=== PATIENT | male | born 1980 | race Caucasian/White ===

== ENCOUNTER 2017-06-08 22:50 | Inpatient (IN) | payer MEDICAID, SELFPAY ==
[2017-06-08 22:51] VITALS: BP 170/116; PULSE 87; RESP 17; TEMP 36.5; O2SAT 95; BMI 41.4
[2017-06-08 22:56] VITALS: O2SAT 100
--- NOTE | 2017-06-08 23:24 | RAD_ITS ---
STUDY: X-RAY CHEST REASON FOR EXAM: Male, 36 years old. Chest pain. TECHNIQUE: Single AP portable view of the chest. COMPARISON: 03/23/2013. FINDINGS: There is mild chronic elevation of the right hemidiaphragm. There are no demonstrated pulmonary infiltrates. There is no demonstrated pleural abnormality. Normal size heart. Normal mediastinum and lulu. Normal visualized pulmonary arteries. Normal visualized aortic arch and descending thoracic aorta. Normal visualized thoracic spine. There are postsurgical changes in the cervical spine. Normal visualized ribs, clavicles, and shoulders. There is no demonstrated abnormality of the visualized soft tissue structures of the upper abdomen. RAD/Chest 1 View (Portable) IMPRESSION: No evidence for acute cardiopulmonary pathology. Electronically Signed: Alli Davila MD at 0:07 EST , Service support ,
--- NOTE | 2017-06-08 23:24 | EKG12_ITS ---
Test Reason : CP Blood Pressure : / mmHG Vent. Rate : 086 BPM Atrial Rate : 086 BPM P-R Int : 164 ms QRS Dur : 094 ms QT Int : 386 ms P-R-T Axes : 031 057 056 degrees QTc Int : 461 ms Normal sinus rhythm Normal ECG Subtle inferior ischemia Confirmed by LAURI CENTENO, ALEX ([id number]), film and video editor MILAGROS PARKER ([id number]) on 06/10/2017 11:51:19 AM Referred By: CHAPITO Confirmed By:ALEX CARREON MD
[2017-06-08 23:27] VITALS: O2SAT 98
--- NOTE | 2017-06-08 23:28 | ED.VISSUMM ---
- ER Visit Summary Date of Service: 06/08/17 Chief Complaint: Chest pain History of Present Illness: The patient is a 36 M presenting with chest pain ?40 minutes. Patient states he was sleeping he felt his legs were restless he woke up and he had pain in his mid chest and throat. He has pain in his right shoulder as well but he states he is dealing with chronic right shoulder pain. He states it was a heavy sensation and burning in his throat. He has a history of acid reflux. He initially had shortness of breath but this resolved. He denies painful swallowing. He has a history of hypertension, family history of early heart disease, obesity. He is not a smoker. No PE/DVT risk factors. Physical Examination: Vitals are stable. Patient is afebrile. Alert no acute distress. HEENT exam is unremarkable. Pharynx is normal Neck is supple. Lungs are clear and equal bilaterally. Chest wall is nontender Heart is regular rate and rhythm. Abdomen is soft nontender nondistended. Extremities are unremarkable. Skin is warm and dry. Remainder of exam is unremarkable. Emergency Department Course and Treatment: Patient was given aspirin on arrival. EKG is sinus rate of 86, slight inferior ST elevation with no reciprocal changes, unchanged from previous EKG. He was given a GI cocktail. He states his symptoms have completely resolved following the GI cocktail. CBC, chemistries unremarkable. Troponin is indeterminate 0.12. EKGs were faxed to Dr. Nicole. He agrees that there is no significant change from previous EKG. EKG was repeated and is unchanged. He is pain free on re-eval. Discussed with the hospitalist for observation. Disposition: Observation Impression: Chest pain This note was generated with [employer] dictation software. It may contain incorrect words, spelling, and punctuation that were not noted in review of the chart prior to signing ED Disposition - Plan for ED Patient: Chief Complaint: Chest Pain Referrals: Cheyenne Rai [Primary Care Provider] -
--- NOTE | 2017-06-08 23:31 | ED.DCSUM_ITS ---
- ER Visit Summary Date of Service: 06/08/17 Chief Complaint: Chest pain History of Present Illness: The patient is a 36 M presenting with chest pain ? 40 minutes. Patient states he was sleeping he felt his legs were restless he woke up and he had pain in his mid chest and throat. He has pain in his right shoulder as well but he states he is dealing with chronic right shoulder pain. He states it was a heavy sensation and burning in his throat. He has a history of acid reflux. He initially had shortness of breath but this resolved. He denies painful swallowing. He has a history of hypertension, family history of early heart disease, obesity. He is not a smoker. No PE/DVT risk factors. Physical Examination: Vitals are stable. Patient is afebrile. Alert no acute distress. HEENT exam is unremarkable. Pharynx is normal Neck is supple. Lungs are clear and equal bilaterally. Chest wall is nontender Heart is regular rate and rhythm. Abdomen is soft nontender nondistended. Extremities are unremarkable. Skin is warm and dry. Remainder of exam is unremarkable. Emergency Department Course and Treatment: Patient was given aspirin on arrival. EKG is sinus rate of 86, slight inferior ST elevation with no reciprocal changes, unchanged from previous EKG. He was given a GI cocktail. He states his symptoms have completely resolved following the GI cocktail. CBC , chemistries unremarkable. Troponin is indeterminate 0.12. EKGs were faxed to Dr. Nicole. He agrees that there is no significant change from previous EKG. EKG was repeated and is unchanged. He is pain free on re-eval. Discussed with the hospitalist for observation. Disposition: Observation Impression: Chest pain This note was generated with [employer] dictation software. It may contain incorrect words, spelling, and punctuation that were not noted in review of the chart prior to signing ED Disposition - Plan for ED Patient: Chief Complaint: Chest Pain Referrals: Cheyenne Rai [Primary Care Provider] -
[2017-06-08 23:38] LABS: Absolute Lymphocyte Count 2.02 X10^3/ul (0.83-4.51); Absolute Neutrophil Count 3.2 X10^3/uL (2.0-7.7); Basophil# 0.03 X10^3/uL; Basophil% 0.5 % (0-1); Eosinophils% 4.9 % (0-5); Hematocrit 40.3 % (40-54); Hemoglobin 14.5 g/dl (13.0-16.5); Lymphocyte # 2.02 X10^3/ul (4.0); Lymphocyte % 33.3 % (19-41); Mean Corpuscular Hgb 31.9 pg (27.0-32.0); Mean Corpuscular Volume 88.8 fL (80-94); Mean Platelet Vol. 10.5 fl (6.2-12.0); Monocyte# 0.54 X10^3/uL; Monocyte% 8.9 % (0-10); Neutrophil # 3.17 X10^3/uL (2.7-7.7); Neutrophil % 52.2 % (47-70); Platelet Count 207 K/mm3 (150-450); RBC Distribution Width CV 12.4 % (11.6-14.6); RBC Distribution Width SD 39.5 fl (35.1-43.9); Red Blood Count 4.54 M/mm3 (4.6-6.2); White Blood Count 6.1 K/mm3 (4.4-11.0)
[2017-06-08 23:40] LABS: POSITIVE COUNT NO; POSITIVE DIFFERENTIAL NO; POSITIVE MORPHOLOGY NO
[2017-06-08 23:53] LABS: Anion Gap 9 (5-15); BUN 21 mg/dL (7-18); BUN/Creat Ratio 23.5 RATIO (10-20); Calcium,Total 8.3 mg/dL (8.5-10.1); Chloride 105 mmol/L (98-107); EST Glomerular Filtration Rate 102 mL/min (>60); Est Glom Filt Rate - Afr Amer 123 mL/min (>60); Estimated Creatinine Clearance 120.85 ml/min; Glucose 118 mg/dL (70-110); Potassium 3.7 mmol/L (3.5-5.1); Sodium Level 139 mmol/L (136-145)
[2017-06-08 23:59] LABS: D-Dimer Quantitative (DVT/PE) 0.33 FEU/ug/m (0.27-0.49)
[2017-06-09] VITALS (35 sets, daily range): BP systolic 100–192; BP diastolic 57–111; PULSE 66–97; RESP 10–21; TEMP 36.2–37.1; O2SAT 91–99; BMI 40.4; BMI 40.5; BMI 40.8
--- NOTE | 2017-06-09 00:08 | EKG12_ITS ---
Test Reason : REPEAT Blood Pressure : / mmHG Vent. Rate : 090 BPM Atrial Rate : 090 BPM P-R Int : 170 ms QRS Dur : 096 ms QT Int : 384 ms P-R-T Axes : 027 055 044 degrees QTc Int : 469 ms Normal sinus rhythm Normal ECG Subtle inferior ischemia changes Confirmed by LAURI CENTENO, ALEX ([id number]), communications editor MILAGROS PARKER ([id number]) on 06/10/2017 11:51:52 AM Referred By: CHAPITO Confirmed By:ALEX CARREON MD
--- NOTE | 2017-06-09 00:28 | PCM.HP.STD ---
Problem List (1) Chest pain Status: Acute Qualifiers: Chest pain type: unspecified Qualified Code(s): R07.9 - Chest pain, unspecified (2) Elevated blood pressure reading without diagnosis of hypertension Status: Acute (3) Morbid obesity Status: Chronic (4) GERD (gastroesophageal reflux disease) Status: Chronic Qualifiers: Esophagitis presence: esophagitis presence not specified Qualified Code(s): K21.9 - Gastro-esophageal reflux disease without esophagitis History of Present Illness Date of Admission: 06/09/17 Chief Complaint: Chest pain The patient is a 36 y/o M w/ PMHx: Morbid Obesity, GERD who presents to the [facility] ED on 06/09/17 w/ history of onset of chest anju at ~ 9:30 pm, awakening him from sleep, noted to be in the mid chest region with burning sensation and radiation into his throat as well as RUE with associated dyspnea lasting ~ 45 minutes. He does have chronic R shoulder discomfort and intermittent paresthesias s/p cervical fusion many years ago of note. In the ED work-up included T 97.7, HR 87, BP 170/116, RR 17, 100% on 2L NC, unremarkable CBC, D-dimer normal, BMP w/ BUN/Cr 21/0.90, glucose 118, trop 0.12, EKG w/ sinus rhythm with slight inferior ST elevation with no reciprocal changes, unchanged from previous EKG, CXR without acute findings. In the ED patient administered GI cocktail with resolution of symptoms following; however, this only lasted a short while and sxs returned. EKG was also sent to Dr. Nicole who agreed that there was no change from prior EKGs performed. ED noted Dr. Nicole recommendation for admission, cycling of cardiac enzymes. Past Medical History Past Medical History (Chronic Problems): Chronic Problems Morbid obesity (Chronic) GERD (gastroesophageal reflux disease) (Chronic) Allergies Penicillins Allergy (Verified 05/21/15 09:51) Angioedema Home Medications: Ambulatory Orders Medication Instructions Recorded No Known/Unobtainable [No Known 02/06/16 Home Medications] Surgical History: - - Tube right TM, Several prior BL ear tubes, T+A, R knee arthroscopic ACL surgery x 2, Neck Surgery C6-7 fusion. Psychiatric History: No pertinent psych hx Lives: Spouse/ Significant Other Smoking Status: Never smoker Tobacco Use: Non-smoker Alcohol: Occasional Drugs: None - *Family History Maternal History Items: Heart Disease, Hypertension Paternal History Items: Heart Disease, Hypertension Review of Systems Constitutional: Denies: Chills, Fever, Weight Change HEENT: Denies: Head Aches, Sinus Congestion, Sinus Drainage Cardiovascular: Reports: Chest Pain. Denies: Palpitations Respiratory: Reports: Shortness of Breath. Denies: Cough, Shortness of breath at rest, Sputum production Gastrointestinal: Denies: Abdominal Pain, Nausea, Vomiting Genitourinary: Denies: Dysuria Musculoskeletal: Denies: Joint Pain, Joint Tenderness Skin: Denies: Rash, Wounds Neurological: Denies: Numbness, Tingling, Focal weakness Psychiatric: Denies: Anxiety, Depression, Homicidal Ideations, Suicidal Ideations Hematologic/ Lymphatic: Denies: Easy Bruising, Easy Bleeding VTE Information - Inpt Only VTE Present on Admission: No VTE Mechan Device Prophylaxis: SCD's VTE Pharm Prophylaxis ordered?: Yes Patient Problems: Active and Suspected Problems Chest pain (Acute) Elevated blood pressure reading without diagnosis of hypertension (Acute) Subjective: Seated upright in the ED bed, no acute distress. Objective: Physical Examination: General: awake, alert, oriented x 3 and cooperative, seated upright in the ED bed in no apparent distress. Skin: normal color, turgor, no icterus, cyanosis. HEENT: AT/NC, EOMI, PERRLA, MMM, no carotid bruits or JVD noted. Lungs: CTA bilaterally, moderate effort, mild decrease BL bases, no rales, ronchi or wheezing. Heart: Regular rate and rhythm; no gallop, rub audible. Abdomen: soft, morbidly obese, NTTP, ND, normal BS, no HSM. Extremities: no cyanosis, clubbing, or edema. Neurological: patient awake, alert, oriented x 3; cognitive function intact; pupils equally reactive to light and accomodation; cranial nerves II-XII grossly normal, moving all 4 extremities, no focal deficits, strength preserved. Psychiatric: affect appears normal, no acute evidence of depressive or anxiety feelings. - Physical Exam Vital Signs Temp Pulse Resp BP Pulse Ox 97.7 F L 87 17 170/116 H 98 06/08/17 22:51 06/08/17 22:51 06/08/17 22:51 06/08/17 22:51 06/08/17 23:27 Oxygen Flow Rate 2 Oxygen Delivery Method Nasal Cannula Weight: 297 lb 6.457 oz Body Mass Index (BMI) 41.4 Laboratory Tests Past 24 Hrs 06/08/17 06/08/17 06/08/17 22:55 22:55 22:55 WBC 6.1 RBC 4.54 L Hgb 14.5 Hct 40.3 MCV 88.8 MCH 31.9 MCHC 36.0 RDW 12.4 RDW Differential 39.5 Plt Count 207 MPV 10.5 Immature Gran % (Auto) 0.200 Neut % (Auto) 52.2 Lymph % (Auto) 33.3 Citrus % (Auto) 8.9 Eos % (Auto) 4.9 Baso % (Auto) 0.5 Absolute Neuts (auto) 3.2 Absolute Lymphs (auto) 2.02 Total Counted Not Reportable D-Dimer Quant (PE/DVT) 0.33 Sodium 139 Potassium 3.7 Chloride 105 Carbon Dioxide 25.0 Anion Gap 9 BUN 21 H Creatinine 0.90 Estim Creat Clear Calc 120.85 Est GFR (MDRD) Af Amer 123 Est GFR (MDRD) Non-Af 102 BUN/Creatinine Ratio 23.5 H Glucose 118 H Calcium 8.3 L Troponin I 0.12 H Assessment/Plan Active and Suspected Problems Chest pain (Acute) Elevated blood pressure reading without diagnosis of hypertension (Acute) The patient is a 36 y/o M w/ PMHx: Morbid Obesity, GERD who presents to the [facility] ED on 06/09/17 w/ history of onset of chest anju at ~ 9:30 pm, awakening him from sleep, noted to be in the mid chest region with burning sensation and radiation into his throat as well as RUE with associated dyspnea lasting ~ 45 minutes. (1) Chest Pain w/ Indeterminate Cardiac Enzyme: In the ED work-up included T 97.7, HR 87, BP 170/116, RR 17, 100% on 2L NC, unremarkable CBC, D-dimer normal, BMP w/ BUN/Cr 21/0.90, glucose 118, trop 0.12, EKG w/ sinus rhythm with slight inferior ST elevation with no reciprocal changes, unchanged from previous EKG, unremarkable CXR. Will admit to CDU, place on a monitored bed to assure no acute myocardial infarction with serial cardiac enzymes and EKGs. Suspect likely GERD heavily contributing to his chest discomfort complaint; however, given indeterminate troponin with underlying family early cardiac history, elevated BP will further pursue stress testing in AM. FLP in AM. Mag pending. ASA, NG, morphine. (2) Elevated BP without HTN Diagnosis: Will initiate lisinopril, PRN hydralazine. Continue to alter regimen as needed, if further elevation in enzymes consider BB addition. Encouraged avoidance of caffeinated energy drinks which patient reportedly takes quite frequently and is aware that it does elevate his pressure as he has been off these prior with normal blood pressures; however, he was also exercising at that time as well. (3) Hyperglycemia: Admission glucose elevated, not marked, but will obtain HgbA1c. (4) Morbid Obesity: Weight loss and lifestyle changes encouraged, nutrition consulted. (5) GERD: Famotidine BID. (6) DVT Prophylaxis: SCDs, lovenox. Code Visit OBSV E&M: 45524 Initial observation care L3
--- NOTE | 2017-06-09 00:44 | HP.PCM_ITS ---
Problem List (1) Chest pain Status: Acute Qualifiers: Chest pain type: unspecified Qualified Code(s): R07.9 - Chest pain, unspecified (2) Elevated blood pressure reading without diagnosis of hypertension Status: Acute (3) Morbid obesity Status: Chronic (4) GERD (gastroesophageal reflux disease) Status: Chronic Qualifiers: Esophagitis presence: esophagitis presence not specified Qualified Code(s) : K21.9 - Gastro-esophageal reflux disease without esophagitis History of Present Illness Date of Admission: 06/09/17 Chief Complaint: Chest pain The patient is a 36 y/o M w/ PMHx: Morbid Obesity, GERD who presents to the [facility] ED on 06/09/17 w/ history of onset of chest anju at ~ 9:30 pm, awakening him from sleep, noted to be in the mid chest region with burning sensation and radiation into his throat as well as RUE with associated dyspnea lasting ~ 45 minutes. He does have chronic R shoulder discomfort and intermittent paresthesias s/p cervical fusion many years ago of note. In the ED work-up included T 97.7, HR 87 , BP 170/116, RR 17, 100% on 2L NC, unremarkable CBC, D-dimer normal, BMP w/ BUN /Cr 21/0.90, glucose 118, trop 0.12, EKG w/ sinus rhythm with slight inferior ST elevation with no reciprocal changes, unchanged from previous EKG, CXR without acute findings. In the ED patient administered GI cocktail with resolution of symptoms following; however, this only lasted a short while and sxs returned. EKG was also sent to Dr. Nicole who agreed that there was no change from prior EKGs performed. ED noted Dr. Nicole recommendation for admission, cycling of cardiac enzymes. Past Medical History Past Medical History (Chronic Problems): Chronic Problems Morbid obesity (Chronic) GERD (gastroesophageal reflux disease) (Chronic) Allergies Penicillins Allergy (Verified 05/21/15 09:51) Angioedema Home Medications: Ambulatory Orders Medication Instructions Recorded No Known/Unobtainable [No Known 02/06/16 Home Medications] Surgical History: - - Tube right TM, Several prior BL ear tubes, T+A, R knee arthroscopic ACL surgery x 2, Neck Surgery C6-7 fusion. Psychiatric History: No pertinent psych hx Lives: Spouse/ Significant Other Smoking Status: Never smoker Tobacco Use: Non-smoker Alcohol: Occasional Drugs: None - *Family History Maternal History Items: Heart Disease, Hypertension Paternal History Items: Heart Disease, Hypertension Review of Systems Constitutional: Denies: Chills, Fever, Weight Change HEENT: Denies: Head Aches, Sinus Congestion, Sinus Drainage Cardiovascular: Reports: Chest Pain. Denies: Palpitations Respiratory: Reports: Shortness of Breath. Denies: Cough, Shortness of breath at rest, Sputum production Gastrointestinal: Denies: Abdominal Pain, Nausea, Vomiting Genitourinary: Denies: Dysuria Musculoskeletal: Denies: Joint Pain, Joint Tenderness Skin: Denies: Rash, Wounds Neurological: Denies: Numbness, Tingling, Focal weakness Psychiatric: Denies: Anxiety, Depression, Homicidal Ideations, Suicidal Ideations Hematologic/ Lymphatic: Denies: Easy Bruising, Easy Bleeding VTE Information - Inpt Only VTE Present on Admission: No VTE Mechan Device Prophylaxis: SCD's VTE Pharm Prophylaxis ordered?: Yes Patient Problems: Active and Suspected Problems Chest pain (Acute) Elevated blood pressure reading without diagnosis of hypertension (Acute) Subjective: Seated upright in the ED bed, no acute distress. Objective: Physical Examination: General: awake, alert, oriented x 3 and cooperative, seated upright in the ED bed in no apparent distress. Skin: normal color, turgor, no icterus, cyanosis. HEENT: AT/NC, EOMI, PERRLA, MMM, no carotid bruits or JVD noted. Lungs: CTA bilaterally, moderate effort, mild decrease BL bases, no rales, ronchi or wheezing. Heart: Regular rate and rhythm; no gallop, rub audible. Abdomen: soft, morbidly obese, NTTP, ND, normal BS, no HSM. Extremities: no cyanosis, clubbing, or edema. Neurological: patient awake, alert, oriented x 3; cognitive function intact; pupils equally reactive to light and accomodation; cranial nerves II-XII grossly normal, moving all 4 extremities, no focal deficits, strength preserved. Psychiatric: affect appears normal, no acute evidence of depressive or anxiety feelings. - Physical Exam Vital Signs Temp Pulse Resp BP Pulse Ox 97.7 F L 87 17 170/116 H 98 06/08/17 22:51 06/08/17 22:51 06/08/17 22:51 06/08/17 22:51 06/08/17 23:27 Oxygen Flow Rate 2 Oxygen Delivery Method Nasal Cannula Weight: 297 lb 6.457 oz Body Mass Index (BMI) 41.4 Laboratory Tests Past 24 Hrs 06/08/17 06/08/17 06/08/17 22:55 22:55 22:55 WBC 6.1 RBC 4.54 L Hgb 14.5 Hct 40.3 MCV 88.8 MCH 31.9 MCHC 36.0 RDW 12.4 RDW Differential 39.5 Plt Count 207 MPV 10.5 Immature Gran % (Auto) 0.200 Neut % (Auto) 52.2 Lymph % (Auto) 33.3 Phillips % (Auto) 8.9 Eos % (Auto) 4.9 Baso % (Auto) 0.5 Absolute Neuts (auto) 3.2 Absolute Lymphs (auto) 2.02 Total Counted Not Reportable D-Dimer Quant (PE/DVT) 0.33 Sodium 139 Potassium 3.7 Chloride 105 Carbon Dioxide 25.0 Anion Gap 9 BUN 21 H Creatinine 0.90 Estim Creat Clear Calc 120.85 Est GFR (MDRD) Af Amer 123 Est GFR (MDRD) Non-Af 102 BUN/Creatinine Ratio 23.5 H Glucose 118 H Calcium 8.3 L Troponin I 0.12 H Assessment/Plan Active and Suspected Problems Chest pain (Acute) Elevated blood pressure reading without diagnosis of hypertension (Acute) The patient is a 36 y/o M w/ PMHx: Morbid Obesity, GERD who presents to the [facility] ED on 06/09/17 w/ history of onset of chest anju at ~ 9:30 pm, awakening him from sleep, noted to be in the mid chest region with burning sensation and radiation into his throat as well as RUE with associated dyspnea lasting ~ 45 minutes. (1) Chest Pain w/ Indeterminate Cardiac Enzyme: In the ED work-up included T 97.7, HR 87, BP 170/116, RR 17, 100% on 2L NC, unremarkable CBC, D-dimer normal , BMP w/ BUN/Cr 21/0.90, glucose 118, trop 0.12, EKG w/ sinus rhythm with slight inferior ST elevation with no reciprocal changes, unchanged from previous EKG, unremarkable CXR. Will admit to CDU, place on a monitored bed to assure no acute myocardial infarction with serial cardiac enzymes and EKGs. Suspect likely GERD heavily contributing to his chest discomfort complaint; however, given indeterminate troponin with underlying family early cardiac history, elevated BP will further pursue stress testing in AM. FLP in AM. Mag pending. ASA, NG, morphine. (2) Elevated BP without HTN Diagnosis: Will initiate lisinopril, PRN hydralazine. Continue to alter regimen as needed, if further elevation in enzymes consider BB addition. Encouraged avoidance of caffeinated energy drinks which patient reportedly takes quite frequently and is aware that it does elevate his pressure as he has been off these prior with normal blood pressures ; however, he was also exercising at that time as well. (3) Hyperglycemia: Admission glucose elevated, not marked, but will obtain HgbA1c. (4) Morbid Obesity: Weight loss and lifestyle changes encouraged, nutrition consulted. (5) GERD: Famotidine BID. (6) DVT Prophylaxis: SCDs, lovenox. Code Visit OBSV E&M: 60096 Initial observation care L3
[2017-06-09 01:32] LABS: Magnesium 2.1 mg/dL (1.6-2.6)
[2017-06-09 01:47] LABS: Hemoglobin A1c 5.3 % (4.2-6.3)
[2017-06-09] MEDS: oxyCODONE 5 MG Tablet PO ×3 (01:48→19:47)
[2017-06-09] MEDS: Lisinopril 10 MG Tablet PO ×2 (01:51→07:38)
[2017-06-09] MEDS: Famotidine 20 MG Tablet PO ×3 (01:51→22:25)
[2017-06-09 03:21] LABS: Absolute Lymphocyte Count 2.05 X10^3/ul (0.83-4.51); Absolute Neutrophil Count 2.7 X10^3/uL (2.0-7.7); Basophil# 0.03 X10^3/uL; Basophil% 0.6 % (0-1); Eosinophil# 0.24 X10^3/uL; Eosinophils% 4.4 % (0-5); Hematocrit 40.9 % (40-54); Hemoglobin 14.1 g/dl (13.0-16.5); Lymphocyte # 2.05 X10^3/ul (4.0); Lymphocyte % 37.8 % (19-41); Mean Corp Hgb Conc 34.5 g/gl (32-36); Mean Corpuscular Hgb 30.9 pg (27.0-32.0); Mean Corpuscular Volume 89.5 fL (80-94); Mean Platelet Vol. 10.1 fl (6.2-12.0); Monocyte# 0.45 X10^3/uL; Monocyte% 8.3 % (0-10); Neutrophil # 2.65 X10^3/uL (2.7-7.7); Neutrophil % 48.7 % (47-70); Platelet Count 197 K/mm3 (150-450); RBC Distribution Width CV 12.7 % (11.6-14.6); RBC Distribution Width SD 40.5 fl (35.1-43.9); Red Blood Count 4.57 M/mm3 (4.6-6.2); White Blood Count 5.4 K/mm3 (4.4-11.0)
[2017-06-09 03:28] LABS: Anion Gap 10 (5-15); BUN 17 mg/dL (7-18); BUN/Creat Ratio 22.9 RATIO (10-20); Calcium,Total 8.2 mg/dL (8.5-10.1); Chloride 105 mmol/L (98-107); Cholesterol 183 mg/dL (200); Creatinine, Serum 0.74 mg/dL (0.70-1.30); EST Glomerular Filtration Rate 126 mL/min (>60); Est Glom Filt Rate - Afr Amer 153 mL/min (>60); Estimated Creatinine Clearance 146.98 ml/min; Glucose 95 mg/dL (70-110); High Density Lipoprotein 30 mg/dL; Potassium 3.8 mmol/L (3.5-5.1); Sodium Level 140 mmol/L (136-145); Triglycerides 325 mg/dL; Very Low Density Lipoprotein 65 mg/dL (5-40)
[2017-06-09 03:33] LABS: POSITIVE COUNT NO; POSITIVE DIFFERENTIAL NO; POSITIVE MORPHOLOGY NO
--- NOTE | 2017-06-09 03:44 | ECHOD_ITS ---
Reason For Study: Chest pain Procedure This was a 2D Doppler, Color Flow transthoracic echocardiogram. Exam performed portable in ICU/CCU. Left Ventricle Normal LV size. Left ventricular systolic function is normal. The estimated ejection fraction is 55 %. Transmitral and pulmonary venous doppler flow suggestive of impaired relaxation of left ventricle. No regional wall motion abnormalities noted. Right Ventricle Normal RV size. Normal systolic function. Atria Normal left atrium. Normal right atrium. Mitral Valve Normal mitral valve. Tricuspid Valve Normal tricuspid valve. Aortic Valve Normal aortic valve. Trisinus/trileaflet aortic valve. Pulmonic Valve Normal pulmonic valve. Great Vessels Normal aortic root. The pulmonary artery is normal size. Normal inferior vena cava. Pericardium/Pleural No pericardial effusion. MMode/2D Measurements & Calculations LVIDd: 4.7 cm IVSd: 1.3 cm Ao root diam: 3.5 cm LVIDs: 2.8 cm LVPWd: 1.2 cm LA dimension: 4.0 cm RVDd: 3.7 cm FS: 40.4 % LAV(MOD-bp): 35.8 ml LA A4 area: 15.4 cm2 RA A4 area: 15.4 cm2 LAV(MOD-bp) Indexed: 14.5 ml/m2 LAV(MOD-sp2): 32.6 ml LAV(MOD-sp4): 37.9 ml Doppler Measurements & Calculations MV E max lee: 84.6 cm/sec Lat Peak E' Lee: 12.2 cm/sec Med Peak E' Lee: 7.4 cm/sec MV A max lee: 59.3 cm/sec E/E' lat: 6.9 E/E' med: 11.5 MV E/A: 1.4 Ao V2 max: 143.2 cm/sec LV V1 max: 114.6 cm/sec PA V2 max: 124.2 cm/sec Ao max P.2 mmHg LV V1 max P.3 mmHg Interpretation Summary Normal LV size. Left ventricular systolic function is normal. The estimated ejection fraction is 55 %. Transmitral and pulmonary venous doppler flow suggestive of impaired relaxation of left ventricle Ordering Physician: Violet Ordonez Referring Physician: Cheyenne Rai Performed By: Mireya Juan RDCS
[2017-06-09] MEDS: 0.9% Normal Saline 1,000 ML 100 ML IV ×2 (05:13→19:42)
[2017-06-09] MEDS: Atorvastatin Calcium 80 MG Tablet PO ×2 (05:15→22:24)
[2017-06-09] MEDS: Carvedilol 3.125 MG TABLET PO ×3 (05:15→22:24)
--- NOTE | 2017-06-09 05:55 | EKG12_ITS ---
Test Reason : AM EKG Blood Pressure : / mmHG Vent. Rate : 077 BPM Atrial Rate : 077 BPM P-R Int : 168 ms QRS Dur : 106 ms QT Int : 424 ms P-R-T Axes : 031 046 054 degrees QTc Int : 479 ms Normal sinus rhythm Normal ECG When compared with ECG of 12-FEB-2009 23:38, No significant change was found Confirmed by LAURI ECNTENO, ALEX ([id number]), advertising editor MILAGROS PARKER ([id number]) on 06/10/2017 12:00:43 PM Referred By: JUAN Confirmed By:ALEX CARREON MD
[2017-06-09 05:59] LABS: Prothrombin Time (Protime)PT. 12.8 SECONDS (11.7-14.9)
[2017-06-09 07:24] LABS: Bacteria 0 SEEN /hpf (None Seen); Mucous, Urine 0 SEEN /hpf (<or=2+); Red Blood Cells-Urine 0 SEEN /hpf (0-5); Squamous Epithelial Cells - UA 0 SEEN /hpf (0-5); White Blood Cells 0 SEEN /hpf (0-5)
[2017-06-09 07:28] LABS: Color, Urine Yellow (Yellow); Glucose, Dipstick Normal (Normal); Ketone-Dipstick Negative (Negative); Leukocyte Esterase-Dipstick Negative /ul (Negative); Nitrite-Dipstick Negative (Negative); Occult Blood-Urine Negative /ul (Negative); Protein-Dipstick Negative (Negative); Urine Bilirubin Dipstick Negative (Negative); Urine Clarity Clear (Clear); Urine Urobilinogen Normal (Normal); Urine pH 6.5 (5.0 - 8.0)
[2017-06-09] MEDS: Aspirin E.C. 81 MG Tablet PO (07:38)
[2017-06-09] MEDS: TICAGRELOR 90 MG TABLET 180 MG PO (07:38)
--- NOTE | 2017-06-09 07:38 | CON.PCM_ITS ---
Reason for Consult Date of Consultation: 06/09/17 Reason for Consultation: Chest pain. History of Present Illness: The patient is a 36 year old M no previous medical history other than gastroesophageal reflux disease who has been otherwise active. He says that yesterday in the evening he started getting some chest discomfort described as a tightness radiating to his throat associated with mild diaphoresis. He did not have any leg arm or jaw pain. And there was no exertional component to it such. He was however quite concerned about this he presented to the emergency room after calling the squad. He was given GI cocktail with some improvement in the discomfort. His EKG which was done demonstrated some subtle EKG changes in the inferior lead I discussed this with the emergency room physician and it was decided to bring him in and obtain cardiac enzymes. He says that after getting the GI cocktail his discomfort improved and is completely gone. He has had no previous chest pain or shortness of breath or paroxysmal nocturnal dyspnea pedal edema no recent travels. He does have a family history of coronary disease in his mother. To his cardiac enzymes being abnormal stress test which was here 2 4 scheduled has been canceled [] Past Medical History Allergies/Adverse Reactions: Allergies Penicillins Allergy (Verified 05/21/15 09:51) Angioedema Home Medications: Ambulatory Orders Medication Instructions Recorded Oxymetazolone 0.05% [Afrin (BKC)] 15 spray NASAL 06/09/17 Past Medical History (Chronic Problems): Chronic Problems Morbid obesity (Chronic) GERD (gastroesophageal reflux disease) (Chronic) Surgical History: - - Tube right TM, Several prior BL ear tubes, T+A, R knee arthroscopic ACL surgery x 2, Neck Surgery C6-7 fusion. Psychiatric History: No pertinent psych hx - *Family History Maternal History Items: Heart Disease, Hypertension Paternal History Items: Heart Disease, Hypertension Lives: Spouse/ Significant Other Smoking Status: Never smoker Tobacco Use: Non-smoker Alcohol: Occasional Drugs: None Review of Systems - Review of Systems General: Denies: Fever, Night Sweats, Fatigue Cardiovascular: Reports: Chest Discomfort, Chest Discomfort at Rest, Shortness of Breath. Denies: Orthopnea, PND, Peripheral Edema, Palpitations, Lightheadedness, Dizziness, Near Syncope, Syncope Respiratory: Denies: Cough, Sputum Production, Hemoptysis Gastrointestinal: Denies: Hematemesis, Hematochezia, Melena Genitourinary: Denies: Dysuria, Hematuria Skin: Denies: Rash Subjectve: Pleasant gentleman in no apparent distress Objective: Vital Signs Temp Pulse Resp BP Pulse Ox 97.2 F L 81 18 138/78 H 96 06/09/17 05:17 06/09/17 05:17 06/09/17 05:17 06/09/17 05:17 06/09/17 05:17 Oxygen Delivery Method Room Air Weight: 292 lb 5.327 oz Body Mass Index (BMI) 40.4 Intake and Output for Last 24 Hours 06/07/17 06/08/17 06/09/17 23:59 23:59 23:59 Intake Total 498 / 498 Balance 498 / 498 General: Awake, Alert, Oriented x 3 HEENT: PERRL, EOMI, Sclera Non Icteric Neck: Supple, Good ROM, No Lymph Node Enlargement Lungs: Clear to auscultation Cardiovascular: Regular Rhythm, Normal S1, Normal S2, No Murmurs, No Rubs, No Gallops Vascular: No Carotid Bruits, Normal Femoral Pulses, Normal Radial Pulses, Normal Dorsalis Pedal Pulse, Normal Posterior Tibial Pulses Abdomen: Bowel Sounds Present, Soft, Non Tender, No HSM, No Organomegaly Extremities: No Cyanosis, No Clubbing, No edema Neurological: No Focal Motor or Sensory Deficit Psych/Mental Status: Appropriate 06/09/17 02:59: Sodium 140, Potassium 3.8, Chloride 105, Carbon Dioxide 25.0, Anion Gap 10, BUN 17, Creatinine 0.74, Est GFR (MDRD) Af Amer 153, Est GFR (MDRD ) Non-Af 126, BUN/Creatinine Ratio 22.9 H, Glucose 95, Calcium 8.2 L, Triglycerides 325 H, Cholesterol 183, LDL Cholesterol 88, VLDL Cholesterol 65 H , HDL Cholesterol 30 L 06/09/17 02:59: WBC 5.4, RBC 4.57 L, Hgb 14.1, Hct 40.9, MCV 89.5, MCH 30.9, MCHC 34.5, RDW 12.7, RDW Differential 40.5, Plt Count 197, MPV 10.1, Immature Gran % (Auto) 0.200, Neut % (Auto) 48.7, Lymph % (Auto) 37.8, Moca % (Auto) 8.3 , Eos % (Auto) 4.4, Baso % (Auto) 0.6, Absolute Neuts (auto) 2.7, Total Counted Not Reportable 06/09/17 02:59: Troponin I 3.09 H* 06/09/17 05:00: PT 12.8, INR 1.0, APTT 33.0 06/09/17 06:00: Urine Color Yellow, Urine Clarity Clear, Urine pH 6.5, Ur Specific [place] 1.020, Urine Protein Negative, Urine Glucose (UA) Normal, Urine Ketones Negative, Urine Occult Blood Negative, Urine Nitrite Negative, Urine Bilirubin Negative, Urine Urobilinogen Normal, Ur Leukocyte Esterase Negative Rhythm: EKG: Normal sinus rhythm with subtle ST changes in the inferior leads. Assessment/Plan 1. Non-ST elevation myocardial infarction Mr. Landaverde presents with some chest discomfort and subtle EKG changes and has cardiac enzymes which are significant for a non-ST elevation myocardial infarction. My recommendation at this time even though his chest discomfort appears to be somewhat atypical and his pain is completely gone I would recommend that we further evaluate the above with a cardiac catheterization. He does have a low HDL and high triglycerides which suggests a possible metabolic syndrome together with his weight. I have discussed the above with him the risks benefits and alternatives he understands and agrees to proceed. In the meantime he will be started on aspirin as well as ticagrelor. 2. Hyperlipidemia He does have elevated lipid profile as well as low HDL. He would need to go on a diet as well as a statin. Thank you for allowing me to participate in the care of your patient. Please don't hesitate to call if any issues arise
--- NOTE | 2017-06-09 08:55 | CL.D_ITS ---
Patient Name: NIDIA DEMPSEY Study Date: 06/09/2017 Performing: Fernando Nicole MD Ht: 71.26 inches 181 cm : 1980 Wt: 293.21 lbs 133 kg Age: 36 Gender: male BSA: 2.49 PROCEDURE(S) PERFORMED LT83-TCZ/COR/LV CLINICAL PROFILE AND INDICATIONS INDICATIONS: 36-year-old man with a history of non-ST elevation myocardial infarction Stress/Imaging Stress/Image Study Performed: No CONCLUSIONS Moderately severe disease in the mid right coronary artery with evidence of plaque rupture RECOMMENDATIONS Referred for immediate PCI DESCRIPTION OF PROCEDURE The patient arrived to the procedure lab. The risks and benefits of the procedure as well as a full d escription of our services here and current unavailability of surgical backup were fully explained to the patient and/or their significant other prior to the catheterization. The Timeout was completed, verifying the correct patient and procedure. The patient's procedural site was prepped and draped in the usual fashion. Local anesthetic was given subcutaneously to right groin region with Lidocaine 2%. Using a modified Seldinger technique, arterial access was obtained via the right femoral artery, a 5 Fr sheath was inserted. Left Coronary Artery selective angiography was performed in multiple views u sing a 5 Fr. JL4 catheter. Right Coronary Artery selective angiography was then performed in multiple views using a 5 Fr. 3DRC (Yahir) catheter. Left Ventriculography was performed in SHAHID projection using a 5 Fr. Pigtail catheter. LV to AO pullback pressures were then recorded. CORONARY ANGIOGRAPHY DOMINANCE: Right Dominant LEFT HEART ASSESSMENT Left Ventricular Ejection Fraction: by LV Gram 60 % Normal Left Ventricular systolic function LEFT MAIN: Angiographically normal LEFT ANTERIOR DECENDING ARTERY: Angiographically normal CIRCUMFLEX ARTERY: Angiographically normal RIGHT CORONARY ARTERY: MID RCA: 75 % Stenosis COMPLICATIONS PROCEDURE MEDICATIONS Versed 1 mg IV Versed 1 mg IV Oxygen: 2 L/min via nasal cannula SUMMARY OF HEMODYNAMIC DATA Time AIR REST ECG 08:07:43 AO 141/100 (120) SA 08:16:44 LV 138/18, 20 08:25:14 LV 134/14, 20 08:25:20 LV 147/0, 20 08:26:25 LVp 148/1, 19 08:26:29 AOp 147/94 (117) 08:26:34 Signed By Fernando Nicole MD On 06/09/2017 08:54:51 Fernando Nicole MD
--- NOTE | 2017-06-09 09:28 | CL.I_ITS ---
Patient Name: NIDIA DEMPSEY Study Date: 06/09/2017 Performing: Eduar Meza MD Ht: 71.26 inches 181 cm : 1980 Wt: 293.21 lbs 133 kg Age: 36 Gender: male BSA: 2.49 PROCEDURE(S) PERFORMED FI13-KDK W OR WO PTCA, SINGLE CORONARY ARTERY CLINICAL PROFILE AND CO-MORBIDITIES INDICATIONS: 36-year-old man with a history of non-ST elevation myocardial infarction Stress/Imaging Stress/Image Study Performed: No CONCLUSIONS Successful PTCA/LUCA of the mid RCA with a 4.0 x 20 Promus Synergy, post dilated with a 4.0 x 12 NC [place], 75%-->0%. Pt had identical CP with stent and balloon inflation. RECOMMENDATIONS Highly recommend quitting all tobacco products Follow up with primary valve pipe irrigator Risk factor modification ASA Indefinitley Eliquis for at least 12 months Routine post interventional care Refer for Outpatient Cardiac Rehab Manual sheath removal per protocol Follow up with Dr. Nicole ASA Indefinitley DESCRIPTION OF PROCEDURE The patient arrived to the procedure lab. The risks and benefits of the procedure as well as a full d escription of our services here and current unavailability of surgical backup were fully explained to the patient and/or their significant other prior to the catheterization. The Timeout was completed, verifying the correct patient and procedure. The patient's procedural site was prepped and draped in the usual fashion. Local anesthetic was given subcutaneously to right groin region with Lidocaine 2% Using a modified Seldinger technique,arterial access was obtained via the right femoral artery, a 5Fr sheath was inserted. Left Coronary Artery selective angiography was performed in multiple views usin g a 5 Fr. JL4 catheter. Right Coronary Artery selective angiography was then performed in multiple vi ews using a 5 Fr. 3DRC (Yahir) catheter. Left Ventriculography was performed in SHAHID projection usi ng a 5 Fr. Pigtail catheter. LV to AO pullback pressures were then recorded.The images were reviewed and options discussed. A decision was then made to proceed with an Intervention, IVUS or other adjunc t procedure. Arterial sheath was exchanged for a 6 Fr Sheath Angiogram performed pre balloon dilatation. hs 2 Guid e catheter was inserted and engaged into the RCA. bmw Guide wire was advanced to the RCA. synergy 4 x 20 Drug Eluting stent was advanced across the lesion in the right coronary, mid. Angiogram performed pre stent deployment. Angiogram performed post stent deployment. nc emerge 4.00 x 12 Balloon cathete r was inserted post stent. Angiogram performed post balloon dilatation.. . The arterial sheath was s utured in place and capped. INTERVENTION INFORMATION LESION SITE: RCA (Mid) Lesion Complexity: High/C, lesion at bifurcation: Yes, thrombus present: No, culprit lesion: Yes Pre Stenosis: 75 % Pre intervention KIKI flow: 3 PROCEDURE: Drug Eluting Stent with pre and post dilatation Post Stenosis: 0 % Post intervention KIKI flow: 3 Lesion Devices: [email or web address] 6 Fr HSII 100cm Guide Catheter Padgett .014 [employer] [place] Straight 190cm Nir Sci Synergy MR LUCA 4.00x20 Nir Sci NC EMERGE MR 4.00x12 BALLOON COMPLICATIONS PROCEDURE MEDICATIONS Versed 1 mg IV Versed 1 mg IV Oxygen: 2 L/min via nasal cannula Heparin 6000 unit(s) IV 06/09/2017 09:04:45 Nitro 200 mcg IC 06/09/2017 09:07:34 Nitro 200 mcg IC 06/09/2017 09:07:34 SUMMARY OF HEMODYNAMIC DATA Time AIR REST ECG 08:07:43 AO 141/100 (120) SA 08:16:44 LV 138/18, 20 08:25:14 LV 134/14, 20 08:25:20 LV 147/0, 20 08:26:25 LVp 148/1, 19 08:26:29 AOp 147/94 (117) 08:26:34 Signed By Eduar Meza MD On 06/09/2017 9:27:34 AM Eduar Meza MD
--- NOTE | 2017-06-09 10:03 | EKG12_ITS ---
Test Reason : Blood Pressure : / mmHG Vent. Rate : 067 BPM Atrial Rate : 067 BPM P-R Int : 164 ms QRS Dur : 108 ms QT Int : 440 ms P-R-T Axes : 019 063 059 degrees QTc Int : 464 ms Normal sinus rhythm Normal ECG Confirmed by DAINA CENTENO, MIGUEL ([id number]), technical editor MILAGROS PARKER ([id number] on 06/16/2017 12:53:54 PM Referred By: Confirmed By:MIGUEL LAMA MD
[2017-06-09 10:35] LABS: CPK Total, Creatine Kinase 282 U/L (39-308)
[2017-06-09] MEDS: 0.9% Normal Saline 1,000 ML 150 ML IV (11:05)
[2017-06-09 12:01] LABS: ACT Activated Clotting Time 175 sec (74-137)
[2017-06-09 12:06] LABS: ACT Activated Clotting Time 142 sec (74-137)
[2017-06-09 13:06] LABS: M R Staph aureus DNA By PCR Negative (Negative); Probe Check PASS; Specimen Processing Control PASS
--- NOTE | 2017-06-09 13:15 | CRPHASE1 ---
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 Hx Hypertension: Yes - Some high blood pressure in Hospital Hx Metabolic Disorders: Yes Hx Dyslipidemia: Yes Hx Obesity: Yes Height: 1.8 m Weight:: 132.903 kg BMI: 40.8 Family History: Heart Disease - Mother with early heart disease. Laboratory Values: Cardiac Rehab Phase I Labs Hemoglobin A1c 5.3 % (4.2-6.3) 06/08/17 22:55 Triglycerides 325 mg/dL (-199) H 06/09/17 02:59 Cholesterol 183 mg/dL (200) 06/09/17 02:59 LDL Cholesterol 88 mg/dL (0-130) 06/09/17 02:59 HDL Cholesterol 30 mg/dL (40-) L 06/09/17 02:59 Phase I Education Given On:: [place], Nutrition, Antiplatelet medication, CHF Issues Affecting Care:: None Knowledge of Condition:: Yes Learning Preferences: Verbal, Written, Audio/Visual, Demonstration Hospital Course Presenting Symptoms:: NSTEMI with chest burning sensation, radiation to throat and RUE and SOB. Medical/Surgical History GERD:: Yes Orthopedic:: Yes - Cervical fusion in past. Discharge/Home/Social Eval Marital Status: Patient Lives With:: and 3 children.
--- NOTE | 2017-06-09 13:21 | CRPHASE1_ITS ---
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 Hx Hypertension: Yes - Some high blood pressure in Hospital Hx Metabolic Disorders: Yes Hx Dyslipidemia: Yes Hx Obesity: Yes Height: 1.8 m Weight:: 132.903 kg BMI: 40.8 Family History: Heart Disease - Mother with early heart disease. Laboratory Values: Cardiac Rehab Phase I Labs Hemoglobin A1c 5.3 % (4.2-6.3) 06/08/17 22:55 Triglycerides 325 mg/dL (-199) H 06/09/17 02:59 Cholesterol 183 mg/dL (200) 06/09/17 02:59 LDL Cholesterol 88 mg/dL (0-130) 06/09/17 02:59 HDL Cholesterol 30 mg/dL (40-) L 06/09/17 02:59 Phase I Education Given On:: [place], Nutrition, Antiplatelet medication, CHF Issues Affecting Care:: None Knowledge of Condition:: Yes Learning Preferences: Verbal, Written, Audio/Visual, Demonstration Hospital Course Presenting Symptoms:: NSTEMI with chest burning sensation, radiation to throat and RUE and SOB. Medical/Surgical History GERD:: Yes Orthopedic:: Yes - Cervical fusion in past. Discharge/Home/Social Eval Marital Status: Patient Lives With:: and 3 children.
--- NOTE | 2017-06-09 13:21 | CRPH1.INSTRU ---
General Education CAD and cardiac anatomy and function:: Patient communicates acknowledgment, Family communicates acknowledgment - instructed also., Needs reinforcement Explanation of diagnoses and procedures:: Patient communicates acknowledgment, Family communicates acknowledgment, Needs reinforcement Sign/Symptoms of PA:: Patient communicates acknowledgment, Family communicates acknowledgment, Needs reinforcement Antiplatelet therapy: Patient communicates acknowledgment, Family communicates acknowledgment, Needs reinforcement Proper use of NTG-SL: Patient communicates acknowledgment, Family communicates acknowledgment, Needs reinforcement Emergency procedures and activation of EMS: Patient communicates acknowledgment, Family communicates acknowledgment, Needs reinforcement Compliance of all prescribed medications: Patient communicates acknowledgment, Family communicates acknowledgment, Needs reinforcement Smoking Patient Nicotine/Smoking Risk Factors Are:: Non-smoker Recommendations Include:: Previous smoker; encourage continued cessation Nicotine/Smoking Response Code:: Patient communicates acknowledgment, Family communicates acknowledgment, Patient returns demonstration, Family returns demonstration Dyslipidemia Patient Dyslipidemia Risk Factors Are:: Total Cholesterol, Triglycerides, HDL, LDL Recommendations Include:: Lipid profile provided, Reviewed NCEP/ATP guidelines, Therapeutic Lifestyle Change dietary guidelines Dyslipidemia Response Code:: Patient communicates acknowledgment, Family communicates acknowledgment, Needs reinforcement Overweight/Obesity Patient Overweight/Obesity Risk Factors Are:: Obesity - > or = 30 Recommendations Include:: Weight loss of 5-10%, Reduced calorie diet, Exercise 5-7 times/week Overweight/Obesity:: Patient communicates acknowledgment, Family communicates acknowledgment, Needs reinforcement Hypertension Recommendations Include:: Maintain BP <130/85, DASH dietary guidelines, Decrease/maintain normal body weight, Moderation of ETOH Hypertension:: Patient communicates acknowledgment, Family communicates acknowledgment, Needs reinforcement Heart Disease Patient Heart Disease Risk Factors Are:: Family history of heart disease < 65 years old Recommendations Include:: Educated family members of their risk, Educated family members of importance of prevention of heart disease Heart Disease Response Code:: Patient communicates acknowledgment, Family communicates acknowledgment, Needs reinforcement Diabetes Patient Diabetes Risk Factors Are:: No documented hx of diabetes, Elevated blood sugars Diabetes:: Not instructed Metabolic Syndrome Patient Metabolic Syndrome Risk Factors Are [3 of 5]:: Waist circumference > 35 [female] or 40 [male], High triglyceride >150, Hypertension, Low HDL <40 [male] or < 50 [female] Recommendations Include:: Reinforce compliance to risk factor modifications, Encouraged follow-up with Primary Care Physician Metabolic Syndrome Response Code:: Patient communicates acknowledgment, Family communicates acknowledgment, Needs reinforcement Sedentary Patient Sedentary Risk Factors Are:: Lack of regular exercise Recommendations Include:: Aerobic exercise 5-7 times/week for 20-30 minutes continuously, Benefits of regular exercise, Discussed home walking program, Monitored Outpatient Cardiac Rehab Sedentary Response Code:: Patient communicates acknowledgment, Family communicates acknowledgment, Needs reinforcement Stress Patient Stress Risk Factors Are:: Patient denies stress as a risk factor Stress Response Code:: Patient communicates acknowledgment, Family communicates acknowledgment
--- NOTE | 2017-06-09 13:25 | CRPH1.INST_ITS ---
General Education CAD and cardiac anatomy and function:: Patient communicates acknowledgment, Family communicates acknowledgment - instructed also., Needs reinforcement Explanation of diagnoses and procedures:: Patient communicates acknowledgment, Family communicates acknowledgment, Needs reinforcement Sign/Symptoms of GA:: Patient communicates acknowledgment, Family communicates acknowledgment, Needs reinforcement Antiplatelet therapy: Patient communicates acknowledgment, Family communicates acknowledgment, Needs reinforcement Proper use of NTG-SL: Patient communicates acknowledgment, Family communicates acknowledgment, Needs reinforcement Emergency procedures and activation of EMS: Patient communicates acknowledgment , Family communicates acknowledgment, Needs reinforcement Compliance of all prescribed medications: Patient communicates acknowledgment, Family communicates acknowledgment, Needs reinforcement Smoking Patient Nicotine/Smoking Risk Factors Are:: Non-smoker Recommendations Include:: Previous smoker; encourage continued cessation Nicotine/Smoking Response Code:: Patient communicates acknowledgment, Family communicates acknowledgment, Patient returns demonstration, Family returns demonstration Dyslipidemia Patient Dyslipidemia Risk Factors Are:: Total Cholesterol, Triglycerides, HDL, LDL Recommendations Include:: Lipid profile provided, Reviewed NCEP/ATP guidelines, Therapeutic Lifestyle Change dietary guidelines Dyslipidemia Response Code:: Patient communicates acknowledgment, Family communicates acknowledgment, Needs reinforcement Overweight/Obesity Patient Overweight/Obesity Risk Factors Are:: Obesity - > or = 30 Recommendations Include:: Weight loss of 5-10%, Reduced calorie diet, Exercise 5 -7 times/week Overweight/Obesity:: Patient communicates acknowledgment, Family communicates acknowledgment, Needs reinforcement Hypertension Recommendations Include:: Maintain BP <130/85, DASH dietary guidelines, Decrease /maintain normal body weight, Moderation of ETOH Hypertension:: Patient communicates acknowledgment, Family communicates acknowledgment, Needs reinforcement Heart Disease Patient Heart Disease Risk Factors Are:: Family history of heart disease < 65 years old Recommendations Include:: Educated family members of their risk, Educated family members of importance of prevention of heart disease Heart Disease Response Code:: Patient communicates acknowledgment, Family communicates acknowledgment, Needs reinforcement Diabetes Patient Diabetes Risk Factors Are:: No documented hx of diabetes, Elevated blood sugars Diabetes:: Not instructed Metabolic Syndrome Patient Metabolic Syndrome Risk Factors Are [3 of 5]:: Waist circumference > 35 [female] or 40 [male], High triglyceride >150, Hypertension, Low HDL <40 [ male] or < 50 [female] Recommendations Include:: Reinforce compliance to risk factor modifications, Encouraged follow-up with Primary Care Physician Metabolic Syndrome Response Code:: Patient communicates acknowledgment, Family communicates acknowledgment, Needs reinforcement Sedentary Patient Sedentary Risk Factors Are:: Lack of regular exercise Recommendations Include:: Aerobic exercise 5-7 times/week for 20-30 minutes continuously, Benefits of regular exercise, Discussed home walking program, Monitored Outpatient Cardiac Rehab Sedentary Response Code:: Patient communicates acknowledgment, Family communicates acknowledgment, Needs reinforcement Stress Patient Stress Risk Factors Are:: Patient denies stress as a risk factor Stress Response Code:: Patient communicates acknowledgment, Family communicates acknowledgment
--- NOTE | 2017-06-09 14:40 | CASEMGMT ---
See Assessment Link. DC Plan: home on dc with prescriptions filled through [facility] pharmacy assist. -Brillinta card given to pt to give to pharmacist. -[employer] (Brill[employer]) Prescription Savings Program application started-left on front of chart for Dr. Meza to complete. Will then give form to patient to complete his portion and can mail in to [place] for assistance with Brillinta. (message left with Dr. Meza's litigation secretary re: form, hopefully she can notify him in office. Nurse Wallace also aware.)
--- NOTE | 2017-06-09 15:11 | CASEMGMT ---
SW did meet w/pt briefly, gave him some resources including a Medicaid blair, resources in [facility], [facility] and [facility] assist. Also, pt will need to use hospital assist at discharge for meds, SW did explain that this can only be used once per year. Pt states understanding. SW encouraged pt to complete or have his complete the Medicaid blair, and SW can fax it to S in [place] tomorrow. SW did also leave a message for pt financial services. FRIDA will continue to follow. ELANA Carrillo, TERRAZZO POLISHER
[2017-06-09 17:49] LABS: CPK Total, Creatine Kinase 202 U/L (39-308)
[2017-06-09] MEDS: TICAGRELOR 90 MG TABLET PO (22:23)
[2017-06-09 22:54] LABS: CPK Total, Creatine Kinase 184 U/L (39-308)
[2017-06-10] VITALS (11 sets, daily range): BP systolic 103–132; BP diastolic 56–78; PULSE 69–96; RESP 10–18; TEMP 36.5–36.9; O2SAT 90–97
[2017-06-10] MEDS: oxyCODONE 5 MG Tablet PO (00:07)
[2017-06-10 04:08] LABS: Hematocrit 39.8 % (40-54); Hemoglobin 13.8 g/dl (13.0-16.5); Mean Corp Hgb Conc 34.7 g/gl (32-36); Mean Corpuscular Hgb 31.3 pg (27.0-32.0); Mean Corpuscular Volume 90.2 fL (80-94); Mean Platelet Vol. 10.2 fl (6.2-12.0); Platelet Count 199 K/mm3 (150-450); RBC Distribution Width CV 12.7 % (11.6-14.6); RBC Distribution Width SD 41.4 fl (35.1-43.9); Red Blood Count 4.41 M/mm3 (4.6-6.2); White Blood Count 8.1 K/mm3 (4.4-11.0)
[2017-06-10 04:15] LABS: Scan Indicated on CBC? Y/N NO
[2017-06-10 04:24] LABS: Anion Gap 6 (5-15); BUN 16 mg/dL (7-18); BUN/Creat Ratio 19.5 RATIO (10-20); Calcium,Total 8.2 mg/dL (8.5-10.1); Chloride 103 mmol/L (98-107); Creatinine, Serum 0.82 mg/dL (0.70-1.30); EST Glomerular Filtration Rate 113 mL/min (>60); Est Glom Filt Rate - Afr Amer 136 mL/min (>60); Estimated Creatinine Clearance 132.64 ml/min; Glucose 94 mg/dL (70-110); Potassium 4.5 mmol/L (3.5-5.1); Sodium Level 136 mmol/L (136-145)
--- NOTE | 2017-06-10 05:55 | EKG12_ITS ---
Test Reason : AM EKG Blood Pressure : / mmHG Vent. Rate : 078 BPM Atrial Rate : 078 BPM P-R Int : 158 ms QRS Dur : 104 ms QT Int : 394 ms P-R-T Axes : 031 061 052 degrees QTc Int : 449 ms Normal sinus rhythm Normal ECG Confirmed by DAINA CENTENO, MIGUEL ([id number]), editor map MILAGROS PARKER ([id number] on 06/16/2017 12:51:39 PM Referred By: NOLBERTO Confirmed By:MIGUEL LAMA MD
[2017-06-10] MEDS: 0.9% Normal Saline 1,000 ML 100 ML IV (06:18)
--- NOTE | 2017-06-10 08:27 | PN.CARD_ITS ---
Subjectve: Seen and evaluated and appears to be doing well. He says he has no complaints whatsoever. Objective: Vital Signs Temp Pulse Resp BP Pulse Ox 97.7 F L 77 15 116/58 L 92 06/10/17 07:40 06/10/17 07:45 06/10/17 07:40 06/10/17 07:40 06/10/17 07:40 Oxygen Flow Rate 2 Oxygen Delivery Method Room Air Weight: 289 lb 14.526 oz Body Mass Index (BMI) 40.4 Intake and Output for Last 24 Hours 06/08/17 06/09/17 06/10/17 23:59 23:59 23:59 Intake Total 1825 / 1825 2382 / 2382 Output Total 1900 / 1900 500 / 500 Balance -75 / -75 188 / 188 General: Awake, Alert, Oriented x 3 HEENT: PERRL, EOMI, Sclera Non Icteric Neck: Supple, Good ROM, No Lymph Node Enlargement Lungs: Clear to auscultation Cardiovascular: Regular Rhythm, Normal S1, Normal S2, No Murmurs, No Rubs, No Gallops 06/10/17 03:55: Sodium 136, Potassium 4.5, Chloride 103, Carbon Dioxide 27.0, Anion Gap 6, BUN 16, Creatinine 0.82, Est GFR (MDRD) Af Amer 136, Est GFR (MDRD ) Non-Af 113, BUN/Creatinine Ratio 19.5, Glucose 94, Calcium 8.2 L 06/10/17 03:55: WBC 8.1, RBC 4.41 L, Hgb 13.8, Hct 39.8 L, MCV 90.2, MCH 31.3, MCHC 34.7, RDW 12.7, RDW Differential 41.4, Plt Count 199, MPV 10.2 Rhythm: EKG: Sinus rhythm with no acute changes Assessment/Plan 1. Non-ST elevation myocardial infarction When cardiac catheterization yesterday with a resulting plaque rupture mid right coronary artery for which she underwent angioplasty and stenting with a drug-eluting stent successfully. He has done well since then denying any chest pain. His EKG is normal this morning and his hemoglobin is stable without any significant drop. His creatinine is also noted to be stable without any significant rise. At this time he can be discharged and followed up as an outpatient. He will be discharged on the following. Coreg 3.5125 mg twice a day Lisinopril 10 mg a day Aspirin 81 mg a day Atorvastatin 80 mg a day Carvedilol 90 mg twice a day Patient follow-up has been scheduled in my office. 2. Hyperlipidemia He does have elevated lipid profile as well as low HDL. He would need to go on a diet as well as a statin. Thank you for allowing me to participate in the care of your patient. Please don't hesitate to call if any issues arise
--- NOTE | 2017-06-10 10:11 | CASEMGMT ---
Addendum entered by Cydney Walker 06/10/17 11:40: Scripts were sent to the pharmacy, gave the pharmacy the Medicaid number. Pt has a $2 copay. SW let pt know the cost. No further needs are anticipated. ELANA Carrillo, TRAINING SPECIALIST Original Note: FRIDA learned from Marita in the financial dept that pt has presumptive Medicaid, which means pt is covered for outpt services and meds, and once the application goes fully through pt will have hospital coverage as well. SW spoke w/pt and in room, explained the above. Pt has not applied for Medicaid since last year. He explains he applied, was denied, then got a letter at the end of the year for tax purposes stating pt had Medicaid since November. SW encouraged pt and to bring all of this documentation into [facility] and figure out what is going on, they plan to do so. SW explained that once the scripts are written SW will send them to the pharmacy here w/the insurance coverage information. If it comes up that pt is not covered, we will use hospital assist to get pt his medications. Pt and state understanding, SW will continue to follow. ELANA Carrillo, TRAINING SPECIALIST
[2017-06-10] MEDS: Aspirin E.C. 81 MG Tablet PO (10:13)
[2017-06-10] MEDS: TICAGRELOR 90 MG TABLET PO (10:14)
[2017-06-10] MEDS: Famotidine 20 MG Tablet PO (10:14)
[2017-06-10] MEDS: Carvedilol 3.125 MG TABLET PO (10:14)
--- NOTE | 2017-06-10 10:47 | PCM.DC ---
- Discharge Diagnoses Current Active Problems: Current Active and Chronic Problems Chest pain (Acute) Elevated blood pressure reading without diagnosis of hypertension (Acute) Morbid obesity (Chronic) GERD (gastroesophageal reflux disease) (Chronic) You will use the following diet at home:: No restrictions Your food should be the consistency of: Regular Your liquids should be the consistency of: Regular/Thin Discharge Activity: Return to Normal Activity Weight Bearing Status: Full weight bearing Allergies/Adverse Reactions: Allergies Penicillins Allergy (Verified 05/21/15 09:51) Angioedema Medications to take at Discharge Oxymetazolone 0.05% [Afrin (BKC)] 15 spray NASAL 06/09/17 Aspirin E.C. [Ecotrin] 81 mg PO DAILY@0800 tablet 06/10/17 Atorvastatin Calcium [Lipitor] 80 mg PO QHS #30 tab 06/10/17 Carvedilol [Coreg (Beta Norma)] 3.125 mg PO BID #60 tab 06/10/17 Lisinopril [Zestril] 10 mg PO DAILY #30 tab 06/10/17 Ticagrelor [Brilinta] 90 mg PO BID #60 tab 06/10/17 The following prescriptions were given: Atorvastatin Calcium [Lipitor] 80 mg PO QHS #30 tab Lisinopril [Zestril] 10 mg PO DAILY #30 tab Carvedilol [Coreg (Beta Norma)] 3.125 mg PO BID #60 tab Ticagrelor [Brilinta] 90 mg PO BID #60 tab Primary Care Physician: Cheyenne Rai [Primary Care Provider] - Please follow up with your Primary Care Physician in: 3-4 weeks Please Follow Up With: Fernando Nicole MD When: next week
--- NOTE | 2017-06-12 08:14 | PCM.DC.SUM ---
Discharge Date and Diagnosis Date of Admission: 06/09/17 Date of Discharge: 06/10/17 - Primary Discharge Diagnosis #1 acute non-ST elevation MD #2 hyperlipidemia - Secondary Discharge Diagnosis Chronic Problems Morbid obesity (Chronic) GERD (gastroesophageal reflux disease) (Chronic) Hospital Course and Treatment Operations: None Procedures: Cardiac catheterization - With drug-eluting stent placement in the right coronary artery Summary of Care Provided: The patient is a 36 year old M was seen in the emergency room at [facility] with chief complaint of chest pain. Workup in the emergency room included an EKG and a chest x-ray as well as cardiac enzymes, cardiac enzymes are intermediate, chest x-ray was unremarkable, EKG showed normal sinus rhythm without ischemic changes. Patient was admitted to the clinical decision unit at [facility], cardiac enzymes were cycled and they became positive indicating a non-STEMI. He was seen in consultation by cardiology who performed catheterization which showed a preserved EF but a 75% occlusion of the right coronary artery. This lesion on the right coronary artery was stented with a drug-eluting stent, patient went to the ICU following the stenting. Patient had no complications during his hospitalization, on 06/10/17, patient was seen and examined and felt to be in stable condition for discharge home Discharge Activity: Return to Normal Activity Weight Bearing Status: Full weight bearing Home Medications: Medications to take at Discharge Oxymetazolone 0.05% [Afrin (BKC)] 15 spray NASAL 06/09/17 Aspirin E.C. [Ecotrin] 81 mg PO DAILY@0800 tablet 06/10/17 Atorvastatin Calcium [Lipitor] 80 mg PO QHS #30 tab 06/10/17 Carvedilol [Coreg (Beta Norma)] 3.125 mg PO BID #60 tab 06/10/17 Lisinopril [Zestril] 10 mg PO DAILY #30 tab 06/10/17 Ticagrelor [Brilinta] 90 mg PO BID #60 tab 06/10/17 Following Prescrptions Were Given to Patient: Atorvastatin Calcium [Lipitor] 80 mg PO QHS #30 tab Lisinopril [Zestril] 10 mg PO DAILY #30 tab Carvedilol [Coreg (Beta Norma)] 3.125 mg PO BID #60 tab Ticagrelor [Brilinta] 90 mg PO BID #60 tab Primary Care Physician: Cheyenne Rai [Primary Care Provider] - Please follow up with your Primary Care Physician in: 3-4 weeks Please Follow Up With: Fernando Nicole MD When: next week Disposition: Home Minutes spent on discharge:: 32 Patient Condition:: Stable Meaningful Use Info Meaningful Use Diagnoses (Choose all that apply): AMI - AMI Aspirin given w/in 24hrs of arrival?: Yes ASA at discharge?: Yes Statins at discharge?: Yes David/ARB at discharge?: Yes Beta Norma at discharge?: Yes Done w/ Acute MD measure.: Yes Code Visit Inpatient E&M: 63330 Disch Hosp
--- NOTE | 2017-06-12 08:19 | DS.PCM_ITS ---
Discharge Date and Diagnosis Date of Admission: 06/09/17 Date of Discharge: 06/10/17 - Primary Discharge Diagnosis #1 acute non-ST elevation TN #2 hyperlipidemia - Secondary Discharge Diagnosis Chronic Problems Morbid obesity (Chronic) GERD (gastroesophageal reflux disease) (Chronic) Hospital Course and Treatment Operations: None Procedures: Cardiac catheterization - With drug-eluting stent placement in the right coronary artery Summary of Care Provided: The patient is a 36 year old M was seen in the emergency room at [facility] with chief complaint of chest pain. Workup in the emergency room included an EKG and a chest x-ray as well as cardiac enzymes, cardiac enzymes are intermediate, chest x-ray was unremarkable, EKG showed normal sinus rhythm without ischemic changes. Patient was admitted to the clinical decision unit at [facility], cardiac enzymes were cycled and they became positive indicating a non-STEMI. He was seen in consultation by cardiology who performed catheterization which showed a preserved EF but a 75% occlusion of the right coronary artery. This lesion on the right coronary artery was stented with a drug-eluting stent, patient went to the ICU following the stenting. Patient had no complications during his hospitalization, on 06/10/17, patient was seen and examined and felt to be in stable condition for discharge home Discharge Activity: Return to Normal Activity Weight Bearing Status: Full weight bearing Home Medications: Medications to take at Discharge Oxymetazolone 0.05% [Afrin (BKC)] 15 spray NASAL 06/09/17 Aspirin E.C. [Ecotrin] 81 mg PO DAILY@0800 tablet 06/10/17 Atorvastatin Calcium [Lipitor] 80 mg PO QHS #30 tab 06/10/17 Carvedilol [Coreg (Beta Norma)] 3.125 mg PO BID #60 tab 06/10/17 Lisinopril [Zestril] 10 mg PO DAILY #30 tab 06/10/17 Ticagrelor [Brilinta] 90 mg PO BID #60 tab 06/10/17 Following Prescrptions Were Given to Patient: Atorvastatin Calcium [Lipitor] 80 mg PO QHS #30 tab Lisinopril [Zestril] 10 mg PO DAILY #30 tab Carvedilol [Coreg (Beta Norma)] 3.125 mg PO BID #60 tab Ticagrelor [Brilinta] 90 mg PO BID #60 tab Primary Care Physician: Cheyenne Rai [Primary Care Provider] - Please follow up with your Primary Care Physician in: 3-4 weeks Please Follow Up With: Fernando Nicole MD When: next week Disposition: Home Minutes spent on discharge:: 32 Patient Condition:: Stable Meaningful Use Info Meaningful Use Diagnoses (Choose all that apply): AMI - AMI Aspirin given w/in 24hrs of arrival?: Yes ASA at discharge?: Yes Statins at discharge?: Yes David/ARB at discharge?: Yes Beta Norma at discharge?: Yes Done w/ Acute [place] measure.: Yes Code Visit Inpatient E&M: 13363 Disch Hosp
== END 2017-06-10 12:00 | disposition home or self-care (01) | DRG 116 ==
LOC: ED 23:29 → PCU 06-09 01:00 → ICU 06-10 07:54 → PCU 06-10 08:03
PROVIDERS: Internal Medicine Cardiovascular Disease; Admitting Provider Family Medicine; Emergency Provider Emergency Medicine; Family Provider Nurse Practitioner; PCP Nurse Practitioner; Visit Provider Internal Medicine
DX: I21.4 Non-ST elevation (NSTEMI) myocardial infarction (principal); E66.01 Morbid (severe) obesity due to excess calories; E78.5 Hyperlipidemia, unspecified; Z68.41 Body mass index [BMI] 40.0-44.9, adult; K21.9 Gastro-esophageal reflux disease without esophagitis; Z82.49 Family history of ischemic heart disease and other diseases of the circulatory system; I25.10 Atherosclerotic heart disease of native coronary artery without angina pectoris
CPT/HCPCS: 36415; 71045; 80048; 80061; 81001; 82550; 83036; 83735; 84484; 85025; 85027; 85347; 85379; 85610; 85730; 87641; 92928; 93005; 93306; 93458; 97802; 99152; 99153; 99285; J7030; Q9957; A4216; C1725; C1769; C1874; C1887; C9600; Q9967

== ENCOUNTER 2017-07-19 12:01 | Inpatient (IN) | payer MEDICAID, SELFPAY ==
[2017-06-09 13:21] VITALS: BMI 40.8
[2017-07-19] VITALS (18 sets, daily range): BP systolic 131–172; BP diastolic 75–98; PULSE 85–112; RESP 12–21; TEMP 36.6–37.4; O2SAT 94–100; BMI 40.1; BMI 39.4
--- NOTE | 2017-07-19 12:35 | EKG12_ITS ---
Test Reason : GIB Blood Pressure : / mmHG Vent. Rate : 097 BPM Atrial Rate : 097 BPM P-R Int : 158 ms QRS Dur : 098 ms QT Int : 370 ms P-R-T Axes : 020 051 034 degrees QTc Int : 469 ms Normal sinus rhythm Normal ECG Confirmed by LAURI CENTENO, ALEX ([id number]), editorial clerk MILAGROS PARKER ([id number]) on 07/22/2017 2:46:25 PM Referred By: GAMAL Confirmed By:ALEX CARREON MD
[2017-07-19] MEDS: Lidocaine Jelly 2% 20 ML Syringe (URO-JET) 20 APPLIC TOPICAL (13:00)
--- NOTE | 2017-07-19 13:07 | ED.VISSUMM ---
- ER Visit Summary Date of Service: 07/19/17 Chief Complaint: Black stool noted this morning and coffee ground emesis ?1 History of Present Illness: The patient is a 37 M had a cardiac cath and stent placed RCA approximately 6 weeks ago was sent to the ER because of black stool and coffee ground emesis. He does take a baby aspirin a day and Brilinta. He also reports bruising easily. He denies headache. He denies any visual, ocular or auditory symptoms. He denies throat pain. He denies chest pain. Denies shortness of breath. He denies orthopnea PND. He denies hematuria, dysuria, frequency or urgency. Please read written note for complete detail. Physical Examination: Appears uncomfortable complaint of abdominal pain. Head is atraumatic normocephalic. Pupils are equal round reactive. Extraocular muscles are intact. TMs are pearly white with landmarks noted. Nares patent with no drainage. Posterior pharynx without erythema or exudate. Uvula is midline. There is no dysphonia or dysphasia. Trachea is midline. There is no stridor with auscultation of the neck. Heart is regular without murmur, gallop or rub. S1 and S2 are normal. Lungs are clear to auscultation with good movement of air bilaterally. Abdomen is remarkable for epigastric discomfort with increased bowel sounds. Rectal exam is remarkable for black stool. Unable to determine consistencies since there was minimal amount of stool in the rectal vault. He does have significant bruising noted on his extremities and specifically left upper. Patient is alert and oriented ?3. Motor is 5 over 5. Sensory is intact. DTRs are symmetric with no clonus or Babinski sign. Cranial 2 through 12 are intact. Cerebellar testing is normal. Test Results: EG reveals a sinus rhythm rate of 97 and is normal. H&H 15.2 and 41.8 with a platelet count of 297,000. BUN is slightly elevated 21. Coags are normal. NG was placed and he has bright red blood as well as coffee-ground material noted. Emergency Department Course and Treatment: EKG, CBC, BMP and coags were obtained. Left naris was anesthetized with vital gel. NG was placed to determine if he is still actively bleeding. If there is evidence of blood will start Protonix infusion administer 80 mg IV push Protonix. Treatment Plan: Consult GI. Dr. Nicole was contacted regarding discontinuation of aspirin and Brilinta for 24 hours. Protonix IV push and continuous infusion was ordered. Disposition: Admit ICU since he has active upper GI bleed Impression: 1. Active upper GI bleed 2. History of coronary disease with recent placement of stent 2. History of hypertension 4. History of hypercholesterolemia 5. History of GERD This note was generated with [employer]uma-[employer] dictation software. It may contain incorrect words, spelling, and punctuation that were not noted in review of the chart prior to signing ED Disposition - Plan for ED Patient: Chief Complaint: GI Bleed Referrals: Cheyenne Rai [Primary Care Provider] -
[2017-07-19 13:13] LABS: Absolute Lymphocyte Count 2.77 X10^3/ul (0.83-4.51); Absolute Neutrophil Count 4.9 X10^3/uL (2.0-7.7); Basophil# 0.03 X10^3/uL; Basophil% 0.3 % (0-1); Eosinophil# 0.15 X10^3/uL; Eosinophils% 1.7 % (0-5); Hematocrit 41.8 % (40-54); Hemoglobin 15.2 g/dl (13.0-16.5); Lymphocyte # 2.77 X10^3/ul (4.0); Lymphocyte % 32.2 % (19-41); Mean Corp Hgb Conc 36.4 g/gl (32-36); Mean Corpuscular Hgb 32.3 pg (27.0-32.0); Mean Corpuscular Volume 88.9 fL (80-94); Monocyte# 0.77 X10^3/uL; Neutrophil # 4.85 X10^3/uL (2.7-7.7); Neutrophil % 56.6 % (47-70); Platelet Count 247 K/mm3 (150-450); RBC Distribution Width CV 12.9 % (11.6-14.6); RBC Distribution Width SD 41.5 fl (35.1-43.9); White Blood Count 8.6 K/mm3 (4.4-11.0)
[2017-07-19 13:14] LABS: POSITIVE COUNT NO; POSITIVE DIFFERENTIAL NO; POSITIVE MORPHOLOGY NO
[2017-07-19 13:19] LABS: Prothrombin Time (Protime)PT. 13.3 SECONDS (11.7-14.9)
[2017-07-19 13:20] LABS: Partial Thromboplast Time 30.9 Seconds (24.1-36.2)
[2017-07-19 13:26] LABS: Anion Gap 8 (5-15); BUN 21 mg/dL (7-18); BUN/Creat Ratio 26.2 RATIO (10-20); Calcium,Total 9.1 mg/dL (8.5-10.1); Chloride 103 mmol/L (98-107); EST Glomerular Filtration Rate 115 mL/min (>60); Est Glom Filt Rate - Afr Amer 139 mL/min (>60); Estimated Creatinine Clearance 134.65 ml/min; Glucose 85 mg/dL (74-106); Sodium Level 137 mmol/L (136-145)
--- NOTE | 2017-07-19 13:33 | RAD_ITS ---
STUDY: X-RAY - ABDOMEN/PELVIS REASON FOR EXAM: Male, 37 years old. Nasogastric tube placement. TECHNIQUE: Single AP view of the abdomen / pelvis. COMPARISON: None. FINDINGS: Mild elevation of the right hemidiaphragm. The tip of the nasogastric tube is in the body of the stomach. There is an unremarkable bowel gas pattern. There is no demonstrated free abdominal air. The visualized liver, spleen and kidneys are grossly normal in size and morphology. Normal soft tissue structures. Normal visualized osseous structures. RAD/Abdomen Single View (Portable) IMPRESSION: The tip of the nasogastric tube is in the body of the stomach. Electronically Signed: Elie Kumar MD at 14:05 EST Tel [phone], Service support ,
[2017-07-19] MEDS: 0.9% Normal Saline 1,000 ML 150 ML IV ×2 (13:34→19:34)
--- NOTE | 2017-07-19 13:54 | ED.VISSUMM ---
- ER Visit Summary Date of Service: 07/19/17 Chief Complaint: [] History of Present Illness: The patient is a 37 M [] Physical Examination: [] Test Results: [] Emergency Department Course and Treatment: [] Treatment Plan: [] Disposition: [] Impression: [] This note was generated with [employer] dictation software. It may contain incorrect words, spelling, and punctuation that were not noted in review of the chart prior to signing ED Disposition - Plan for ED Patient: Chief Complaint: GI Bleed Referrals: Cheyenne Rai [Primary Care Provider] -
--- NOTE | 2017-07-19 15:07 | NURSING ---
ICU 3 UPPER GI HEMORRHAGE NOLBERTO
--- NOTE | 2017-07-19 16:58 | PCM.CONS.B ---
- Consult Date of Consult: 07/19/17 Reason for consultation: Patient with melena and some hematemesis The patient is a [37] year old [male] who I have been asked to consult. The patient reports yesterday he developed some coffee ground emesis and some mild abdominal pain and discomfort. He has a history of coronary artery disease and is taking Brilinta and aspirin. He also took some nonsteroidals ibuprofen for some body aches. He developed black stool last evening felt more coffee ground emesis earlier today he came to the emergency room. He was non-orthostatic NG tube reveals some coffee grounds and blood. She was admitted to the ICU for further evaluation. He denies diabetes denies shortness of breath or chest pain no history of thyroid no kidney or liver disease. Allergies: Penicillin Medications: Medications Added to Medication List This Visit Category Date Time Status 0.9% Normal Saline 1,000 ml Med 07/19/17 12:35 Active IV 150 mls/hr 0.9% Saline Lock Med 07/19/17 16:30 Active 5 - 30 ml IV UD PRN Aspirin E.C. [Ecotrin] Med 07/20/17 08:00 Active 81 mg PO DAILY@0800 MorphINE Med 07/19/17 15:41 Active 2 - 4 mg IV Q4H PRN PRN Ondansetron [Zofran] Med 07/19/17 15:41 Active 4 mg IV Q8H PRN PRN Pantoprazole Sodium [Protonix] 80 mg Med 07/19/17 13:45 Active 0.9% Normal Saline 80 ml CONT INF Q10H PMH: Coronary artery disease PSH: Recent coronary stent Social: Social History Smoking Status Never smoker ROS: As noted in the HPI Vitals: Vital Signs Height 5 ft 11 in Weight: 128.5 kg Weight in Pounds 283.3 lbs BMI 40.8 Pulse Ox 99 Temperature 99.4 F Pulse Rate 98 Respiratory Rate 19 Blood Pressure [BP] 154/98 Blood Pressure 147/95 Blood Pressure Position [BP] Semi-Fowlers Blood Pressure Position Semi-Fowlers HEENT: Anicteric sclera conjunctiva pink NECK: Supple HEART: S1-S2 no murmur LUNGS: Clear bilaterally ABDOMEN: Soft good bowel sounds nontender EXTER: No edema or clubbing Neuro: Alert and oriented no deficits Impression: Upper GI bleed on Brilinta and aspirin history of a recent coronary stent rule out peptic ulcer disease versus a possible Dieulafoy bleeding lesion Plan: Continue IV PPI n p.o. status hemoglobin hematocrit every 8 hours he will undergo upper endoscopy in the morning
[2017-07-19 18:30] LABS: M R Staph aureus DNA By PCR Negative (Negative); Probe Check PASS; Specimen Processing Control PASS
--- NOTE | 2017-07-19 19:22 | HP.PCM_ITS ---
Problem List (1) Hematemesis Status: Acute Qualifiers: Nausea presence: with nausea Qualified Code(s): K92.0 - Hematemesis (2) Melena Status: Acute History of Present Illness Date of Admission: 07/19/17 Chief Complaint: Hematemesis, melena The patient is a 37 year old M was seen in the emergency room at [facility] with complaints of vomiting blood and dark material which started yesterday, he also complained that he had black stools. Patient denied any syncope, lightheadedness, or red rectal bleeding. Patient had been treated for a non-STEMI and had a stent placed approximately 6 weeks ago. Patient states that he has been taking ibuprofen for neck pain for at least the last 2 weeks. Examination in the emergency room included labs which showed a normal hemoglobin at 15.2, BUN was elevated at 21, NG was inserted with return of dark and red blood-approximately 200-300 cc. He was started on a Protonix drip and gastroenterology was contacted and agreed to see the patient in consultation after admission by the hospitalist service. Patient will be admitted to ICU, labs will be monitored, he will be maintained on Protonix drip. He will be seen by gastroenterology. Past Medical History Past Medical History (Chronic Problems): Chronic Problems (Last Reviewed 07/11/17 @ 09:44 by Rupa Nunes) Morbid obesity (Chronic) GERD (gastroesophageal reflux disease) (Chronic) Allergies Penicillins Allergy (Verified 07/19/17 12:07) Angioedema Home Medications: Ambulatory Orders Medication Instructions Recorded Aspirin E.C. [Ecotrin] 81 mg PO DAILY@0800 tab 06/10/17 atorvastatin 80 mg tablet 80 mg PO QHS #90 tab 07/06/17 carvedilol 3.125 mg tablet 3.125 mg PO BID #180 tab 07/06/17 lisinopril 10 mg tablet 10 mg PO DAILY #90 tab 07/06/17 ticagrelor 90 mg tablet 90 mg PO BID #180 tab 07/06/17 doxycycline hyclate 100 mg tablet 100 mg PO BID 10 Days #20 tab 07/11/17 Surgical History: - - Tube right TM, Several prior BL ear tubes, T+A, R knee arthroscopic ACL surgery x 2, Neck Surgery C6-7 fusion. Coronary artery stent placement May 2017 Psychiatric History: No pertinent psych hx Lives: Spouse/ Significant Other Smoking Status: Never smoker Tobacco Use: Non-smoker Alcohol: None Drugs: None - *Family History Maternal History Items: Heart Disease, Hypertension Paternal History Items: Heart Disease, Hypertension Review of Systems Constitutional: Denies: Anorexia, Chills, Fever, Night Sweats, Malaise, Weakness , Weight Change, Fatigue Eyes: Denies: Blurred vision, Cataracts, Conjunctivae Inflammation, Double vision, Drainage HEENT: Denies: Difficulty Swallowing, Dysphasia, Ear Pain, Eye Pain, Head Aches , Hearing Changes, Nasal bleeding, Nasal Congestion, Post Nasal Drip Cardiovascular: Denies: Chest Pain, Claudication, Chest Pressure, Chest Tightness, Edema, Heaviness, Palpitations, Paroxysmal Noc. Dyspnea Respiratory: Denies: Cough, Hemoptysis, Pleuritic Pain, Shortness of Breath, Shortness of breath at rest, Shortness of breath upon exertion, Sputum production Gastrointestinal: Reports: Hematemesis, Hematochezia, Nausea, Melena, Vomiting. Denies: Abdominal Pain, Constipation, Diarrhea Genitourinary: Denies: Dysuria, Frequency, Hematuria, Hesitancy, Incontinence, Nocturia, Retention, Urgency Musculoskeletal: Reports: Neck Pain. Denies: Back Pain, Foot Pain, Hand Pain, Joint Pain, Joint stiffness, Joint swelling, Joint Tenderness, Leg Pain, Shoulder Pain Skin: Denies: Dryness, Pruritis, Rash Neurological: Denies: Blurred vision, Double vision, Slurred speech, Difficulty swallowing, Focal weakness, Numbness, Tingling, Tremor, Seizures Psychiatric: Denies: Anxiety, Depression, Homicidal Ideations, Suicidal Ideations Endocrine: Denies: Change in Body Habitus, Heat/ Cold Intolerance, Polydipsia, Polyuria Hematologic/ Lymphatic: Denies: Adenopathy, Anemia, Easy Bruising, Easy Bleeding , Petechiae, Purpura VTE Information - Inpt Only VTE Present on Admission: No VTE Mechan Device Prophylaxis: None VTE Pharm Prophylaxis ordered?: No Reason prophylaxis not ordered:: Medical Contraindication - low risk for VTE Patient Problems: Active and Suspected Problems (Last Reviewed 07/11/17 @ 09:44 by Rupa Nunes) Hematemesis (Acute) Melena (Acute) - Physical Exam General: Alert, Oriented x3, Cooperative, No apparent distress, Well developed, Well nourished HEENT: Atraumatic, PERRLA, EOMI, Normocephalic Oral: Moist Mucosa Neck: Supple, No JVD, No Nuchal Rigidity, Trachea Midline, Thyroid Normal Size and Texture Lungs: Clear to auscultation, Normal air movement, No rhonchi, No wheeze, No rales Cardiovascular: Regular rate, Regular Rhythm, Normal S1, Normal S2, No murmurs, No Ectopic Activity, PMI Normal, No rub noted, No Gallop Abdomen: Bowel Sounds Present, Soft, Non Tender, Non-Distended, No hernias noted Extremities: No clubbing, No cyanosis, No edema, Capillary Refill Less than 3 Seconds Skin: No rashes, No breakdown Musculoskeletal: No Tenderness to Palpation of Joints or Extremities, No Muscle Wasting Neurological: Cranial nerves II-XII grossly intact, Neuro grossly intact, Muscle tone normal, Sensory exam intact to light touch and pain, Coordination normal Psych/Mental Status: Normal Affect, Appropriate, Alert and oriented to time, place, person, mood and affect Vital Signs Temp Pulse Resp BP Pulse Ox 99.4 F H 112 H 21 H 163/93 H 94 07/19/17 16:00 07/19/17 17:30 07/19/17 17:30 07/19/17 17:30 07/19/17 17:30 Oxygen Delivery Method Room Air Weight: 128.5 kg Body Mass Index (BMI) 39.4 Laboratory Tests Past 24 Hrs 07/19/17 16:05 MRSA (PCR) Negative Assessment/Plan Active and Suspected Problems (Last Reviewed 07/11/17 @ 09:44 by Rupa Nunes) Hematemesis (Acute) Melena (Acute) #1 acute upper GI bleed secondary to nonsteroidal anti-inflammatory use-most probably from either gastric or duodenal ulceration, patient will be admitted to ICU, IV fluids will be given, H&H will be monitored, gastroenterology will see the patient, he will probably need an EGD performed, patient will be maintained on a Protonix drip #2 coronary artery disease with recent coronary artery stent placement-patient will need to be off his Brilinta and aspirin for now Code Visit Inpatient E&M: 94304 Init Hosp L3
[2017-07-19] MEDS: Ondansetron 4 MG/2 ML Vial IV (19:39)
[2017-07-19] MEDS: 0.9% NaCl Peripheral Flush Adult/Peds IV (19:46)
[2017-07-19] MEDS: oxyCODONE 5 MG Tablet PO (21:25)
[2017-07-19 22:03] LABS: Hematocrit 40.4 % (40-54); Hemoglobin 14.1 g/dl (13.0-16.5)
[2017-07-20] VITALS (25 sets, daily range): BP systolic 98–137; BP diastolic 51–96; PULSE 65–92; RESP 12–20; TEMP 36.1–36.9; O2SAT 95–99
[2017-07-20] MEDS: 0.9% Normal Saline 1,000 ML 150 ML IV ×4 (02:34→21:54)
[2017-07-20] MEDS: oxyCODONE 5 MG Tablet PO ×4 (02:36→21:58)
[2017-07-20 04:12] LABS: Hematocrit 36.3 % (40-54); Hemoglobin 12.6 g/dl (13.0-16.5)
[2017-07-20] MEDS: Oxymetazoline 0.05% 1 SPRAY SPRAY.BTL 2 SPRAY NASAL ×2 (06:53→14:22)
--- NOTE | 2017-07-20 08:34 | PCM.PN.HOSP ---
Patient Problems: Active and Suspected Problems (Last Reviewed 07/11/17 @ 09:44 by Rupa Nunes) Hematemesis (Acute) Melena (Acute) Upper GI bleed (Acute) Subjective: He states that the bleeding has resolved. Denies any further hematemesis, melena nor hematochezia. Patient states that his belly feels better as well after he had the NG placed. Patient stated that after the NG tube was removed, patient did have some epistaxis that did resolve after about 90 minutes. Patient states that he was put on 400 mg of ibuprofen to be intermixed with Tylenol for the past 2 weeks for ruptured eardrum. Vitals/I&O's: Vital Signs Temp Pulse Resp BP Pulse Ox 36.5 C L 76 19 H 137/75 H 95 07/20/17 08:00 07/20/17 08:00 07/20/17 08:00 07/20/17 08:00 07/20/17 08:00 Oxygen Flow Rate (L/min) 2 Oxygen Delivery Method Room Air Weight: 126.8 kg Body Mass Index (BMI) 39.4 Intake and Output for Last 24 Hours 07/18/17 07/19/17 07/20/17 23:59 23:59 23:59 Intake Total 462.8 / 462.8 1619 / 1619 Output Total 500 / 500 250 / 250 Balance -37.2 / -37.2 1369 / 1369 General: Alert, Cooperative, No apparent distress HEENT: Atraumatic, Normocephalic Neck: No Nodes, Thyroid Normal Size and Texture Lungs: Clear to auscultation, Normal air movement, No rhonchi, No wheeze Cardiovascular: Regular rate, Regular Rhythm, Normal S1, Normal S2, No murmurs Abdomen: Bowel Sounds Present, Soft, Non Tender, Non-Distended, No Hepato-splenomegaly Extremities: No edema, No Calf Tenderness Skin: No rashes, No breakdown Psych/Mental Status: Normal Affect, Appropriate Laboratory Results 07/19/17 16:05: MRSA (PCR) Negative 07/19/17 21:45: Hgb 14.1, Hct 40.4 07/20/17 04:00: Hgb 12.6 L, Hct 36.3 L Current Medications Aspirin (Ecotrin) 81 mg PO DAILY@0800 KAMI Last Admin: 07/20/17 07:58 Dose: Not Given Sodium Chloride () 1,000 mls @ 150 mls/hr IV .Q6H40M KAMI Last Admin: 07/20/17 02:34 Dose: 150 mls/hr Pantoprazole Sodium 80 mg/ (Sodium Chloride) 100 mls @ 10 mls/hr CONT INF Q10H KAMI Last Admin: 07/20/17 06:53 Dose: 10 mls/hr Ondansetron HCl (Zofran) 4 mg IV Q8H PRN PRN PRN Reason: NAUSEA Last Admin: 07/19/17 19:39 Dose: 4 mg Oxycodone HCl (Oxyir) 10 - 15 mg PO Q4H PRN PRN PRN Reason: SEVERE PAIN (6-02/22) Last Admin: 07/20/17 02:36 Dose: 15 mg Oxymetazoline HCl (Afrin (Bkc)) 2 spray NASAL BID PRN PRN PRN Reason: NASAL CONGESTION Last Admin: 07/20/17 06:53 Dose: 2 spray Sodium Chloride () 5 - 30 ml IV UD PRN PRN Reason: SALINE FLUSH Last Admin: 07/19/17 19:46 Dose: 20 ml Assessment/Plan Active and Suspected Problems (Last Reviewed 07/11/17 @ 09:44 by Rupa Nunes) Hematemesis (Acute) Melena (Acute) Upper GI bleed (Acute) 1. Upper GI bleed Resolved at this time Suspect peptic ulcer disease versus gastritis versus Meghan-Gordon tear versus Dieulafoy lesion On IV Protonix Plan is for EGD today Bleeding was exacerbated by the concomitant use of aspirin and Brilinta plus ibuprofen. 2. Acute blood loss anemia Patient's hemoglobin went from 15.2-12.6 Continue to monitor No indication for transfusions at this time. 3. Coronary artery disease Patient is on dual antiplatelet therapy with aspirin and Brilinta Stents placed on June 09 Despite the bleeding, patient still needs to be on his Brilinta for the next year. I will resume the Brilinta in light of the GI bleed as the risk for in-stent stenosis far outweighs the risk of further GI bleed. 4. DVT prophylaxis: Chemical prophylaxis contraindicated in light of GI bleed. Patient be on SCDs. Code Visit Inpatient E&M: 69091 Subs Hosp L2
--- NOTE | 2017-07-20 08:41 | PN_ITS ---
Patient Problems: Active and Suspected Problems (Last Reviewed 07/11/17 @ 09:44 by Rupa Nunes) Hematemesis (Acute) Melena (Acute) Upper GI bleed (Acute) Subjective: He states that the bleeding has resolved. Denies any further hematemesis, melena nor hematochezia. Patient states that his belly feels better as well after he had the NG placed. Patient stated that after the NG tube was removed, patient did have some epistaxis that did resolve after about 90 minutes. Patient states that he was put on 400 mg of ibuprofen to be intermixed with Tylenol for the past 2 weeks for ruptured eardrum. Vitals/I&O's: Vital Signs Temp Pulse Resp BP Pulse Ox 36.5 C L 76 19 H 137/75 H 95 07/20/17 08:00 07/20/17 08:00 07/20/17 08:00 07/20/17 08:00 07/20/17 08:00 Oxygen Flow Rate (L/min) 2 Oxygen Delivery Method Room Air Weight: 126.8 kg Body Mass Index (BMI) 39.4 Intake and Output for Last 24 Hours 07/18/17 07/19/17 07/20/17 23:59 23:59 23:59 Intake Total 462.8 / 462.8 1619 / 1619 Output Total 500 / 500 250 / 250 Balance -37.2 / -37.2 1369 / 1369 General: Alert, Cooperative, No apparent distress HEENT: Atraumatic, Normocephalic Neck: No Nodes, Thyroid Normal Size and Texture Lungs: Clear to auscultation, Normal air movement, No rhonchi, No wheeze Cardiovascular: Regular rate, Regular Rhythm, Normal S1, Normal S2, No murmurs Abdomen: Bowel Sounds Present, Soft, Non Tender, Non-Distended, No Hepato- splenomegaly Extremities: No edema, No Calf Tenderness Skin: No rashes, No breakdown Psych/Mental Status: Normal Affect, Appropriate Laboratory Results 07/19/17 16:05: MRSA (PCR) Negative 07/19/17 21:45: Hgb 14.1, Hct 40.4 07/20/17 04:00: Hgb 12.6 L, Hct 36.3 L Current Medications Aspirin (Ecotrin) 81 mg PO DAILY@0800 KAMI Last Admin: 07/20/17 07:58 Dose: Not Given Sodium Chloride () 1,000 mls @ 150 mls/hr IV .Q6H40M KAMI Last Admin: 07/20/17 02:34 Dose: 150 mls/hr Pantoprazole Sodium 80 mg/ (Sodium Chloride) 100 mls @ 10 mls/hr CONT INF Q10H KAMI Last Admin: 07/20/17 06:53 Dose: 10 mls/hr Ondansetron HCl (Zofran) 4 mg IV Q8H PRN PRN PRN Reason: NAUSEA Last Admin: 07/19/17 19:39 Dose: 4 mg Oxycodone HCl (Oxyir) 10 - 15 mg PO Q4H PRN PRN PRN Reason: SEVERE PAIN (6-02/22) Last Admin: 07/20/17 02:36 Dose: 15 mg Oxymetazoline HCl (Afrin (Bkc)) 2 spray NASAL BID PRN PRN PRN Reason: NASAL CONGESTION Last Admin: 07/20/17 06:53 Dose: 2 spray Sodium Chloride () 5 - 30 ml IV UD PRN PRN Reason: SALINE FLUSH Last Admin: 07/19/17 19:46 Dose: 20 ml Assessment/Plan Active and Suspected Problems (Last Reviewed 07/11/17 @ 09:44 by Rupa Nunes) Hematemesis (Acute) Melena (Acute) Upper GI bleed (Acute) 1. Upper GI bleed * Resolved at this time * Suspect peptic ulcer disease versus gastritis versus Meghan-Gordon tear versus Dieulafoy lesion * On IV Protonix * Plan is for EGD today * Bleeding was exacerbated by the concomitant use of aspirin and Brilinta plus ibuprofen. 2. Acute blood loss anemia * Patient's hemoglobin went from 15.2-12.6 * Continue to monitor * No indication for transfusions at this time. 3. Coronary artery disease * Patient is on dual antiplatelet therapy with aspirin and Brilinta * Stents placed on June 09 * Despite the bleeding, patient still needs to be on his Brilinta for the next year. I will resume the Brilinta in light of the GI bleed as the risk for in- stent stenosis far outweighs the risk of further GI bleed. 4. DVT prophylaxis: Chemical prophylaxis contraindicated in light of GI bleed. Patient be on SCDs. Code Visit Inpatient E&M: 17645 Subs Hosp L2
[2017-07-20] MEDS: 0.9% NaCl Peripheral Flush Adult/Peds IV (09:30)
[2017-07-20] MEDS: Aspirin E.C. 81 MG Tablet PO (09:30)
[2017-07-20] MEDS: TICAGRELOR 90 MG TABLET PO ×2 (09:30→22:04)
--- NOTE | 2017-07-20 09:50 | CASEMGMT ---
See RN CM Assessment Link. DC PLAN: Home on dc. Pt denies dc needs @ this time. Rosana MARCUSN RN ACM
--- NOTE | 2017-07-20 13:12 | OP.PCM_ITS ---
Operative Report Date of Procedure: 07/20/17 Preop diagnosis: Melena and anemia Postop diagnosis: EGD with injection therapy and bipolar cautery EGD with biopsy of gastric mucosa gastric ulcer with visible vessel noted Anesthesia: The MAC Instrument: Olympus upper endoscope Informed consent was taken prior to procedure. The patient was brought to the endoscopy suite[ she] was placed left shoulder down. Anesthesia provided the MAC. The scope was passed under direct visualization down into the esophagus. The proximal and midesophagus were normal Z line was 39 cm from the incisors no evidence of esophageal varices. Stomach was easily insufflated there was no blood in the stomach. At the pyloric junction was a gastric ulcer in the 5 o' clock position just above this was a visible vessel with a small erosion and a clot noted. Catheter was used to wash away the clot visible vessel was injected with epinephrine 1 in 10,000 solution approximately 8 cc was injected into the visible vessel. Bipolar cautery using 20 W was then applied to the visible vessel with pressure held 10 second intervals. At this point there was no further clot on the vessel the endoscope was withdrawn examination of the duodenum showed no evidence of bleeding in the duodenum. Scope was withdrawn back into the stomach like she was performed no bleeding around the cardia. Ralston was withdrawn along the lesser curvature there was some superficial ulcerations noted along the lesser curvature no visible vessels or bleeding. Decompressed and the patient tolerated procedure well. Impression: Upper GI bleed related to aspirin Brilinta and nonsteroidals. Recommend stopping the Brilinta for at least 24 hours may receive aspirin continue the IV PPI for monitor hemoglobin hematocrit Plan: Patient may have a clear liquid diet no red products
--- NOTE | 2017-07-20 15:17 | CHAPLAIN ---
Type of Pastoral Visit _x__ Initial Visit ___ Follow-up Visit ___ On-call Visit ___ General Patient Visit ___ Spiritual Assessment ___ Family Conference ___ Bereavement ___ Rapid Response ___ Code Blue ___ Other (describe below) Pastoral Care Referral From _x__ Patient ___ Family ___ Nurse ___ Physician ___ Stack Yield Engineer ___ Log Processor Operator ___ Other (describe below) Sacrament/Intervention _x__ Active listening ___ Anointing ___ Restoration ___ Bereavement ___ Communion ___ Martha exploration ___ ___ Life review _x__ Prayer ___ Reconciliation ___ Sacrament of Sick ___ Supportive presence ___ Wedding ___ Other (describe below) Pastoral Comments
[2017-07-20] MEDS: Carvedilol 3.125 MG TABLET PO (22:04)
[2017-07-20] MEDS: Atorvastatin Calcium 80 MG Tablet PO (22:05)
[2017-07-21] MEDS: oxyCODONE 5 MG Tablet PO ×2 (01:59→09:10)
[2017-07-21 02:00] VITALS: BP 122/80; PULSE 71; RESP 18; TEMP 37.1; O2SAT 97
[2017-07-21] MEDS: Oxymetazoline 0.05% 1 SPRAY SPRAY.BTL 2 SPRAY NASAL (02:06)
[2017-07-21 03:02] VITALS: PULSE 70
[2017-07-21] MEDS: 0.9% Normal Saline 1,000 ML 150 ML IV (04:08)
[2017-07-21 06:38] LABS: Absolute Lymphocyte Count 1.78 X10^3/ul (0.83-4.51); Absolute Neutrophil Count 2.9 X10^3/uL (2.0-7.7); Basophil# 0.01 X10^3/uL; Basophil% 0.2 % (0-1); Eosinophil# 0.19 X10^3/uL; Eosinophils% 3.5 % (0-5); Hematocrit 33.5 % (40-54); Hemoglobin 11.4 g/dl (13.0-16.5); Lymphocyte # 1.78 X10^3/ul (4.0); Lymphocyte % 33.1 % (19-41); Mean Corpuscular Hgb 31.1 pg (27.0-32.0); Mean Corpuscular Volume 91.5 fL (80-94); Mean Platelet Vol. 9.6 fl (6.2-12.0); Monocyte# 0.54 X10^3/uL; Monocyte% 10.1 % (0-10); Neutrophil # 2.85 X10^3/uL (2.7-7.7); Neutrophil % 53.1 % (47-70); Platelet Count 166 K/mm3 (150-450); RBC Distribution Width CV 12.9 % (11.6-14.6); RBC Distribution Width SD 42.9 fl (35.1-43.9); Red Blood Count 3.66 M/mm3 (4.6-6.2); White Blood Count 5.4 K/mm3 (4.4-11.0)
[2017-07-21 06:40] LABS: POSITIVE COUNT NO; POSITIVE DIFFERENTIAL NO; POSITIVE MORPHOLOGY NO
[2017-07-21 07:00] VITALS: PULSE 61
[2017-07-21 07:03] LABS: ALB/GLOB Ratio 1.2 RATIO (0.9-2.4); AST(SGOT) 20 U/L (15-37); Alanine Aminotransfer ALT/SGPT 55 U/L (16-61); Albumin, Serum 3.4 g/dL (3.2-5.0); Alkaline Phosphatase 38 U/L (45-117); Anion Gap 5 (5-15); BUN 9 mg/dL (7-18); BUN/Creat Ratio 11.8 RATIO (10-20); Calcium,Total 8.1 mg/dL (8.5-10.1); Chloride 106 mmol/L (98-107); Creatinine, Serum 0.76 mg/dL (0.70-1.30); EST Glomerular Filtration Rate 122 mL/min (>60); Est Glom Filt Rate - Afr Amer 148 mL/min (>60); Estimated Creatinine Clearance 141.74 ml/min; Globulin 2.8 g/dL (2.2-4.2); Glucose 93 mg/dL (74-106); Potassium 4.2 mmol/L (3.5-5.1); Protein, Total 6.2 g/dL (6.4-8.2); Sodium Level 140 mmol/L (136-145)
[2017-07-21 08:25] VITALS: BP 155/75; PULSE 68; RESP 16; TEMP 36.8; O2SAT 93
[2017-07-21] MEDS: Aspirin E.C. 81 MG Tablet PO (09:05)
[2017-07-21] MEDS: Lisinopril 10 MG Tablet PO (09:06)
[2017-07-21] MEDS: Carvedilol 3.125 MG TABLET PO (09:35)
[2017-07-21] MEDS: TICAGRELOR 90 MG TABLET PO (09:35)
[2017-07-21 11:00] VITALS: PULSE 88
--- NOTE | 2017-07-21 12:45 | PCM.DC ---
- Discharge Diagnoses Current Active Problems: Current Active and Chronic Problems (Last Reviewed 07/11/17 @ 09:44 by Rupa Nunes) Upper GI bleed (Acute) Hematemesis (Acute) Melena (Acute) You will use the following diet at home:: Cardiac Your food should be the consistency of: Regular Your liquids should be the consistency of: Regular/Thin Discharge Activity: Return to Normal Activity Call your doctor if you observe: Fever of 101 or Higher, Chest pain, - - blood in stool. dark tarry stool. vomiting blood Allergies/Adverse Reactions: Allergies Penicillins Allergy (Verified 07/19/17 12:07) Angioedema Medications to take at Discharge Aspirin E.C. [Ecotrin] 81 mg PO DAILY@0800 tab 06/10/17 atorvastatin 80 mg tablet 80 mg PO QHS #90 tab 07/06/17 carvedilol 3.125 mg tablet 3.125 mg PO BID #180 tab 07/06/17 lisinopril 10 mg tablet 10 mg PO DAILY #90 tab 07/06/17 ticagrelor 90 mg tablet 90 mg PO BID #180 tab 07/06/17 Pantoprazole Sodium [Protonix] 40 mg PO BID #60 tab 07/21/17 Primary Care Physician: Cheyenne Rai [Primary Care Provider] - Within 2 Weeks Please Follow Up With: Parveen Reid MD When: 1-2 months Proposed Discharge Date: 07/21/17
--- NOTE | 2017-07-21 12:49 | PCM.DC.SUM ---
Discharge Date and Diagnosis - Problem List Patient Problems: Active and Suspected Problems (Last Reviewed 07/11/17 @ 09:44 by Rupa Nunes) Upper GI bleed (Acute) Hematemesis (Acute) Melena (Acute) Date of Admission: 07/19/17 Date of Discharge: 07/21/17 - Primary Discharge Diagnosis Active and Suspected Problems (Last Reviewed 07/11/17 @ 09:44 by Rupa Nunes) Upper GI bleed (Acute) Hematemesis (Acute) Melena (Acute) - Secondary Discharge Diagnosis Chronic Problems (Last Reviewed 07/11/17 @ 09:44 by Rupa Nunes) Morbid obesity (Chronic) GERD (gastroesophageal reflux disease) (Chronic) Hospital Course and Treatment Imaging Results: Clinical Impression(s) from Imaging Studies [facility] X-Ray 07/19/17 13:33 IMPRESSION: The tip of the nasogastric tube is in the body of the stomach. Electronically Signed: Elie Kumar MD at 14:05 EST Tel [phone], Service support , Operations: None Procedures: EGD Summary of Care Provided: The patient is a 37 year old M presents with hematemesis and melena. Was started on IV Protonix. EGD performed on the seventh showed gastric ulcer with a visible vessel. Patient had cautery of vessel. Have a drop in his hemoglobin from 15.2 down to 11.4. Patient has not had any further evidence of any bleeding. Patient was taking ibuprofen for ruptured eardrum while he was on Brilinta and aspirin. Patient has been advised to avoid NSAIDs for the time being. Patient advised to return to hospital if he has evidence of any further bleeding. [] Discharge Diet: Low fat/ Low Cholesterol Discharge Activity: Return to Normal Activity Call your doctor if you observe: Fever of 101 or Higher, Chest pain, - - blood in stool. dark tarry stool. vomiting blood Home Medications: Medications to take at Discharge Aspirin E.C. [Ecotrin] 81 mg PO DAILY@0800 tab 06/10/17 atorvastatin 80 mg tablet 80 mg PO QHS #90 tab 07/06/17 carvedilol 3.125 mg tablet 3.125 mg PO BID #180 tab 07/06/17 lisinopril 10 mg tablet 10 mg PO DAILY #90 tab 07/06/17 ticagrelor 90 mg tablet 90 mg PO BID #180 tab 07/06/17 Pantoprazole Sodium [Protonix] 40 mg PO BID #60 tab 07/21/17 Following Prescrptions Were Given to Patient: Pantoprazole Sodium [Protonix] 40 mg PO BID #60 tab Primary Care Physician: Cheyenne Rai [Primary Care Provider] - Within 2 Weeks Please Follow Up With: Parveen Reid MD When: 1-2 months Disposition: Home Minutes spent on discharge:: 32 Patient Condition:: Good Meaningful Use Info Meaningful Use Diagnoses (Choose all that apply): None applicable Code Visit Inpatient E&M: 57038 Disch Hosp
--- NOTE | 2017-07-21 12:53 | DS.PCM_ITS ---
Discharge Date and Diagnosis - Problem List Patient Problems: Active and Suspected Problems (Last Reviewed 07/11/17 @ 09:44 by Rupa Nunes) Upper GI bleed (Acute) Hematemesis (Acute) Melena (Acute) Date of Admission: 07/19/17 Date of Discharge: 07/21/17 - Primary Discharge Diagnosis Active and Suspected Problems (Last Reviewed 07/11/17 @ 09:44 by Rupa Nunes) Upper GI bleed (Acute) Hematemesis (Acute) Melena (Acute) - Secondary Discharge Diagnosis Chronic Problems (Last Reviewed 07/11/17 @ 09:44 by Rupa Nunes) Morbid obesity (Chronic) GERD (gastroesophageal reflux disease) (Chronic) Hospital Course and Treatment Imaging Results: Clinical Impression(s) from Imaging Studies K[facility] X-Ray 07/19/17 13:33 IMPRESSION: The tip of the nasogastric tube is in the body of the stomach. Electronically Signed: Elie Kumar MD at 14:05 EST Tel [phone], Service support , Operations: None Procedures: EGD Summary of Care Provided: The patient is a 37 year old M presents with hematemesis and melena. Was started on IV Protonix. EGD performed on the seventh showed gastric ulcer with a visible vessel. Patient had cautery of vessel. Have a drop in his hemoglobin from 15.2 down to 11.4. Patient has not had any further evidence of any bleeding. Patient was taking ibuprofen for ruptured eardrum while he was on Brilinta and aspirin. Patient has been advised to avoid NSAIDs for the time being. Patient advised to return to hospital if he has evidence of any further bleeding. [] Discharge Diet: Low fat/ Low Cholesterol Discharge Activity: Return to Normal Activity Call your doctor if you observe: Fever of 101 or Higher, Chest pain, - - blood in stool. dark tarry stool. vomiting blood Home Medications: Medications to take at Discharge Aspirin E.C. [Ecotrin] 81 mg PO DAILY@0800 tab 06/10/17 atorvastatin 80 mg tablet 80 mg PO QHS #90 tab 07/06/17 carvedilol 3.125 mg tablet 3.125 mg PO BID #180 tab 07/06/17 lisinopril 10 mg tablet 10 mg PO DAILY #90 tab 07/06/17 ticagrelor 90 mg tablet 90 mg PO BID #180 tab 07/06/17 Pantoprazole Sodium [Protonix] 40 mg PO BID #60 tab 07/21/17 Following Prescrptions Were Given to Patient: Pantoprazole Sodium [Protonix] 40 mg PO BID #60 tab Primary Care Physician: Cheyenne Rai [Primary Care Provider] - Within 2 Weeks Please Follow Up With: Parveen Reid MD When: 1-2 months Disposition: Home Minutes spent on discharge:: 32 Patient Condition:: Good Meaningful Use Info Meaningful Use Diagnoses (Choose all that apply): None applicable Code Visit Inpatient E&M: 40932 Disch Hosp
[2017-07-21 12:55] VITALS: BP 124/68; PULSE 71; RESP 14; TEMP 36.8; O2SAT 98
== END 2017-07-21 13:00 | disposition home or self-care (01) | DRG 174 ==
LOC: ED 15:06 → ICU 15:10 → PCU 07-21 08:35
PROVIDERS: Internal Medicine Gastroenterology; Admitting Provider Internal Medicine; Emergency Provider Emergency Medicine; Family Provider Nurse Practitioner; PCP Nurse Practitioner
DX: K25.4 Chronic or unspecified gastric ulcer with hemorrhage (principal); D62 Acute posthemorrhagic anemia; E66.01 Morbid (severe) obesity due to excess calories; I25.10 Atherosclerotic heart disease of native coronary artery without angina pectoris; Z95.5 Presence of coronary angioplasty implant and graft; Z68.39 Body mass index [BMI] 39.0-39.9, adult; K21.9 Gastro-esophageal reflux disease without esophagitis; H72.90 Unspecified perforation of tympanic membrane, unspecified ear; I10 Essential (primary) hypertension; Z79.899 Other long term (current) drug therapy; Z79.82 Long term (current) use of aspirin; Z79.02 Long term (current) use of antithrombotics/antiplatelets; R04.0 Epistaxis
CPT/HCPCS: 36415; 74018; 80048; 80053; 85014; 85018; 85025; 85610; 85730; 87641; 93005; 99285; J7030; J7120; A4216; J2405; J3490

== ENCOUNTER → 2017-10-08 14:09 | Outpatient (CLI) | payer MEDICAID, SELFPAY ==
[2017-06-09 13:21] VITALS: BMI 40.8
== END ==
PROVIDERS: Family Provider Nurse Practitioner; PCP Nurse Practitioner; Visit Provider Nurse Practitioner Family
DX: J02.9 Acute pharyngitis, unspecified (principal)
CPT/HCPCS: 87077; 87081

== ENCOUNTER 2018-03-24 23:19 | Emergency (ER) | payer SELFPAY ==
[2017-06-09 13:21] VITALS: BMI 40.8
[2018-03-24 23:20] VITALS: BP 160/108; PULSE 91; RESP 16; TEMP 36.4; O2SAT 95; BMI 39.4
--- NOTE | 2018-03-24 23:25 | EKG12_ITS ---
Test Reason : CP Blood Pressure : / mmHG Vent. Rate : 090 BPM Atrial Rate : 090 BPM P-R Int : 164 ms QRS Dur : 102 ms QT Int : 374 ms P-R-T Axes : 026 058 051 degrees QTc Int : 457 ms Normal sinus rhythm Normal ECG Confirmed by LAURI CENTENO, ALEX ([id number]), newspaper or periodical editor MILAGROS PARKER ([id number]) on 03/28/2018 3:49:35 PM Referred By: DR GONZALEZ Confirmed By:ALEX CARREON MD
--- NOTE | 2018-03-24 23:27 | RAD_ITS ---
STUDY: X-RAY CHEST REASON FOR EXAM: Male, 37 years old. Chest pain. Heart disease. TECHNIQUE: 06/08/2017 COMPARISON: None. FINDINGS: The lungs are clear and expanded. There is no demonstrated pleural abnormality. Normal size heart. Normal mediastinum and lulu. Normal visualized pulmonary arteries. Normal visualized aortic arch and descending thoracic aorta. Normal visualized thoracic spine. Previous cervical spine surgery. Normal visualized ribs, clavicles, and shoulders. There is no demonstrated abnormality of the visualized soft tissue structures of the upper abdomen. RAD/Chest 1 View (Portable) IMPRESSION: Normal x-ray examination of the chest. Electronically Signed: Robbie Seha MD at 23:39 EST , Service support ,
[2018-03-24 23:36] VITALS: BP 139/90; PULSE 86; RESP 19; O2SAT 94; O2SAT 95
[2018-03-24 23:36] LABS: Absolute Lymphocyte Count 1.99 X10^3/ul (0.83-4.51); Absolute Neutrophil Count 2.8 X10^3/uL (2.0-7.7); Basophil# 0.02 X10^3/uL; Basophil% 0.4 % (0-1); Eosinophil# 0.21 X10^3/uL; Eosinophils% 3.8 % (0-5); Hematocrit 42.2 % (40-54); Hemoglobin 14.4 g/dl (13.0-16.5); Lymphocyte # 1.99 X10^3/ul (4.0); Lymphocyte % 36.2 % (19-41); Mean Corp Hgb Conc 34.1 g/gl (32-36); Mean Corpuscular Hgb 31.3 pg (27.0-32.0); Mean Corpuscular Volume 91.7 fL (80-94); Mean Platelet Vol. 9.7 fl (6.2-12.0); Monocyte# 0.47 X10^3/uL; Monocyte% 8.5 % (0-10); Neutrophil % 50.9 % (47-70); Platelet Count 191 K/mm3 (150-450); RBC Distribution Width CV 12.7 % (11.6-14.6); RBC Distribution Width SD 42.5 fl (35.1-43.9); White Blood Count 5.5 K/mm3 (4.4-11.0)
[2018-03-24 23:37] LABS: POSITIVE COUNT NO; POSITIVE DIFFERENTIAL NO; POSITIVE MORPHOLOGY NO
[2018-03-25 00:04] LABS: Anion Gap 7 (5-15); BUN 19 mg/dL (7-18); BUN/Creat Ratio 19.1 RATIO (10-20); Calcium,Total 8.2 mg/dL (8.5-10.1); Chloride 104 mmol/L (98-107); EST Glomerular Filtration Rate 90 mL/min (>60); Est Glom Filt Rate - Afr Amer 108 mL/min (>60); Estimated Creatinine Clearance 104.43 ml/min; Glucose 123 mg/dL (74-106); Potassium 3.7 mmol/L (3.5-5.1); Sodium Level 137 mmol/L (136-145)
--- NOTE | 2018-03-25 00:20 | EKG12_ITS ---
Test Reason : CP Blood Pressure : / mmHG Vent. Rate : 082 BPM Atrial Rate : 082 BPM P-R Int : 168 ms QRS Dur : 102 ms QT Int : 396 ms P-R-T Axes : 030 047 064 degrees QTc Int : 462 ms Normal sinus rhythm Normal ECG Confirmed by LAURI CENTENO, ALEX ([id number]), supervising editor trailer MILAGROS PARKER ([id number]) on 03/28/2018 3:49:20 PM Referred By: DR GONZALEZ Confirmed By:ALEX CARREON MD
[2018-03-25 00:25] VITALS: BP 141/91; PULSE 84; RESP 16; O2SAT 94
[2018-03-25] MEDS: Mag Hydrox/Al Hydrox/Simeth 30 ML UDC PO (00:27)
[2018-03-25 01:36] VITALS: BP 141/91; PULSE 84; RESP 16; O2SAT 98
--- NOTE | 2018-03-25 02:13 | ED.VISSUMM ---
- ER Visit Summary Date of Service: 03/25/18 Chief Complaint: Chest pain History of Present Illness: The patient is a 37 M who presents with chest pain. It began about 2 hours ago. It woke him from sleep. He complains of a substernal burning chest pain. This does not radiate. He had some numbness in his left hand but also notes that he has some neck problems. He did not have any pain into the arm jaw or neck. His pain was initially 7 out of 10. He took nitroglycerin and it did not improve. After arrival here to the ER later however he has had some improvement of symptoms. He now rates his discomfort as 3 out of 10. He vomited once after the nitroglycerin. He does note that he ate hot wings last night as well. He describes his pain as burning. He does have a history of reflux and prior peptic ulcer disease as well as prior AK. He states this does not feel like his AK. He has also not been taking his medications for the last 2 days. Physical Examination: Afebrile initial blood pressure 160/108 vitals otherwise unremarkable Heart regular rate and rhythm Lungs are clear Abdomen soft Extremities nontender 2+ radial pulses Alert Test Results: EKG shows normal sinus rhythm at a rate of 90 with no acute ischemic changes. Repeat EKG is unchanged. Chest x-ray is normal. CBC BMP unremarkable. Troponin negative. Repeat troponin remains negative. Emergency Department Course and Treatment: Patient describes substernal burning chest pain with a history of peptic ulcer disease after eating but describes as very spicy hot wings. He was given a GI cocktail here. On reevaluation he has had resolution of symptoms. Although he does have a history of prior AK he notes that this feels different. I do not believe his symptoms are due to cardiac ischemia. I believe this is due to gastroesophageal reflux. He was advised to continue his home medications. He is prescribed lansoprazole but notes that he had not been taking his medications last couple of days. He understands return for new or worsening symptoms. He was discharged home. Treatment Plan: [] Disposition: Discharge Impression: GERD This note was generated with MST dictation software. It may contain incorrect words, spelling, and punctuation that were not noted in review of the chart prior to signing ED Disposition - Plan for ED Patient: Chief Complaint: Chest Pain Referrals: Cheyenne Rai, GEORGI-C [Primary Care Provider] -
--- NOTE | 2018-03-25 02:16 | ED.DCSUM_ITS ---
- ER Visit Summary Date of Service: 03/25/18 Chief Complaint: Chest pain History of Present Illness: The patient is a 37 M who presents with chest pain. It began about 2 hours ago. It woke him from sleep. He complains of a substernal burning chest pain. This does not radiate. He had some numbness in his left hand but also notes that he has some neck problems. He did not have any pain into the arm jaw or neck. His pain was initially 7 out of 10. He took nitroglycerin and it did not improve. After arrival here to the ER later however he has had some improvement of symptoms. He now rates his discomfort as 3 out of 10. He vomited once after the nitroglycerin. He does note that he ate hot wings last night as well. He describes his pain as burning. He does have a history of reflux and prior peptic ulcer disease as well as prior MA. He states this does not feel like his MA. He has also not been taking his medications for the last 2 days. Physical Examination: Afebrile initial blood pressure 160/108 vitals otherwise unremarkable Heart regular rate and rhythm Lungs are clear Abdomen soft Extremities nontender 2+ radial pulses Alert Test Results: EKG shows normal sinus rhythm at a rate of 90 with no acute ischemic changes. Repeat EKG is unchanged. Chest x-ray is normal. CBC BMP unremarkable. Troponin negative. Repeat troponin remains negative. Emergency Department Course and Treatment: Patient describes substernal burning chest pain with a history of peptic ulcer disease after eating but describes as very spicy hot wings. He was given a GI cocktail here. On reevaluation he has had resolution of symptoms. Although he does have a history of prior MA he notes that this feels different. I do not believe his symptoms are due to cardiac ischemia. I believe this is due to gastroesophageal reflux. He was advised to continue his home medications. He is prescribed lansoprazole but notes that he had not been taking his medications last couple of days. He understands return for new or worsening symptoms. He was discharged home. Treatment Plan: [] Disposition: Discharge Impression: GERD This note was generated with [employer] dictation software. It may contain incorrect words, spelling, and punctuation that were not noted in review of the chart prior to signing ED Disposition - Plan for ED Patient: Chief Complaint: Chest Pain Referrals: Cheyenne Rai, GEORGI-C [Primary Care Provider] -
--- NOTE | 2018-03-25 02:17 | ED.DEP ---
ED Disposition - Plan for ED Patient: Chief Complaint: Chest Pain Instructions: ED GERD Referrals: Cheyenne Rai NP-C [Primary Care Provider] -
[2018-03-25 02:25] VITALS: BP 146/82; PULSE 89; RESP 16; RESP 18; O2SAT 98; O2SAT 99
== END 2018-03-25 02:27 | disposition home or self-care (01) ==
PROVIDERS: Emergency Provider Emergency Medicine; Family Provider Nurse Practitioner; PCP Nurse Practitioner
DX: K21.9 Gastro-esophageal reflux disease without esophagitis (principal); I25.10 Atherosclerotic heart disease of native coronary artery without angina pectoris; I25.2 Old myocardial infarction; I10 Essential (primary) hypertension; Z87.11 Personal history of peptic ulcer disease; Z95.5 Presence of coronary angioplasty implant and graft; Z79.82 Long term (current) use of aspirin; Z79.899 Other long term (current) drug therapy
CPT/HCPCS: 71045; 80048; 84484; 85025; 93005; 99285; A4216

== ENCOUNTER 2018-04-09 14:21 | Inpatient (IN) | payer SELFPAY ==
[2017-06-09 13:21] VITALS: BMI 40.8
[2018-04-09] VITALS (9 sets, daily range): BP systolic 135–199; BP diastolic 85–124; PULSE 73–89; RESP 13–145; TEMP 36.6–36.8; O2SAT 95–99; BMI 37.8; BMI 38.4
--- NOTE | 2018-04-09 14:39 | EKG12_ITS ---
Test Reason : CHEST PAIN Blood Pressure : / mmHG Vent. Rate : 079 BPM Atrial Rate : 079 BPM P-R Int : 162 ms QRS Dur : 096 ms QT Int : 356 ms P-R-T Axes : 057 051 086 degrees QTc Int : 408 ms Sinus rhythm with occasional Premature ventricular complexes Cannot rule out Anterior infarct , age undetermined Abnormal ECG Confirmed by LAURI CENTENO, ALEX ([id number]), marketing editor JACKELYN VEGA ([id number]) on 04/11/2018 4:18:44 PM Referred By: JOHN Confirmed By:ALEX CARREON MD
--- NOTE | 2018-04-09 14:50 | RAD_ITS ---
STUDY: X-RAY CHEST REASON FOR EXAM: Male, 37 years old. Chest pain TECHNIQUE: Single frontal view of the chest. COMPARISON: March 24, 2018 FINDINGS: The lungs are clear and expanded. There is no demonstrated pleural abnormality. Normal size heart. Normal mediastinum and lulu. Normal visualized pulmonary arteries. Normal visualized aortic arch and descending thoracic aorta. There is postoperative change in the lower cervical and upper thoracic spine. There are degenerative changes in the spine. Normal visualized ribs, clavicles, and shoulders. There is no demonstrated abnormality of the visualized soft tissue structures of the upper abdomen. RAD/Chest PA and Lateral IMPRESSION: Degenerative changes, as described above. No demonstrated acute cardiopulmonary process. Electronically Signed: Victor M Willett MD at 15:48 EST , Service support ,
[2018-04-09 14:52] LABS: Absolute Lymphocyte Count 1.74 X10^3/ul (0.83-4.51); Absolute Neutrophil Count 3.1 X10^3/uL (2.0-7.7); Basophil# 0.03 X10^3/uL; Basophil% 0.5 % (0-1); Eosinophils% 3.5 % (0-5); Hematocrit 42.7 % (40-54); Hemoglobin 14.9 g/dl (13.0-16.5); Lymphocyte # 1.74 X10^3/ul (4.0); Lymphocyte % 30.3 % (19-41); Mean Corp Hgb Conc 34.9 g/gl (32-36); Mean Corpuscular Hgb 31.2 pg (27.0-32.0); Mean Corpuscular Volume 89.5 fL (80-94); Monocyte# 0.62 X10^3/uL; Monocyte% 10.8 % (0-10); Neutrophil # 3.14 X10^3/uL (2.7-7.7); Neutrophil % 54.7 % (47-70); Platelet Count 221 K/mm3 (150-450); RBC Distribution Width CV 12.4 % (11.6-14.6); RBC Distribution Width SD 40.2 fl (35.1-43.9); Red Blood Count 4.77 M/mm3 (4.6-6.2); White Blood Count 5.7 K/mm3 (4.4-11.0)
[2018-04-09 14:53] LABS: POSITIVE COUNT NO; POSITIVE DIFFERENTIAL NO; POSITIVE MORPHOLOGY NO
[2018-04-09 15:03] LABS: Anion Gap 8 (5-15); BUN 14 mg/dL (7-18); BUN/Creat Ratio 14.7 RATIO (10-20); Calcium,Total 8.7 mg/dL (8.5-10.1); Chloride 104 mmol/L (98-107); Creatinine, Serum 0.96 mg/dL (0.70-1.30); EST Glomerular Filtration Rate 94 mL/min (>60); Est Glom Filt Rate - Afr Amer 114 mL/min (>60); Estimated Creatinine Clearance 112.21 ml/min; Glucose 98 mg/dL (74-106); Potassium 3.8 mmol/L (3.5-5.1); Sodium Level 137 mmol/L (136-145)
[2018-04-09] MEDS: Mag Hydrox/Al Hydrox/Simeth 30 ML UDC PO (15:07)
--- NOTE | 2018-04-09 15:33 | ED.VISSUMM ---
- ER Visit Summary Date of Service: 04/09/18 Chief Complaint: Chest pain History of Present Illness: The patient is a 37 M presenting for evaluation secondary to chest pain. Patient reports that he had a history of PCI performed approximately a year ago where he received 1 stent. Patient states that over the course last 3 weeks he has been dealing with chest pain. Patient states that he has been seen multiple times in the emergency department for this and has negative workups. Patient reports however that the symptoms have seem to be getting worse and now are associated with exertion. Patient states that it is also associated with shortness of breath. It is a burning type discomfort in his subxiphoid and substernal region. He denies any abdominal pain nausea vomiting or fevers associated with this. Review of systems otherwise negative. Physical Examination: Vital signs are within normal limits, patient is afebrile. General: Patient is well-nourished well-developed and in no acute distress. Head: Normocephalic, atraumatic Eyes: Pupils equal round and reactive bilaterally, extra occular motion intact bialterally ENT: Moist mucous membranes Neck: Supple, no lymphadenopathy, no JVD, no meningismus CVS: Heart regular rate and rhythm, no murmurs, rubs or gallops, radial pulses 2+ bilaterally Resp: Respirations nondistressed, lung sounds clear bilaterally Abdomen: Soft, nontender, nondistended, no palpable masses, normal bowel sounds Back: Nontender Extremities: Nontender, atraumatic, active full range of motion, no peripheral edema Skin: warm, no rashes, no petechia Neuro: Alert and oriented x 4, CN 2-12 intact, no lateralizing neurological defecits Psyc: Normal affect Test Results: EKG demonstrates sinus rhythm [address] segments normal T waves occasional PVCs noted. CBC and chemistry unremarkable, troponin is 0.043 chest x-ray unremarkable. Emergency Department Course and Treatment: Patient presented for evaluation secondary to chest pain. Patient's workup shows a change in his cardiac enzymes. He was seen on the and the and he had undetectable cardiac enzymes, and now he is 06/999's of having a indeterminate troponin. I do believe that this could indicate cardiac etiology for his chest pain. Patient will be admitted. He was chest pain-free on repeat evaluation. Disposition: Admission Impression: 1. Chest pain This note was generated with Dragon dictation software. It may contain incorrect words, spelling, and punctuation that were not noted in review of the chart prior to signing ED Disposition - Plan for ED Patient: Chief Complaint: Chest Pain Referrals: Cheyenne Rai NP-C [Primary Care Provider] -
--- NOTE | 2018-04-09 16:20 | EKG12_ITS ---
Test Reason : CP ADMIT Blood Pressure : / mmHG Vent. Rate : 079 BPM Atrial Rate : 079 BPM P-R Int : 158 ms QRS Dur : 100 ms QT Int : 376 ms P-R-T Axes : 027 045 058 degrees QTc Int : 431 ms Normal sinus rhythm Normal ECG When compared with ECG of 25-MAR-2018 01:54, No significant change was found Confirmed by LAURI CENTENO, ALEX ([id number]), acquisitions editor JACKELYN VEGA ([id number]) on 04/11/2018 4:03:23 PM Referred By: D[place]AS Confirmed By:ALEX CARREON MD
--- NOTE | 2018-04-09 16:49 | HP.PCM_ITS ---
Problem List (1) Upper GI bleed Status: Resolved (2) Hematemesis Status: Resolved Qualifiers: (3) Melena Status: Resolved (4) Ruptured tympanic membrane Status: Resolved (5) H/O right coronary artery stent placement Status: Chronic (6) Atherosclerosis of coronary artery of [place] heart without angina pectoris Status: Chronic (7) Non-ST elevation (NSTEMI) myocardial infarction Status: Chronic (8) Morbid obesity Status: Chronic (9) GERD (gastroesophageal reflux disease) Status: Chronic Qualifiers: (10) Hypertension Status: Chronic History of Present Illness Date of Admission: 04/09/18 Chief Complaint: Chest pain. The patient is a 37 year old M who presents to the Emergency Room due to chest pain. He has a past medical history of CAD status post right coronary artery stent, hypertension, hyperlipidemia, GERD, morbid obesity, history of upper GI bleed. Patient states for 3 weeks he has had intermittent severe burning sensation from mid epigastric region to mid center neck area. He states episodes have a sudden onset. He denies association with exertion. He denies associated shortness of breath, diaphoresis, pain radiation, dizziness, lightheadedness. Patient states he has not noticed a correlation with his daily activities and his pain. Pain does not occur after eating or while lying flat. He reports he has tried drinking hot water, milk and other home remedies. He felt that this was possibly gastric reflux related. Given his history of right coronary artery stent May 2017, patient has had increased anxiety thinking this may related to his heart and presented for further evaluation. Past Medical History Past Medical History (Chronic Problems): Chronic Problems (Last Reviewed 10/08/17 @ 09:46 by Rupa Nunes) Hypertension (Chronic) H/O right coronary artery stent placement (Chronic) Atherosclerosis of coronary artery of [place] heart without angina pectoris (Chronic) Non-ST elevation (NSTEMI) myocardial infarction (Chronic) Morbid obesity (Chronic) GERD (gastroesophageal reflux disease) (Chronic) Medical History: Medical History (Last Reviewed 10/08/17 @ 09:46 by Rupa Nunes) Atherosclerosis of coronary artery of [place] heart without angina pectoris (Chronic) I25.10 Non-ST elevation (NSTEMI) myocardial infarction (Chronic) I21.4 Morbid obesity (Chronic) E66.01 GERD (gastroesophageal reflux disease) (Chronic) K21.9 Allergies Penicillins Allergy (Verified 04/09/18 14:25) Angioedema Home Medications: Ambulatory Orders Medication Instructions Recorded Aspirin E.C. [Ecotrin] 81 mg PO DAILY@0800 tab 06/10/17 clopidogrel 75 mg tablet 75 mg PO QDAY #30 tab 10/13/17 lisinopril 10 mg tablet 10 mg PO DAILY #30 tab 10/13/17 Lansoprazole 15 mg PO DAILY 03/24/18 Nitroglycerin [Nitrostat] 0.4 mg SUBLINGUAL Q5M PRN 03/24/18 Surgical History: Surgical History (Last Reviewed 10/08/17 @ 09:46 by Rupa Nunes) H/O right coronary artery stent placement (Chronic) Z95.5 Surgical History: - - Tube right TM, Several prior BL ear tubes, T+A, R knee arthroscopic ACL surgery x 2, Neck Surgery C6-7 fusion. Coronary artery stent placement May 2017 Psychiatric History: No pertinent psych hx Lives: Spouse/ Significant Other Smoking Status: Never smoker Alcohol: Occasional Drugs: None - *Family History Maternal History Items: Heart Disease, Hypertension Paternal History Items: Heart Disease, Hypertension Review of Systems Constitutional: Denies: Chills, Fever, Weight Change HEENT: Denies: Head Aches, Sinus Congestion, Sinus Drainage Cardiovascular: Reports: Chest Pain. Denies: Edema, Light Headedness, Palpitations, Syncope Respiratory: Denies: Cough, Shortness of breath at rest, Sputum production Gastrointestinal: Denies: Abdominal Pain, Nausea, Vomiting Genitourinary: Denies: Dysuria Musculoskeletal: Denies: Joint Pain, Joint Tenderness Skin: Denies: Rash, Wounds Neurological: Denies: Numbness, Tingling, Focal weakness Psychiatric: Denies: Anxiety, Depression, Homicidal Ideations, Suicidal Ideations Hematologic/ Lymphatic: Denies: Easy Bruising, Easy Bleeding VTE Information - Inpt Only VTE Present on Admission: No VTE Mechan Device Prophylaxis: None VTE Pharm Prophylaxis ordered?: No Reason prophylaxis not ordered:: Treatment Not Indicated - Physical Exam General: Alert, Oriented x3, Cooperative HEENT: Atraumatic, PERRLA, EOMI, Normocephalic Neck: Supple, No JVD, Negative Carotid Bruits Lungs: Clear to auscultation, Normal air movement Cardiovascular: Regular rate, Regular Rhythm, Normal S1, Normal S2, No murmurs Abdomen: Bowel Sounds Present, Soft, Non Tender Extremities: No clubbing, No cyanosis, No edema, Capillary Refill Less than 3 Seconds Skin: No rashes, No breakdown Musculoskeletal: No Tenderness to Palpation of Joints or Extremities Neurological: Cranial nerves II-XII grossly intact, Neuro grossly intact Psych/Mental Status: Normal Affect, Appropriate Vital Signs Temp Pulse Resp BP Pulse Ox 98.1 F 88 13 142/101 H 97 04/09/18 14:22 04/09/18 15:54 04/09/18 15:54 04/09/18 15:54 04/09/18 15:54 Oxygen Flow Rate (L/min) 2 Oxygen Delivery Method Nasal Cannula Weight: 275 lb 5.718 oz Body Mass Index (BMI) 38.4 Laboratory Tests Past 24 Hrs 04/09/18 04/09/18 14:30 14:30 WBC 5.7 RBC 4.77 Hgb 14.9 Hct 42.7 MCV 89.5 MCH 31.2 MCHC 34.9 RDW 12.4 RDW Differential 40.2 Plt Count 221 MPV 10.0 Immature Gran % (Auto) 0.200 Neut % (Auto) 54.7 Lymph % (Auto) 30.3 [place] % (Auto) 10.8 H Eos % (Auto) 3.5 Baso % (Auto) 0.5 Absolute Neuts (auto) 3.1 Absolute Lymphs (auto) 1.74 Total Counted Not Reportable Sodium 137 Potassium 3.8 Chloride 104 Carbon Dioxide 25.0 Anion Gap 8 BUN 14 Creatinine 0.96 Estim Creat Clear Calc 112.21 Est GFR (MDRD) Af Amer 114 Est GFR (MDRD) Non-Af 94 BUN/Creatinine Ratio 14.7 Glucose 98 Calcium 8.7 Troponin I 0.043 Assessment/Plan All Active Problems (Last Reviewed 10/08/17 @ 09:46 by Rupa Nunes) Cervical radicular pain (Resolved) Chest pain (Resolved) Hematemesis (Resolved) Melena (Resolved) Recurrent otitis media of right ear (Resolved) Ruptured tympanic membrane (Resolved) Upper GI bleed (Resolved) 1. Chest pain, underlying CAD s/p right coronary artery stent 06/09/2017-EKG on admission without ST-T changes. Chest x-ray showed degenerative changes. No acute cardiopulmonary process. Initial troponin 0.04. Trend enzymes. Repeat EKG in a.m. Plan for stress test in a.m. if enzymes do not trend upward. If cardiac workup unremarkable, suspect esophageal spasm given patient's description. 2. Hypertension-stable, continue home lisinopril regimen. Mildly elevated on admission. Continue to monitor. 3. Hyperlipidemia-previously on statin which she has no longer taking. Atorvastatin 40 mg p.o. nightly added. 4. GERD/history of upper GI bleed-continue PPI. 5. Morbid obesity-encouraged diet and lifestyle modifications. DVT prophylaxis-not indicated, encourage early ambulation. This patient was seen by ANNABEL Mckenzie under the supervision of Dr. Hankins.
[2018-04-09] MEDS: Atorvastatin Calcium 40 MG Tablet PO (21:36)
[2018-04-09] MEDS: Pantoprazole Sodium 40 MG Tablet PO (21:36)
[2018-04-09] MEDS: Acetaminophen 325 MG Tablet 650 MG PO (21:52)
[2018-04-10] VITALS (42 sets, daily range): BP systolic 109–168; BP diastolic 46–109; PULSE 67–105; RESP 11–25; TEMP 36.1–37.1; O2SAT 91–99
[2018-04-10] MEDS: HYDROcodone Bitartrate/Apap 5/325 Tablet PO ×3 (00:44→15:38)
--- NOTE | 2018-04-10 05:00 | EKG12_ITS ---
Test Reason : AM EKG Blood Pressure : / mmHG Vent. Rate : 073 BPM Atrial Rate : 073 BPM P-R Int : 164 ms QRS Dur : 098 ms QT Int : 400 ms P-R-T Axes : 036 050 044 degrees QTc Int : 440 ms Normal sinus rhythm Normal ECG When compared with ECG of 09-APR-2018 16:28, MANUAL COMPARISON REQUIRED, DATA IS UNCONFIRMED Confirmed by LAURI CENTENO, ALEX ([id number]), editor map JACKELYN VEGA ([id number]) on 04/11/2018 4:02:37 PM Referred By: NOLBERTO Confirmed By:ALEX CARREON MD
[2018-04-10] MEDS: Lisinopril 10 MG Tablet PO (05:26)
[2018-04-10] MEDS: Clopidogrel Bisulfate 75 MG Tablet PO (05:26)
[2018-04-10] MEDS: Aspirin E.C. 81 MG Tablet PO (05:27)
[2018-04-10 05:57] LABS: Hematocrit 41.4 % (40-54); Hemoglobin 14.3 g/dl (13.0-16.5); Mean Corp Hgb Conc 34.5 g/gl (32-36); Mean Corpuscular Hgb 31.2 pg (27.0-32.0); Mean Corpuscular Volume 90.4 fL (80-94); Mean Platelet Vol. 10.1 fl (6.2-12.0); Platelet Count 216 K/mm3 (150-450); RBC Distribution Width CV 12.5 % (11.6-14.6); RBC Distribution Width SD 41.1 fl (35.1-43.9); Red Blood Count 4.58 M/mm3 (4.6-6.2); White Blood Count 5.6 K/mm3 (4.4-11.0)
[2018-04-10 06:05] LABS: International Normalized Ratio 1.1; Prothrombin Time (Protime)PT. 13.7 SECONDS (11.7-14.9)
[2018-04-10 06:06] LABS: Partial Thromboplast Time 30.9 Seconds (24.1-36.2)
[2018-04-10 06:32] LABS: Scan Indicated on CBC? Y/N NO
[2018-04-10 06:34] LABS: Anion Gap 7 (5-15); BUN 14 mg/dL (7-18); BUN/Creat Ratio 15.8 RATIO (10-20); Calcium,Total 8.5 mg/dL (8.5-10.1); Chloride 103 mmol/L (98-107); Creatinine, Serum 0.88 mg/dL (0.70-1.30); EST Glomerular Filtration Rate 103 mL/min (>60); Est Glom Filt Rate - Afr Amer 124 mL/min (>60); Estimated Creatinine Clearance 122.41 ml/min; Glucose 83 mg/dL (74-106); Potassium 4.4 mmol/L (3.5-5.1); Sodium Level 137 mmol/L (136-145)
[2018-04-10] MEDS: Pantoprazole Sodium 40 MG Tablet PO ×2 (09:24→21:23)
--- NOTE | 2018-04-10 09:32 | STRESSREP_ITS ---
Stress Test Report Exercise myocardial perfusion stress test. 37-year-old male with a history of known coronary artery disease. Resting EKG demonstrates normal sinus rhythm with a rate of 86 bpm resting blood pressure is 130/80 8 m of mercury. The patient exercised according to regular Luis protocol for total duration of 10 minutes the maximum heart rate attained was 157 bpm which was 85% of maximum predicted heart rate the maximum workload was 11.7 metabolic equivalents. At rest there were no ST or T wave changes noted suggest ischemia at peak exercise there appeared to be mild ST elevation noted in lead III and aVF during recovery the above returned to normal. The resting blood pressure was 130/88 with a peak blood pressure 190/80 mmHg. The patient experienced mild throat discomfort during the exercise. Myocardial perfusion protocol. 14.6 mCi of technetium 99m sestamibi was injected at rest. 0.4 mg of regadenoson was infused per usual protocol. The patient then exercised according to regular Luis protocol for 10 minutes attaining 85% of maximum predicted heart rate at peak exercise 44.7 mCi of technetium 99m sestamibi was injected stress images were obtained stress and rest images were reconstructed and compared in the short axis vertical long and horizontal long axis. Gated images were also obtained next Perfusion SPECT analysis: Review of the stress images demonstrate a large defect noted involving the inferior inferolateral wall with near complete reversibility on the resting images suggesting stress-induced ischemia in the inferolateral distribution. Gated SPECT analysis: The gated ejection fraction is noted to be 47%. Conclusion: Exercise myocardial perfusion stress test with evidence of inferior and inferol ateral ischemia at a high workload. Mildly reduced left ventricular ejection fraction.
--- NOTE | 2018-04-10 10:00 | CASEMGMT ---
If transfer to a tertiary facility is needed, pt may be transferred to facility of pt/physician choice. Pt is self-pay.
--- NOTE | 2018-04-10 10:35 | PCM.CONS.C ---
Reason for Consult Date of Consultation: 04/10/18 Reason for Consultation: Chest discomfort History of Present Illness: The patient is a 37 year old M with a history of coronary artery disease status post angioplasty and stenting in May 2017 with a drug-eluting stent to the right coronary artery. He says that he has not been very compliant with his medications and presented to the emergency room with chest discomfort which he describes as a burning sensation. He has been worked up previously in the emergency room with no significant abnormalities noted. At this time he presented and it was decided to evaluate him with a stress test. He exercised according to the regular Luis protocol and developed some chest discomfort as well as ST elevation in V3. His nuclear images were significant for a significant inferolateral perfusion defect. After discussion with the patient it was decided to pursue a left heart catheterization. Currently he is pain-free. He has not had any neck discomfort or chest discomfort since admission to the hospital suggestive of angina. [] Past Medical History Allergies/Adverse Reactions: Allergies Penicillins Allergy (Verified 04/09/18 14:25) Angioedema Home Medications: Ambulatory Orders Medication Instructions Recorded Aspirin E.C. [Ecotrin] 81 mg PO DAILY@0800 tab 06/10/17 clopidogrel 75 mg tablet 75 mg PO QDAY #30 tab 10/13/17 lisinopril 10 mg tablet 10 mg PO DAILY #30 tab 10/13/17 Lansoprazole 15 mg PO DAILY 03/24/18 Nitroglycerin [Nitrostat] 0.4 mg SUBLINGUAL Q5M PRN 03/24/18 Past Medical History (Chronic Problems): Chronic Problems (Last Reviewed 10/08/17 @ 09:46 by Rupa Nunes) Hypertension (Chronic) H/O right coronary artery stent placement (Chronic) Atherosclerosis of coronary artery of [place] heart without angina pectoris (Chronic) Non-ST elevation (NSTEMI) myocardial infarction (Chronic) Morbid obesity (Chronic) GERD (gastroesophageal reflux disease) (Chronic) Surgical History: - - Tube right TM, Several prior BL ear tubes, T+A, R knee arthroscopic ACL surgery x 2, Neck Surgery C6-7 fusion. Coronary artery stent placement May 2017 Psychiatric History: No pertinent psych hx - *Family History Maternal History Items: Heart Disease, Hypertension Paternal History Items: Heart Disease, Hypertension Lives: Spouse/ Significant Other Smoking Status: Never smoker Alcohol: Occasional Drugs: None Review of Systems - Review of Systems General: Denies: Fever, Night Sweats, Fatigue HEENT: Denies: Vision Change Cardiovascular: Reports: Chest Discomfort, Chest Discomfort at Rest, Chest Discomfort with Exertion, Chest Pressure. Denies: Shortness of Breath, Orthopnea, PND, Peripheral Edema, Palpitations, Lightheadedness, Dizziness, Near Syncope, Syncope Respiratory: Denies: Cough, Sputum Production, Hemoptysis Gastrointestinal: Denies: Hematemesis, Hematochezia, Melena Genitourinary: Denies: Dysuria, Hematuria Muscoloskeletal: Denies: Myalgias Skin: Denies: Rash Neurological: Denies: Dizziness Psychiatric: Denies: Anxiety Endocrine: Denies: Heat Intolerance Hematologic/ Lymphatic: Denies: Anemia Subjectve: Pleasant gentleman in no distress Objective: Vital Signs Temp Pulse Resp BP Pulse Ox 98.7 F 94 18 109/77 98 04/10/18 08:58 04/10/18 09:09 04/10/18 08:58 04/10/18 08:58 04/10/18 09:00 Oxygen Flow Rate (L/min) 2 Oxygen Delivery Method Room Air Weight: 275 lb 5.718 oz Body Mass Index (BMI) 38.4 Intake and Output for Last 24 Hours 04/08/18 04/09/18 04/10/18 23:59 23:59 23:59 Intake Total 400 / 400 0 / 0 Balance 400 / 400 0 / 0 General: Awake, Alert, Oriented x 3 HEENT: PERRL, EOMI, Sclera Non Icteric Neck: Supple, Good ROM, No Lymph Node Enlargement Lungs: Clear to auscultation Cardiovascular: Regular Rhythm, Normal S1, Normal S2, No Murmurs, No Rubs, No Gallops Vascular: No Carotid Bruits, Normal Femoral Pulses, Normal Radial Pulses, Normal Dorsalis Pedal Pulse, Normal Posterior Tibial Pulses Abdomen: Bowel Sounds Present, Soft, Non Tender, No HSM, No Organomegaly Extremities: No Cyanosis, No Clubbing, No edema Lymphatic: No Lymph Node Enlargement Neurological: No Focal Motor or Sensory Deficit Psych/Mental Status: Appropriate 04/09/18 14:30: WBC 5.7, RBC 4.77, Hgb 14.9, Hct 42.7, MCV 89.5, MCH 31.2, MCHC 34.9, RDW 12.4, RDW Differential 40.2, Plt Count 221, MPV 10.0, Immature Gran % (Auto) 0.200, Neut % (Auto) 54.7, Lymph % (Auto) 30.3, [place] % (Auto) 10.8 H, Eos % (Auto) 3.5, Baso % (Auto) 0.5, Absolute Neuts (auto) 3.1, Total Counted Not Reportable 04/09/18 14:30: Sodium 137, Potassium 3.8, Chloride 104, Carbon Dioxide 25.0, Anion Gap 8, BUN 14, Creatinine 0.96, Est GFR (MDRD) Af Amer 114, Est GFR (MDRD) Non-Af 94, BUN/Creatinine Ratio 14.7, Glucose 98, Calcium 8.7, Troponin I 0.043 04/09/18 17:30: Troponin I 0.079 H 04/09/18 20:35: Troponin I 0.095 H 04/10/18 05:00: Troponin I 0.119 H 04/10/18 05:00: PT 13.7, INR 1.1, APTT 30.9 04/10/18 05:00: Sodium 137, Potassium 4.4, Chloride 103, Carbon Dioxide 27.0, Anion Gap 7, BUN 14, Creatinine 0.88, Est GFR (MDRD) Af Amer 124, Est GFR (MDRD) Non-Af 103, BUN/Creatinine Ratio 15.8, Glucose 83, Calcium 8.5 04/10/18 05:05: WBC 5.6, RBC 4.58 L, Hgb 14.3, Hct 41.4, MCV 90.4, MCH 31.2, MCHC 34.5, RDW 12.5, RDW Differential 41.1, Plt Count 216, MPV 10.1 Rhythm: EKG: Normal sinus rhythm with no acute changes ECHO: Stress Test: Abnormal stress test with evidence of inferior lateral perfusion defect Assessment/Plan 1. Chest pain with abnormal stress test Patient presents with chest discomfort with abnormal inferolateral myocardial perfusion defect. My recommendation would be for us to proceed with a cardiac catheterization. The risks benefits and alternatives have been explained to him he understands and agrees to proceed. Patient will remain on the clopidogrel. 2. Hypertension His blood pressure appears to be fairly well controlled we will continue current medications with no changes 3. Lipidemia Patient apparently was not able to tolerate the statins very well. Would suggest reducing the dose of his statins and hopefully make him more compliant. Thank you for allowing me to participate in the care of your patient. Please don't hesitate to call if any issues arise
--- NOTE | 2018-04-10 10:40 | CON.PCM_ITS ---
Reason for Consult Date of Consultation: 04/10/18 Reason for Consultation: Chest discomfort History of Present Illness: The patient is a 37 year old M with a history of coronary artery disease status post angioplasty and stenting in May 2017 with a drug-eluting stent to the right coronary artery. He says that he has not been very compliant with his medications and presented to the emergency room with chest discomfort which he describes as a burning sensation. He has been worked up previously in the emergency room with no significant abnormalities noted. At this time he presented and it was decided to evaluate him with a stress test. He exercised according to the regular Luis protocol and developed some chest discomfort as well as ST elevation in V3. His nuclear images were significant for a significant inferolateral perfusion defect. After discussion with the patient it was decided to pursue a left heart catheterization. Currently he is pain- free. He has not had any neck discomfort or chest discomfort since admission to the hospital suggestive of angina. [] Past Medical History Allergies/Adverse Reactions: Allergies Penicillins Allergy (Verified 04/09/18 14:25) Angioedema Home Medications: Ambulatory Orders Medication Instructions Recorded Aspirin E.C. [Ecotrin] 81 mg PO DAILY@0800 tab 06/10/17 clopidogrel 75 mg tablet 75 mg PO QDAY #30 tab 10/13/17 lisinopril 10 mg tablet 10 mg PO DAILY #30 tab 10/13/17 Lansoprazole 15 mg PO DAILY 03/24/18 Nitroglycerin [Nitrostat] 0.4 mg SUBLINGUAL Q5M PRN 03/24/18 Past Medical History (Chronic Problems): Chronic Problems (Last Reviewed 10/08/17 @ 09:46 by Rupa Nunes) Hypertension (Chronic) H/O right coronary artery stent placement (Chronic) Atherosclerosis of coronary artery of [place] heart without angina pectoris (Chronic) Non-ST elevation (NSTEMI) myocardial infarction (Chronic) Morbid obesity (Chronic) GERD (gastroesophageal reflux disease) (Chronic) Surgical History: - - Tube right TM, Several prior BL ear tubes, T+A, R knee arthroscopic ACL surgery x 2, Neck Surgery C6-7 fusion. Coronary artery stent placement May 2017 Psychiatric History: No pertinent psych hx - *Family History Maternal History Items: Heart Disease, Hypertension Paternal History Items: Heart Disease, Hypertension Lives: Spouse/ Significant Other Smoking Status: Never smoker Alcohol: Occasional Drugs: None Review of Systems - Review of Systems General: Denies: Fever, Night Sweats, Fatigue HEENT: Denies: Vision Change Cardiovascular: Reports: Chest Discomfort, Chest Discomfort at Rest, Chest Discomfort with Exertion, Chest Pressure. Denies: Shortness of Breath, Orthopnea, PND, Peripheral Edema, Palpitations, Lightheadedness, Dizziness, Near Syncope, Syncope Respiratory: Denies: Cough, Sputum Production, Hemoptysis Gastrointestinal: Denies: Hematemesis, Hematochezia, Melena Genitourinary: Denies: Dysuria, Hematuria Muscoloskeletal: Denies: Myalgias Skin: Denies: Rash Neurological: Denies: Dizziness Psychiatric: Denies: Anxiety Endocrine: Denies: Heat Intolerance Hematologic/ Lymphatic: Denies: Anemia Subjectve: Pleasant gentleman in no distress Objective: Vital Signs Temp Pulse Resp BP Pulse Ox 98.7 F 94 18 109/77 98 04/10/18 08:58 04/10/18 09:09 04/10/18 08:58 04/10/18 08:58 04/10/18 09:00 Oxygen Flow Rate (L/min) 2 Oxygen Delivery Method Room Air Weight: 275 lb 5.718 oz Body Mass Index (BMI) 38.4 Intake and Output for Last 24 Hours 04/08/18 04/09/18 04/10/18 23:59 23:59 23:59 Intake Total 400 / 400 0 / 0 Balance 400 / 400 0 / 0 General: Awake, Alert, Oriented x 3 HEENT: PERRL, EOMI, Sclera Non Icteric Neck: Supple, Good ROM, No Lymph Node Enlargement Lungs: Clear to auscultation Cardiovascular: Regular Rhythm, Normal S1, Normal S2, No Murmurs, No Rubs, No Gallops Vascular: No Carotid Bruits, Normal Femoral Pulses, Normal Radial Pulses, Normal Dorsalis Pedal Pulse, Normal Posterior Tibial Pulses Abdomen: Bowel Sounds Present, Soft, Non Tender, No HSM, No Organomegaly Extremities: No Cyanosis, No Clubbing, No edema Lymphatic: No Lymph Node Enlargement Neurological: No Focal Motor or Sensory Deficit Psych/Mental Status: Appropriate 04/09/18 14:30: WBC 5.7, RBC 4.77, Hgb 14.9, Hct 42.7, MCV 89.5, MCH 31.2, MCHC 34.9, RDW 12.4, RDW Differential 40.2, Plt Count 221, MPV 10.0, Immature Gran % (Auto) 0.200, Neut % (Auto) 54.7, Lymph % (Auto) 30.3, Posey % (Auto) 10.8 H, Eos % (Auto) 3.5, Baso % (Auto) 0.5, Absolute Neuts (auto) 3.1, Total Counted Not Reportable 04/09/18 14:30: Sodium 137, Potassium 3.8, Chloride 104, Carbon Dioxide 25.0, Anion Gap 8, BUN 14, Creatinine 0.96, Est GFR (MDRD) Af Amer 114, Est GFR (MDRD) Non-Af 94, BUN/Creatinine Ratio 14.7, Glucose 98, Calcium 8.7, Troponin I 0.043 04/09/18 17:30: Troponin I 0.079 H 04/09/18 20:35: Troponin I 0.095 H 04/10/18 05:00: Troponin I 0.119 H 04/10/18 05:00: PT 13.7, INR 1.1, APTT 30.9 04/10/18 05:00: Sodium 137, Potassium 4.4, Chloride 103, Carbon Dioxide 27.0, Anion Gap 7, BUN 14, Creatinine 0.88, Est GFR (MDRD) Af Amer 124, Est GFR (MDRD) Non-Af 103, BUN/Creatinine Ratio 15.8, Glucose 83, Calcium 8.5 04/10/18 05:05: WBC 5.6, RBC 4.58 L, Hgb 14.3, Hct 41.4, MCV 90.4, MCH 31.2, MCHC 34.5, RDW 12.5, RDW Differential 41.1, Plt Count 216, MPV 10.1 Rhythm: EKG: Normal sinus rhythm with no acute changes ECHO: Stress Test: Abnormal stress test with evidence of inferior lateral perfusion defect Assessment/Plan 1. Chest pain with abnormal stress test * Patient presents with chest discomfort with abnormal inferolateral myocardial perfusion defect. * My recommendation would be for us to proceed with a cardiac catheterization. The risks benefits and alternatives have been explained to him he understands and agrees to proceed. * Patient will remain on the clopidogrel. * 2. Hypertension * His blood pressure appears to be fairly well controlled we will continue current medications with no changes * 3. Lipidemia * Patient apparently was not able to tolerate the statins very well. Would suggest reducing the dose of his statins and hopefully make him more compliant. * * Thank you for allowing me to participate in the care of your patient. Please don't hesitate to call if any issues arise
--- NOTE | 2018-04-10 10:48 | NURSING ---
report called to slabber at this time
--- NOTE | 2018-04-10 12:19 | PCM.PROGNOTE ---
<Lisset Mckeon - Last Filed: 04/10/18 12:23> Subjective: Patient seen and examined. Underwent nuclear stress test this morning which was abnormal. Patient states he did have some chest discomfort during the test. He is tearful at time of assessment, upset about having to undergo heart cath. Denies chest pain currently. - Physical Exam General: Alert, Oriented x3, Cooperative HEENT: Atraumatic, PERRLA, EOMI, Normocephalic Neck: Supple, No JVD, Negative Carotid Bruits Lungs: Clear to auscultation, Normal air movement Cardiovascular: Regular rate, Regular Rhythm, Normal S1, Normal S2, No murmurs Abdomen: Bowel Sounds Present, Soft, Non Tender, Non-Distended Extremities: No clubbing, No cyanosis, No edema, Capillary Refill Less than 3 Seconds Skin: No rashes, No breakdown Musculoskeletal: No Tenderness to Palpation of Joints or Extremities Neurological: Cranial nerves II-XII grossly intact, Neuro grossly intact Psych/Mental Status: Normal Affect, Appropriate Vital Signs Temp Pulse Resp BP Pulse Ox 98.7 F 94 18 109/77 98 04/10/18 08:58 04/10/18 09:09 04/10/18 08:58 04/10/18 08:58 04/10/18 09:00 Oxygen Flow Rate (L/min) 2 Oxygen Delivery Method Room Air Weight: 275 lb 5.718 oz Body Mass Index (BMI) 38.4 Intake and Output for Last 24 Hours 04/08/18 04/09/18 04/10/18 23:59 23:59 23:59 Intake Total 400 / 400 0 / 0 Balance 400 / 400 0 / 0 Laboratory Tests Past 24 Hrs 04/09/18 04/09/18 04/09/18 14:30 14:30 17:30 WBC 5.7 RBC 4.77 Hgb 14.9 Hct 42.7 MCV 89.5 MCH 31.2 MCHC 34.9 RDW 12.4 RDW Differential 40.2 Plt Count 221 MPV 10.0 Immature Gran % (Auto) 0.200 Neut % (Auto) 54.7 Lymph % (Auto) 30.3 Mcpherson % (Auto) 10.8 H Eos % (Auto) 3.5 Baso % (Auto) 0.5 Absolute Neuts (auto) 3.1 Absolute Lymphs (auto) 1.74 Total Counted Not Reportable PT INR APTT Sodium 137 Potassium 3.8 Chloride 104 Carbon Dioxide 25.0 Anion Gap 8 BUN 14 Creatinine 0.96 Estim Creat Clear Calc 112.21 Est GFR (MDRD) Af Amer 114 Est GFR (MDRD) Non-Af 94 BUN/Creatinine Ratio 14.7 Glucose 98 Calcium 8.7 Troponin I 0.043 0.079 H 04/09/18 04/10/18 04/10/18 20:35 05:00 05:00 WBC RBC Hgb Hct MCV MCH MCHC RDW RDW Differential Plt Count MPV Immature Gran % (Auto) Neut % (Auto) Lymph % (Auto) Mcpherson % (Auto) Eos % (Auto) Baso % (Auto) Absolute Neuts (auto) Absolute Lymphs (auto) Total Counted PT 13.7 INR 1.1 APTT 30.9 Sodium Potassium Chloride Carbon Dioxide Anion Gap BUN Creatinine Estim Creat Clear Calc Est GFR (MDRD) Af Amer Est GFR (MDRD) Non-Af BUN/Creatinine Ratio Glucose Calcium Troponin I 0.095 H 0.119 H 04/10/18 04/10/18 05:00 05:05 WBC 5.6 RBC 4.58 L Hgb 14.3 Hct 41.4 MCV 90.4 MCH 31.2 MCHC 34.5 RDW 12.5 RDW Differential 41.1 Plt Count 216 MPV 10.1 Immature Gran % (Auto) Neut % (Auto) Lymph % (Auto) Mcpherson % (Auto) Eos % (Auto) Baso % (Auto) Absolute Neuts (auto) Absolute Lymphs (auto) Total Counted PT INR APTT Sodium 137 Potassium 4.4 Chloride 103 Carbon Dioxide 27.0 Anion Gap 7 BUN 14 Creatinine 0.88 Estim Creat Clear Calc 122.41 Est GFR (MDRD) Af Amer 124 Est GFR (MDRD) Non-Af 103 BUN/Creatinine Ratio 15.8 Glucose 83 Calcium 8.5 Troponin I Medical Necessity - Tobacco Use Smoking Status: Never smoker Assessment/Plan All Active Problems (Last Reviewed 10/08/17 @ 09:46 by Rupa Nunes) Cervical radicular pain (Resolved) Chest pain (Resolved) Hematemesis (Resolved) Melena (Resolved) Recurrent otitis media of right ear (Resolved) Ruptured tympanic membrane (Resolved) Upper GI bleed (Resolved) 1. Chest pain with abnormal cardiac enzymes, underlying CAD s/p right coronary artery stent 06/09/2017-EKG on admission without ST-T changes. Chest x-ray showed degenerative changes. No acute cardiopulmonary process. Stress test this morning showed evidence of inferior and inferior lateral ischemia, mildly reduced ejection fraction at 47%. Cardiology consulted. Plans for cardiac catheterization. Continue aspirin, statin, Plavix. 2. Hypertension-stable, continue home lisinopril regimen. Mildly elevated on admission. Continue to monitor. 3. Hyperlipidemia-previously on statin which she has no longer taking. Atorvastatin 40 mg p.o. nightly added. 4. GERD/history of upper GI bleed-continue PPI. 5. Morbid obesity-encouraged diet and lifestyle modifications. DVT prophylaxis-not indicated, encourage early ambulation. This patient was seen by ANNABEL Mckenzie under the supervision of Dr. Morin. <Martha Morin - Last Filed: 04/10/18 14:31> - Physical Exam Vital Signs Temp Pulse Resp BP Pulse Ox 98.7 F 94 18 109/77 98 04/10/18 08:58 04/10/18 09:09 04/10/18 08:58 04/10/18 08:58 04/10/18 09:00 Oxygen Flow Rate (L/min) 2 Oxygen Delivery Method Room Air Weight: 275 lb 5.718 oz Body Mass Index (BMI) 38.4 Intake and Output for Last 24 Hours 04/08/18 04/09/18 04/10/18 23:59 23:59 23:59 Intake Total 400 / 400 0 / 0 Balance 400 / 400 0 / 0 Laboratory Tests Past 24 Hrs 04/09/18 04/09/18 04/09/18 14:30 14:30 17:30 WBC 5.7 RBC 4.77 Hgb 14.9 Hct 42.7 MCV 89.5 MCH 31.2 MCHC 34.9 RDW 12.4 RDW Differential 40.2 Plt Count 221 MPV 10.0 Immature Gran % (Auto) 0.200 Neut % (Auto) 54.7 Lymph % (Auto) 30.3 Mcpherson % (Auto) 10.8 H Eos % (Auto) 3.5 Baso % (Auto) 0.5 Absolute Neuts (auto) 3.1 Absolute Lymphs (auto) 1.74 Total Counted Not Reportable PT INR APTT Activated Clotting Time Sodium 137 Potassium 3.8 Chloride 104 Carbon Dioxide 25.0 Anion Gap 8 BUN 14 Creatinine 0.96 Estim Creat Clear Calc 112.21 Est GFR (MDRD) Af Amer 114 Est GFR (MDRD) Non-Af 94 BUN/Creatinine Ratio 14.7 Glucose 98 Calcium 8.7 Troponin I 0.043 0.079 H 04/09/18 04/10/18 04/10/18 20:35 05:00 05:00 WBC RBC Hgb Hct MCV MCH MCHC RDW RDW Differential Plt Count MPV Immature Gran % (Auto) Neut % (Auto) Lymph % (Auto) Mcpherson % (Auto) Eos % (Auto) Baso % (Auto) Absolute Neuts (auto) Absolute Lymphs (auto) Total Counted PT 13.7 INR 1.1 APTT 30.9 Activated Clotting Time Sodium Potassium Chloride Carbon Dioxide Anion Gap BUN Creatinine Estim Creat Clear Calc Est GFR (MDRD) Af Amer Est GFR (MDRD) Non-Af BUN/Creatinine Ratio Glucose Calcium Troponin I 0.095 H 0.119 H 04/10/18 04/10/18 04/10/18 05:00 05:05 12:11 WBC 5.6 RBC 4.58 L Hgb 14.3 Hct 41.4 MCV 90.4 MCH 31.2 MCHC 34.5 RDW 12.5 RDW Differential 41.1 Plt Count 216 MPV 10.1 Immature Gran % (Auto) Neut % (Auto) Lymph % (Auto) Mcpherson % (Auto) Eos % (Auto) Baso % (Auto) Absolute Neuts (auto) Absolute Lymphs (auto) Total Counted PT INR APTT Activated Clotting Time 279 H Sodium 137 Potassium 4.4 Chloride 103 Carbon Dioxide 27.0 Anion Gap 7 BUN 14 Creatinine 0.88 Estim Creat Clear Calc 122.41 Est GFR (MDRD) Af Amer 124 Est GFR (MDRD) Non-Af 103 BUN/Creatinine Ratio 15.8 Glucose 83 Calcium 8.5 Troponin I 04/10/18 12:52 WBC RBC Hgb Hct MCV MCH MCHC RDW RDW Differential Plt Count MPV Immature Gran % (Auto) Neut % (Auto) Lymph % (Auto) Mcpherson % (Auto) Eos % (Auto) Baso % (Auto) Absolute Neuts (auto) Absolute Lymphs (auto) Total Counted PT INR APTT Activated Clotting Time 235 H Sodium Potassium Chloride Carbon Dioxide Anion Gap BUN Creatinine Estim Creat Clear Calc Est GFR (MDRD) Af Amer Est GFR (MDRD) Non-Af BUN/Creatinine Ratio Glucose Calcium Troponin I Assessment/Plan Hospitalist note: I am seeing this patient in conjunction with Lisset Mckeon. I independently seen and examined the patient. Progress note above, laboratory data and imaging studies reviewed and I concur with the above treatment plan. Patient was admitted for chest pain/unstable angina, underwent cardiac catheterization that revealed significant disease of the left circumflex, status post PCI and drug-eluting stent. At this time, patient mentioned that his pain is getting better but still complaining of what looks like heartburn. He does have history of peptic ulcer disease and GERD. He denies shortness of breath. His vital signs are stable. - Physical Exam General: Alert, Oriented x3, Cooperative, No apparent distress. HEENT: Atraumatic, PERRLA, EOMI. Neck: Supple, No JVD, Negative Carotid Bruits, Trachea Midline, Thyroid Normal. Lungs: Clear to auscultation, Normal air movement, No rhonchi, No wheeze, No rales. Cardiovascular: Regular rate, Regular Rhythm, Normal S1, Normal S2, PMI Normal. Abdomen: Bowel Sounds Present, Soft, Non Tender, Non-Distended, No Hepato-splenomegaly. Extremities: No clubbing, No cyanosis, No edema Skin: No rashes, No breakdown Neurological: Neuro grossly intact Vital Signs are stable. Assessment and plan: #1 unstable angina/chest pain: Status post cardiac catheterization, LUCA to left circumflex. He is on aspirin, statins, Plavix, lisinopril. His vital signs are stable. Cardiology on the case, plan to continue same treatment. #2 GERD/peptic ulcer disease: Continue Protonix, patient will need Protonix at least for 3 months, continue Mylanta as needed. #3 other chronic medical problems: Stable, continue current medications. This note was generated with tydy dictation software. It may contain incorrect words, spelling, and punctuation that were not noted in checking the note before signing. Code Visit Inpatient E&M: 47606 Subs Hosp L2
--- NOTE | 2018-04-10 12:25 | CL.D_ITS ---
Patient Name: NIDIA DEMPSEY Study Date: 04/10/2018 Performing: Fernando Nicole MD Ht: 70.86 inches 180 cm : 1980 Wt: 275.58 lbs 125 kg Age: 37 Gender: male BSA: 2.41 PROCEDURE(S) PERFORMED [id number]/LV [id number] W OR WO PTCA, SINGLE CORONARY ARTERY CLINICAL PROFILE AND INDICATIONS Indications: ACS <= 24 hrs Heart Failure: None Stress/Imaging Stress Test w/SPECT MPI: Yes Result: Positive High RiskStress Test with SPECT MPI: Positive High Risk CAD Presentations: Unstable angina. CONCLUSIONS High-grade stenosis noted in the mid left circumflex artery corresponding to the stress test abnormal ity. Minimal LAD disease. Previously placed stent to the right coronary artery is patent. RECOMMENDATIONS Referred for immediate PCI DESCRIPTION OF PROCEDURE The patient arrived to the procedure lab. The risks and benefits of the procedure as well as a full d escription of our services here and current unavailability of surgical backup were fully explained to the patient and/or their significant other prior to the catheterization. The Timeout was completed, verifying the correct patient and procedure. The patient's procedural site was prepped and draped in the usual fashion. Local anesthetic was given subcutaneously to right radial region with Lidocaine 2% . Using a modified Seldinger technique, arterial access was obtained via the right radial artery, a 6 Fr sheath was inserted. Right Coronary Artery selective angiography was then performed in multiple v iews using a 5 Fr. 3DRC (Yahir) catheter. Left Coronary Artery selective angiography was performed in multiple views using a 5 Fr. 4.0 Vance catheter. CORONARY ANGIOGRAPHY DOMINANCE: Right Dominant LEFT HEART ASSESSMENT Left Ventricular Ejection Fraction: Not assessed LEFT MAIN: Angiographically normal LEFT ANTERIOR DECENDING ARTERY: Mild luminal irregularities CIRCUMFLEX ARTERY: MID CIRC: 95 % Stenosis RIGHT CORONARY ARTERY: MID RCA: Instent restenosis 5 % COMPLICATIONS PROCEDURE MEDICATIONS Fentanyl 50 mcg IV Versed 1 mg IV Versed 1 mg IV Fentanyl 25 mcg IV Versed 1 mg IV Versed 1 mg IV Fentanyl 25 mcg IV Fentanyl 25 mcg IV Oxygen: 2 L/min via nasal cannula Oxygen: 4 L/min via nasal cannula Heparin diluted in 23cc Heparinized saline. Patient given 10cc IA of this solution. 04/10/2018 11:17 :00 Heparin 2000 unit(s) IV 04/10/2018 11:55:53 Heparin 63282 unit(s) IV 04/10/2018 12:08:38 Nitro 200 mcg IC 04/10/2018 12:20:56 Verapamil 2.5mg, Ntg 100mcgs, 2000 units of Heparin diluted in 23cc Heparinized saline. Patient give n 10cc IA of this solution. 04/10/2018 11:17:00 IV Bolus: .9 NaCl 500 ml total 04/10/2018 11:56:02 SUMMARY OF HEMODYNAMIC DATA Time AIR REST ECG 11:00:16 AO 110/77 (88) SA 11:19:09 Signed By Fernando Nicole MD On 04/10/2018 12:24:12 PM Fernando Nicole MD
--- NOTE | 2018-04-10 12:58 | CL.I_ITS ---
Patient Name: NIDIA DEMPSEY Study Date: 04/10/2018 Performing: Reyna Kyle MD Ht: 70.86 inches 180 cm : 1980 Wt: 275.58 lbs 125 kg Age: 37 Gender: male BSA: 2.41 PROCEDURE(S) PERFORMED [id number] W OR WO PTCA, SINGLE CORONARY ARTERY [id number], CORONARY OR GRAFT, INITIAL VESSEL CLINICAL PROFILE AND CO-MORBIDITIES Indications: ACS <= 24 hrs Heart Failure: None Stress/Imaging Stress Test w/SPECT MPI: Yes Result: Positive High Risk Stress Test with SPECT MPI : Positive High Risk CAD Presentations: Unstable angina. Unstable angina. CONCLUSIONS Post-IVUS showed stent underdeployment. Stent post-dilated using 4.5 mm balloon RECOMMENDATIONS ASA Indefinitley Plavix for at least 12 months Follow up with Dr. Corey Banks for at least 12 months Follow up with Dr. Nicole INTERVENTION INFORMATION LESION SITE: Circumflex (Mid) Lesion Complexity: High/C, thrombus present: Yes, culprit lesion: Yes Pre Stenosis: 99 % Pre intervention KIKI flow: 3 PROCEDURE: Drug Eluting Stent with post dilatation, IVUS for pre PCI assessment and post stent placement Post Stenosis: 0 % Post intervention KIKI flow: 3 Lesion Devices: Terumo 6 Fr Tig 4.0 100cm Guide Catheter Terumo .014 Runthrough Extra Floppy 180cm straight Terumo .014 Runthrough Extra Floppy 180cm straight Medtronic Resolute RX LUCA 3.5x15 Nir Sci NC EMERGE MR 4.00x15 BALLOON IGT Devices ( Formerly [place]) Coronary IVUS Catheter Nir Sci NC EMERGE MR 4.50x15 BALLOON Medtronic Resolute RX LUCA 4.0x09 COMPLICATIONS No Complications PROCEDURE MEDICATIONS Fentanyl 50 mcg IV Versed 1 mg IV Versed 1 mg IV Fentanyl 25 mcg IV Versed 1 mg IV Versed 1 mg IV Fentanyl 25 mcg IV Fentanyl 25 mcg IV Fentanyl 25 mcg IV Oxygen: 2 L/min via nasal cannula Oxygen: 4 L/min via nasal cannula Heparin diluted in 23cc Heparinized saline. Patient given 10cc IA of this solution. 04/10/2018 11:17 :00 Heparin 2000 unit(s) IV 04/10/2018 11:55:53 Heparin 43064 unit(s) IV 04/10/2018 12:08:38 Nitro 200 mcg IC 04/10/2018 12:20:56 Verapamil 2.5mg, Ntg 100mcgs, 2000 units of Heparin diluted in 23cc Heparinized saline. Patient give n 10cc IA of this solution. 04/10/2018 11:17:00 IV Bolus: .9 NaCl 500 ml total 04/10/2018 11:56:02 SUMMARY OF HEMODYNAMIC DATA Time AIR REST ECG 11:00:16 AO 110/77 (88) SA 11:19:09 Signed By Reyna Kyle MD On 04/10/2018 12:57:28 Reyna Kyle MD
--- NOTE | 2018-04-10 13:01 | EKG12_ITS ---
Test Reason : POST PCI Blood Pressure : / mmHG Vent. Rate : 079 BPM Atrial Rate : 079 BPM P-R Int : 166 ms QRS Dur : 096 ms QT Int : 384 ms P-R-T Axes : 028 042 046 degrees QTc Int : 440 ms Normal sinus rhythm Normal ECG Confirmed by DAINA CENTENO, MIGUEL ([id number]), brands editor MILAGROS PARKER ([id number]) on 04/20/2018 3:15:16 PM Referred By: BELEN Confirmed By:MIGUEL LAMA MD
[2018-04-10 13:16] LABS: ACT Activated Clotting Time 235 sec (74-137)
[2018-04-10 13:16] LABS: ACT Activated Clotting Time 279 sec (74-137)
--- NOTE | 2018-04-10 14:01 | CRPHASE1 ---
Patient Data/Charges Phase II Referral:: [facility] Start Phase II:: FOLLOWING CARDIOLOGY OFFICE VISIT Risk Factors/Lifestyle Smoking Status: Never smoker Hx Hypertension: Yes Hx Diabetes Mellitus Type 1: No Hx Diabetes Mellitus Type 2: No Hx Metabolic Disorders: Yes Hx Dyslipidemia: Yes Hx Obesity: Yes Height: 5 ft 11 in - BMI 38.4 Stress: Home/Family Risk Factor for Sedentary Lifestyle: Moderate Risk Past Cardiac Illness: Coronary Artery Disease, Previous PCI w/Stent Phase I Education Given On:: [place], Nutrition, Antiplatelet medication Issues Affecting Care:: None Knowledge of Condition:: Yes Learning Preferences: Verbal Medical/Surgical History SD:: No Angina:: Yes CAD:: Yes Diabetes:: No Hypertension:: Yes Dyslipidemia:: Yes GERD:: Yes CABG: No PTCA:: Yes - MAY 2017 Discharge/Home/Social Eval Discharge Disposition: Home - FAMILY AT BEDSIDE
--- NOTE | 2018-04-10 14:07 | CRPH1.INSTRU ---
General Education CAD and cardiac anatomy and function:: Patient communicates acknowledgment, Family communicates acknowledgment Explanation of diagnoses and procedures:: Patient communicates acknowledgment, Family communicates acknowledgment Sign/Symptoms of OH:: Patient communicates acknowledgment, Family communicates acknowledgment Antiplatelet therapy: Patient communicates acknowledgment, Family communicates acknowledgment Proper use of NTG-SL: Not instructed Emergency procedures and activation of EMS: Patient communicates acknowledgment, Family communicates acknowledgment Compliance of all prescribed medications: Patient communicates acknowledgment, Family communicates acknowledgment Smoking Patient Nicotine/Smoking Risk Factors Are:: Non-smoker Dyslipidemia Patient Dyslipidemia Risk Factors Are:: Triglycerides, HDL, LDL Recommendations Include:: Lipid profile provided, Reviewed NCEP/ATP guidelines, Therapeutic Lifestyle Change dietary guidelines Dyslipidemia Response Code:: Patient communicates acknowledgment, Family communicates acknowledgment Overweight/Obesity Patient Overweight/Obesity Risk Factors Are:: Obesity - > or = 30 Recommendations Include:: Weight loss of 5-10%, Reduced calorie diet, Exercise 5-7 times/week Overweight/Obesity:: Patient communicates acknowledgment, Family communicates acknowledgment Hypertension Recommendations Include:: Maintain BP <130/85, DASH dietary guidelines, Decrease/maintain normal body weight, Moderation of ETOH Hypertension:: Patient communicates acknowledgment, Family communicates acknowledgment Heart Disease Patient Heart Disease Risk Factors Are:: Previous cardiac event Heart Disease Response Code:: Patient communicates acknowledgment, Family communicates acknowledgment Diabetes Patient Diabetes Risk Factors Are:: No documented hx of diabetes Metabolic Syndrome Patient Metabolic Syndrome Risk Factors Are [3 of 5]:: Waist circumference > 35 [female] or 40 [male], High triglyceride >150, Hypertension, Low HDL <40 [male] or < 50 [female] Recommendations Include:: Reinforce compliance to risk factor modifications, Encouraged follow-up with Primary Care Physician Metabolic Syndrome Response Code:: Patient communicates acknowledgment, Family communicates acknowledgment Sedentary Patient Sedentary Risk Factors Are:: Lack of regular exercise Recommendations Include:: Aerobic exercise 5-7 times/week for 20-30 minutes continuously, Benefits of regular exercise, Discussed home walking program, Monitored Outpatient Cardiac Rehab Sedentary Response Code:: Patient communicates acknowledgment, Family communicates acknowledgment Stress Recommendations Include:: Identification of stressors, and assessment of coping skills, Stress management techniques Stress Response Code:: Patient communicates acknowledgment, Family communicates acknowledgment
[2018-04-10] MEDS: 0.9% Normal Saline 1,000 ML 150 ML IV (14:25)
[2018-04-10] MEDS: oxyCODONE 5 MG Tablet PO (21:23)
[2018-04-10] MEDS: Atorvastatin Calcium 40 MG Tablet PO (21:23)
[2018-04-11] VITALS (13 sets, daily range): BP systolic 115–164; BP diastolic 66–93; PULSE 68–103; RESP 12–24; TEMP 36.4–36.7; O2SAT 92–97
[2018-04-11 04:30] LABS: Hematocrit 41.9 % (40-54); Hemoglobin 14.4 g/dl (13.0-16.5); Mean Corp Hgb Conc 34.4 g/gl (32-36); Mean Corpuscular Hgb 31.2 pg (27.0-32.0); Mean Corpuscular Volume 90.7 fL (80-94); Platelet Count 186 K/mm3 (150-450); RBC Distribution Width CV 12.5 % (11.6-14.6); RBC Distribution Width SD 41.2 fl (35.1-43.9); Red Blood Count 4.62 M/mm3 (4.6-6.2); White Blood Count 5.7 K/mm3 (4.4-11.0)
[2018-04-11 04:38] LABS: Scan Indicated on CBC? Y/N NO
[2018-04-11 04:43] LABS: Anion Gap 9 (5-15); BUN 15 mg/dL (7-18); BUN/Creat Ratio 16.5 RATIO (10-20); Calcium,Total 8.5 mg/dL (8.5-10.1); Chloride 102 mmol/L (98-107); Creatinine, Serum 0.91 mg/dL (0.70-1.30); EST Glomerular Filtration Rate 100 mL/min (>60); Est Glom Filt Rate - Afr Amer 120 mL/min (>60); Estimated Creatinine Clearance 118.37 ml/min; Glucose 87 mg/dL (74-106); Potassium 4.1 mmol/L (3.5-5.1); Sodium Level 139 mmol/L (136-145)
--- NOTE | 2018-04-11 08:28 | PN.CARD_ITS ---
Subjectve: Patient seen and evaluated. Appears to be doing well this morning. Objective: Vital Signs Temp Pulse Resp BP Pulse Ox 97.6 F L 77 16 146/93 H 94 04/11/18 04:00 04/11/18 07:24 04/11/18 07:00 04/11/18 07:00 04/11/18 07:00 Oxygen Flow Rate (L/min) 2 Oxygen Delivery Method Room Air Weight: 275 lb 5.718 oz Body Mass Index (BMI) 38.4 Intake and Output for Last 24 Hours 04/09/18 04/10/18 04/11/18 23:59 23:59 23:59 Intake Total 400 / 400 1755.9 / 1755.9 240 / 240 Output Total 1750 / 1750 1650 / 1650 Balance 400 / 400 5.9 / 5.9 -1410 / -1410 General: Awake, Alert, Oriented x 3 HEENT: PERRL, EOMI, Sclera Non Icteric Neck: Supple, Good ROM, No Lymph Node Enlargement Lungs: Clear to auscultation Cardiovascular: Regular Rhythm, Normal S1, Normal S2, No Murmurs, No Rubs, No Gallops Vascular: No Carotid Bruits, Normal Femoral Pulses, Normal Radial Pulses, Normal Dorsalis Pedal Pulse, Normal Posterior Tibial Pulses Abdomen: Bowel Sounds Present, Soft, Non Tender, No HSM, No Organomegaly Extremities: No Cyanosis, No Clubbing, No edema Neurological: No Focal Motor or Sensory Deficit 04/11/18 04:15: WBC 5.7, RBC 4.62, Hgb 14.4, Hct 41.9, MCV 90.7, MCH 31.2, MCHC 34.4, RDW 12.5, RDW Differential 41.2, Plt Count 186, MPV 10.0 04/11/18 04:15: Sodium 139, Potassium 4.1, Chloride 102, Carbon Dioxide 28.0, Anion Gap 9, BUN 15, Creatinine 0.91, Est GFR (MDRD) Af Amer 120, Est GFR (MDRD) Non-Af 100, BUN/Creatinine Ratio 16.5, Glucose 87, Calcium 8.5 Rhythm: EKG: ECHO: Stress Test: Cardiac Cath: PCI: CT Surgery: Holter monitor: EPS: PPM: CXR: Chest CT Scan: Medical Necessity - Tobacco Use Smoking Status: Never smoker Assessment/Plan 1. Chest pain with abnormal stress test * Patient presents with chest discomfort with abnormal inferolateral myocardial perfusion defect. * Patient underwent a cardiac catheterization which demonstrated normal left main coronary artery, previously stented right coronary artery with no significant stenosis., New stenosis noted in the main left circumflex artery of 95%, mild LAD disease. * Patient underwent angioplasty and drug-eluting stenting to the left circumflex artery with no evidence of dissection, postprocedure infarct, hemoglobin drop or creatinine elevation. * Patient doing much better this morning and will be discharged for outpatient follow-up. 2. Hypertension * His blood pressure appears to be fairly well controlled we will continue current medications with no changes * 3. Lipidemia * Patient apparently was not able to tolerate the statins very well. Would suggest reducing the dose of his statins and hopefully make him more compliant. * * Thank you for allowing me to participate in the care of your patient. Please don't hesitate to call if any issues arise
[2018-04-11] MEDS: Aspirin E.C. 81 MG Tablet PO (08:53)
[2018-04-11] MEDS: Clopidogrel Bisulfate 75 MG Tablet PO (08:53)
[2018-04-11] MEDS: Lisinopril 10 MG Tablet PO (08:53)
[2018-04-11] MEDS: Pantoprazole Sodium 40 MG Tablet PO (08:53)
--- NOTE | 2018-04-11 09:07 | DCINST_ITS ---
- Discharge Diagnoses Current Active Problems: Current Active and Chronic Problems (Last Updated 04/10/18 @ 17:17 by Claudine Arzate) Essential (primary) hypertension (Chronic) Hyperlipidemia (Chronic) You will use the following diet at home:: Cardiac Your food should be the consistency of: Regular Discharge Activity: Return to Normal Activity Weight Bearing Status: Full weight bearing Call your doctor if you observe: Fever of 101 or Higher, Shortness of breath, Dizziness, Fainting spells, Chest pain, Increased palpitations (irregular heartbeat), Uncontrolled pain Instructions: Coronary Stents Allergies/Adverse Reactions: Allergies Penicillins Allergy (Verified 04/09/18 14:25) Angioedema Medications to take at Discharge Aspirin E.C. [Ecotrin] 81 mg PO DAILY@0800 tab 06/10/17 clopidogrel 75 mg tablet 75 mg PO QDAY #30 tab 10/13/17 lisinopril 10 mg tablet 10 mg PO DAILY #30 tab 10/13/17 Nitroglycerin [Nitrostat] 0.4 mg SUBLINGUAL Q5M PRN 03/24/18 Atorvastatin Calcium [Lipitor] 40 mg PO QHS #90 tablet 04/11/18 Metoprolol(XL)Succ [Toprol Xl (Beta Norma)] 50 mg PO DAILY #30 tablet 04/11/18 Pantoprazole Sodium [Protonix] 40 mg PO DAILY #90 tablet 04/11/18 The following prescriptions were given: Atorvastatin Calcium [Lipitor] 40 mg PO QHS #90 tablet Metoprolol(XL)Succ [Toprol Xl (Beta Norma)] 50 mg PO DAILY #30 tablet Pantoprazole Sodium [Protonix] 40 mg PO DAILY #90 tablet Orders to be completed after discharge: Phase II, Outpatient Cardiac Rehab Location: None Selected Primary Care Physician: Cheyenne Rai NP-C [Primary Care Provider] - Please follow up with your Primary Care Physician in: 1 week. Test Results: Test results from this visit will be discussed in further detail at your follow- up appointment, if applicable. Please Follow Up With: Fernando Nicole MD When: please call his office.
[2018-04-11] MEDS: Metoprolol(XL)Succ 50 MG Tablet PO (09:22)
--- NOTE | 2018-04-11 09:46 | DS.PCM_ITS ---
<Lisset Mckeon - Last Filed: 04/11/18 09:54> Discharge Date and Diagnosis Date of Admission: 04/09/18 Date of Discharge: 04/11/18 - Primary Discharge Diagnosis 1. CAD status post stent to the left circumflex artery 2. Hypertension 3. Hyperlipidemia 4. GERD/history of upper GI bleed 5. Morbid obesity - Secondary Discharge Diagnosis Chronic Problems (Last Updated 04/10/18 @ 17:17 by Claudine Arzate) Essential (primary) hypertension (Chronic) Hyperlipidemia (Chronic) Atherosclerosis of coronary artery of [place] heart without angina pectoris (Chronic) Non-ST elevation (NSTEMI) myocardial infarction (Chronic) Morbid obesity (Chronic) Hospital Course and Treatment Imaging Results: Diagnostic Data Chest X-Ray 04/09/18 14:50 IMPRESSION: Degenerative changes, as described above. No demonstrated acute cardiopulmonary process. Electronically Signed: Victor M Willett MD at 15:48 EST , Service support , Dr. Nicole- Cardiology Operations: None Procedures: Cardiac catheterization, Stress test Summary of Care Provided: The patient is a 37 year old M admitted 04/09/2018 due to chest pain. 1. CAD s/p stent to left circumflex artery 04/11/18 with history of right coronary artery stent 06/09/2017-EKG on admission without ST-T changes. Chest x- ray showed degenerative changes. No acute cardiopulmonary process. Stress test showed evidence of inferior and inferior lateral ischemia, mildly reduced ejection fraction at 47%. Patient underwent cardiac catheterization which showed new stenosis in the left main circumflex artery 95%. Mild LAD disease. Patient underwent angioplasty and drug-eluting stent to the left circumflex artery. He will follow up as outpatient with Dr. Nicole. Continue aspirin, statin, Plavix, beta-norma. 2. Hypertension-stable, continue home lisinopril, metoprolol. 3. Hyperlipidemia-previously on statin which he was no longer taking. Atorvastatin 40 mg p.o. nightly. 4. GERD/history of upper GI bleed-continue PPI. 5. Morbid obesity-encouraged diet and lifestyle modifications. General: Alert, Oriented x3, Cooperative HEENT: Atraumatic, PERRLA, EOMI, Normocephalic Neck: Supple, No JVD, Negative Carotid Bruits Lungs: Clear to auscultation, Normal air movement Cardiovascular: Regular rate, Regular Rhythm, Normal S1, Normal S2, No murmurs Abdomen: Bowel Sounds Present, Soft, Non Tender, Non-Distended Extremities: No clubbing, No cyanosis, No edema, Capillary Refill Less than 3 Seconds Skin: No rashes, No breakdown Musculoskeletal: No Tenderness to Palpation of Joints or Extremities Neurological: Cranial nerves II-XII grossly intact, Neuro grossly intact Psych/Mental Status: Normal Affect, Appropriate Patient seen and examined prior to discharge. Physical assessment as noted above. Patient is stable for discharge home with a follow-up recommendations as noted above. This patient was seen by ANNABEL Mckenzie under the supervision of Dr. Morin. - Physical Exam Vital Signs Temp Pulse Resp BP Pulse Ox 97.8 F 102 H 24 H 160/87 H 96 04/11/18 08:50 04/11/18 09:22 04/11/18 08:50 04/11/18 09:22 04/11/18 08:50 Oxygen Flow Rate (L/min) 2 Oxygen Delivery Method Room Air Weight: 275 lb 5.718 oz Body Mass Index (BMI) 38.4 Intake and Output for Last 24 Hours 04/09/18 04/10/18 04/11/18 23:59 23:59 23:59 Intake Total 400 / 400 1755.9 / 1755.9 240 / 240 Output Total 1750 / 1750 1650 / 1650 Balance 400 / 400 5.9 / 5.9 -1410 / -1410 Laboratory Tests Past 24 Hrs 04/10/18 04/10/18 04/11/18 12:11 12:52 04:15 WBC 5.7 RBC 4.62 Hgb 14.4 Hct 41.9 MCV 90.7 MCH 31.2 MCHC 34.4 RDW 12.5 RDW Differential 41.2 Plt Count 186 MPV 10.0 Activated Clotting Time 279 H 235 H Sodium Potassium Chloride Carbon Dioxide Anion Gap BUN Creatinine Estim Creat Clear Calc Est GFR (MDRD) Af Amer Est GFR (MDRD) Non-Af BUN/Creatinine Ratio Glucose Calcium 04/11/18 04:15 WBC RBC Hgb Hct MCV MCH MCHC RDW RDW Differential Plt Count MPV Activated Clotting Time Sodium 139 Potassium 4.1 Chloride 102 Carbon Dioxide 28.0 Anion Gap 9 BUN 15 Creatinine 0.91 Estim Creat Clear Calc 118.37 Est GFR (MDRD) Af Amer 120 Est GFR (MDRD) Non-Af 100 BUN/Creatinine Ratio 16.5 Glucose 87 Calcium 8.5 Discharge Diet: Low fat/ Low Cholesterol Discharge Activity: Return to Normal Activity Weight Bearing Status: Full weight bearing Call your doctor if you observe: Fever of 101 or Higher, Shortness of breath, Dizziness, Fainting spells, Chest pain, Increased palpitations (irregular heartbeat), Uncontrolled pain Home Medications: Medications to take at Discharge Aspirin E.C. [Ecotrin] 81 mg PO DAILY@0800 tab 06/10/17 clopidogrel 75 mg tablet 75 mg PO QDAY #30 tab 10/13/17 lisinopril 10 mg tablet 10 mg PO DAILY #30 tab 10/13/17 Nitroglycerin [Nitrostat] 0.4 mg SUBLINGUAL Q5M PRN 03/24/18 Atorvastatin Calcium [Lipitor] 40 mg PO QHS #90 tablet 04/11/18 Metoprolol(XL)Succ [Toprol Xl (Beta Norma)] 50 mg PO DAILY #30 tablet 04/11/18 Pantoprazole Sodium [Protonix] 40 mg PO DAILY #90 tablet 04/11/18 Following Prescrptions Were Given to Patient: Atorvastatin Calcium [Lipitor] 40 mg PO QHS #90 tablet Metoprolol(XL)Succ [Toprol Xl (Beta Norma)] 50 mg PO DAILY #30 tablet Pantoprazole Sodium [Protonix] 40 mg PO DAILY #90 tablet Other Amb Orders: Phase II, Outpatient Cardiac Rehab Location: None Selected Primary Care Physician: Cheyenne Rai NP-C [Primary Care Provider] - Please follow up with your Primary Care Physician in: 1 week. Please Follow Up With: Fernando Nicole MD When: please call his office. Patient Instructions: Coronary Stents Disposition: Home Minutes spent on discharge:: 35 Patient Condition:: Stable Medical Necessity - Tobacco Use Smoking Status: Never smoker Meaningful Use Info Meaningful Use Diagnoses (Choose all that apply): None applicable <Martha Morin - Last Filed: 04/11/18 16:18> Discharge Date and Diagnosis - Secondary Discharge Diagnosis Chronic Problems (Last Updated 04/10/18 @ 17:17 by Claudine Kilner) Essential (primary) hypertension (Chronic) Hyperlipidemia (Chronic) Atherosclerosis of coronary artery of [place] heart without angina pectoris (Chronic) Non-ST elevation (NSTEMI) myocardial infarction (Chronic) Morbid obesity (Chronic) Hospital Course and Treatment Summary of Care Provided: Hospitalist note Discharge summary above reviewed and I agree with above discharge plan. Patient was admitted for chest pain/unstable angina for evaluation. His EKG revealed no acute ischemic changes. His troponin was borderline elevated. He underwent nuclear stress test that demonstrated large defect involving the inferior/inferolateral wall suggestive of stress-induced myocardial ischemia with ejection fraction of 47%. Because the stress test was abnormal, patient underwent cardiac catheterization and he was found to have 95% stenosis of the mid left circumflex artery, status post PCI and drug-eluting stent to mid left circumflex. Patient was treated with aspirin, Plavix, statins, beta-blockers and MIKAYLA inhibitors. He history of GERD and peptic ulcer disease and he complains of heartburn which could be due to both unstable angina and GERD. He was treated with Protonix and Mylanta. After cardiac catheterization and stent placement, patient did very well without complications. He tolerated medications very well. His vital signs been stable. Patient discharged home in a stable medical condition, discharged on aspirin and Plavix, statins, beta- blockers, MIKAYLA inhibitors as well as Protonix, recommend follow-up with PCP in 1 week and from cardiology according to Dr. Nicole recommendation. - Physical Exam General: Alert, Oriented x3, Cooperative HEENT: PERRLA, EOMI, Normocephalic Oral: Moist Mucosa, No Gingival or Mucosal Lesions/ Ulcerations Neck: Supple, No JVD, Negative Carotid Bruits, Trachea Midline, Thyroid Normal Size and Texture Lungs: Clear to auscultation, Normal air movement, No rhonchi, No wheeze, No rales Cardiovascular: Regular rate, Regular Rhythm, Normal S1, Normal S2, PMI Normal Abdomen: Bowel Sounds Present, Soft, Non Tender, Non-Distended, No Hepato- splenomegaly Extremities: No clubbing, No cyanosis, No edema Skin: No rashes, No breakdown Lymphatic: No Cervical, Supraclavicular, or Inguinal Adenopathy Neurological: Cranial nerves II-XII grossly intact, Motor Exam 5/5 strength throughout Psych/Mental Status: Normal Affect, Appropriate Vital Signs Temp Pulse Resp BP Pulse Ox 97.8 F 103 H 18 160/87 H 95 04/11/18 08:50 04/11/18 09:41 04/11/18 09:41 04/11/18 09:41 04/11/18 09:41 Oxygen Flow Rate (L/min) 2 Oxygen Delivery Method Room Air Weight: 275 lb 5.718 oz Body Mass Index (BMI) 38.4 Intake and Output for Last 24 Hours 04/09/18 04/10/18 04/11/18 23:59 23:59 23:59 Intake Total 400 / 400 1755.9 / 1755.9 240 / 240 Output Total 1750 / 1750 1650 / 1650 Balance 400 / 400 5.9 / 5.9 -1410 / -1410 Laboratory Tests Past 24 Hrs 04/11/18 04/11/18 04:15 04:15 WBC 5.7 RBC 4.62 Hgb 14.4 Hct 41.9 MCV 90.7 MCH 31.2 MCHC 34.4 RDW 12.5 RDW Differential 41.2 Plt Count 186 MPV 10.0 Sodium 139 Potassium 4.1 Chloride 102 Carbon Dioxide 28.0 Anion Gap 9 BUN 15 Creatinine 0.91 Estim Creat Clear Calc 118.37 Est GFR (MDRD) Af Amer 120 Est GFR (MDRD) Non-Af 100 BUN/Creatinine Ratio 16.5 Glucose 87 Calcium 8.5 Disposition: Home Minutes spent on discharge:: 32 Patient Condition:: Stable Meaningful Use Info Meaningful Use Diagnoses (Choose all that apply): None applicable Code Visit Inpatient E&M: 97499 Disch Hosp
--- NOTE | 2018-04-11 10:00 | EKG12_ITS ---
Test Reason : AM EKG Blood Pressure : / mmHG Vent. Rate : 075 BPM Atrial Rate : 075 BPM P-R Int : 170 ms QRS Dur : 094 ms QT Int : 398 ms P-R-T Axes : 026 047 045 degrees QTc Int : 444 ms Normal sinus rhythm Normal ECG When compared with ECG of 10-APR-2018 13:17, MANUAL COMPARISON REQUIRED, DATA IS UNCONFIRMED Confirmed by LAURI CENTENO, ALEX ([id number]), clinical editor JACKELYN VEGA ([id number]) on 04/14/2018 2:10:45 PM Referred By: TONA Confirmed By:ALEX CARREON MD
== END 2018-04-11 10:05 | disposition home or self-care (01) | DRG 247 ==
LOC: ED 15:10 → PCU 16:44 → ICU 04-10 16:26
PROVIDERS: Family Medicine; Internal Medicine Cardiovascular Disease; Admitting Provider Internal Medicine; Emergency Provider Emergency Medicine; Family Provider Nurse Practitioner; PCP Nurse Practitioner; Visit Provider Hospitalist
DX: I25.110 Atherosclerotic heart disease of native coronary artery with unstable angina pectoris (principal); K21.9 Gastro-esophageal reflux disease without esophagitis; I10 Essential (primary) hypertension; E66.01 Morbid (severe) obesity due to excess calories; E78.5 Hyperlipidemia, unspecified; Z79.899 Other long term (current) drug therapy; Z95.5 Presence of coronary angioplasty implant and graft; Z68.38 Body mass index [BMI] 38.0-38.9, adult; I25.2 Old myocardial infarction
CPT/HCPCS: 36415; 71046; 78452; 80048; 84484; 85025; 85027; 85347; 85610; 85730; 92928; 92978; 93005; 93017; 93454; 99152; 99153; 99285; A9500; J7030; Q9967; A4216; C1725; C1753; C1769; C1874; C1887; C1894; C9600

== ENCOUNTER 2018-07-05 07:56 | Emergency (ER) | payer SELFPAY ==
[2017-06-09 13:21] VITALS: BMI 40.8
[2018-06-09 08:15] VITALS: BMI 38.3
[2018-07-05 07:57] VITALS: BP 165/100; PULSE 103; RESP 16; TEMP 36.8; O2SAT 96; BMI 37.8
--- NOTE | 2018-07-05 08:27 | RAD_ITS ---
STUDY: X-RAY - RIGHT FEMUR REASON FOR STUDY: Posterior and mid femur pain from hamstring injury last night. TECHNIQUE: 2 view(s) of the femur. COMPARISON: None. FINDINGS: There are postoperative changes of the distal femur and proximal tibia from anterior cruciate ligament reconstruction. There is enthesopathy of the lesser trochanter. There is a small enthesophyte at the superior pole of the patella. There is artifact inferior to the right ischial tuberosity on image 4, not identified on the other images. RAD/Femur Min 2 Views IMPRESSION: Lesser trochanteric enthesopathy without demonstrated femur fracture. Electronically Signed: Alan Foote MD at 9:47 EST Tel , Service support ,
--- NOTE | 2018-07-05 08:29 | ED.VISSUMM ---
- ER Visit Summary Date of Service: 07/05/18 Chief Complaint: Right hamstring injury History of Present Illness: The patient is a 37 M history of CAD with stents on Plavix and aspirin. 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 He has had a lot of pain associated moving the leg or walking. He has had right prior knee surgery x2 but denies knee or ankle pain. No hip pain. Denies other injuries. Physical Examination: Vital signs are stable. Afebrile. No distress. HEENT exam unremarkable. Neck nontender. Lungs clear to auscultation bilaterally. Heart regular rhythm rate about 100 no murmur. Abdomen soft nontender. Patient is moving all 4 extremities. They are neurovascularly intact. His right hip, knee, ankle and foot are nontender. Neurovascular intact. Normal DP pulse. Dorsi plantar flexion intact. The thigh itself is nontender with no obvious deformity. The right posterior hamstring in the midportion and distally there appears to be some deficit. With swelling of the midportion and tenderness. Exam is consistent with a partial hamstring tear. He does however have full flexion-extension of both the knee and the hip. There does appear to be some soft tissue swelling. At this time there is no bruising. Test Results: Right femur x-ray 2 views show no acute bony abnormality read by myself. Emergency Department Course and Treatment: IM Dilaudid for pain. On repeat exam at 0900 is doing much better after the pain medication. Exam is unchanged otherwise. He and I discussed follow-up. Treatment Plan: Percocet for pain. Limited anti-inflammatories. Crutches. Disposition: Discharge Impression: Right hamstring partial tear This note was generated with [employer] dictation software. It may contain incorrect words, spelling, and punctuation that were not noted in review of the chart prior to signing ED Disposition - Plan for ED Patient: Referrals: Cheyenne Rai, GEORGI-C [Primary Care Provider] -
--- NOTE | 2018-07-05 08:32 | ED.DCSUM_ITS ---
- ER Visit Summary Date of Service: 07/05/18 Chief Complaint: Right hamstring injury History of Present Illness: The patient is a 37 M history of CAD with stents on Plavix and aspirin. 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 He has had a lot of pain associated moving the leg or walking. He has had right prior knee surgery x2 but denies knee or ankle pain. No hip pain. Denies other injuries. Physical Examination: Vital signs are stable. Afebrile. No distress. HEENT exam unremarkable. Neck nontender. Lungs clear to auscultation bilaterally. Heart regular rhythm rate about 100 no murmur. Abdomen soft nontender. Patient is moving all 4 extremities. They are neurovascularly intact. His right hip, knee, ankle and foot are nontender. Neurovascular intact. Normal DP pulse. Dorsi plantar flexion intact. The thigh itself is nontender with no obvious deformity. The right posterior hamstring in the midportion and distally there appears to be some deficit. With swelling of the midportion and tenderness. Exam is consistent with a partial hamstring tear. He does however have full flexion-extension of both the knee and the hip. There does appear to be some soft tissue swelling. At this time there is no bruising. Test Results: Right femur x-ray 2 views show no acute bony abnormality read by myself. Emergency Department Course and Treatment: IM Dilaudid for pain. On repeat exam at 0900 is doing much better after the pain medication. Exam is unchanged otherwise. He and I discussed follow-up. Treatment Plan: Percocet for pain. Limited anti-inflammatories. Crutches. Disposition: Discharge Impression: Right hamstring partial tear This note was generated with [employer] dictation software. It may contain incorrect words, spelling, and punctuation that were not noted in review of the chart prior to signing ED Disposition - Plan for ED Patient: Referrals: Cheyenne Rai, GEORGI-C [Primary Care Provider] -
[2018-07-05] MEDS: HYDROmorphone 1 MG/ML Syringe IM (08:40)
--- NOTE | 2018-07-05 09:04 | ED.DEP ---
ED Disposition - Plan for ED Patient: Disposition: Home or Assisted Living Instructions: ED Strain Muscle Ext Prescriptions: Oxycodone HCl/Acetaminophen [Percocet 10-325 mg Tablet] 1 - 2 tab PO Q6H PRN PRN 7 Days #20 tab PRN Reason: Pain Referrals: Cheyenne Rai, EMT I/85-C [Primary Care Provider] - 10-14 Days if not better Additional Instructions: Ice and elevate your hamstring to decrease the swelling. Percocet for pain. Limited Motrin for the swelling. Crutches. Follow-up in 1-2 weeks if not improving but this may take weeks to heal. Clinically this is a hamstring strain or even a partial tear the only way to know for sure would be an MRI which typically is not done initially for this type of injury.
--- NOTE | 2018-07-05 09:09 | DCINST.ED_ITS ---
ED Disposition - Plan for ED Patient: Disposition: Home or Assisted Living Instructions: ED Strain Muscle Ext Prescriptions: Oxycodone HCl/Acetaminophen [Percocet 10-325 mg Tablet] 1 - 2 tab PO Q6H PRN PRN 7 Days #20 tab PRN Reason: Pain Referrals: Cheyenne Rai, CRYSTALLOGRAPHER-C [Primary Care Provider] - 10-14 Days if not better Additional Instructions: Ice and elevate your hamstring to decrease the swelling. Percocet for pain. Limited Motrin for the swelling. Crutches. Follow-up in 1-2 weeks if not improving but this may take weeks to heal. Clinically this is a hamstring strain or even a partial tear the only way to know for sure would be an MRI which typically is not done initially for this type of injury.
[2018-07-05 09:17] VITALS: PULSE 98; RESP 16; O2SAT 97
== END 2018-07-05 09:19 | disposition home or self-care (01) ==
PROVIDERS: Emergency Provider Emergency Medicine; Family Provider Nurse Practitioner; PCP Nurse Practitioner
DX: S76.311A Strain of muscle, fascia and tendon of the posterior muscle group at thigh level, right thigh, initial encounter (principal); X58.XXXA Exposure to other specified factors, initial encounter; Y93.02 Activity, running; Y92.9 Unspecified place or not applicable; I25.10 Atherosclerotic heart disease of native coronary artery without angina pectoris; Z95.5 Presence of coronary angioplasty implant and graft; Z79.02 Long term (current) use of antithrombotics/antiplatelets; Z79.82 Long term (current) use of aspirin; Z79.899 Other long term (current) drug therapy
CPT/HCPCS: 73552; 96372; 99282

== ENCOUNTER 2019-05-13 21:44 | Emergency (ER) | payer MEDICAID, SELFPAY ==
[2017-06-09 13:21] VITALS: BMI 40.8
[2019-05-13 21:45] VITALS: BP 146/85; PULSE 87; RESP 16; TEMP 36.2; O2SAT 98; BMI 35.5
--- NOTE | 2019-05-13 23:16 | EKG12_ITS ---
Test Reason : CP Blood Pressure : / mmHG Vent. Rate : 080 BPM Atrial Rate : 080 BPM P-R Int : 166 ms QRS Dur : 098 ms QT Int : 374 ms P-R-T Axes : 026 050 048 degrees QTc Int : 431 ms Normal sinus rhythm Normal ECG Confirmed by LAURI CENTENO, ALEX ([id number]), editor managing director KONSTANTIN BOSWELL ([id number]) on 05/15/2019 9:48:27 AM Referred By: YI Confirmed By:ALEX CARREON MD
--- NOTE | 2019-05-13 23:16 | RAD_ITS ---
HISTORY: PT STATES MILD CP AND COLD SX ADDITIONAL HISTORY: None provided. TECHNIQUE: Frontal chest radiograph. Number of images including paperwork: 1 COMPARISON: 04/09/2018 FINDINGS: LUNGS AND PLEURA: No consolidation, mass or pleural effusion. CARDIAC SILHOUETTE: Unremarkable. MEDIASTINUM AND SATHISH: Unremarkable. UPPER ABDOMEN: Unremarkable. SKELETON AND SOFT TISSUES: No acute findings. Degenerative changes. OTHER DEVICES AND HARDWARE: Cervical spine hardware. RAD/Chest 1 View (Portable) IMPRESSION: No acute cardiopulmonary abnormality. at 2342 Reported and signed by: Lashell Alvarez MD Electronically Signed: Lashell Alvarez MD at 23:42 EST Tel , Service support ,
[2019-05-13 23:41] VITALS: O2SAT 97
[2019-05-13 23:52] LABS: Absolute Lymphocyte Count 1.88 X10^3/uL (0.83-4.51); Absolute Neutrophil Count 3.9 X10^3/uL (2.0-7.7); Basophil# 0.06 X10^3/uL; Basophil% 0.9 % (0-1); Eosinophil# 0.32 X10^3/uL; Eosinophils% 4.6 % (0-5); Hematocrit 41.6 % (40-54); Hemoglobin 14.6 g/dL (13.0-16.5); Lymphocyte # 1.88 X10^3/ul (4.0); Lymphocyte % 26.9 % (19-41); Mean Corp Hgb Conc 35.1 g/dL (32-36); Mean Corpuscular Hgb 31.7 pg (27.0-32.0); Mean Corpuscular Volume 90.2 fL (80-94); Mean Platelet Vol. 10.1 fl (6.2-12.0); Monocyte# 0.81 X10^3/uL; Monocyte% 11.6 % (0-10); NRBC Flagged by Analyzer 0 % (0-5); Neutrophil # 3.89 X10^3/uL (2.7-7.7); Neutrophil % 55.7 % (47-70); Platelet Count 202 K/mm3 (150-450); RBC Distribution Width SD 39.5 fl (35.1-43.9); Red Blood Count 4.61 M/mm3 (4.6-6.2)
--- NOTE | 2019-05-14 00:17 | ED.DCSUM_ITS ---
History of Present Illness Chief Complaint: Chest Pain Informant: Patient Narrative: Stated over the last 48 hours has had occasional intermittent diffuse chest twinges. He has a son who was recently diagnosed with influenza. He is experienced some intermittent cough. He has had some intermittent sweats. Thinks he might be coming down with the flu as well. Has a history of coronary artery disease status post stent wanted to make sure he is not having an [place] however. Denies any current symptoms. - Past Medical History (1) Atherosclerosis of coronary artery of [place] heart without angina pectoris Status: Chronic (2) Essential (primary) hypertension Status: Chronic (3) Hyperlipidemia Status: Chronic (4) Morbid obesity Status: Chronic (5) Non-ST elevation (NSTEMI) myocardial infarction Status: Chronic (6) History of coronary artery stent placement Status: Resolved Comment: PCI-LUCA-Mid LCx w/ 3.5 x 15 mm Resolute 04/10/18 PCI-LUCA-Mid RCA with a 4.0 x 20 Promus Synergy 06/09/17 Past Medical History - Allergies and Home Meds Allergies/Adverse Reactions: Allergies Penicillins Allergy (Verified 05/13/19 21:45) Angioedema Primary Care Physician: Cheyenne Rai NP-C [Primary Care Provider] - Prior records reviewed: Yes Past Medical History: - - See problem list Surgical History: - - Tube right TM, Several prior BL ear tubes, T+A, R knee arthroscopic ACL surgery x 2, Neck Surgery C6-7 fusion. Coronary artery stent placement May 2017 Lives: With Family Smoking Status: Never smoker Alcohol: None Drugs: None - Family History Maternal Family History: Family History (Last Reviewed 06/09/18 @ 09:22 by Fernando Nicole MD) Mother Heart disease Hypertension Family History: Reports: Heart Disease, Hypertension Paternal Family History: Family History (Last Reviewed 06/09/18 @ 09:22 by Fernando Nicole MD) Mother Heart disease Hypertension Family History: Reports: Heart Disease, Hypertension Review of Systems General: Denies: Chills, Fever, Sweats Eyes: Denies: Visual changes - bilaterally, Diplopia ENT: Denies: Rhinorrhea, Sore throat Cardiovascular: Reports: Chest pain. Denies: Palpitations Respiratory: Reports: Cough. Denies: Dyspnea, Dyspnea on exertion Gastrointestinal: Denies: Abdominal pain, Nausea, Vomiting, Diarrhea, Melena, Hematochezia Genitourinary: Denies: Dysuria, Hematuria, Frequency Musculoskeletal: Denies: Back pain, Extremity Pain Skin: Denies: Rash, Wounds Neurological: Denies: Headache, Weakness, Numbness Physical Exam Vital Signs/Narrative: Vital Signs Temp Pulse Resp BP Pulse Ox 05/13/19 23:41 97 05/13/19 21:45 97.2 F L 87 16 146/85 H 98 General: Well nourished, Well developed, No Acute Distress Head: Normocephalic, Atraumatic Eyes: Perrl, EOMI ENT: Moist mucous membranes, No rhinorrhea Neck: Supple, Nontender Cardiovascular: Regular rate, Regular rhythm, No murmurs Respiratory: No distress, CTA bilaterally, Chest nontender Abdomen: Soft, Nontender, Nondistended, Normal bowel sounds Back: Nontender, Normal Inspection Extremities: Nontender, No edema Skin: Normal color, No rash Neurological: Alert, Oriented x3, Cranial nerves II-XII grossly intact, Normal Strength, Normal Sensation Psychological: Normal affect, Normal Mood Diagnostic/Tx/Re-eval - Medical Decision Making EKG shows normal sinus rhythm with a rate of 80 with no ischemia. Chest x-ray negative. CBC normal. Lab work otherwise unremarkable. Troponin negative. At this time I think he likely has early influenza contracted from a family member. Will be given Tamiflu will follow-up as an outpatient ED Disposition - Plan for ED Patient: Disposition: Home or Assisted Living Diagnosis: Chest pain Instructions: CHEST PAIN, Uncertain Cause (Child) Prescriptions: Oseltamivir Phosphate [Tamiflu] 75 mg PO BID #10 cap Prescription Printed Referrals: Cheyenne Rai NP-C [Primary Care Provider] -
[2019-05-14 00:23] LABS: Anion Gap 6 (5-15); BUN 18 mg/dL (7-18); BUN/Creat Ratio 23.9 RATIO (10-20); Chloride 105 mmol/L (98-107); Creatinine, Serum 0.75 mg/dL (0.70-1.30); EST Glomerular Filtration Rate 123 mL/min (>60); Est Glom Filt Rate - Afr Amer 149 mL/min (>60); Estimated Creatinine Clearance 142.23 ml/min; Glucose 109 mg/dL (74-106); Potassium 4.2 mmol/L (3.5-5.1); Sodium Level 138 mmol/L (136-145)
[2019-05-14 00:40] VITALS: BP 126/77; PULSE 75; RESP 18; O2SAT 98
[2019-05-14 00:41] VITALS: BP 126/77; PULSE 75; RESP 18; O2SAT 98
== END 2019-05-14 00:42 | disposition home or self-care (01) ==
PROVIDERS: Emergency Provider Emergency Medicine; Family Provider Nurse Practitioner; PCP Nurse Practitioner
DX: R07.9 Chest pain, unspecified (principal); R05 Cough; I25.10 Atherosclerotic heart disease of native coronary artery without angina pectoris; I10 Essential (primary) hypertension; E78.5 Hyperlipidemia, unspecified; E66.01 Morbid (severe) obesity due to excess calories; I25.2 Old myocardial infarction; Z88.0 Allergy status to penicillin; Z95.5 Presence of coronary angioplasty implant and graft
CPT/HCPCS: 71045; 80048; 84484; 85025; 93005; 99285

== ENCOUNTER 2019-11-08 08:02 | Emergency (ER) | payer SELFPAY ==
[2017-06-09 13:21] VITALS: BMI 40.8
[2019-08-31 10:29] VITALS: BMI 33.6
[2019-11-08 08:03] VITALS: BP 139/94; PULSE 84; RESP 18; TEMP 36.3; O2SAT 98; BMI 39.8
--- NOTE | 2019-11-08 08:14 | CT_ITS ---
STUDY: CT ABDOMEN AND PELVIS WITHOUT CONTRAST REASON FOR EXAM: Male, 39 years old. RIGHT FLANK PAIN AND FREQUENCY SAT, NOW DYSURIA, ABD PAIN. RADIATION DOSAGE (If Supplied By Facility): CTDIvol = ( 22.17 ) mGy, DLP = ( 1213.12 ) mGycm TECHNIQUE: Transaxial images were obtained from the dome of the diaphragm to the symphysis pubis without oral contrast, and without intravenous contrast. Sagittal and coronal images were reconstructed. Individualized dose optimization techniques were used for this CT. COMPARISON: 2013 FINDINGS: The visualized lung bases are unremarkable. The visualized portions of the heart are within normal limits. Normal liver. Normal gallbladder and extrahepatic biliary system. Normal spleen. Normal pancreas. Normal bilateral adrenal glands. Normal right kidney. Normal left kidney. Normal visualized stomach. Normal small intestine. Normal colon. The appendix is visualized and appears normal. Appendix best seen on coronal recon images 70 through 73 Normal abdominal aorta. Normal inferior vena cava. Scattered subcentimeter mesenteric and inguinal adenopathy. Normal urinary bladder. Normal abdominal wall. Normal osseous structures. CT/Abdomen/Pelvis without Cont IMPRESSION: No suspicious solid organ abnormality, specifically no obstructive uropathy. Bladder is also unremarkable. No CT evidence of acute inflammatory process, normal appendix visualized. No free intraperitoneal fluid, air, or suspicious adenopathy Electronically Signed: Zhao Guerrier MD at 8:55 EDT , Service support ,
[2019-11-08] MEDS: Ketorolac 30 MG/ML Syringe IV (08:26)
[2019-11-08] MEDS: 0.9% Normal Saline 1,000 ML 1000 ML IV (08:27)
[2019-11-08] MEDS: Ondansetron 4 MG/2 ML Vial IV (08:27)
[2019-11-08 08:29] VITALS: BP 139/94; PULSE 84; RESP 18; TEMP 36.3; O2SAT 98
[2019-11-08 08:41] LABS: Bacteria 0 SEEN /hpf (None Seen); Mucous, Urine 0 SEEN /hpf (<or=2+); Red Blood Cells-Urine 0 SEEN /hpf (0-5); Squamous Epithelial Cells - UA 0 SEEN /hpf (0-5); White Blood Cells 0 SEEN /hpf (0-5)
[2019-11-08 08:43] LABS: Color, Urine Yellow (Yellow); Glucose, Dipstick Normal (Normal); Ketone-Dipstick Negative (Negative); Leukocyte Esterase-Dipstick Negative /ul (Negative); Nitrite-Dipstick Negative (Negative); Occult Blood-Urine 10 /ul (Negative); Protein-Dipstick Negative (Negative); Specific Gravity, Urine 1.025 (1.002-1.030); Urine Bilirubin Dipstick Negative (Negative); Urine Clarity Clear (Clear); Urine Urobilinogen Normal (Normal)
[2019-11-08 08:45] LABS: Absolute Lymphocyte Count 1.65 X10^3/uL (0.83-4.51); Absolute Neutrophil Count 2.8 X10^3/uL (2.0-7.7); Basophil# 0.04 X10^3/uL; Basophil% 0.7 % (0-1); Eosinophil# 0.16 X10^3/uL; Hematocrit 44.8 % (40-54); Lymphocyte # 1.65 X10^3/ul (4.0); Lymphocyte % 30.9 % (19-41); Mean Corp Hgb Conc 33.5 g/dL (32-36); Mean Corpuscular Hgb 31.1 pg (27.0-32.0); Mean Corpuscular Volume 92.8 fL (80-94); Mean Platelet Vol. 10.1 fl (6.2-12.0); Monocyte# 0.68 X10^3/uL; Monocyte% 12.7 % (0-10); NRBC Flagged by Analyzer 0 % (0-5); Neutrophil # 2.79 X10^3/uL (2.7-7.7); Neutrophil % 52.3 % (47-70); Platelet Count 211 K/mm3 (150-450); RBC Distribution Width CV 12.2 % (11.6-14.6); RBC Distribution Width SD 42.1 fl (35.1-43.9); Red Blood Count 4.83 M/mm3 (4.6-6.2); White Blood Count 5.3 K/mm3 (4.4-11.0)
[2019-11-08 09:01] LABS: ALB/GLOB Ratio 1.1 RATIO (0.9-2.4); AST(SGOT) 22 U/L (15-37); Alanine Aminotransfer ALT/SGPT 50 U/L (16-61); Albumin, Serum 3.9 g/dL (3.2-5.0); Alkaline Phosphatase 60 U/L (45-117); Anion Gap 6 (5-15); BUN 18 mg/dL (7-18); BUN/Creat Ratio 20.3 RATIO (10-20); Calcium,Total 8.7 mg/dL (8.5-10.1); Chloride 105 mmol/L (98-107); Creatinine, Serum 0.89 mg/dL (0.70-1.30); EST Glomerular Filtration Rate 102 mL/min (>60); Est Glom Filt Rate - Afr Amer 123 mL/min (>60); Estimated Creatinine Clearance 118.68 ml/min; Globulin 3.6 g/dL (2.2-4.2); Glucose 93 mg/dL (74-106); Lipase 176 U/L (73-393); Potassium 4.1 mmol/L (3.5-5.1); Protein, Total 7.5 g/dL (6.4-8.2); Sodium Level 139 mmol/L (136-145)
--- NOTE | 2019-11-08 09:09 | ED.DCSUM_ITS ---
- ER Visit Summary Date of Service: 11/08/19 Chief Complaint: Flank pain History of Present Illness: The patient is a 39 M with flank pain for 5 days. The pain is at his right flank and underneath his anterior ribs bilaterally. Associated with dry heaves and decreased urine output. 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 No history of kidney stones, gallbladder disease, appendicitis. Physical Examination: Afebrile and vital signs unremarkable. He has some mild right CVA tenderness, but exam of his abdomen is unremarkable. Skin is normal in color without jaundice. Otherwise exam reassuring. Test Results: CBC, CMP, lipase, urinalysis all unremarkable. CT abdomen and pelvis showed nothing acute. Normal appendix. No uropathy. Emergency Department Course and Treatment: I did consider GI and pathology primarily. There is nothing to suggest a vascular cause. His CT and labs were reassuring. This may be myofascial pain. It may be an early abdominal or process. He may have passed a small stone which we did not appreciate on the scan. He appears to be stable and I cannot identify any thing that is life- threatening or requires hospitalization. He will continue to increase his fluids. He will take his antacids as prescribed, but may increase the dosage to twice a day. He will follow-up with his PCP. Return to the ER right away for any new or worsening issues. Treatment Plan: As above Disposition: Discharge Impression: Right flank pain This note was generated with [employer] dictation software. It may contain incorrect words, spelling, and punctuation that were not noted in review of the chart prior to signing ED Disposition - Plan for ED Patient: Referrals: Cheyenne Rai NP-C [Primary Care Provider] -
--- NOTE | 2019-11-08 09:12 | ED.DEP ---
ED Disposition - Plan for ED Patient: Instructions: ED Flank Pain Uncertain Cause Referrals: Cheyenne Rai, GEORGI-C [Primary Care Provider] -
[2019-11-08 09:16] VITALS: BP 119/70; PULSE 96; RESP 12; O2SAT 98
[2019-11-08 09:22] VITALS: BP 119/70; PULSE 96; RESP 18; TEMP 37.1; O2SAT 99
== END 2019-11-08 09:31 | disposition home or self-care (01) ==
LOC: ED 08:51
PROVIDERS: Emergency Provider Emergency Medicine; PCP Nurse Practitioner
DX: R10.9 Unspecified abdominal pain (principal); R11.0 Nausea; R82.998 Other abnormal findings in urine; M54.9 Dorsalgia, unspecified; I10 Essential (primary) hypertension; I25.10 Atherosclerotic heart disease of native coronary artery without angina pectoris; I25.2 Old myocardial infarction; E78.00 Pure hypercholesterolemia, unspecified; Z95.5 Presence of coronary angioplasty implant and graft; Z79.82 Long term (current) use of aspirin; Z79.02 Long term (current) use of antithrombotics/antiplatelets; Z79.899 Other long term (current) drug therapy
CPT/HCPCS: 74176; 80053; 81001; 83690; 85025; 96361; 96374; 96375; 99283; J7030; J2405

== ENCOUNTER 2020-05-22 09:24 | Emergency (ER) | payer SELFPAY ==
[2017-06-09 13:21] VITALS: BMI 40.8
[2020-05-22 09:25] VITALS: BP 140/87; PULSE 107; RESP 24; TEMP 36.8; O2SAT 98; BMI 40.2
[2020-05-22 09:32] VITALS: BP 140/87; PULSE 107; RESP 24; TEMP 36.8; O2SAT 98
--- NOTE | 2020-05-22 09:42 | RAD_ITS ---
STUDY: X-RAY CHEST REASON FOR EXAM: Male, 39 years old. COUGH, CONGESTION, SHORT OF BREATH, LEFT FLANK PAIN, HX STENTS TECHNIQUE: Single AP portable view of the chest. COMPARISON: Comparison is made with prior study dated 05/13/2019. FINDINGS: The lungs are clear and expanded. There is no demonstrated pleural abnormality. Normal size heart. Normal mediastinum and lulu. Normal visualized pulmonary arteries. Normal visualized aortic arch and descending thoracic aorta. Normal visualized thoracic spine. Normal visualized ribs, clavicles, and shoulders. Prior fusion of the lower cervical spine. There is no demonstrated abnormality of the visualized soft tissue structures of the upper abdomen. RAD/Chest 1 View (Portable) IMPRESSION: No acute abnormality is seen. Electronically Signed: Elie Kumar, at 10:31 EST , Service support ,
--- NOTE | 2020-05-22 09:42 | CT_ITS ---
STUDY: CT ABDOMEN AND PELVIS WITHOUT CONTRAST REASON FOR EXAM: Male, 39 years old. Left flank pain x 1 week, cough, SOB, congestion. Hx hypertension. RADIATION DOSAGE (If Supplied By Facility): CTDIvol = ( 21.79 ) mGy, DLP = ( 1274.11 ) mGycm TECHNIQUE: Transaxial images were obtained from the dome of the diaphragm to the symphysis pubis without oral contrast, and without intravenous contrast. Sagittal and coronal images were reconstructed. Individualized dose optimization techniques were used for this CT. COMPARISON: Comparison is made with prior study dated 11/08/2019. FINDINGS: The visualized lung bases are unremarkable. Coronary artery calcification. There is decreased attenuation of the liver consistent with steatosis. Normal gallbladder and extrahepatic biliary system. Normal spleen. Normal pancreas. Normal bilateral adrenal glands. Normal right kidney. Normal left kidney. Normal visualized stomach. Normal small intestine. There are scattered colonic diverticula consistent with diverticulosis. The appendix is visualized and appears normal. Normal abdominal aorta. Normal inferior vena cava. Normal retroperitoneum. Normal urinary bladder. There are small benign-appearing bilateral inguinal lymph nodes. Normal abdominal wall. There are mild degenerative changes of the visualized lumbar spine. CT/Abdomen/Pelvis without Cont IMPRESSION: Fatty infiltration of the liver. Electronically Signed: Elie Kumar, at 10:30 EST , Service support ,
--- NOTE | 2020-05-22 09:44 | ED.DCSUM_ITS ---
- ER Visit Summary Date of Service: 05/22/20 Chief Complaint: Left flank pain History of Present Illness: The patient is a 39 M who presents with left flank pain that began 1 week ago. Patient states it came on suddenly. Patient states it has been waxing and waning over the past week. Patient states it is worse today. Patient describes the pain is sharp and stabbing. Patient states the pain is worse with certain movements and twisting. Patient states it improved with heat. Patient denies any fevers or chills. Patient does admit to a mild cough and some rhinorrhea. Patient denies any loss of taste or smell. Patient denies any chest pain or shortness of breath. Patient denies any nausea or vomiting. Patient denies any dysuria or hematuria. Physical Examination: Vital signs are stable except for mild tachycardia of 107 and a mild tachypnea of 24. Patient is afebrile. Patient is in no acute distress. Oral mucosa is pink and moist. Neck is supple. Trachea is midline. There is no JVD noted. Heart was regular rate and rhythm. Lungs are clear and equal bilaterally. Abdomen is soft. Bowel sounds are normal. There is left CVA tenderness. There is no rebound or guarding noted. Skin is warm dry. Cranial nerves II through XII are intact. There are no focal motor or sensory deficits noted. Extremities are intact. There is no calf tenderness or edema. Test Results: CBC and comprehensive metabolic profile were essentially within normal limits. Urinalysis was normal. Portable 1 view chest x-ray was obtained. On my interpretation, lung cisneros are clear. There is normal cardiac silhouette. Bony thorax is normal. There is no acute process noted. Radiologist also interpreted the x-ray and agrees. CT scan of the abdomen pelvis was obtained. There is no acute intra-abdominal process. There is no evidence of ureteral lithiasis. This was interpreted by the radiologist and reviewed by myself. COVID-19 rapid antigen test was obtained and was positive. Emergency Department Course and Treatment: Patient was given IV fluids, morphine, and Zofran. Patient states his pain improved but was still having some pain. Patient was advised of his results. Patient was instructed to quarantine for 10 days. Patient was instructed to follow-up with his primary care physician in 5 to 7 days. Patient understood and was agreeable with the plan. All questions were answered. Disposition: Discharge home Impression: 1. Left flank pain 2. COVID-19 This note was generated with [employer] dictation software. It may contain incorrect words, spelling, and punctuation that were not noted in review of the chart prior to signing ED Disposition - Plan for ED Patient: Disposition: Home or Assisted Living Diagnosis: Left flank pain, COVID-19 Instructions: Coronavirus Disease 2019 (COVID-19): Overview, Coronavirus Disease 2019 (COVID-19): Caring for Yourself or Others, ED Flank Pain, Uncertain Cause Prescriptions: Hydrocodone Bitart/Apap 5-325 [[place] 5MG-325MG] 1 tab PO Q6H PRN PRN 3 Days #10 tab PRN Reason: Pain Prescription Printed Referrals: Cheyenne Rai DENIAL MANAGEMENT REPRESENTATIVE, DENIAL MANAGEMENT REPRESENTATIVE-C [Primary Care Provider] - 5-7 Days
[2020-05-22 09:55] LABS: Bacteria 0 SEEN /hpf (None Seen); Mucous, Urine 0 SEEN /hpf (<or=2+); Red Blood Cells-Urine 0 SEEN /hpf (0-5); Squamous Epithelial Cells - UA 0 SEEN /hpf (0-5); White Blood Cells 0 SEEN /hpf (0-5)
[2020-05-22] MEDS: 0.9% Normal Saline 1,000 ML 1000 ML IV (09:55)
[2020-05-22] MEDS: Morphine 4 MG/ML Syringe IV (09:55)
[2020-05-22] MEDS: Ondansetron 4 MG/2 ML Vial IV (09:55)
[2020-05-22 09:57] LABS: Color, Urine Yellow (Yellow); Glucose, Dipstick Normal (Normal); Ketone-Dipstick Negative (Negative); Leukocyte Esterase-Dipstick Negative /ul (Negative); Nitrite-Dipstick Negative (Negative); Occult Blood-Urine 10 /ul (Negative); Protein-Dipstick 15 mg/dl (Negative); Specific Gravity, Urine 1.025 (1.002-1.030); Urine Bilirubin Dipstick Negative (Negative); Urine Clarity Sl. Cloudy (Clear); Urine Urobilinogen Normal (Normal)
[2020-05-22 10:00] LABS: Absolute Lymphocyte Count 1.14 X10^3/uL (0.83-4.51); Absolute Neutrophil Count 1.8 X10^3/uL (2.0-7.7); Basophil# 0.03 X10^3/uL; Basophil% 0.8 % (0-1); Eosinophil# 0.16 X10^3/uL; Eosinophils% 4.3 % (0-5); Hematocrit 45.2 % (40-54); Hemoglobin 15.5 g/dL (13.0-16.5); Lymphocyte # 1.14 X10^3/ul (4.0); Lymphocyte % 30.4 % (19-41); Mean Corp Hgb Conc 34.3 g/dL (32-36); Mean Corpuscular Hgb 31.4 pg (27.0-32.0); Mean Corpuscular Volume 91.5 fL (80-94); Mean Platelet Vol. 10.2 fl (6.2-12.0); Monocyte# 0.63 X10^3/uL; Monocyte% 16.8 % (0-10); NRBC Flagged by Analyzer 0 % (0-5); Neutrophil # 1.78 X10^3/uL (2.7-7.7); Neutrophil % 47.4 % (47-70); Platelet Count 222 K/mm3 (150-450); RBC Distribution Width CV 12.2 % (11.6-14.6); RBC Distribution Width SD 40.7 fl (35.1-43.9); Red Blood Count 4.94 M/mm3 (4.6-6.2); White Blood Count 3.8 K/mm3 (4.4-11.0)
[2020-05-22 10:08] LABS: ALB/GLOB Ratio 1.1 RATIO (0.9-2.4); AST(SGOT) 55 U/L (15-37); Alanine Aminotransfer ALT/SGPT 110 U/L (16-61); Albumin, Serum 4.1 g/dL (3.2-5.0); Alkaline Phosphatase 59 U/L (45-117); Anion Gap 6 (5-15); BUN 16 mg/dL (7-18); BUN/Creat Ratio 15.1 RATIO (10-20); Calcium,Total 8.6 mg/dL (8.5-10.1); Chloride 101 mmol/L (98-107); Creatinine, Serum 1.06 mg/dL (0.70-1.30); EST Glomerular Filtration Rate 82 mL/min (>60); Est Glom Filt Rate - Afr Amer 100 mL/min (>60); Estimated Creatinine Clearance 99.65 ml/min; Globulin 3.9 g/dL (2.2-4.2); Glucose 123 mg/dL (74-106); Lipase 219 U/L (73-393); Sodium Level 134 mmol/L (136-145)
[2020-05-22 10:10] LABS: Hyaline Cast 0-5 SEEN /lpf (0-5)
[2020-05-22 10:38] VITALS: BP 140/87; PULSE 107; RESP 24; TEMP 36.8; O2SAT 98
[2020-05-22 10:46] VITALS: BP 128/76; PULSE 87; RESP 18; O2SAT 99
== END 2020-05-22 10:47 | disposition home or self-care (01) ==
PROVIDERS: Emergency Provider Emergency Medicine; PCP Nurse Practitioner
DX: U07.1 COVID-19 (principal); E66.9 Obesity, unspecified; I10 Essential (primary) hypertension; I25.10 Atherosclerotic heart disease of native coronary artery without angina pectoris; Z79.82 Long term (current) use of aspirin; Z79.899 Other long term (current) drug therapy; F17.220 Nicotine dependence, chewing tobacco, uncomplicated
CPT/HCPCS: 71045; 74176; 80053; 81001; 83690; 85025; 87426; 96361; 96374; 96375; 99283; J2405

== ENCOUNTER → 2020-06-16 06:29 | Outpatient (CLI) | payer SELFPAY ==
[2017-06-09 13:21] VITALS: BMI 40.8
[2020-05-22 09:25] VITALS: BMI 40.2
--- NOTE | 2020-06-16 15:00 | STRESSREP ---
Stress Test Report Exercise myocardial perfusion stress test. 39-year-old man with a history of chest pain previous angioplasty and stenting of the right coronary artery. Resting EKG demonstrates normal sinus rhythm with a rate of 71 bpm normal intervals are noted resting blood pressure is 142/92 mmHg. The patient exercised according to regular Luis protocol for a total duration of 9 minutes. The maximum heart rate attained was 153 bpm which was 84% of maximum predicted heart rate the maximum workload was 10.4 metabolic equivalents. The patient maintained sinus rhythm throughout the recording. At rest there were no ST or T wave changes noted suggest ischemia at peak exercise upsloping ST changes only were noted with no meet the criteria for ischemia. No clinical angina was noted the test was terminated due to dyspnea. The peak blood pressure was 210/78 mmHg which was a good blood pressure response to exercise. Myocardial perfusion protocol. 14.7 mCi of technetium 99m sestamibi was injected at rest. The patient exercised according to regular Luis protocol for 9 minutes and at peak exercise 44.6 mCi of technetium 99m sestamibi was injected stress images were obtained stress and rest images were reconstructed and compared in the short axis vertical long horizontal long axis. Gated images were also obtained Perfusion SPECT analysis: Review of the stress images demonstrate normal uptake of tracer noted in all areas of the myocardium the resting images similar demonstrate normal uptake of tracer noted in all areas of the myocardium. No areas of reversibility are noted suggest ischemia no previous infarct is noted. Gated SPECT analysis: The gated ejection fraction is noted to be 60%. Conclusion: Normal exercise myocardial perfusion stress test at a high workload. Preserved ejection fraction.
== END ==
LOC: CVS 06:31
PROVIDERS: PCP Nurse Practitioner; Referring Provider Physician Assistant Medical; Visit Provider Physician Assistant Medical
DX: I25.10 Atherosclerotic heart disease of native coronary artery without angina pectoris (principal); R07.9 Chest pain, unspecified
CPT/HCPCS: 78452; 93017; A9500; A4216

== ENCOUNTER 2020-09-15 08:28 | Emergency (ER) | payer SELFPAY ==
[2017-06-09 13:21] VITALS: BMI 40.8
[2020-08-28 09:02] VITALS: BMI 41.5
[2020-09-15 08:29] VITALS: BP 169/104; PULSE 84; RESP 18; TEMP 36.6; O2SAT 97; BMI 40.4
--- NOTE | 2020-09-15 08:46 | ED.VIS.BACK ---
HPI History of Present Illness Chief Complaint: Back Detail of Chief Complaint: Patient presents with back pain for 1 week. Informant: patient Onset/Context/Timing Injury: bending Timing: Continuous Quality: Sharp, Aching and Throbbing Location: See diagram Current Severity: 12/23 Maximum Severity: 02/22 Worsened by: improves with Movement Associated Symptoms Associated Symptoms: Radiation to Left Leg; Negative for Dysuria, Unable to Ambulate, Unable to Transfer, Urinary Retention, Urinary Incontinence, Constipation and Fecal Incontinence Narrative Narrative: Patient presents with back pain that started 1 week ago. 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 Patient has been sore and uncomfortable but has gotten worse over the last couple of days. At times pain radiates into the left buttock and hamstring. Patient denies loss of bowel or bladder function. He denies weakness of the extremities. He denies direct trauma. 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 Prior similar symptoms: With Prior Back Pain [facility] Medical History (Updated 09/15/20 @ 08:[address] Shadia Saucedo, DO) Atherosclerosis of coronary artery of [place] heart without angina pectoris Back pain COVID-19 (~05/22/20) COVID-19 virus detected (05/22/20) Essential (primary) hypertension GERD (gastroesophageal reflux disease) Hyperlipidemia Morbid obesity Non-ST elevation (NSTEMI) myocardial infarction (06/09/17) Home Medications aspirin 81 mg PO DAILY@0800 tab 06/10/17 [Rx Last Taken 04/09/18] atorvastatin 40 mg tablet 40 mg PO QHS #90 tab 08/28/20 [Rx Last Taken Unknown] clopidogrel 75 mg tablet 75 mg PO QDAY #90 tab 08/28/20 [Rx Last Taken Unknown] lisinopril 20 mg tablet 20 mg PO DAILY #90 tab 08/28/20 [Rx Last Taken Unknown] nitroglycerin 0.4 mg sublingual tablet 0.4 mg SUBLINGUAL Q5-15M PRN #25 tab 08/28/20 [Rx Last Taken Unknown] metoprolol succinate 50 mg tablet,extended release 24 hr 50 mg PO DAILY #90 tab 09/03/20 [Rx Last Taken Unknown] cyclobenzaprine 10 mg PO TID PRN #20 tablet 09/15/20 [Rx Last Taken Unknown] hydrocodone-acetaminophen 1 tab PO Q4H PRN 5 Days #20 tab 09/15/20 [Rx Last Taken Unknown] ondansetron 4 mg PO Q6H PRN #14 tab 09/15/20 [Rx Last Taken Unknown] Allergy/AdvReac Type Severity Reaction Status Date / Time Penicillins Allergy Angioedema Verified 09/15/20 08:32 Family History Mother Heart disease Hypertension Surgical History H/O cervical spine surgery H/O right knee surgery History of coronary artery stent placement (04/10/18) History of tonsillectomy and adenoidectomy Social History (Updated 08/28/20 @ 10:[address] Fernando Nicole MD) Smoking Status: Never smoker ROS ROS ED Constitutional Constitutional ED: Reports systems reviewed and no addt'l complaints, except as documented; Denies body ache(s), change in weight or chills Eyes Eyes: Denies acute decrease in peripheral vision, change in vision, double vision or loss of vision ENT ENT ED: Reports none; Denies ear pain, lip swelling, loss taste/smell, neck pain, otalgia or sore throat Cardiovascular Cardiovascular: Reports none; Denies abdominal pain, chest pain with activity, leg edema, lightheadedness, palpitations, rapid heart rate or syncope Respiratory/Chest Respiratory/Chest: Reports none; Denies change in mental status, dry cough, dyspnea, hemoptysis, shortness of breath at rest or shortness of breath with exertion Gastrointestinal Gastrointestinal: Reports none; Denies abdominal pain, change in stool character, diarrhea, hematemesis, hematochezia, melena, rectal bleeding or vomiting Genitourinary Genitourinary ED: Reports none; Denies abdominal discomfort, anuria, dysuria, genital pain or polyuria Musculoskeletal Musculoskeletal: Reports back pain Integumentary Reports none; Denies abscess or rash Neurologic Neurologic: Reports none; Denies abnormal gait, confusion, focal weakness, frequent falls, headache(s), loss of vision, numbness, paresthesias, radicular pain, vertigo or weakness Psychiatric Psychiatric: Reports systems reviewed and no addt'l complaints, except as documented and none; Denies behavioral changes, confusion, difficulty concentrating, hallucinations, suicidal ideation, tactile hallucinations or visual hallucinations Endocrine Endocrinology: Denies none, cold intolerance, excessive sweating, fatigue or heat intolerance Hematologic/Lymphatic Hematologic/Lymphatic: Reports none; Denies anemia, easy bleeding or easy bruising Allergic/Immunologic Allergic/Immunologic ED: Denies as per HPI, none, lip swelling, mouth swelling, throat swelling, tongue swelling or hives EXAM Physical Exam Const Vital Signs: 09/15/20 08:29 Temperature 97.8 F Temperature Source Temporal Pulse Rate 84 Respiratory Rate 18 Blood Pressure 169/104 H Blood Pressure Mean 125 Pulse Ox 97 Oxygen Delivery Method Room Air Positive well nourished and well developed General Appearance ED: well developed and NAD HEENT Reports TM's clear and moist mucous membranes normocephalic and atraumatic; Negative for trauma or tenderness Tympanic Membrane ED: Yes TM's clear Eyes PERRL and EOMs intact bilaterally General Eye ED: Negative for pale conjunctiva or scleral icterus Neck no lymphadenopathy, supple and no JVD General: Negative for tenderness Chest Wall inspection of chest normal and palpation of chest normal Chest: Negative for tenderness Resp normal respiratory effort and clear to auscultation bilaterally Effort and Inspection: Negative for respiratory distress or pain with movement Auscultation: Negative for rhonchi, wheezes or diminished lung sounds Cardio regular rate, regular rhythm, S1 normal heart sound, S2 normal heart sound and no murmurs Peripheral Pulses: pulses 2+ throughout GI normal to inspection, nondistended, normoactive bowel sounds, soft to palpation, non-tender, non-distended and no masses Back/Spine normal to inspection Cervical Spine: Negative for cervical spine tenderness Thoracic Spine / Upper Back: paraspinal muscle tenderness left Lumbar Spine / Lower Back: ROM limited and straight leg raise negative bilaterally Extremity normal to inspection General Extremety ED: Negative for edema General Extremity: Negative for edema Neuro oriented x3, CN's II-XII intact bilaterally, no sensory deficits noted and gait normal Sensorium / Orientation: awake, alert, oriented to person, oriented to place and oriented to time Motor Exam: strength 5/5 throughout and strength abnormal Deep Tendon Reflexes: Rt Patellar (L4): 2+, Lt Patellar (L4): 2+, Rt Ankle (S1): 2+ and Lt Ankle (S1): 2+ Deep Tendon Reflexes Back: Rt Patellar (L4): 2+, Lt Patellar (L4): 2+, Rt Ankle (S1): 2+ and Lt Ankle (S1): 2+ Plantar Reflex: Downgoing: bilateral Psych mental status grossly normal Skin no rashes or lesions noted and no wounds Image ED - Body Diagram Man: 1. MDM MDM MDM Narrative Medical decision making narrative: Given no history of direct trauma I do not feel any type of imaging is indicated at this time. Patient does not have concerning red flag signs or symptoms of cauda equina. Patient will be medicated in the department and will be given prescriptions. Patient will be given referral to back surgeon and primary care physician. Patient advised to return if worsening pain, weakness in extremities, change in bowel or bladder function, or condition should worsen anyway. Discharge Plan Triage Chief Complaint: Back ED Provider: Shadia Saucedo Dx/Rx/DC Orders Clinical Impression: Acute back pain with sciatica Instructions: ED Back Sprain/Strain, ED Sciatica Prescriptions: New ondansetron 4 mg tablet,disintegrating 4 mg PO Q6H PRN (Reason: nausea and vomiting) Qty: 14 RF: 0 hydrocodone-acetaminophen 5-325 mg tablet 1 tab PO Q4H PRN (Reason: pain) 5 Days Qty: 20 RF: 0 cyclobenzaprine 10 mg tablet 10 mg PO TID PRN (Reason: Muscle Spasm) Qty: 20 RF: 0 No Action atorvastatin 40 mg tablet 40 mg PO QHS Qty: 90 RF: 4 clopidogrel [Plavix] 75 mg tablet 75 mg PO QDAY Qty: 90 RF: 4 lisinopril 20 mg tablet 20 mg PO DAILY Qty: 90 RF: 4 nitroglycerin 0.4 mg tablet, sublingual 0.4 mg SUBLINGUAL Q5-15M PRN (Reason: chest pain) Qty: 25 RF: 3 aspirin 81 MG tablet 81 mg PO DAILY@0800 RF: 0 metoprolol succinate 50 mg tablet extended release 24 hr 50 mg PO DAILY Qty: 90 RF: 3 Primary Care Provider: NOT,DEFINED Referrals: NOT,DEFINED [Primary Care Provider] - Thong Meza DO [STAFF PHYSICIAN] - 3-5 Days José Castellon MD [STAFF PHYSICIAN] - 3-5 Days Disposition Disposition: Home, self care
[2020-09-15] MEDS: HYDROmorphone 1 MG/ML Syringe IM (08:55)
[2020-09-15] MEDS: Ondansetron 4 MG/2 ML Vial IM (08:57)
[2020-09-15] MEDS: Ketorolac 60 MG/2 ML Vial IM (08:59)
[2020-09-15] MEDS: Orphenadrine 60 MG/2 ML Ampul IM (09:00)
[2020-09-15 09:25] VITALS: RESP 16
--- NOTE | 2020-09-15 09:35 | ED.RN ---
PT WAS OBSERVED FOR SHOT TIME GREATER THAN 15 MIN, NO REACTIONS OBSERVED BY THIS RN, PT D/C WITH SPOUSE.
--- NOTE | 2020-09-15 09:46 | ED.RN ---
Pt observed by this rn leaving department. Pt questioned about where his ride is. Pt states oh my is parked right on the ramp. This RN asks pt to call . Pt states she is right here I will just walk down. This RN observes pt get into a car after being told he can not drive under the influence of narcotic medication. protocol officer Natasha talking with pt after observing him attempting to back out of parking space.
== END 2020-09-15 09:30 | disposition home or self-care (01) ==
PROVIDERS: Emergency Provider Emergency Medicine
DX: M54.42 Lumbago with sciatica, left side (principal); I10 Essential (primary) hypertension; E66.01 Morbid (severe) obesity due to excess calories; Z68.41 Body mass index [BMI] 40.0-44.9, adult; E78.5 Hyperlipidemia, unspecified; I25.10 Atherosclerotic heart disease of native coronary artery without angina pectoris; K21.9 Gastro-esophageal reflux disease without esophagitis; I25.2 Old myocardial infarction; Z86.16 Personal history of COVID-19; Z95.5 Presence of coronary angioplasty implant and graft; Z79.82 Long term (current) use of aspirin; Z79.899 Other long term (current) drug therapy
CPT/HCPCS: 96372; 99282; J2405

== ENCOUNTER → 2020-10-02 06:36 | Outpatient (CLI) | payer SELFPAY ==
[2017-06-09 13:21] VITALS: BMI 40.8
[2020-09-23 08:11] VITALS: BMI 39.0
--- NOTE | 2020-10-02 06:37 | MRI_ITS ---
STUDY: MRI THORACIC SPINE WITHOUT CONTRAST REASON FOR EXAM: Male, 40 years old. Pain TECHNIQUE: Standardized fat and water weighted pulse sequences were obtained in the sagittal and axial planes. COMPARISON: CT thoracic spine without contrast 05/29/2014. FINDINGS: Normal kyphosis of the thoracic spine. There is no substantial scoliosis. T1-2, T2-3, T3-4, T4-5, T5-6, T6-7, T7-8, T8-9, T9-10, T10-11, T11-12: Old anterior wedge compression fractures involving T8, T9 and T10 vertebral bodies are unchanged. Normal remaining vertebral bodies and endplates. Small ventral extradural defect at T6-T7 and T10-T11 disc space levels are small posterior bulging discs. Normal central canal and bilateral intervertebral neural foramina. Normal visualized thoracic cord. Normal conus medullaris that terminates at the lower L1 vertebral body level. The soft tissue structures are unremarkable. MRI/Spine Thoracic (Routine) IMPRESSION: 1. Old anterior wedge compression fractures involving T8, T9 and T10 vertebral bodies but unchanged since 05/29/2014. 2. Small posterior bulging discs at T6-T7 and T10-T11 disc space levels. 3. No MRI evidence of thoracic extruded disc fragment or spinal stenosis. 4. Normal thoracic spinal cord. Electronically Signed: Gerald Leslie MD at 16:18 EDT , Service support ,
== END ==
PROVIDERS: Referring Provider Orthopaedic Surgery; Visit Provider Orthopaedic Surgery
DX: M51.24 Other intervertebral disc displacement, thoracic region (principal); S39.012A Strain of muscle, fascia and tendon of lower back, initial encounter
CPT/HCPCS: 72146

== ENCOUNTER 2020-12-25 08:25 | Emergency (ER) | payer SELFPAY ==
[2017-06-09 13:21] VITALS: BMI 40.8
[2020-10-06 09:51] VITALS: BMI 39.0
[2020-12-25 08:26] VITALS: BP 170/100; PULSE 91; RESP 16; TEMP 36.3; O2SAT 99; BMI 39.9
--- NOTE | 2020-12-25 09:02 | EDS_ITS ---
HPI History of Present Illness Chief Complaint: Dental Informant: patient Onset/Context/Timing Onset: Weeks (1) Context: Gradual Onset Timing: Continuous Quality: Sharp, aching Location: Left lower third molar Worsened by: Nothing Relieved by: Topicals Associated Symptoms Assocated Symptom - Dental: jaw swelling, cold sensitivity and hot sensitivity; Negative for fever or face swelling Narrative Narrative: Patient presents with left lower dental pain that has been getting worse over the past week. Patient states his left lower wisdom tooth is coming in crooked. Patient states it is pushing on some of the other soft tissue in his left lower jaw. Patient states he has been using Orajel with minimal relief. Patient admits to some mild swelling over the left lower jaw. Patient also admits to hot and cold sensitivity. Patient denies any fevers or chills. Patient admits to a mild sore throat. PFSH [facility] Medical History Atherosclerosis of coronary artery of [place] heart without angina pectoris Back pain COVID-19 (~05/22/20) COVID-19 virus detected (05/22/20) Essential (primary) hypertension GERD (gastroesophageal reflux disease) Hyperlipidemia Morbid obesity Non-ST elevation (NSTEMI) myocardial infarction (06/09/17) Home Medications aspirin 81 mg PO DAILY@0800 tab 06/10/17 [Rx Last Taken 04/09/18] atorvastatin 40 mg tablet 40 mg PO QHS #90 tab 08/28/20 [Rx Last Taken Unknown] clopidogrel 75 mg tablet 75 mg PO QDAY #90 tab 08/28/20 [Rx Last Taken Unknown] lisinopril 20 mg tablet 20 mg PO DAILY #90 tab 08/28/20 [Rx Last Taken Unknown] nitroglycerin 0.4 mg sublingual tablet 0.4 mg SUBLINGUAL Q5-15M PRN #25 tab 08/28/20 [Rx Last Taken Unknown] metoprolol succinate 50 mg tablet,extended release 24 hr 50 mg PO DAILY #90 tab 09/03/20 [Rx Last Taken Unknown] ondansetron 4 mg PO Q6H PRN #14 tab 09/15/20 [Rx Last Taken Unknown] methylprednisolone 4 mg tablets in a dose pack See Rx Instructions PO PER PKG DIR #21 tab 09/23/20 [Rx Last Taken Unknown] clindamycin HCl [Cleocin HCl] 300 mg PO Q6H #40 capsule 12/25/20 [Rx Last Taken Unknown] hydrocodone-acetaminophen 1 tab PO Q6H PRN PRN 3 Days #10 tablet 12/25/20 [Rx Last Taken Unknown] Allergy/AdvReac Type Severity Reaction Status Date / Time Penicillins Allergy Angioedema Verified 12/25/20 08:28 Family History Mother Heart disease Hypertension Surgical History H/O cervical spine surgery H/O right knee surgery History of coronary artery stent placement (04/10/18) History of tonsillectomy and adenoidectomy Social History Smoking Status: Never smoker ROS ROS ED Constitutional Constitutional ED: Denies chills or fever(s) Eyes Eyes: Denies blurry vision or change in vision ENT ENT ED: Reports sore throat; Denies rhinorrhea Cardiovascular Cardiovascular: Denies chest pain or palpitations Respiratory/Chest Respiratory/Chest: Denies cough or dyspnea Gastrointestinal Gastrointestinal: Denies nausea or vomiting Genitourinary Genitourinary ED: Denies dysuria or hematuria Musculoskeletal Musculoskeletal: Reports neck pain; Denies back pain Integumentary Denies abscess or rash Neurologic Neurologic: Denies headache(s) or weakness Allergic/Immunologic Allergic/Immunologic ED: Denies mouth swelling or urticaria EXAM Physical Exam Const Vital Signs: 12/25/20 08:26 Temperature 97.3 F L Temperature Source Temporal Pulse Rate 91 Respiratory Rate 16 Blood Pressure 170/100 H Blood Pressure Mean 123 Pulse Ox 99 Oxygen Delivery Method Room Air Positive well nourished, well developed and obese General Appearance ED: well developed Nutritional Appearance: obese HEENT Mouth ED: Yes oral and palatal mucosa normal Mouth: oral and palatal mucosa normal Teeth and Gingiva: gingiva abnormal Positive for gingival edema (Left lower third molar area) Neck supple and no JVD Resp normal respiratory effort and clear to auscultation bilaterally Cardio regular rate and regular rhythm Neuro oriented x3, CN's II-XII intact bilaterally, moves all extremities, no focal motor deficits and no sensory deficits noted Sensorium / Orientation: alert Psych mental status grossly normal MDM MDM MDM Narrative Medical decision making narrative: Patient was given a prescription for clindamycin and a short course of [place]. Patient was given referral to oral surgery. Patient was instructed to eat soft foods. Patient was instructed to return if worse in any way. Patient understood and was agreeable with the plan. All questions were answered. Discharge Plan Triage Chief Complaint: Dental ED Provider: Lloyd Maravilla Dx/Rx/DC Orders Clinical Impression: Odontalgia Instructions: ED Dental Pain Prescriptions: New clindamycin HCl [Cleocin HCl] 300 MG capsule 300 mg PO Q6H Qty: 40 RF: 0 hydrocodone-acetaminophen [hydrocodone-acetaminophen] 1 TABLET tablet 1 tab PO Q6H PRN PRN (Reason: Pain) 3 Days Qty: 10 RF: 0 No Action atorvastatin 40 mg tablet 40 mg PO QHS Qty: 90 RF: 4 clopidogrel [Plavix] 75 mg tablet 75 mg PO QDAY Qty: 90 RF: 4 lisinopril 20 mg tablet 20 mg PO DAILY Qty: 90 RF: 4 nitroglycerin 0.4 mg tablet, sublingual 0.4 mg SUBLINGUAL Q5-15M PRN (Reason: chest pain) Qty: 25 RF: 3 methylprednisolone [Medrol (Donnie)] 4 mg tablets,dose pack See Rx Instructions PO PER PKG DIR Qty: 21 RF: 0 aspirin 81 MG tablet 81 mg PO DAILY@0800 RF: 0 ondansetron 4 mg tablet,disintegrating 4 mg PO Q6H PRN (Reason: nausea and vomiting) Qty: 14 RF: 0 metoprolol succinate 50 mg tablet extended release 24 hr 50 mg PO DAILY Qty: 90 RF: 3 Primary Care Provider: Care Physician,No Primary Referrals: Parveen Wells DDS [STAFF PHYSICIAN] - 5-7 Days Care Physician,No Primary [Primary Care Provider] - Disposition Disposition: Home, Self Care
[2020-12-25] MEDS: Clindamycin HCl 150 MG Capsule 300 MG PO (09:18)
== END 2020-12-25 09:24 | disposition home or self-care (01) ==
PROVIDERS: Emergency Provider Emergency Medicine
DX: K08.89 Other specified disorders of teeth and supporting structures (principal); I10 Essential (primary) hypertension; I25.2 Old myocardial infarction; K21.9 Gastro-esophageal reflux disease without esophagitis; E66.01 Morbid (severe) obesity due to excess calories; Z68.39 Body mass index [BMI] 39.0-39.9, adult; E78.5 Hyperlipidemia, unspecified; I25.10 Atherosclerotic heart disease of native coronary artery without angina pectoris; Z86.16 Personal history of COVID-19; Z95.5 Presence of coronary angioplasty implant and graft; Z79.82 Long term (current) use of aspirin; Z79.899 Other long term (current) drug therapy
CPT/HCPCS: 99283

== ENCOUNTER 2021-01-27 21:21 | Emergency (ER) | payer SELFPAY ==
[2017-06-09 13:21] VITALS: BMI 40.8
[2021-01-27 21:22] VITALS: BP 126/87; PULSE 94; RESP 16; TEMP 35.9; O2SAT 97; BMI 38.3
== END 2021-01-27 22:48 | disposition left against medical advice (07) ==
LOC: ED 22:49
DX: Z53.21 Procedure and treatment not carried out due to patient leaving prior to being seen by health care provider (principal)
CPT/HCPCS: 87426

== ENCOUNTER 2021-04-20 23:41 | Emergency (ER) | payer SELFPAY ==
[2017-06-09 13:21] VITALS: BMI 40.8
[2021-04-20 23:42] VITALS: BP 129/60; PULSE 96; RESP 19; TEMP 36.9; O2SAT 96; BMI 38.3
[2021-04-20 23:48] VITALS: BP 129/60; PULSE 99; RESP 19; TEMP 36.9; O2SAT 96
--- NOTE | 2021-04-21 00:44 | EDS_ITS ---
HPI History of Present Illness Chief Complaint: General Illness Informant: patient Narrative Narrative: Patient presents with some mild sore throat nasal drainage. He states he has a slight cough but it is really just from nasal drainage. He is not at all short of breath. He is not having chest pain. His taste is off but his smell is normal. He has no myalgias. He states he was having fevers over the weekend but the highest temperature was 99.5. He has not had Covid vaccine. He did have Covid back in May 2020. He states he does not feel like he has Covid. He has had some viral infections in his family recently. He had a son that was tested for Covid and RSV that were both negative about 2 weeks ago. [facility] Medical History Atherosclerosis of coronary artery of [place] heart without angina pectoris Back pain COVID-19 (~05/22/20) COVID-19 virus detected (05/22/20) Essential (primary) hypertension GERD (gastroesophageal reflux disease) Hyperlipidemia Morbid obesity Non-ST elevation (NSTEMI) myocardial infarction (06/09/17) Home Medications aspirin 81 mg PO DAILY@0800 tab 06/10/17 [Rx Last Taken 04/09/18] atorvastatin 40 mg tablet 40 mg PO QHS #90 tab 08/28/20 [Rx Last Taken Unknown] clopidogrel 75 mg tablet 75 mg PO QDAY #90 tab 08/28/20 [Rx Last Taken Unknown] lisinopril 20 mg tablet 20 mg PO DAILY #90 tab 08/28/20 [Rx Last Taken Unknown] metoprolol succinate 50 mg tablet,extended release 24 hr 50 mg PO DAILY #90 tab 09/03/20 [Rx Last Taken Unknown] Allergy/AdvReac Type Severity Reaction Status Date / Time Penicillins Allergy Angioedema Verified 04/20/21 23:51 Family History Mother Heart disease Hypertension Surgical History H/O cervical spine surgery H/O right knee surgery History of coronary artery stent placement (04/10/18) History of tonsillectomy and adenoidectomy Social History Smoking Status: Never smoker ROS ROS ED Constitutional Constitutional ED: Reports subjective; Denies sweats Eyes Eyes: Denies blurry vision ENT ENT ED: Reports ear pain, rhinorrhea and sore throat Cardiovascular Cardiovascular: Denies chest pain or palpitations Respiratory/Chest Respiratory/Chest: Reports cough; Denies dyspnea or sputum Gastrointestinal Gastrointestinal: Denies nausea or vomiting Genitourinary Genitourinary ED: Denies dysuria Musculoskeletal Musculoskeletal: Denies myalgias Integumentary Denies rash Neurologic Neurologic: Denies headache(s), paresthesias or weakness Endocrine Endocrinology: Denies polydipsia or polyuria Allergic/Immunologic Allergic/Immunologic ED: Denies mouth swelling or urticaria EXAM Physical Exam Const Vital Signs: 04/20/21 23:42 04/20/21 23:48 Temperature 98.4 F 98.4 F Temperature Source Oral Oral Pulse Rate 96 99 Respiratory Rate 19 H 19 H Blood Pressure 129/60 H 129/60 H Blood Pressure Mean 83 83 Pulse Ox 96 96 Oxygen Delivery Method Room Air Room Air Positive well nourished and well developed General Appearance ED: well developed and NAD; Negative for cyanotic or diaphoretic HEENT Reports moist mucous membranes HEENT Narrative: There is some mild erythema. No significant tonsillar enlargement. No exudate is seen. Tympanic membranes are both clear. Right tympanic membrane does have a pneumatic equalization tube in there. He states has been there almost 10 years. Eyes PERRL and EOMs intact bilaterally Neck no lymphadenopathy and supple Neck Narrative: No enlarged or tender lymph nodes. Chest Wall inspection of chest normal Resp normal respiratory effort and clear to auscultation bilaterally Effort and Inspection: Negative for pain with movement Auscultation: Negative for rales, rhonchi or wheezes Cardio regular rate, regular rhythm and no murmurs GI normal to inspection, nondistended, normoactive bowel sounds and non-tender Palpation: soft Back/Spine no CVA tenderness Extremity normal to inspection General Extremety ED: Negative for edema or tenderness General Extremity: Negative for edema Neuro Sensorium / Orientation: alert Psych mental status grossly normal Skin no rashes or lesions noted MDM MDM MDM Narrative Medical decision making narrative: Patient's Covid and strep are negative. I think this is likely viral illness. His family member had a virus recently also. He is okay just using Tylenol Motrin [id number] meds. If he has worsening cough, any trouble breathing or chest pain, vomiting or other concerns he should return. Lab Data Attestation: I reviewed the patient's lab results. Discharge Plan Triage Chief Complaint: General Illness ED Provider: Isauro Walter Dx/Rx/DC Orders Clinical Impression: URI (upper respiratory infection) Instructions: ED URI, Viral, No Abx (Adult) Prescriptions: No Action atorvastatin 40 mg tablet 40 mg PO QHS Qty: 90 RF: 4 clopidogrel [Plavix] 75 mg tablet 75 mg PO QDAY Qty: 90 RF: 4 lisinopril 20 mg tablet 20 mg PO DAILY Qty: 90 RF: 4 aspirin 81 MG tablet 81 mg PO DAILY@0800 RF: 0 metoprolol succinate 50 mg tablet extended release 24 hr 50 mg PO DAILY Qty: 90 RF: 3 Primary Care Provider: Care Physician,No Primary Referrals: Andreia Boyer MD [STAFF PHYSICIAN] - 1 Week if not improving Care Physician,No Primary [Primary Care Provider] - Disposition Disposition: Home, Self Care
[2021-04-21 01:56] VITALS: PULSE 92; RESP 18; O2SAT 97
== END 2021-04-21 01:57 | disposition home or self-care (01) ==
LOC: ED 04-21 01:49
PROVIDERS: Emergency Provider Emergency Medicine
DX: J06.9 Acute upper respiratory infection, unspecified (principal); I10 Essential (primary) hypertension; E66.01 Morbid (severe) obesity due to excess calories; Z68.38 Body mass index [BMI] 38.0-38.9, adult; E78.5 Hyperlipidemia, unspecified; I25.10 Atherosclerotic heart disease of native coronary artery without angina pectoris; K21.9 Gastro-esophageal reflux disease without esophagitis; I25.2 Old myocardial infarction; Z86.16 Personal history of COVID-19; Z95.5 Presence of coronary angioplasty implant and graft; Z79.82 Long term (current) use of aspirin; Z79.899 Other long term (current) drug therapy
CPT/HCPCS: 87426; 87880; 99282

== ENCOUNTER 2021-04-29 22:25 | Emergency (ER) | payer SELFPAY ==
[2017-06-09 13:21] VITALS: BMI 40.8
[2021-04-29 22:26] VITALS: BP 122/81; PULSE 93; RESP 20; TEMP 35.9; O2SAT 98; BMI 37.8
--- NOTE | 2021-04-29 22:49 | RAD_ITS ---
EXAM: XR CHEST, 1 VIEW : 1980 CLINICAL INDICATION: cough TECHNIQUE: Frontal view of the chest. This report was created using [employer] report generation technology. COMPARISON: 05/22/2020 FINDINGS: LUNGS AND PLEURAL SPACES: Unremarkable. No consolidation or edema. No pneumothorax. No effusion. HEART: Unremarkable. Cardiac silhouette not enlarged. MEDIASTINUM: Central airways and mediastinal contour are unremarkable. BONES/JOINTS: Unremarkable. SOFT TISSUES: Unremarkable. RAD/Chest 1 View (Portable) IMPRESSION: No radiographic evidence of acute cardiopulmonary disease. at 2312 Reported and signed by: Khalif Norris MD Electronically Signed: Khalif Norris MD at 23:10 EST Tel , Service support ,
--- NOTE | 2021-04-29 22:58 | EDS_ITS ---
HPI History of Present Illness Chief Complaint: Shortness of Breath Narrative Narrative: Patient is a 40-year-old male who states he was seen here approximately 1 week ago secondary to nasal congestion cough fevers chills and muscle ache. At that time he was tested for Covid and influenza and was negative. He states since that time majority of his symptoms have resolved but his congestion cough and shortness of breath have persisted and secondary to this he presents to the ER for evaluation [facility] Medical History Atherosclerosis of coronary artery of [place] heart without angina pectoris Back pain COVID-19 (~05/22/20) COVID-19 virus detected (05/22/20) Essential (primary) hypertension GERD (gastroesophageal reflux disease) Hyperlipidemia Morbid obesity Non-ST elevation (NSTEMI) myocardial infarction (06/09/17) Home Medications aspirin 81 mg PO DAILY@0800 tab 06/10/17 [Rx Last Taken 04/09/18] atorvastatin 40 mg tablet 40 mg PO QHS #90 tab 08/28/20 [Rx Last Taken Unknown] clopidogrel 75 mg tablet 75 mg PO QDAY #90 tab 08/28/20 [Rx Last Taken Unknown] lisinopril 20 mg tablet 20 mg PO DAILY #90 tab 08/28/20 [Rx Last Taken Unknown] metoprolol succinate 50 mg tablet,extended release 24 hr 50 mg PO DAILY #90 tab 09/03/20 [Rx Last Taken Unknown] azelastine 2 spray INTRANASAL BID #30 ml 04/30/21 [Rx Last Taken Unknown] prednisone 40 mg PO DAILY 7 Days #14 tab 04/30/21 [Rx Last Taken Unknown] promethazine-codeine 5 ml PO Q6H PRN 7 Days #140 ml 04/30/21 [Rx Last Taken Unknown] Allergy/AdvReac Type Severity Reaction Status Date / Time Penicillins Allergy Angioedema Verified 04/29/21 22:28 Family History Mother Heart disease Hypertension Surgical History H/O cervical spine surgery H/O right knee surgery History of coronary artery stent placement (04/10/18) History of tonsillectomy and adenoidectomy Social History Smoking Status: Never smoker ROS ROS ED Constitutional Constitutional ED: Denies chills or fever(s) ENT ENT ED: Reports rhinorrhea and sore throat Cardiovascular Cardiovascular: Denies chest pain Respiratory/Chest Respiratory/Chest: Reports cough and dyspnea Gastrointestinal Gastrointestinal: Denies abdominal pain, diarrhea, nausea or vomiting Genitourinary Genitourinary ED: Denies dysuria Musculoskeletal Musculoskeletal: Denies myalgias Integumentary Denies rash Neurologic Neurologic: Denies headache(s) Hematologic/Lymphatic Hematologic/Lymphatic: Reports easy bleeding and easy bruising EXAM Physical Exam Const Vital Signs: 04/29/21 22:26 04/29/21 22:54 Temperature 96.7 F L Temperature Source Temporal Pulse Rate 93 Respiratory Rate 20 H Respiratory Effort Normal Respiratory Depth Normal Respiratory Pattern Normal Blood Pressure 122/81 H Blood Pressure Mean 94 Pulse Ox 98 Oxygen Delivery Method Room Air Positive well nourished and well developed General Appearance ED: well developed HEENT Reports moist mucous membranes HEENT Narrative: Cobblestoning the posterior pharynx consistent with sinus drainage no airway edema or compromise Eyes PERRL and EOMs intact bilaterally Neck supple and no JVD Neck Narrative: Positive anterior cervical lymphadenopathy Resp normal respiratory effort Resp Narrative: Breath sounds are diminished throughout with diffuse expiratory wheeze and rhonchi in the bilateral bases Cardio regular rate and regular rhythm Extremity normal to inspection Extremity Narrative: No asymmetric edema no pitting edema negative Homans' sign bilaterally Neuro oriented x3 and CN's II-XII intact bilaterally Sensorium / Orientation: alert Motor Exam: strength 5/5 throughout Psych mental status grossly normal Skin no rashes or lesions noted MDM MDM MDM Narrative Medical decision making narrative: Patient presented to the ER afebrile and in no acute respiratory distress satting 98% on room air. His constellation of symptoms are viral in nature and therefore I did elect to perform a Covid swab as well as chest x-ray. Chest x-ray revealed no acute lung pathology and Covid test was negative indicating he has some other type of viral illness. At this time as he is not requiring supplemental oxygen and is not in respiratory distress he can be placed on symptomatic medications and discharged home Radiography Diagnostic Testing: Clinical Impression(s) from Imaging Studies Chest X-Ray 04/29/21 22:49 IMPRESSION: No radiographic evidence of acute cardiopulmonary disease. at 2312 Reported and signed by: Khalif Norris MD Electronically Signed: Khalif Norris MD at 23:10 EST Tel , Service support , Discharge Plan Triage Chief Complaint: Shortness of Breath ED Provider: Isaak Drummond Dx/Rx/DC Orders Clinical Impression: Viral upper respiratory illness Instructions: ED URI, Viral W/ Wheezing (Adult) Prescriptions: New prednisone 20 mg tablet 40 mg PO DAILY 7 Days Qty: 14 RF: 0 azelastine 137 mcg (0.1 %) aerosol,spray 2 spray intranasal BID Qty: 30 RF: 0 promethazine-codeine 6.25-10 mg/5 mL syrup 5 ml PO Q6H PRN (Reason: cough) 7 Days Qty: 140 RF: 0 No Action atorvastatin 40 mg tablet 40 mg PO QHS Qty: 90 RF: 4 clopidogrel [Plavix] 75 mg tablet 75 mg PO QDAY Qty: 90 RF: 4 lisinopril 20 mg tablet 20 mg PO DAILY Qty: 90 RF: 4 aspirin 81 MG tablet 81 mg PO DAILY@0800 RF: 0 metoprolol succinate 50 mg tablet extended release 24 hr 50 mg PO DAILY Qty: 90 RF: 3 Primary Care Provider: Care Physician,No Primary Referrals: Didier Fry MD [STAFF PHYSICIAN] - 1 Week if not improving Care Physician,No Primary [Primary Care Provider] - Disposition Disposition: Home, Self Care
[2021-04-30 00:10] VITALS: PULSE 91; RESP 18; O2SAT 94
== END 2021-04-30 00:11 | disposition home or self-care (01) ==
PROVIDERS: Emergency Provider Emergency Medicine
DX: J06.9 Acute upper respiratory infection, unspecified (principal); E66.01 Morbid (severe) obesity due to excess calories; I10 Essential (primary) hypertension; E78.5 Hyperlipidemia, unspecified; I25.2 Old myocardial infarction; I25.10 Atherosclerotic heart disease of native coronary artery without angina pectoris; K21.9 Gastro-esophageal reflux disease without esophagitis; Z86.16 Personal history of COVID-19; Z95.5 Presence of coronary angioplasty implant and graft; Z79.82 Long term (current) use of aspirin; Z79.899 Other long term (current) drug therapy
CPT/HCPCS: 71045; 87426; 99282

== ENCOUNTER 2021-09-02 09:27 | Outpatient (CLI) | payer SELFPAY ==
[2017-06-09 13:21] VITALS: BMI 40.8
[2021-09-02 11:02] LABS: AST(SGOT) 31 U/L (15-37); Alanine Aminotransfer ALT/SGPT 67 U/L (16-61); Albumin, Serum 4.1 g/dL (3.2-5.0); Alkaline Phosphatase 49 U/L (45-117); Bilirubin, Direct 0.22 mg/dL (0.00-0.30); Cholesterol 161 mg/dL (200); Globulin 3.9 g/dL (2.2-4.2); High Density Lipoprotein 41 mg/dL; Triglycerides 281 mg/dL; Very Low Density Lipoprotein 56 mg/dL (5-40)
== END 2021-09-02 23:59 | disposition home or self-care (01) ==
PROVIDERS: Referring Provider Nurse Practitioner Family; Visit Provider Nurse Practitioner Family
DX: E78.00 Pure hypercholesterolemia, unspecified (principal); E78.5 Hyperlipidemia, unspecified; I10 Essential (primary) hypertension; Z95.5 Presence of coronary angioplasty implant and graft; I25.2 Old myocardial infarction; I25.10 Atherosclerotic heart disease of native coronary artery without angina pectoris
CPT/HCPCS: 36415; 80061; 80076

== ENCOUNTER → 2021-09-23 | Outpatient (CLI) | payer SELFPAY ==
[2017-06-09 13:21] VITALS: BMI 40.8
[2021-09-23 12:31] LABS: Absolute Lymphocyte Count 1.67 X10^3/uL (0.83-4.51); Absolute Neutrophil Count 2.7 X10^3/uL (2.0-7.7); Basophil# 0.04 X10^3/uL; Basophil% 0.8 % (0-1); Eosinophils% 3.8 % (0-5); Hemoglobin 15.4 g/dL (13.0-16.5); Lymphocyte # 1.67 X10^3/ul (0.83-4.51); Lymphocyte % 31.9 % (19-41); Mean Corpuscular Hgb 32.7 pg (27.0-32.0); Mean Corpuscular Volume 93.4 fL (80-94); Mean Platelet Vol. 10.3 fl (6.2-12.0); Monocyte# 0.58 X10^3/uL; Monocyte% 11.1 % (0-10); NRBC Flagged by Analyzer 0 % (0-5); Neutrophil # 2.72 X10^3/uL (2.7-7.7); Platelet Count 235 K/mm3 (150-450); RBC Distribution Width CV 12.1 % (11.6-14.6); RBC Distribution Width SD 41.8 fl (35.1-43.9); Red Blood Count 4.71 M/mm3 (4.6-6.2); White Blood Count 5.2 K/mm3 (4.4-11.0)
[2021-09-23 12:38] LABS: Vitamin D,25 Hydroxy 33.4 ng/mL
[2021-09-23 12:50] LABS: ALB/GLOB Ratio 1.1 RATIO (0.9-2.4); AST(SGOT) 33 U/L (15-37); Alanine Aminotransfer ALT/SGPT 75 U/L (16-61); Albumin, Serum 4.2 g/dL (3.2-5.0); Alkaline Phosphatase 50 U/L (45-117); Anion Gap 9 (5-15); BUN 18 mg/dL (7-18); BUN/Creat Ratio 23.2 RATIO (10-20); Calcium,Total 8.8 mg/dL (8.5-10.1); Chloride 100 mmol/L (98-107); Creatinine, Serum 0.78 mg/dL (0.70-1.30); EST Glomerular Filtration Rate 117 mL/min (>60); Est Glom Filt Rate - Afr Amer 142 mL/min (>60); Free T3 3.4 pg/mL (2.18-3.98); Globulin 3.7 g/dL (2.2-4.2); Glucose 97 mg/dL (74-106); Potassium 4.3 mmol/L (3.5-5.1); Protein, Total 7.9 g/dL (6.4-8.2); Sodium Level 134 mmol/L (136-145); T4 Free Direct 0.95 ng/dL (0.76-1.46); Thyroid Stim Hormone (TSH) 0.97 uIU/mL (0.358-3.74)
[2021-09-28 13:08] LABS: Testosterone, Free 3.33 ng/dL (5.00-21.00)
[2021-09-28 16:32] LABS: Testosterone, % Free 2.07 % (1.50-4.20); Testosterone, Total 161 ng/dL (264-916)
== END | disposition home or self-care (01) ==
LOC: BIMLAB 10:41
PROVIDERS: PCP Internal Medicine; Referring Provider Internal Medicine; Visit Provider Internal Medicine
DX: R53.83 Other fatigue (principal); I10 Essential (primary) hypertension; E78.5 Hyperlipidemia, unspecified; I25.10 Atherosclerotic heart disease of native coronary artery without angina pectoris
CPT/HCPCS: 36415; 80053; 82306; 84402; 84403; 84439; 84443; 84481; 85025

== ENCOUNTER 2021-10-01 09:46 | Emergency (ER) | payer SELFPAY ==
[2017-06-09 13:21] VITALS: BMI 40.8
[2021-10-01 09:47] VITALS: BP 133/88; PULSE 99; RESP 15; TEMP 36.2; O2SAT 97; BMI 38.9
[2021-10-01 09:48] VITALS: BP 133/88; PULSE 99; RESP 15; TEMP 36.2; O2SAT 97
--- NOTE | 2021-10-01 09:58 | EX.ED.DYSGE1 ---
HPI <ANNABEL Yin - Last Filed: 10/01/21 10:51> History of Present Illness Chief Complaint: Lower Extremity Injury Narrative Narrative: 41-year-old male with history of hypertension hyperlipidemia presents to the emergency department the right foot pain. Patient states that 3 or 4 days ago, he was walking struck the outer part of his foot, around the pinky toe area on his right foot on a doggy gate. Patient states that since that has been getting more red swollen and he is here for evaluation. Patient does have an abrasion in between the toes of the fifth and fourth digit, there is some redness with some swelling. The redness does streak up his foot slightly. Patient denies any fevers or chills. Patient has increased pain with walking, palpation PFSH <ANNABEL Yin - Last Filed: 10/01/21 10:51> [facility] Medical History (Updated 10/01/21 @ 10:48 by ANNABEL Yin) Arthritis Atherosclerosis of coronary artery of [place] heart without angina pectoris Back pain COVID-19 (~05/22/20) COVID-19 virus detected (05/22/20) Essential (primary) hypertension GERD (gastroesophageal reflux disease) History of kidney stones Hyperlipidemia Morbid obesity Non-ST elevation (NSTEMI) myocardial infarction (06/09/17) Seasonal allergies Home Medications aspirin 81 mg PO DAILY@0800 tab 06/10/17 [Rx Last Taken 04/09/18] atorvastatin 40 mg tablet 40 mg PO QHS #90 tab 09/02/21 [Rx Last Taken Unknown] clopidogrel 75 mg tablet 75 mg PO QDAY #90 tab 09/02/21 [Rx Last Taken Unknown] lisinopril 20 mg tablet 20 mg PO DAILY #90 tab 09/02/21 [Rx Last Taken Unknown] metoprolol succinate 50 mg tablet,extended release 24 hr 50 mg PO DAILY #90 tab 09/02/21 [Rx Last Taken Unknown] doxycycline hyclate 100 mg PO DAILY #19 cap 10/01/21 [Rx Last Taken Unknown] hydrocodone-acetaminophen 1 tab PO Q6H PRN 2 Days #6 tab 10/01/21 [Rx Last Taken Unknown] testosterone cypionate 100 mg/mL intramuscular oil 100 mg IM Q2W #10 ml 10/01/21 [Rx Last Taken Unknown] Allergy/AdvReac Type Severity Reaction Status Date / Time Penicillins Allergy Angioedema Verified 09/23/21 08:59 Family History Mother Heart disease Hypertension Other DVT (deep venous thrombosis) Diabetes Myocardial infarction Surgical History H/O cervical spine surgery H/O right knee surgery History of coronary artery stent placement (04/10/18) History of tonsillectomy and adenoidectomy Social History Smoking Status: Never smoker Smokeless tobacco user: chewing tobacco alcohol intake: current alcohol intake frequency: a few times a month Alcohol type: beer substance use type: does not use caffeine: Yes (Occasional pop but not daily) Type: carbonated beverages ROS <ANNABEL Yin - Last Filed: 10/01/21 10:51> ROS ED ROS Narrative Constitutional: Negative for fever, chills, weight loss, weakness Eyes: Negative for vision loss, vision change, double vision ENT: Negative for any sore throat, ear pain, congestion Cardiovascular: Negative for any chest pain, tightness, palpitations, racing heartbeat Respiratory: Negative for any cough, sputum production, hemoptysis, shortness of breath, shortness of breath on exertion, orthopnea Gastrointestinal: Negative for any abdominal pain, nausea, vomiting, diarrhea, constipation, blood in stool, blood in vomit : Negative for any urinary frequency, incontinence, dysuria, retention, blood in urine Muscle skeletal: Negative for any muscle joint pain, stiffness, myalgias, arthralgias, neck pain, back pain. Positive right foot pain Neurological: Negative for any headache, dizziness, syncope, numbness or tingling Skin: Negative for any rashes, lumps, itching, abrasions, lacerations. Positive for abrasion to the right foot, redness to the top of the foot. Psychiatric: Negative for any depression, anxiety, stress, suicidal ideation, homicidal ideation Hematologic: Negative for any easy bruising, excessive bruising, easy bleeding Allergies: Negative for any eczema, hives, rash EXAM <ANNABEL Yin - Last Filed: 10/01/21 10:51> Physical Exam Narrative Exam Narrative: Vital signs reviewed. Extremities: No peripheral edema, no signs of gross trauma or deformity. Active full range of motion of all extremities. Patient's right pinky toe is erythemic, there is an abrasion in between the webbing of the fifth and fourth toe this is superficial. There does appear to be some redness, tender to palpation to the dorsal part of the foot, there seems to be some spreading of some erythema. This is concerning for early cellulitis. Patient has no gross drainage. Neuro: Cranial nerves II through XII intact, no focal neurological deficits. Skin: Clean dry and intact with no rash, purpura, petechiae, vesicles or pustules. Backslash flank: No CVA tenderness, no midline spinal tenderness, no deformity. Psych: Normal mood and affect. No SI, HI or acute psychosis. Const Vital Signs: 10/01/21 09:47 10/01/21 09:48 Temperature 97.2 F L 97.2 F L Temperature Source Temporal Temporal Pulse Rate 99 99 Respiratory Rate 15 15 Blood Pressure 133/88 H 133/88 H Blood Pressure Mean 103 103 Pulse Ox 97 97 Oxygen Delivery Method Room Air Room Air <Dr. Lloyd Maravilla DO - Last Filed: 10/01/21 11:00> Physical Exam Const Vital Signs: 10/01/21 09:47 10/01/21 09:48 Temperature 97.2 F L 97.2 F L Temperature Source Temporal Temporal Pulse Rate 99 99 Respiratory Rate 15 15 Blood Pressure 133/88 H 133/88 H Blood Pressure Mean 103 103 Pulse Ox 97 97 Oxygen Delivery Method Room Air Room Air [facility] <ANNABEL Yin - Last Filed: 10/01/21 10:51> [facility] Narrative Medical decision making narrative: Patient appears well, patient appears nontoxic, patient presents the emergency department the right foot injury as well as redness. Patient did receive an x-ray of the right foot, this did show some lateral soft tissue swelling. At this time, there is no indication of any fracture, I do believe the patient does have some pain from the injury however believe the patient's pain is coming from the cellulitis to the lateral right foot. Patient is allergic to penicillin. Patient be placed on doxycycline for 10 days. He is instructed to keep the area clean and dry. Elevate is much as possible. Patient also be given 6 pain pills. Patient instructed to follow-up as needed with his PCP. Instructed return for worsening symptoms Radiography Diagnostic Testing: Clinical Impression(s) from Imaging Studies Foot X-Ray 10/01/21 10:00 IMPRESSION: Lateral soft tissue swelling. Calcaneal spurs. Electronically Signed: Elie Kumar MD at 10:32 EDT , <Dr. Lloyd Maravilla, DO - Last Filed: 10/01/21 11:00> [facility] Narrative Medical decision making narrative: I have personally performed a face to face assessment of the patient and have reviewed the YOON Note. I performed a substantive portion of the visit including all aspects of the following. My kee findings include: History: Patient presents with pain and redness to his right fifth toe and right foot that has been getting worse over the past few days. Patient states he accidentally hit his small toe a few days ago. Patient states the pain and redness has been getting progressively worse. Patient denies any fevers or chills. Patient denies any paresthesias or weakness. Patient states his pain is worse with movement and ambulation. Exam: Vital signs are stable. Patient is afebrile. Patient is in no acute distress. Skin is warm and dry. There is an abrasion in the webspace between the fourth and fifth toes. There is erythema and warmth over the right fifth toe and fifth metatarsal area. There is no discharge or drainage. There is no fluctuance. There is no evidence of any abscess. Sensation was intact light touch in all digits. Capillary refill was less than 2 seconds in all digits. There is a strong pedal pulse noted. There is full range of motion of all digits and the right ankle. Medical Decison Making: X-rays of the right foot were obtained. There are 3 views. On my interpretation, there is no acute fracture. There is some soft tissue swelling noted. There is no dislocation noted. Radiologist also interpreted the x-rays and agrees. Patient was advised of his findings. Patient was given a prescription for doxycycline. Patient was also given a prescription for a short course of [place]. Patient was instructed to keep the foot elevated. Patient was instructed to follow-up with his primary care physician in 5 to 7 days. Patient understood and was agreeable with the plan. All questions were answered. Radiography Diagnostic Testing: Clinical Impression(s) from Imaging Studies Foot X-Ray 10/01/21 10:00 IMPRESSION: Lateral soft tissue swelling. Calcaneal spurs. Electronically Signed: Elie Kumar MD at 10:32 EDT , Discharge Plan Triage Chief Complaint: Lower Extremity Injury ED Midlevel Provider: José Coffman ED Provider: Lloyd Maravilla Dx/Rx/DC Orders Clinical Impression: Contusion of foot, Cellulitis Instructions: ED Cellulitis, ED Foot Contusion Prescriptions: New doxycycline hyclate 100 mg capsule 100 mg PO DAILY Qty: 19 RF: 0 hydrocodone-acetaminophen 5-325 mg tablet 1 tab PO Q6H PRN (Reason: pain) 2 Days Qty: 6 RF: 0 No Action atorvastatin 40 mg tablet 40 mg PO QHS Qty: 90 RF: 4 lisinopril 20 mg tablet 20 mg PO DAILY Qty: 90 RF: 4 metoprolol succinate 50 mg tablet extended release 24 hr 50 mg PO DAILY Qty: 90 RF: 4 clopidogrel [Plavix] 75 mg tablet 75 mg PO QDAY Qty: 90 RF: 4 aspirin 81 MG tablet 81 mg PO DAILY@0800 RF: 0 testosterone cypionate [Depo-Testosterone] 100 mg/mL oil 100 mg IM Q2W Qty: 10 RF: 1 Primary Care Provider: Andreia Boyer Referrals: Andreia Boyer MD [Primary Care Provider] - Activity Restrictions/Additional Instructions: Please take antibiotics until finished. Please follow-up with your PCP to ensure proper healing. Please return for worsening symptoms. Print Language: [place]ic Disposition Disposition: Home, Self Care
--- NOTE | 2021-10-01 10:00 | RAD_ITS ---
STUDY: X-RAY - RIGHT FOOT CLINICAL: Male, 41 years old. 5th digit injury TECHNIQUE: 3 view(s) of the foot. COMPARISON: None. FINDINGS: Calcaneal spurs. Normal visualized subtalar, talonavicular, calcaneocuboid, tarsal and tarsometatarsal articulations. Normal metatarsi. Normal metatarsophalangeal joint of the great toe. Normal tibial and fibular sesamoid bones. Normal interphalangeal joint of the great toe. Normal phalanges of the great toe. Normal second through fifth metatarsophalangeal joints. Normal interphalangeal joints and phalanges of the lesser toes. Lateral soft tissue swelling. RAD/Foot min 3 Views IMPRESSION: Lateral soft tissue swelling. Calcaneal spurs. Electronically Signed: Elie Kumar MD at 10:32 EDT ,
== END 2021-10-01 11:03 | disposition home or self-care (01) ==
PROVIDERS: Emergency Provider Emergency Medicine; PCP Internal Medicine; Visit Provider Emergency Medicine
DX: L03.115 Cellulitis of right lower limb (principal); E66.01 Morbid (severe) obesity due to excess calories; E78.5 Hyperlipidemia, unspecified; I25.10 Atherosclerotic heart disease of native coronary artery without angina pectoris; I10 Essential (primary) hypertension; Z86.16 Personal history of COVID-19; Z87.442 Personal history of urinary calculi; K21.9 Gastro-esophageal reflux disease without esophagitis; I25.2 Old myocardial infarction; M19.90 Unspecified osteoarthritis, unspecified site; Z79.899 Other long term (current) drug therapy; Z79.82 Long term (current) use of aspirin; Z95.5 Presence of coronary angioplasty implant and graft; F17.220 Nicotine dependence, chewing tobacco, uncomplicated; S90.811A Abrasion, right foot, initial encounter; W22.09XA Striking against other stationary object, initial encounter; Y93.01 Activity, walking, marching and hiking; S90.31XA Contusion of right foot, initial encounter; Z68.38 Body mass index [BMI] 38.0-38.9, adult
CPT/HCPCS: 73630; 99282

== ENCOUNTER 2021-10-02 07:22 | Emergency (ER) | payer SELFPAY ==
[2017-06-09 13:21] VITALS: BMI 40.8
[2021-10-02 07:23] VITALS: BP 151/94; PULSE 92; RESP 16; TEMP 36.4; O2SAT 99; BMI 38.9
--- NOTE | 2021-10-02 08:13 | EX.ED.DYSGE1 ---
HPI History of Present Illness Chief Complaint: Cellulitis Narrative Narrative: 41-year-old male presenting with right foot pain. Patient was seen and evaluated yesterday and diagnosed with cellulitis on the right foot. He states that he kicked a door frame barefooted about 4 to 5 days ago and has had increasing pain in that area. He had a small break in the skin in between the fourth and fifth toes which has progressed to erythema and swelling. Patient was started on doxycycline yesterday and had 3 doses so far. He is now having worsening pain between the fourth and fifth toes on the right foot. He has lymphangitic streaking up the foot and into the right medial calf. He complains of calf pain, but states behind the knee does not hurt. Patient does not feel systemically ill. He is not had a fever. He states his biggest problem is the pain associated with it. Patient was prescribed hydrocodone which is not helping. Patient is not a diabetic. No history of osteomyelitis. No history of MRSA. The patient does state that last night he cleaned his wound and poured peroxide in it. He states that this morning it was swollen and he squeezed it and a lot of pus came out of the wound between the fourth and fifth toes. [facility] Medical History Arthritis Atherosclerosis of coronary artery of [place] heart without angina pectoris Back pain COVID-19 (~05/22/20) COVID-19 virus detected (05/22/20) Essential (primary) hypertension GERD (gastroesophageal reflux disease) History of kidney stones Hyperlipidemia Morbid obesity Non-ST elevation (NSTEMI) myocardial infarction (06/09/17) Seasonal allergies Home Medications aspirin 81 mg PO DAILY@0800 tab 06/10/17 [Rx Last Taken 04/09/18] atorvastatin 40 mg tablet 40 mg PO QHS #90 tab 09/02/21 [Rx Last Taken Unknown] clopidogrel 75 mg tablet 75 mg PO QDAY #90 tab 09/02/21 [Rx Last Taken Unknown] lisinopril 20 mg tablet 20 mg PO DAILY #90 tab 09/02/21 [Rx Last Taken Unknown] metoprolol succinate 50 mg tablet,extended release 24 hr 50 mg PO DAILY #90 tab 09/02/21 [Rx Last Taken Unknown] doxycycline hyclate 100 mg PO DAILY #19 cap 10/01/21 [Rx Last Taken Unknown] hydrocodone-acetaminophen 1 tab PO Q6H PRN 2 Days #6 tab 10/01/21 [Rx Last Taken Unknown] testosterone cypionate 100 mg/mL intramuscular oil 100 mg IM Q2W #10 ml 10/01/21 [Rx Last Taken Unknown] clindamycin HCl 450 mg PO TID 10 Days #90 cap 10/02/21 [Rx Last Taken Unknown] Allergy/AdvReac Type Severity Reaction Status Date / Time Penicillins Allergy Angioedema Verified 10/02/21 07:27 Family History Mother Heart disease Hypertension Other DVT (deep venous thrombosis) Diabetes Myocardial infarction Surgical History H/O cervical spine surgery H/O right knee surgery History of coronary artery stent placement (04/10/18) History of tonsillectomy and adenoidectomy Social History Smoking Status: Never smoker Smokeless tobacco user: chewing tobacco alcohol intake: current alcohol intake frequency: a few times a month Alcohol type: beer substance use type: does not use caffeine: Yes (Occasional pop but not daily) Type: carbonated beverages ROS ROS ED Constitutional Constitutional ED: Denies chills, fever(s) or sweats Eyes Eyes: Denies blurry vision or change in vision ENT ENT ED: Denies ear pain or sore throat Cardiovascular Cardiovascular: Denies chest pain, palpitations or racing heartbeat Respiratory/Chest Respiratory/Chest: Denies cough, dyspnea or sputum Gastrointestinal Gastrointestinal: Denies abdominal pain, constipation, diarrhea, nausea or vomiting Genitourinary Genitourinary ED: Denies dysuria, hematuria or urinary frequency Musculoskeletal Musculoskeletal: Reports other Details: Right foot, calf pain Integumentary Reports other Details: Wound between right fourth and fifth toes with erythema and swelling with drainage of purulent discharge. Red streaking up the right foot and leg. Neurologic Neurologic: Denies headache(s), paresthesias or weakness Psychiatric Psychiatric: Denies anxiety, depression, suicidal ideation or suicidal thoughts Endocrine Endocrinology: Denies polydipsia or polyuria EXAM Physical Exam Const Vital Signs: 10/02/21 07:23 10/02/21 09:23 10/02/21 09:28 Temperature 97.5 F L 97.8 F Temperature Source Temporal Temporal Pulse Rate 92 84 72 Respiratory Rate 16 18 18 Blood Pressure 151/94 H 121/90 H 124/93 H Blood Pressure Mean 113 100 103 Pulse Ox 99 97 96 Oxygen Delivery Method Room Air Room Air Room Air Positive well nourished General Appearance ED: NAD HEENT Reports moist mucous membranes Negative for trauma Eyes PERRL and EOMs intact bilaterally Resp normal respiratory effort and clear to auscultation bilaterally Cardio regular rate and regular rhythm Extremity Extremity Narrative: Right foot neurovascular intact brisk cap refill all 5 toes. No bony tenderness. Neuro oriented x3 and CN's II-XII intact bilaterally Sensorium / Orientation: alert Psych mental status grossly normal Skin Skin Narrative: Erythema, warmth, swelling between the fourth and fifth toes. The fourth and fifth toes are also very erythematous and tender. There is drainage from this site which is serosanguineous. There is redness that spreads over the dorsum of the right foot and there is lymphangitic streaking into the medial aspect of the right calf. There is no tenderness or lymph nodes palpated behind the right knee. MDM MDM MDM Narrative Medical decision making narrative: IV line established. Patient given IV fluids, morphine, Zofran for pain. Based on his exam and history I believe he is likely getting need to be admitted for failure of outpatient antibiotics and worsening cellulitis. Wound culture was obtained. Patient had an x-ray yesterday which was negative for fracture. I obtained blood work and his CBC and CMP are unremarkable. ESR is normal. CRP slightly elevated at 4.2. Since he failed outpatient antibiotics I did call Dr. Medina who recommended starting clindamycin in the ER. Wound culture was taken. Patient was counseled on initial examination as well as after blood work obtained that he would need to stay for IV antibiotics and wait for the wound culture. 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 I did have to sign the patient out AMA and he does acknowledge understanding that he could have worsening infection, debility, loss of limb, if he leaves. I spoke with Dr. Lloyd who recommended having the patient follow-up with her in office and to call to make an appointment. Patient was put on clindamycin 450 mg 3 times daily as discussed with podiatry. Patient counseled on wound care extensively. He is given return precautions. Impression: 1. Right foot cellulitis 2. Failure of outpatient antibiotics Lab Data Attestation: I reviewed the patient's lab results. Labs: Laboratory Results - last 24 hr 10/02/21 10/02/21 08:20 08:20 WBC 7.2 RBC 4.55 L Hgb 14.9 Hct 43.0 MCV 94.5 H MCH 32.7 H MCHC 34.7 RDW Std Deviation 40.7 RDW Coeff of [place]ora 11.7 Plt Count 191 MPV 10.4 Immature Gran % (Auto) 0.300 Neut % (Auto) 62.1 Lymph % (Auto) 24.4 [place] % (Auto) 10.0 Eos % (Auto) 2.6 Baso % (Auto) 0.6 Absolute Neuts (auto) 4.5 Absolute Lymphs (auto) 1.76 Nucleated RBC % 0 ESR 12 Sodium 134 L Potassium 4.2 Chloride 100 Carbon Dioxide 26.0 Anion Gap 8 BUN 19 H Creatinine 0.88 Estim Creat Clear Calc 117.66 Est GFR (MDRD) Af Amer 123 Est GFR (MDRD) Non-Af 102 BUN/Creatinine Ratio 21.6 H Glucose 104 Calcium 8.9 Total Bilirubin 0.50 AST 27 ALT 62 H Alkaline Phosphatase 57 C-React Prot Ext Range 4.26 H Total Protein 7.7 Albumin 4.0 Globulin 3.7 Albumin/Globulin Ratio 1.1 Discharge Plan Triage Chief Complaint: Cellulitis ED Provider: Antonio Varma Dx/Rx/DC Orders Instructions: ED Cellulitis Prescriptions: New clindamycin HCl 150 mg capsule 450 mg PO TID 10 Days Qty: 90 RF: 0 No Action atorvastatin 40 mg tablet 40 mg PO QHS Qty: 90 RF: 4 lisinopril 20 mg tablet 20 mg PO DAILY Qty: 90 RF: 4 metoprolol succinate 50 mg tablet extended release 24 hr 50 mg PO DAILY Qty: 90 RF: 4 clopidogrel [Plavix] 75 mg tablet 75 mg PO QDAY Qty: 90 RF: 4 aspirin 81 MG tablet 81 mg PO DAILY@0800 RF: 0 doxycycline hyclate 100 mg capsule 100 mg PO DAILY Qty: 19 RF: 0 hydrocodone-acetaminophen 5-325 mg tablet 1 tab PO Q6H PRN (Reason: pain) 2 Days Qty: 6 RF: 0 testosterone cypionate [Depo-Testosterone] 100 mg/mL oil 100 mg IM Q2W Qty: 10 RF: 1 Primary Care Provider: Andreia Boyer Referrals: Promise Lloyd DPM [STAFF PHYSICIAN] - As soon as possible Andreia Boyer MD [Primary Care Provider] - Activity Restrictions/Additional Instructions: Please continue wound care as discussed at length. Call Dr. Lloyd's office today to set up an appointment as soon as possible for outpatient care. If your infection appears to be getting worse please return to the emergency room. Disposition Disposition: Against Medical Advice Discharge Date/Time: 10/02/21 11:22
[2021-10-02 08:30] LABS: Absolute Lymphocyte Count 1.76 X10^3/uL (0.83-4.51); Absolute Neutrophil Count 4.5 X10^3/uL (2.0-7.7); Basophil# 0.04 X10^3/uL; Basophil% 0.6 % (0-1); Eosinophil# 0.19 X10^3/uL; Eosinophils% 2.6 % (0-5); Hemoglobin 14.9 g/dL (13.0-16.5); Lymphocyte # 1.76 X10^3/ul (0.83-4.51); Lymphocyte % 24.4 % (19-41); Mean Corp Hgb Conc 34.7 g/dL (32-36); Mean Corpuscular Hgb 32.7 pg (27.0-32.0); Mean Corpuscular Volume 94.5 fL (80-94); Mean Platelet Vol. 10.4 fl (6.2-12.0); Monocyte# 0.72 X10^3/uL; NRBC Flagged by Analyzer 0 % (0-5); Neutrophil # 4.47 X10^3/uL (2.7-7.7); Neutrophil % 62.1 % (47-70); Platelet Count 191 K/mm3 (150-450); RBC Distribution Width CV 11.7 % (11.6-14.6); RBC Distribution Width SD 40.7 fl (35.1-43.9); Red Blood Count 4.55 M/mm3 (4.6-6.2); White Blood Count 7.2 K/mm3 (4.4-11.0)
[2021-10-02 08:31] LABS: Erythrocyte Sedimentation Rate 12 mm/hr (0-20)
[2021-10-02] MEDS: Morphine 4 MG/ML Syringe IV (08:33)
[2021-10-02] MEDS: Ondansetron 4 MG/2 ML Vial IV (08:33)
[2021-10-02] MEDS: 0.9% Normal Saline 1,000 ML 999 ML IV (08:33)
[2021-10-02 08:42] LABS: ALB/GLOB Ratio 1.1 RATIO (0.9-2.4); AST(SGOT) 27 U/L (15-37); Alanine Aminotransfer ALT/SGPT 62 U/L (16-61); Alkaline Phosphatase 57 U/L (45-117); Anion Gap 8 (5-15); BUN 19 mg/dL (7-18); BUN/Creat Ratio 21.6 RATIO (10-20); CRP 4.26 mg/L (0.0-3.0); Calcium,Total 8.9 mg/dL (8.5-10.1); Chloride 100 mmol/L (98-107); Creatinine, Serum 0.88 mg/dL (0.70-1.30); EST Glomerular Filtration Rate 102 mL/min (>60); Est Glom Filt Rate - Afr Amer 123 mL/min (>60); Estimated Creatinine Clearance 117.66 ml/min; Globulin 3.7 g/dL (2.2-4.2); Glucose 104 mg/dL (74-106); Potassium 4.2 mmol/L (3.5-5.1); Protein, Total 7.7 g/dL (6.4-8.2); Sodium Level 134 mmol/L (136-145)
[2021-10-02] MEDS: Clindamycin 600 MG/50 ML BAG 100 MG IV (08:42)
[2021-10-02 09:23] VITALS: BP 121/90; PULSE 84; RESP 18; O2SAT 97
--- NOTE | 2021-10-02 09:23 | PCM.HP.STD ---
HPI - General HPI Narrative NIDIA DEMPSEY, is a 41 M with a PMH as outlined who presents via the ED on 10/02/2021 with a complaint of pain and swelling of his right foot. Patient apparently kicked a door with his foot a few days prior to presentation. He started having pain of the right foot and also noticed a break in the skin between his 4th and 5th toes. Pain worsened so he went ot see h is PCP and was prescribed with oral doxycycline. Pain and swelling however didnt improve despite taking 3 doses of the doxycycline. He also noticed he was able to express pus from the affected area, so he decided to come in to the ED today. He denied any fever, chills, nausea, vomiting or diarrhea. Vitals in the ED were BP of 121/90, AR of 84, RR of 18 and he was saturating at 97%on room air. CBC showed wbc of 7.2, Hb of 14.9 and platelets of 191. Chemistry was unremarkable. He did have a right foot xray on 10/01/2021 which showed lateral soft tissue swelling and calcaneal spurs. He is being admitted to be managed for right foot cellulitis with failed outpatient therapy. [facility] Medical History Arthritis Atherosclerosis of coronary artery of [place] heart without angina pectoris Back pain COVID-19 (~05/22/20) COVID-19 virus detected (05/22/20) Essential (primary) hypertension GERD (gastroesophageal reflux disease) History of kidney stones Hyperlipidemia Morbid obesity Non-ST elevation (NSTEMI) myocardial infarction (06/09/17) Seasonal allergies Home Medications aspirin 81 mg PO DAILY@0800 tab 06/10/17 [Rx Last Taken 04/09/18] atorvastatin 40 mg tablet 40 mg PO QHS #90 tab 09/02/21 [Rx Last Taken Unknown] clopidogrel 75 mg tablet 75 mg PO QDAY #90 tab 09/02/21 [Rx Last Taken Unknown] lisinopril 20 mg tablet 20 mg PO DAILY #90 tab 09/02/21 [Rx Last Taken Unknown] metoprolol succinate 50 mg tablet,extended release 24 hr 50 mg PO DAILY #90 tab 09/02/21 [Rx Last Taken Unknown] doxycycline hyclate 100 mg PO DAILY #19 cap 10/01/21 [Rx Last Taken Unknown] hydrocodone-acetaminophen 1 tab PO Q6H PRN 2 Days #6 tab 10/01/21 [Rx Last Taken Unknown] testosterone cypionate 100 mg/mL intramuscular oil 100 mg IM Q2W #10 ml 10/01/21 [Rx Last Taken Unknown] clindamycin HCl 450 mg PO TID 10 Days #90 cap 10/02/21 [Rx Last Taken Unknown] Allergy/AdvReac Type Severity Reaction Status Date / Time Penicillins Allergy Angioedema Verified 10/02/21 07:27 Family History Mother Heart disease Hypertension Other DVT (deep venous thrombosis) Diabetes Myocardial infarction Surgical History H/O cervical spine surgery H/O right knee surgery History of coronary artery stent placement (04/10/18) History of tonsillectomy and adenoidectomy Social History Smoking Status: Never smoker Smokeless tobacco user: chewing tobacco alcohol intake: current alcohol intake frequency: a few times a month Alcohol type: beer substance use type: does not use caffeine: Yes (Occasional pop but not daily) Type: carbonated beverages ROS Constitutional Constitutional: Denies anorexia, chills, fatigue, fever(s), malaise or weakness Eyes Eyes: Denies change in vision ENT HEENT: Denies headache(s) or nasal congestion Cardiovascular Cardiovascular: Denies chest pain, dyspnea on exertion, edema, orthopnea, palpitations or rapid heart rate Respiratory/Chest Respiratory/Chest: Denies cough, dyspnea, shortness of breath at rest or shortness of breath with exertion Gastrointestinal Gastrointestinal: Denies abdominal pain, diarrhea, nausea or vomiting Genitourinary Genitourinary: Denies burning urination Musculoskeletal Musculoskeletal: Denies arthralgias or joint pain Neurologic Neurologic: Denies confusion, dizziness, focal weakness or headache(s) Psychiatric Psychiatric: Denies anxiety or depression Endocrine Endocrinology: Denies change in body appearance Vital Signs Vital Signs Vital Signs: 10/02/21 07:23 Temperature 97.5 F L Temperature Source Temporal Pulse Rate 92 Respiratory Rate 16 Blood Pressure 151/94 H Blood Pressure Mean 113 Pulse Ox 99 Oxygen Delivery Method Room Air Weight Weight: 279 lb Body Mass Index (BMI) 38.9 Physical Exam Const alert, oriented x3 and no apparent distress General Appearance: cooperative HEENT normocephalic, head/scalp atraumatic and hearing grossly normal bilaterally Eyes PERRL, EOMs intact bilaterally and conjunctivae normal Neck no lymphadenopathy and supple Resp normal respiratory effort, no retractions and no use of accessory muscles Cardio regular rate, regular rhythm, S1 normal heart sound, S2 normal heart sound and no murmurs GI normal to inspection, nondistended, normoactive bowel sounds, soft to palpation, non-tender and non-distended Extremity Extremity Narrative: right foot is swollen, with erythema and tenderness to touch; has a superficial ulceration at base of right little toe, discharging pus Peripheral Pulses: Yes pulses 2+ throughout Skin Skin Narrative: as under extremities Neuro oriented x3, CN's II-XII intact bilaterally and moves all extremities Sensorium / Orientation: awake and alert Psych affect normal Results Lab / Micro Data Result Diagrams: 10/02/21 08:20 10/02/21 08:20 Labs: Laboratory Results - last 24 hr 10/02/21 08:20: WBC 7.2, RBC 4.55 L, Hgb 14.9, Hct 43.0, MCV 94.5 H, MCH 32.7 H, MCHC 34.7, RDW Std Deviation 40.7, RDW Coeff of [place] 11.7, Plt Count 191, MPV 10.4, Immature Gran % (Auto) 0.300, Neut % (Auto) 62.1, Lymph % (Auto) 24.4, [place] % (Auto) 10.0, Eos % (Auto) 2.6, Baso % (Auto) 0.6, Absolute Neuts (auto) 4.5, Absolute Lymphs (auto) 1.76, Nucleated RBC % 0, ESR 12 10/02/21 08:20: Sodium 134 L, Potassium 4.2, Chloride 100, Carbon Dioxide 26.0, Anion Gap 8, BUN 19 H, Creatinine 0.88, Estim Creat Clear Calc 117.66, Est GFR (MDRD) Af Amer 123, Est GFR (MDRD) Non-Af 102, BUN/Creatinine Ratio 21.6 H, Glucose 104, Calcium 8.9, Total Bilirubin 0.50, AST 27, ALT 62 H, Alkaline Phosphatase 57, C-React Prot Ext Range 4.26 H, Total Protein 7.7, Albumin 4.0, Globulin 3.7, Albumin/Globulin Ratio 1.1 Assessment & Plan Assessment/Plan (1) Cellulitis: PLAN: #Right foot cellulitis failed outpatient treatment admit to med surg start on IV clindamycin. get wound cultures consult podiatry PO tylenol prn for pain hydrate gently with IVF check A1C #CAD s/p stents on aspirin, plavix and high intensity statin #Hypertension: on metoprolol and lisinopril #Hyperlipidemia: on statin DVT prophylaxis: lovenox Disposition: patient was reluctant to be admitted to the hospital because he said his was out of town and he didnt have anyone to picker his kids. Patient was counseled to stay in the hospital for treatment, and ED doctor informed. I was subseqeuntly informed by the ED that patient ultimately decided to leave AMA from the ED. Charges/Coding Visit Charges Office Visits / Consults: [id number] IP Consult L4
[2021-10-02 09:28] VITALS: BP 124/93; PULSE 72; RESP 18; TEMP 36.6; O2SAT 96
[2021-10-02 11:00] VITALS: BP 127/95; PULSE 66; RESP 16; O2SAT 94
[2021-10-02 11:21] VITALS: RESP 16
== END 2021-10-02 11:22 | disposition left against medical advice (07) ==
PROVIDERS: Emergency Provider Student in an Organized Health Care Education/Training Program; PCP Internal Medicine; Visit Provider Student in an Organized Health Care Education/Training Program
DX: L03.115 Cellulitis of right lower limb (principal); E66.01 Morbid (severe) obesity due to excess calories; E78.5 Hyperlipidemia, unspecified; I10 Essential (primary) hypertension; Z79.82 Long term (current) use of aspirin; I25.10 Atherosclerotic heart disease of native coronary artery without angina pectoris; M19.90 Unspecified osteoarthritis, unspecified site; Z86.16 Personal history of COVID-19; K21.9 Gastro-esophageal reflux disease without esophagitis; Z87.442 Personal history of urinary calculi; I25.2 Old myocardial infarction; Z79.899 Other long term (current) drug therapy; Z79.02 Long term (current) use of antithrombotics/antiplatelets; Z95.5 Presence of coronary angioplasty implant and graft; F17.220 Nicotine dependence, chewing tobacco, uncomplicated; Z91.14 Patient's other noncompliance with medication regimen; Z68.38 Body mass index [BMI] 38.0-38.9, adult
CPT/HCPCS: 80053; 85025; 85652; 86140; 87070; 87075; 87077; 87186; 87205; 96361; 96365; 96375; 99285; J7030; A4216; J2405

== ENCOUNTER 2022-03-08 09:30 | Emergency (ER) | payer SELFPAY ==
[2017-06-09 13:21] VITALS: BMI 40.8
[2022-03-08 09:31] VITALS: BP 154/105; PULSE 83; RESP 14; TEMP 36.8; O2SAT 98; BMI 39.0
--- NOTE | 2022-03-08 09:39 | EDS_ITS ---
HPI History of Present Illness Chief Complaint: Lower Extremity Injury Narrative Narrative: 41-year-old male here for hip pain. States he has no injuries, no falls or car accidents. States he has left hip pain that is constant, severe worse with movement and palpation. Notes history of a dislocated left hip remotely in the early . No history of surgery. No fever no testicular pain no abdominal pain no nausea or vomiting no changes to bowel or bladder habits. Old chart reviewed: History of hypertension hyperlipidemia, CAD No recent imaging of the involved extremity [facility] Medical History Arthritis Atherosclerosis of coronary artery of [place] heart without angina pectoris Back pain COVID-19 (~05/22/20) COVID-19 virus detected (05/22/20) Essential (primary) hypertension GERD (gastroesophageal reflux disease) History of kidney stones Hyperlipidemia Morbid obesity Non-ST elevation (NSTEMI) myocardial infarction (06/09/17) Seasonal allergies Home Medications aspirin 81 mg tablet,delayed release 81 mg PO DAILY@0800 06/10/17 [Rx Last Taken 04/09/18] atorvastatin 40 mg tablet 40 mg PO QHS #90 tabs 09/02/21 [Rx Last Taken Unknown] clopidogrel 75 mg tablet (Plavix) 75 mg PO QDAY #90 tabs 09/02/21 [Rx Last Taken Unknown] lisinopril 20 mg tablet 20 mg PO DAILY #90 tabs 09/02/21 [Rx Last Taken Unknown] metoprolol succinate 50 mg tablet,extended release 24 hr 50 mg PO DAILY #90 tabs 09/02/21 [Rx Last Taken Unknown] doxycycline hyclate 100 mg capsule 100 mg PO DAILY #19 caps 10/01/21 [Rx Last Taken Unknown] hydrocodone-acetaminophen 5-325mg 5mg-325mg 1 tab PO Q6H PRN pain 2 days #6 tabs 10/01/21 [Rx Last Taken Unknown] clindamycin HCl 150 mg capsule 450 mg PO TID 10 days #90 caps 10/02/21 [Rx Last Taken Unknown] testosterone cypionate 100 mg/mL intramuscular oil (Depo-Testosterone) 100 mg IM Q2W #10 mL 11/25/21 [Rx Last Taken Unknown] Allergy/AdvReac Type Severity Reaction Status Date / Time Penicillins Allergy Angioedema Verified 03/08/22 09:32 Family History Mother Heart disease Hypertension Other DVT (deep venous thrombosis) Diabetes Myocardial infarction Surgical History H/O cervical spine surgery H/O right knee surgery History of coronary artery stent placement (04/10/18) History of tonsillectomy and adenoidectomy Social History Smoking Status: Never smoker Smokeless tobacco user: chewing tobacco alcohol intake: current alcohol intake frequency: a few times a month Alcohol type: beer substance use type: does not use caffeine: Yes (Occasional pop but not daily) Type: carbonated beverages ROS ROS ED ROS Narrative Constitutional: Denies fever HEENT: Denies sore throat Neck: Denies neck pain Cardiovascular: Denies chest pain, syncope Respiratory: Denies shortness of breath GI: Denies nausea vomiting or abdominal pain : Denies changes in urinary habits Musculoskeletal: Positive left hip pain Neurologic: Denies numbness weakness or loss of sensation Skin denies rash EXAM Physical Exam Narrative Exam Narrative: Nursing triage notes reviewed, Vital signs reviewed Constitutional: please see mdm HENT: MMM Eyes: Pupils equal round and reactive to light, Extraocular muscles intact Neck: No stridor, no JVD, full neck ROM Lungs: Clear to auscultation, No wheezing or rales. No increased work of breathing, no conversational dyspnea, no accessory muscle use, no nasal flaring. No respiratory distress noted Heart: Regular rate and rhythm, No murmurs, No rubs and No gallops, 2+ distal pulses (radial, femoral, posterior tibial) in all extremities Abdomen: Soft, there is no tenderness, rigidity, rebound or guarding, no obvious peritoneal signs, no palpable pulsatile abdominal masses, no auscultated abdominal bruit : No CVAT Extremities: No edema, compartments are soft, full range of motion left hip although was very tender with external hip rotation. Neuro: Intact sensation L1-S1 dermatomal distributions. Intact 5/5 strength in hip flexion (T12-L3). Knee extension (L2-L4). Ankle dorsiflexion (L4-L5). Ankle plantar flexion (S1). Great toe extension (L5). 2+ patellar and Achilles DTRs. Skin: No rash or lesions noted Const Vital Signs: 03/08/22 09:31 Temperature 98.2 F Temperature Source Temporal Pulse Rate 83 Respiratory Rate 14 Blood Pressure 154/105 H Blood Pressure Mean 121 Pulse Ox 98 Oxygen Delivery Method Room Air MDM MDM MDM Narrative Medical decision making narrative: 41-year-old male comes in with atraumatic left hip pain. He is hemodynamically stable, afebrile, nontoxic-appearing. Exam without obvious deformity. Will obtain x-ray to rule out fracture or dislocation. Will give narcotic pain medicine for pain relief. X-ray without evidence of fracture dislocation. Patient was ambulatory. Gave oral pain medicine for home-going and orthopedic surgery follow-up. Radiography Diagnostic Testing: Clinical Impression(s) from Imaging Studies Hip/Pelvis X-Ray 03/08/22 09:55 IMPRESSION: Normal x-ray examination of the pelvis and hip. Electronically Signed: Elie Kumar MD at 10:41 EDT , Treatment and Re-Evaluation Narrative: Patient ambulated well in the emergency department. Discharge Plan Triage Chief Complaint: Lower Extremity Injury ED Provider: Joseph Aguirre Dx/Rx/DC Orders Clinical Impression: Acute hip pain Instructions: ED Hip Strain Prescriptions: No Action atorvastatin 40 mg tablet 40 mg PO QHS Qty: 90 4RF lisinopril 20 mg tablet 20 mg PO DAILY Qty: 90 4RF metoprolol succinate 50 mg tablet extended release 24 hr 50 mg PO DAILY Qty: 90 4RF clopidogrel [Plavix] 75 mg tablet 75 mg PO QDAY Qty: 90 4RF aspirin 81 MG tablet 81 mg PO DAILY@0800 0RF doxycycline hyclate 100 mg capsule 100 mg PO DAILY Qty: 19 0RF hydrocodone-acetaminophen 5-325 mg tablet 1 tab PO Q6H PRN (Reason: pain) 2 Days Qty: 6 0RF clindamycin HCl 150 mg capsule 450 mg PO TID 10 Days Qty: 90 0RF testosterone cypionate [Depo-Testosterone] 100 mg/mL oil 100 mg IM Q2W Qty: 10 1RF Primary Care Provider: Andreia Boyer Referrals: Andreia Boyer MD [Primary Care Provider] -
--- NOTE | 2022-03-08 09:55 | RAD_ITS ---
STUDY: X-RAY - PELVIS AND LEFT HIP REASON FOR EXAM: Male, 41 years old. Left hip pain r/o fracture or dislocation TECHNIQUE: 3 views of the pelvis and hip. COMPARISON: None. FINDINGS: There is a non-specific bowel gas pattern. Normal visualized soft tissue structures. Normal bilateral iliac wings, sacroiliac joints and visualized sacrum. Normal bilateral superior and inferior pubic rami. Normal pubic symphysis. Normal bilateral ischial tuberosities. Normal visualized femoral head. Normal acetabulum. Normal hip joint. RAD/HIP, UNI W/ Pelvis 2-3 Views IMPRESSION: Normal x-ray examination of the pelvis and hip. Electronically Signed: Elie Kumar MD at 10:41 EDT ,
[2022-03-08] MEDS: dexAMETHasone 4 MG Tablet PO (10:08)
[2022-03-08] MEDS: oxyCODONE 5 MG Tablet PO (10:08)
[2022-03-08 11:10] VITALS: BP 150/90; PULSE 82; RESP 16; O2SAT 98
== END 2022-03-08 11:14 | disposition home or self-care (01) ==
PROVIDERS: Emergency Provider Emergency Medicine; PCP Internal Medicine; Visit Provider Emergency Medicine
DX: M25.552 Pain in left hip (principal); I25.10 Atherosclerotic heart disease of native coronary artery without angina pectoris; I25.2 Old myocardial infarction; Z86.16 Personal history of COVID-19; Z95.5 Presence of coronary angioplasty implant and graft
CPT/HCPCS: 73502; 99283

== ENCOUNTER 2022-04-02 06:33 | Outpatient (CLI) | payer SELFPAY ==
[2017-06-09 13:21] VITALS: BMI 40.8
--- NOTE | 2022-04-02 06:37 | MRI_ITS ---
STUDY: MRI LEFT HIP REASON FOR EXAM: Male, 41 years old. Gradual onset of pain. Inability to stand for long periods of time. TECHNIQUE: Standardized fat and water weighted pulse sequences were obtained in all 3 orthogonal planes. COMPARISON: X-rays of the pelvis and hips dated March 08, 2022. FINDINGS: Subchondral low signal intensity in the left hip on the coronal T1 weighted images which corresponds to minimal sclerosis of the subchondral region of the left hip on the radiographs. These findings most likely represent chronic subchondral sclerosis and/or remote trabecular injury. Less likely, this finding could represent early avascular necrosis. There is no corresponding bone marrow edema on the T2 weighted images which would be more convincing evidence of AVN (coronal series 4 images 16-23). No femoral head collapse and no acetabular abnormality. If the patient continues to have symptoms, a follow-up MRI study in 6-8 weeks would be appropriate to see if there is been any progression of these findings. Normal gluteus minimus, medius and iliopsoas tendons and distal insertions. There is no trochanteric, iliopsoas or iliopectineal bursitis. Normal superior and inferior pubic rami. Normal pubic symphysis. Normal ischial tuberosity. Normal origin of the hamstring tendons. Normal visualized iliac wing, sacroiliac joint, and sacral ala. Normal visualized soft tissue structures of the pelvis. MRI/Lower Ext Joint Only (Routine) IMPRESSION: Subchondral low signal intensity in the left femoral head, corresponding to some sclerosis on the radiograph, most likely representing remote trabecular injury, subchondral sclerosis, or less likely avascular necrosis. If patient''s symptoms continue, a follow-up MRI study in 6-8 weeks would be appropriate to see if there has been any progression of these findings in the left hip. No other abnormality. Electronically Signed: Aydin , at 9:31 EST ,
== END 2022-04-02 23:59 | disposition home or self-care (01) ==
LOC: MRI 06:37
PROVIDERS: PCP Internal Medicine; Referring Provider Orthopaedic Surgery; Visit Provider Orthopaedic Surgery
DX: M76.892 Other specified enthesopathies of left lower limb, excluding foot (principal); M70.62 Trochanteric bursitis, left hip
CPT/HCPCS: 73721

== ENCOUNTER 2022-05-23 16:41 | Emergency (ER) | payer SELFPAY ==
[2017-06-09 13:21] VITALS: BMI 40.8
[2022-05-23 16:42] VITALS: BP 145/94; PULSE 89; RESP 18; TEMP 36.3; O2SAT 95; BMI 44.4
--- NOTE | 2022-05-23 17:17 | EKG12_ITS ---
Test Reason : CP Blood Pressure : / mmHG Vent. Rate : 089 BPM Atrial Rate : 089 BPM P-R Int : 164 ms QRS Dur : 092 ms QT Int : 350 ms P-R-T Axes : 029 058 027 degrees QTc Int : 425 ms Normal sinus rhythm Normal ECG Confirmed by ALEX CARREON MD ([id number]), assistant film editor KONSTANTIN BOSWELL ([id number]) on 05/24/2022 1:58:39 PM Referred By: LIAM Confirmed By:ALEX CARREON MD
--- NOTE | 2022-05-23 17:18 | EDS_ITS ---
HPI History of Present Illness Chief Complaint: General Illness Detail of Chief Complaint: Weight gain and swelling of his hands. Informant: patient Onset/Context/Timing Onset: Weeks Context: Gradual Onset Timing: Continuous Current Severity: Mild Maximum Severity: Mild Narrative Narrative: 41-year-old male history of NC, CAD, 3 cardiac stents. Obesity and hypertension. No history of kidney disease. He is not diabetic. 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 He said drinks a lot of water gallon down to half a day. He has been having dark urine. No dysuria. He is put on almost 40 pounds from 280 to 320 pounds. No history of any kidney disease or family history of kidney disease. No history of CHF. He had some intermittent chest discomfort he said that it comes and goes is nonexertional is worse when he moves his left arm over the last 5 days. 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 Prior similar symptoms: No Recent Illness/Hospitalization: No PFSH PFSH Medical History Arthritis Atherosclerosis of coronary artery of [place] heart without angina pectoris Back pain COVID-19 (~05/22/20) COVID-19 virus detected (05/22/20) Essential (primary) hypertension GERD (gastroesophageal reflux disease) History of kidney stones Hyperlipidemia Morbid obesity Non-ST elevation (NSTEMI) myocardial infarction (06/09/17) Seasonal allergies Home Medications aspirin 81 mg tablet,delayed release 81 mg PO DAILY@0800 06/10/17 [Rx Last Taken 04/09/18] atorvastatin 40 mg tablet 40 mg PO QHS #90 tabs 09/02/21 [Rx Last Taken Unknown] clopidogrel 75 mg tablet (Plavix) 75 mg PO QDAY #90 tabs 09/02/21 [Rx Last Taken Unknown] lisinopril 20 mg tablet 20 mg PO DAILY #90 tabs 09/02/21 [Rx Last Taken Unknown] metoprolol succinate 50 mg tablet,extended release 24 hr 50 mg PO DAILY #90 tabs 09/02/21 [Rx Last Taken Unknown] testosterone cypionate 100 mg/mL intramuscular oil (Depo-Testosterone) 100 mg IM Q2W #10 mL 11/25/21 [Rx Last Taken Unknown] tramadol 50 mg tablet 50 mg PO Q8H PRN pain #15 tabs 04/29/22 [Rx Last Taken Unknown] Allergy/AdvReac Type Severity Reaction Status Date / Time Penicillins Allergy Angioedema Verified 05/23/22 16:45 Family History Mother Heart disease Hypertension Other DVT (deep venous thrombosis) Diabetes Myocardial infarction Surgical History H/O cervical spine surgery H/O right knee surgery History of coronary artery stent placement (04/10/18) History of tonsillectomy and adenoidectomy Social History Smoking Status: Never smoker Smokeless tobacco user: chewing tobacco alcohol intake: current alcohol intake frequency: a few times a month Alcohol type: beer substance use type: does not use caffeine: Yes (Occasional pop but not daily) Type: carbonated beverages ROS ROS ED ROS Narrative 40 pound weight gain. Atypical chest pain. Swelling in his hands. Review of Systems ROS Unobtainable: Denies due to encephalopathy Constitutional Constitutional ED: Denies chills or fever(s) Eyes Eyes: Denies blurry vision ENT ENT ED: Denies ear pain, rhinorrhea or sore throat Cardiovascular Cardiovascular: Reports chest pain; Denies palpitations or racing heartbeat Respiratory/Chest Respiratory/Chest: Denies cough or dyspnea Gastrointestinal Gastrointestinal: Denies abdominal pain, constipation, diarrhea, melena, nausea or vomiting Genitourinary Genitourinary ED: Denies dysuria or hematuria Musculoskeletal Musculoskeletal: Denies arthralgias Integumentary Denies abscess Neurologic Neurologic: Denies headache(s) Psychiatric Psychiatric: Denies anxiety or depression Endocrine Endocrinology: Denies cold intolerance Hematologic/Lymphatic Hematologic/Lymphatic: Reports none Allergic/Immunologic Allergic/Immunologic ED: Denies mouth swelling or tongue swelling EXAM Physical Exam Narrative Exam Narrative: 1-year-old male no acute distress. Vital signs stable afebrile. Pulse ox 95% room air no signs hypoxia. He is in no distress. He does not look septic or toxic. He does not look dehydrated. H EENT exam unremarkable. Moist mucous membranes. Neck nontender no JVD. Lungs clear to auscultation bilaterally. Heart regular rhythm rate about 90 no murmur. Chest wall nontender. Abdomen soft nontender. Moving all 4 extremities. Trace edema in his hands. Really not impressive his lower extremities. Normal motor strength, sensation and range of motion. Neurologically awake and alert with no focal motor deficits Const Vital Signs: 05/23/22 16:42 05/23/22 17:38 Temperature 97.3 F L Temperature Source Temporal Pulse Rate 89 Respiratory Rate 18 Respiratory Effort Normal Non-Labored Respiratory Pattern Normal Blood Pressure 145/94 H Blood Pressure Mean 111 Pulse Ox 95 Positive well nourished, well developed and obese; Negative for cachectic, contractures or unkempt General Appearance ED: well developed and NAD; Negative for unkempt, cachectic, contractures, cyanotic, diaphoretic or pallor Nutritional Appearance: obese; Negative for cachectic HEENT Reports moist mucous membranes; Denies dry mucous membranes Negative for trauma or tenderness Mouth ED: No dry mucous membranes Mouth: No dry mucous membranes Eyes PERRL and EOMs intact bilaterally General Eye ED: Negative for pale conjunctiva, scleral icterus or other Neck no lymphadenopathy, supple and no JVD General: Negative for tenderness Lymph Lymphatic: Negative for other Chest Wall inspection of chest normal and palpation of chest normal Resp normal respiratory effort and clear to auscultation bilaterally Effort and Inspection: Negative for retractions Auscultation: Negative for rales, rhonchi, wheezes or diminished lung sounds Cardio regular rate, regular rhythm, S1 normal heart sound, S2 normal heart sound and no murmurs GI normal to inspection, nondistended, normoactive bowel sounds, non-tender, non- distended and no masses Inspection: Negative for abdominal distention Auscultation: normoactive bowel sounds Palpation: soft; Negative for tender or guarding Back/Spine no CVA tenderness General Back: Negative for CVA tenderness Cervical Spine: Negative for cervical spine tenderness Thoracic Spine / Upper Back: Negative for thoracic spinal tenderness Lumbar Spine / Lower Back: Negative for lumbar spinal tenderness Extremity normal to inspection Extremity Narrative: Trace edema in his hands. General Extremety ED: Yes edema; Negative for tenderness General Extremity: edema Neuro oriented x3 and CN's II-XII intact bilaterally Sensorium / Orientation: alert; Negative for orientation impaired, lethargic or stuporous Motor Exam: strength 5/5 throughout Psych mental status grossly normal Appearance: Negative for unkempt Attitude: No agitated Mood & Affect: Negative for depressed, anxious or tearful Skin no rashes or lesions noted, no wounds and skin turgor normal General Skin Exam: elasticity normal; Negative for jaundice or pallor Lesions: No lesion noted Rashes: No rashes noted Trauma: Negative for abrasion Wounds: Negative for wounds noted MDM MDM MDM Narrative Medical decision making narrative: 41-year-old male in the last 5 weeks has put on about 40 pounds. Concern for possible renal failure or acute kidney injury. Congestive heart failure is less likely but a possibility. He [place] is related to his liver he is a nondrinker. Exam shows trace edema in his hands. Otherwise benign. EKG is unremarkable. Will be worked up for congestive heart failure versus kidney failure with screening labs. Repeat exam patient doing well. Exam unchanged. Is a very benign exam. He and I went over all his test results. He did tell me that he did not tell us this initially he was placed on testosterone about 4 to 5 weeks ago that is when he started his weight gain. We will follow-up with that with his primary care physician. He has no signs of CHF or any type of renal insufficiency. He will be discharged home with outpatient follow-up. Lab Data Attestation: I reviewed the patient's lab results. Lab results narrative: CBC shows a white count 5.9 H&H of 17.3 and 50. Platelets 191. Electrolytes unremarkable gap of 9 normal BUN 11 creatinine 0.91. Glucose 135. Liver enzymes are normal. Troponin is normal at 6. BNP is negative at 18. Chest x- ray normal. EKG unremarkable. Urinalysis negative. Labs: Laboratory Results - last 24 hr 05/23/22 05/23/22 05/23/22 17:24 17:24 17:24 WBC 5.9 RBC 5.37 Hgb 17.3 H Hct 50.9 MCV 94.8 H MCH 32.2 H MCHC 34.0 RDW Std Deviation 44.6 H RDW Coeff of Dora 12.9 Plt Count 191 MPV 10.4 Immature Gran % (Auto) 0.300 Neut % (Auto) 57.7 Lymph % (Auto) 26.3 [place] % (Auto) 11.4 H Eos % (Auto) 3.6 Baso % (Auto) 0.7 Absolute Neuts (auto) 3.4 Absolute Lymphs (auto) 1.55 Nucleated RBC % 0 Sodium 138 Potassium 3.7 Chloride 100 Carbon Dioxide 29.0 Anion Gap 9 BUN 11 Creatinine 0.91 Estim Creat Clear Calc 113.78 Est GFR (MDRD) Af Amer 117 Est GFR (MDRD) Non-Af 97 BUN/Creatinine Ratio 12.0 Glucose 135 H Calcium 8.7 Total Bilirubin 0.50 AST 36 ALT 72 H Alkaline Phosphatase 62 Troponin I High Sens 6 B-Natriuretic Peptide 18.4 Total Protein 7.0 Albumin 3.5 Globulin 3.5 Albumin/Globulin Ratio 1.0 Urine Color Urine Clarity Urine pH Ur Specific [place] Urine Protein Urine Glucose (UA) Urine Ketones Urine Occult Blood Urine Nitrite Urine Bilirubin Urine Urobilinogen Ur Leukocyte Esterase Urine RBC Urine WBC Ur Squamous Epith Cells Urine Bacteria Urine Mucus 05/23/22 17:28 WBC RBC Hgb Hct MCV MCH MCHC RDW Std Deviation RDW Coeff of Dora Plt Count MPV Immature Gran % (Auto) Neut % (Auto) Lymph % (Auto) [place] % (Auto) Eos % (Auto) Baso % (Auto) Absolute Neuts (auto) Absolute Lymphs (auto) Nucleated RBC % Sodium Potassium Chloride Carbon Dioxide Anion Gap BUN Creatinine Estim Creat Clear Calc Est GFR (MDRD) Af Amer Est GFR (MDRD) Non-Af BUN/Creatinine Ratio Glucose Calcium Total Bilirubin AST ALT Alkaline Phosphatase Troponin I High Sens B-Natriuretic Peptide Total Protein Albumin Globulin Albumin/Globulin Ratio Urine Color Yellow Urine Clarity Clear Urine pH 7.0 Ur Specific [place] 1.015 Urine Protein Negative Urine Glucose (UA) 50 H Urine Ketones Negative Urine Occult Blood Negative Urine Nitrite Negative Urine Bilirubin Negative Urine Urobilinogen Normal Ur Leukocyte Esterase Negative Urine RBC Not Reportable Urine WBC Not Reportable Ur Squamous Epith Cells Not Reportable Urine Bacteria Not Reportable Urine Mucus Not Reportable Radiography Chest X-Ray - ED: 1 View, Read by ED Physician, Read by Radiologist, Heart, Lungs, Mediastinum, Bony Structures, No Acute Disease and Chronic Changes Diagnostic Testing: Clinical Impression(s) from Imaging Studies Chest X-Ray 05/23/22 17:37 IMPRESSION: No pulmonary edema, congestive heart failure or confluent pneumonia. Electronically Signed: Ольга Berg MD at 18:05 EST Reading Location ID and State: , Service support , Chest x-ray, portable, single view shows no acute abnormality. No pulmonary edema. No CHF. Normal cardiac silhouette. No cardiomegaly. Rhythm Strip Rhythm Strip: Sinus Rhythm Rate: 89 Ectopy: None EKG Initial EKG: Attestation: I personally reviewed and interpreted this EKG as follows: Interpretation: Sinus Rhythm and No Acute Injury Pattern Comments: Normal sinus rhythm rate 89 no acute signs of NC, ischemia or dysrhythmia. Prior EKG tracings: available for review Prior: Unchanged Discharge Plan Triage Chief Complaint: General Illness ED Provider: Loc [facility] Dx/Rx/DC Orders Clinical Impression: Weight gain, History of hypertension, History of NC (myocardial infarction) Prescriptions: No Action atorvastatin 40 mg tablet 40 mg PO QHS Qty: 90 4RF lisinopril 20 mg tablet 20 mg PO DAILY Qty: 90 4RF metoprolol succinate 50 mg tablet extended release 24 hr 50 mg PO DAILY Qty: 90 4RF clopidogrel [Plavix] 75 mg tablet 75 mg PO QDAY Qty: 90 4RF tramadol 50 mg tablet 50 mg PO Q8H PRN (Reason: pain) Qty: 15 0RF aspirin 81 MG tablet 81 mg PO DAILY@0800 0RF testosterone cypionate [Depo-Testosterone] 100 mg/mL oil 100 mg IM Q2W Qty: 10 1RF Primary Care Provider: Andreia Boyer Referrals: Andreia Boyer MD [Primary Care Provider] - As soon as possible Activity Restrictions/Additional Instructions: Follow-up with primary care physician to see what can be done about the weight gain. Today your labs look good. Your kidney function is normal. There is no signs of congestive heart failure. This may be secondary to being started on the medication. Disposition Disposition: Home, Self Care
[2022-05-23 17:36] LABS: Absolute Lymphocyte Count 1.55 X10^3/uL (0.83-4.51); Absolute Neutrophil Count 3.4 X10^3/uL (2.0-7.7); Basophil# 0.04 X10^3/uL; Basophil% 0.7 % (0-1); Eosinophil# 0.21 X10^3/uL; Eosinophils% 3.6 % (0-5); Hematocrit 50.9 % (40-54); Hemoglobin 17.3 g/dL (13.0-16.5); Lymphocyte # 1.55 X10^3/ul (0.83-4.51); Lymphocyte % 26.3 % (19-41); Mean Corpuscular Hgb 32.2 pg (27.0-32.0); Mean Corpuscular Volume 94.8 fL (80-94); Mean Platelet Vol. 10.4 fl (6.2-12.0); Monocyte# 0.67 X10^3/uL; Monocyte% 11.4 % (0-10); NRBC Flagged by Analyzer 0 % (0-5); Neutrophil % 57.7 % (47-70); Platelet Count 191 K/mm3 (150-450); RBC Distribution Width CV 12.9 % (11.6-14.6); RBC Distribution Width SD 44.6 fl (35.1-43.9); Red Blood Count 5.37 M/mm3 (4.6-6.2); White Blood Count 5.9 K/mm3 (4.4-11.0)
--- NOTE | 2022-05-23 17:37 | RAD_ITS ---
STUDY: X-RAY CHEST REASON FOR EXAM: Male, 41 years old. weight gain TECHNIQUE: Single AP portable view of the chest. COMPARISON: 04/29/2021 FINDINGS: The mild elevation right hemidiaphragm. There is low lung volume. There is no focal parenchymal abnormality. There is no demonstrated pleural abnormality. Normal size heart. Normal mediastinum and lulu. Normal visualized pulmonary arteries. Normal visualized aortic arch and descending thoracic aorta. Normal visualized thoracic spine. Postsurgical changes lower cervical spine. There are degenerative changes of the acromioclavicular joints. There is no demonstrated abnormality of the visualized soft tissue structures of the upper abdomen. RAD/Chest 1 View (Portable) IMPRESSION: No pulmonary edema, congestive heart failure or confluent pneumonia. Electronically Signed: Ольга Berg MD at 18:05 EST Reading Location ID and State: , Service support ,
[2022-05-23 17:59] LABS: AST(SGOT) 36 U/L (15-37); Alanine Aminotransfer ALT/SGPT 72 U/L (16-61); Albumin, Serum 3.5 g/dL (3.2-5.0); Alkaline Phosphatase 62 U/L (45-117); Anion Gap 9 (5-15); BUN 11 mg/dL (7-18); Calcium,Total 8.7 mg/dL (8.5-10.1); Chloride 100 mmol/L (98-107); Creatinine, Serum 0.91 mg/dL (0.70-1.30); EST Glomerular Filtration Rate 97 mL/min (>60); Est Glom Filt Rate - Afr Amer 117 mL/min (>60); Estimated Creatinine Clearance 113.78 ml/min; Globulin 3.5 g/dL (2.2-4.2); Glucose 135 mg/dL (74-106); Potassium 3.7 mmol/L (3.5-5.1); Sodium Level 138 mmol/L (136-145); Troponin-I HS 6 pg/mL (3.0-78.0)
[2022-05-23 18:01] LABS: BNP,B-Type NATRIURETIC PEPTIDE 18.4 pg/mL (0-100)
[2022-05-23 18:30] LABS: Glucose, Dipstick 50 mg/dl (Normal); Ketone-Dipstick Negative (Negative); Leukocyte Esterase-Dipstick Negative /ul (Negative); Nitrite-Dipstick Negative (Negative); Occult Blood-Urine Negative /ul (Negative); Protein-Dipstick Negative (Negative); Specific Gravity, Urine 1.015 (1.002-1.030); Urine Bilirubin Dipstick Negative (Negative); Urine Urobilinogen Normal (Normal)
[2022-05-23 18:34] LABS: Color, Urine Yellow (Yellow); Urine Clarity Clear (Clear)
== END 2022-05-23 20:01 | disposition home or self-care (01) ==
PROVIDERS: Emergency Provider Emergency Medicine; PCP Internal Medicine; Visit Provider Emergency Medicine
DX: R63.5 Abnormal weight gain (principal); I25.10 Atherosclerotic heart disease of native coronary artery without angina pectoris; I10 Essential (primary) hypertension; R60.0 Localized edema; Z95.5 Presence of coronary angioplasty implant and graft; E78.5 Hyperlipidemia, unspecified; I25.2 Old myocardial infarction; Z86.16 Personal history of COVID-19; Z87.442 Personal history of urinary calculi
CPT/HCPCS: 71045; 80053; 81001; 83880; 84484; 85025; 93005; 99283; A4216

== ENCOUNTER → 2022-06-28 | Outpatient (CLI) | payer SELFPAY ==
[2017-06-09 13:21] VITALS: BMI 40.8
--- NOTE | 2022-06-28 12:30 | RAD_ITS ---
CLINICAL HISTORY: Male, 41 years old. Left hip pain. PROCEDURE: ARTHROGRAM - LEFT HIP CONSENT: The procedure as well as the benefits and possible complications including infection and bleeding with point to the patient. Informed consent was obtained. FLUOROSCOPY TIME (if supplied): (112 seconds) minutes/seconds Injection Information: 10 cc of dilute MRI contrast Number of images obtained: 1 TECHNIQUE: (All elements of maximal sterile barrier technique followed, including US elements as applicable) The patient was in the supine position. The overlying skin was prepped and draped in the retrosternal fashion. Following local anesthetic application and under direct fluoroscopic guidance, a 22-gauge spinal needle was placed into the hip joint. 2 cc of nonionic contrast was injected. Following this, 10 cc of dilute MRI contrast was injected. The patient tolerated procedure well. MRI will follow. RAD/Arthrogram Hip w/ MRI IMPRESSION: Left hip arthrogram for MRI examination. The patient tolerated the procedure well. Electronically Signed: Elie Kumar MD at 13:35 EST ,
[2022-06-28] MEDS: Lidocaine 2% (5ml sdv) 5 ML VIAL.MPF INFILT (12:45)
[2022-06-28] MEDS: Gadoterate Meglumine Diluted 10 ML, Iopamidol 5 ML, Lidocaine 1% (20 ml mdv) 5 ML, Epin... INTRAARTIC (12:45)
--- NOTE | 2022-06-28 13:55 | MRI_ITS ---
EXAM: MR LEFT LOWER EXTREMITY WITH INTRAVENOUS CONTRAST, HIP CLINICAL INDICATION: MR LT HIP ARTHROGRAM, PAIN TECHNIQUE: Multiplanar and multisequence MR images of the left hip with intravenous contrast. This report was created using [employer] report [employer] technology. CONTRAST: 10cc of a MR arthrogram compound solution containing Clariscan was injected bu Dr. Kumar. COMPARISON: None. FINDINGS: TENDONS: FLEXORS: Unremarkable. Intact. EXTENSORS/HAMSTRING: See below. ABDUCTORS: Fluid signal also seen involving the bilateral gluteus minimus muscles raises concern for at least low-grade tearing on a background of tendinosis. No other significant tendon tearing. ADDUCTORS: Unremarkable. Intact. ROTATORS: Unremarkable. Intact. MUSCLES: Muscles are unremarkable. FLUID: Fluid signal along the greater trochanter on the right side suggests mild trochanteric bursitis. No joint effusion. No masses or fluid collections. LABRUM: Suboptimal left hip joint distention with gadolinium containing contrast occlusion. There is thickening and altered signal involving the superior labrum which is compatible with a superior labral tear. The anterior, posterior, and inferior labrum appear to be intact. CARTILAGE: Unremarkable. Articular cartilage intact. BONES/JOINTS: Fluid signal indicating tearing at the attachment of the left conjoint hamstring tendon and semimembranosus tendon is concerning for low to moderate tearing. No femoral neck fracture. No avascular necrosis of the femoral head. No sacral insufficiency fracture. No concerning bone marrow signal alterations. OTHER SOFT TISSUES: See above. INTRAPERITONEAL SPACE: No free fluid in the pelvis. BLADDER: Bladder is incompletely distended. OTHER FINDINGS: Neurovascular structures are unremarkable. MRI/Lower Ext/Jt Only/W Contrast IMPRESSION: 1. Thickening and altered signal involving the superior labrum which is compatible with a superior labral tear. 2. Fluid signal also seen involving the bilateral gluteus minimus muscles raises concern for at least low-grade tearing on a background of tendinosis. Additional small amount of fluid signal along the right greater trochanter raises the possibility upright trochanteric bursitis. Electronically Signed: Isaak Moore MD at 4:08 EST ,
== END | disposition home or self-care (01) ==
PROVIDERS: PCP Internal Medicine; Referring Provider Physician Assistant; Visit Provider Physician Assistant
DX: M25.552 Pain in left hip (principal)
CPT/HCPCS: 27093; 73722; 77002; Q9967

== ENCOUNTER → 2022-07-03 | Outpatient (CLI) | payer SELFPAY ==
[2017-06-09 13:21] VITALS: BMI 40.8
[2022-07-03 08:30] LABS: Hemoglobin A1c 5.5 % (3.8-5.6)
[2022-07-03 08:47] LABS: AST(SGOT) 18 U/L (15-37); Alanine Aminotransfer ALT/SGPT 45 U/L (16-61); Albumin, Serum 3.7 g/dL (3.2-5.0); Alkaline Phosphatase 52 U/L (45-117); Anion Gap 10 (5-15); BUN 13 mg/dL (7-18); BUN/Creat Ratio 15.4 RATIO (10-20); Chloride 97 mmol/L (98-107); Cholesterol 165 mg/dL (200); Creatinine, Serum 0.84 mg/dL (0.70-1.30); EST Glomerular Filtration Rate 106 mL/min (>60); Est Glom Filt Rate - Afr Amer 128 mL/min (>60); Globulin 3.7 g/dL (2.2-4.2); Glucose 96 mg/dL (74-106); High Density Lipoprotein 45 mg/dL; PSA,Total - Annual Screen 0.43 ng/mL (0.00-4.00); Potassium 4.6 mmol/L (3.5-5.1); Protein, Total 7.4 g/dL (6.4-8.2); Sodium Level 135 mmol/L (136-145); Triglycerides 173 mg/dL; Very Low Density Lipoprotein 35 mg/dL (5-40)
== END | disposition home or self-care (01) ==
PROVIDERS: PCP Internal Medicine; Referring Provider Internal Medicine; Visit Provider Internal Medicine
DX: E66.01 Morbid (severe) obesity due to excess calories (principal); R53.83 Other fatigue; I10 Essential (primary) hypertension; E78.5 Hyperlipidemia, unspecified; Z95.5 Presence of coronary angioplasty implant and graft; R73.9 Hyperglycemia, unspecified; Z13.220 Encounter for screening for lipoid disorders; Z12.5 Encounter for screening for malignant neoplasm of prostate
CPT/HCPCS: 36415; 80053; 80061; 83036; 84153; 84402; 84403; G0103

== ENCOUNTER 2022-08-02 08:00 | Emergency (ER) | payer SELFPAY ==
[2017-06-09 13:21] VITALS: BMI 40.8
[2022-08-02 08:01] VITALS: BP 125/91; PULSE 98; RESP 16; TEMP 37.2; O2SAT 99; BMI 40.4
--- NOTE | 2022-08-02 08:16 | ED.VIS.DENTA ---
HPI History of Present Illness Chief Complaint: Dental Narrative Narrative: 42-year-old male past medical history of coronary artery disease, hypertension, presents with pain in his right upper jaw. He states on Tuesday, he was eating and [place], and had sharp pain where it pierced his gum on the right side of his mouth, upper portion. He thought nothing of it over the weekend. Yesterday, he noticed that the area was swollen. He states he squeezed it and bloody pus came out. He awoke this morning with tenderness in the area, and states that it has increased in size. He denies any fevers or chills. No nausea or vomiting, no other symptoms. [facility] Medical History Arthritis Atherosclerosis of coronary artery of [place] heart without angina pectoris Back pain COVID-19 (~05/22/20) COVID-19 virus detected (05/22/20) Essential (primary) hypertension GERD (gastroesophageal reflux disease) History of kidney stones Hyperlipidemia Morbid obesity Non-ST elevation (NSTEMI) myocardial infarction (06/09/17) Seasonal allergies Home Medications aspirin 81 mg tablet,delayed release 81 mg PO DAILY@0800 06/10/17 [Rx Last Taken 04/09/18] atorvastatin 40 mg tablet 40 mg PO QHS #90 tabs 09/02/21 [Rx Last Taken Unknown] clopidogrel 75 mg tablet (Plavix) 75 mg PO QDAY #90 tabs 09/02/21 [Rx Last Taken Unknown] lisinopril 20 mg tablet 20 mg PO DAILY #90 tabs 09/02/21 [Rx Last Taken Unknown] metoprolol succinate 50 mg tablet,extended release 24 hr 50 mg PO DAILY #90 tabs 09/02/21 [Rx Last Taken Unknown] tramadol 50 mg tablet 50 mg PO TID PRN pain #10 tabs 06/11/22 [Rx Last Taken Unknown] azithromycin 250 mg tablet See Rx Instructions PO .COMPLEX #6 tabs 06/23/22 [Rx Last Taken Unknown] testosterone cypionate 100 mg/mL intramuscular oil (Depo-Testosterone) 200 mg (2 mL) IM Q2W #10 mL 07/13/22 [Rx Last Taken Unknown] clindamycin HCl 300 mg capsule 300 mg PO TID #30 caps 08/02/22 [Rx Last Taken Unknown] tramadol 50 mg tablet 50 mg PO Q6H PRN pain 3 days #12 tabs 08/02/22 [Rx Last Taken Unknown] Allergy/AdvReac Type Severity Reaction Status Date / Time Penicillins Allergy Angioedema Verified 08/02/22 08:01 Family History Mother Heart disease Hypertension Other DVT (deep venous thrombosis) Diabetes Myocardial infarction Surgical History H/O cervical spine surgery H/O right knee surgery History of coronary artery stent placement (04/10/18) History of tonsillectomy and adenoidectomy Social History Smoking Status: Never smoker Smokeless tobacco user: chewing tobacco alcohol intake: current alcohol intake frequency: a few times a month Alcohol type: beer substance use type: does not use caffeine: Yes (Occasional pop but not daily) Type: carbonated beverages ROS ROS ED ROS Narrative Constitutional: No fever, no chills. HEENT: No sore throat. No neck pain. No loss of vision. No rhinorrhea. Pain and swelling in gums, right upper jaw. Cardiovascular: No chest pain. No palpitations. No pedal edema. Respiratory: No cough, no shortness of breath. Abdominal: No abdominal pain. No nausea. No vomiting. Genitourinary: No dysuria. No hematuria. Musculoskeletal: No myalgias. No arthralgias. Neurologic: No headaches. No dizziness. No lightheadedness. Skin: No rash. No change in color. Psychiatric: No depression. No anxiety. EXAM Physical Exam Narrative Exam Narrative: Afebrile. Vital signs noted. HEENT: Normocephalic. Atraumatic. PERRL, EOMI. Neck soft and supple. No point tenderness or step off. Inspection of the gingiva in the right upper jaw does show a tender, swollen area near tooth #4/5. No drooling or trismus. No active bleeding. Cardiovascular: Regular rate and rhythm. No murmurs, rubs, or gallops appreciated. Respiratory: No tachypnea. Lungs clear to auscultation bilaterally. Gastrointestinal: Abdomen soft, nontender, with normoactive bowel sounds. No rebound or guarding. Neurological: Awake. Alert. Nonfocal, nonlateralizing. Skin: No rash. Normal color. No pallor. Musculoskeletal: No pedal edema. Full range of motion extremities. Const Vital Signs: 08/02/22 08:01 Temperature 98.9 F Temperature Source Temporal Pulse Rate 98 Respiratory Rate 16 Blood Pressure 125/91 H Blood Pressure Mean 102 Pulse Ox 99 Oxygen Delivery Method Room Air MDM MDM MDM Narrative Medical decision making narrative: Concern is for gingival abscess versus simple inflammation. I had a lengthy discussion with the patient regarding incision and drainage of the gingiva. He was warned of the risk of continued infection, and bleeding. Lidocaine 2% will be applied to the area for anesthesia. I then discussed with him needle aspiration versus small incision. He will be given clindamycin as he has an allergy to penicillin. He was given his first dose here in the emergency department. I strongly recommended that he follow-up with a dentist. Procedure note: Area was anesthetized using lidocaine 2% applied for approximately 30 minutes. I performed more of a needle aspiration along the gingiva with an 18-gauge needle. There was return of blood, but no purulent material. Patient tolerated procedure well. Given the results of the needle aspiration/incision and drainage with needle tip, it was mostly blood. I do think that the swelling was most likely secondary to hematoma from when the patient had popped the area himself. Additionally, he states he is on Plavix. I will write him a prescription for the rest of the clindamycin as he has an allergy to penicillin and he will take it 3 times a day for the next 10 days. He will follow-up with a dentist. As he is unable to take NSAIDs because he is on a blood thinner, he was given a short prescription for 12 tablets of tramadol to take for analgesia. He was also given a note off work today at his request. I feel he can be discharged safely home with follow-up to dentistry. Return instructions to the emergency department were reviewed. Disposition is discharged home in stable condition. History & Record Review Discussion w/independent historian: Patient Additional record(s) reviewed:: Prior ED visit Discharge Plan Triage Chief Complaint: Dental ED Provider: Gerald Rolle Dx/Rx/DC Orders Clinical Impression: Hematoma of gingiva, Gingival abscess Instructions: ED Dental Abscess, ED Hematoma Prescriptions: New clindamycin HCl 300 mg capsule 300 mg PO TID Qty: 30 0RF tramadol 50 mg tablet 50 mg PO Q6H PRN (Reason: pain) 3 Days Qty: 12 0RF No Action atorvastatin 40 mg tablet 40 mg PO QHS Qty: 90 4RF lisinopril 20 mg tablet 20 mg PO DAILY Qty: 90 4RF metoprolol succinate 50 mg tablet extended release 24 hr 50 mg PO DAILY Qty: 90 4RF clopidogrel [Plavix] 75 mg tablet 75 mg PO QDAY Qty: 90 4RF azithromycin 250 mg tablet See Rx Instructions PO .COMPLEX Qty: 6 0RF Rx Instructions: For 250 mg dose pack: take 500 mg today (day 1), then 250 mg for 4 days (days 2-5) PO aspirin 81 MG tablet 81 mg PO DAILY@0800 0RF tramadol 50 mg tablet 50 mg PO TID PRN (Reason: pain) Qty: 10 0RF testosterone cypionate [Depo-Testosterone] 100 mg/mL oil 200 mg IM Q2W Qty: 10 1RF Stand Alone Forms: ED Work / School Excuse Primary Care Provider: Andreia Boyer Referrals: Andreia Boyer MD [Primary Care Provider] - Activity Restrictions/Additional Instructions: Follow-up with a dentist as soon as possible. Disposition Disposition: Home, Self Care
[2022-08-02] MEDS: Clindamycin HCl 150 MG Capsule 300 MG PO (08:47)
== END 2022-08-02 09:59 | disposition home or self-care (01) ==
PROVIDERS: Emergency Provider Emergency Medicine; PCP Internal Medicine; Visit Provider Emergency Medicine
DX: K06.8 Other specified disorders of gingiva and edentulous alveolar ridge (principal); I25.10 Atherosclerotic heart disease of native coronary artery without angina pectoris; I10 Essential (primary) hypertension; E78.5 Hyperlipidemia, unspecified; K05.20 Aggressive periodontitis, unspecified; Z79.82 Long term (current) use of aspirin; Z79.899 Other long term (current) drug therapy; Z79.02 Long term (current) use of antithrombotics/antiplatelets; Z95.5 Presence of coronary angioplasty implant and graft; F17.220 Nicotine dependence, chewing tobacco, uncomplicated
CPT/HCPCS: 10140; 41800; 99283

== ENCOUNTER 2022-10-22 11:43 | Emergency (ER) | payer SELFPAY ==
[2017-06-09 13:21] VITALS: BMI 40.8
[2022-10-22 11:44] VITALS: BP 172/103; PULSE 88; RESP 16; TEMP 36.6; O2SAT 95; BMI 42.1
--- NOTE | 2022-10-22 12:25 | RAD_ITS ---
STUDY: X-RAY - LEFT WRIST REASON FOR EXAM: Male, 42 years old. Injury/Pain TECHNIQUE: Pre- view(s) of the wrist were obtained. COMPARISON: None. FINDINGS: Normal visualized distal radius and ulna. Normal radiocarpal articulation. Normal distal radioulnar articulation. Normal carpal bones. Normal carpal articulations. Normal carpometacarpal articulation of the thumb. Normal second through fifth carpometacarpal articulations. Normal visualized metacarpal bones. The soft tissue structures are unremarkable. RAD/Wrist min 3 Views IMPRESSION: Normal x-ray examination of the wrist. Electronically Signed: Elie Kumar MD at 12:46 EDT ,
--- NOTE | 2022-10-22 13:04 | EDS_ITS ---
HPI History of Present Illness HPI Narrative: Patient presents with left wrist pain that has been constant for the past 3 weeks. Patient states he pushed up off of an air mattress and hyperextended his left wrist. Patient states it feels similar to when he has had a fracture in that wrist. Patient states his pain has been constant. Patient states it is worse with certain movements. Patient states nothing seems to help with it. Patient denies any paresthesias or weakness. Patient denies any other injuries. Chief Complaint: Upper Extremity Injury Informant: patient Occured/Mechanism Comment: Hyperextension Onset/Context/Timing Onset: Weeks (3) Context: Sudden Onset Timing: Continuous Location: Left wrist Worsened by: Certain movements Relieved by: Nothing PFSH PFSH Medical History Arthritis Atherosclerosis of coronary artery of [place] heart without angina pectoris Back pain COVID-19 (~05/22/20) COVID-19 virus detected (05/22/20) Essential (primary) hypertension GERD (gastroesophageal reflux disease) History of kidney stones Hyperlipidemia Morbid obesity Non-ST elevation (NSTEMI) myocardial infarction (06/09/17) Seasonal allergies Home Medications aspirin 81 mg tablet,delayed release 81 mg PO DAILY@0800 06/10/17 [Rx Last Taken 04/09/18] tramadol 50 mg tablet 50 mg PO TID PRN pain #10 tabs 06/11/22 [Rx Last Taken Unknown] azithromycin 250 mg tablet See Rx Instructions PO .COMPLEX #6 tabs 06/23/22 [Rx Last Taken Unknown] testosterone cypionate 100 mg/mL intramuscular oil (Depo-Testosterone) 200 mg (2 mL) IM Q2W #10 mL 07/13/22 [Rx Last Taken Unknown] clindamycin HCl 300 mg capsule 300 mg PO TID #30 caps 08/02/22 [Rx Last Taken Unknown] tramadol 50 mg tablet 50 mg PO Q6H PRN pain 3 days #12 tabs 08/02/22 [Rx Last Taken Unknown] atorvastatin 40 mg tablet 40 mg PO QHS #90 tabs 09/23/22 [Rx Last Taken Unknown] clopidogrel 75 mg tablet (Plavix) 75 mg PO QDAY #90 tabs 09/23/22 [Rx Last Taken Unknown] lisinopril 20 mg tablet 20 mg PO DAILY #90 tabs 09/23/22 [Rx Last Taken Unknown] metoprolol succinate 50 mg tablet,extended release 24 hr 50 mg PO DAILY #90 tabs 09/23/22 [Rx Last Taken Unknown] Allergy/AdvReac Type Severity Reaction Status Date / Time Penicillins Allergy Angioedema Verified 10/22/22 11:45 Family History Mother Heart disease Hypertension Other DVT (deep venous thrombosis) Diabetes Myocardial infarction Surgical History H/O cervical spine surgery H/O right knee surgery History of coronary artery stent placement (04/10/18) History of tonsillectomy and adenoidectomy Social History Smoking Status: Never smoker Smokeless tobacco user: chewing tobacco alcohol intake: current alcohol intake frequency: a few times a month Alcohol type: beer substance use type: does not use caffeine: Yes (Occasional pop but not daily) Type: carbonated beverages ROS ROS ED Constitutional Constitutional ED: Denies chills or fever(s) Eyes Eyes: Denies blurry vision or change in vision ENT ENT ED: Denies rhinorrhea or sore throat Cardiovascular Cardiovascular: Denies chest pain or palpitations Respiratory/Chest Respiratory/Chest: Denies cough or dyspnea Gastrointestinal Gastrointestinal: Denies nausea or vomiting Genitourinary Genitourinary ED: Denies dysuria or hematuria Musculoskeletal Musculoskeletal: Denies back pain or neck pain Integumentary Denies abscess or rash Neurologic Neurologic: Denies headache(s) or weakness Allergic/Immunologic Allergic/Immunologic ED: Denies mouth swelling or urticaria EXAM Physical Exam Const Vital Signs: 10/22/22 11:44 Temperature 98 F Temperature Source Temporal Pulse Rate 88 Respiratory Rate 16 Blood Pressure 172/103 H Blood Pressure Mean 126 Pulse Ox 95 Oxygen Delivery Method Room Air Positive well nourished, well developed and obese General Appearance ED: well developed and NAD Nutritional Appearance: obese Neck full ROM and supple Extremity Extremity Narrative: There is tenderness over the ulnar aspect of the left wrist. There is no edema or ecchymosis. There is no obvious deformity noted. Range of motion was limited incomplete extension secondary to pain. Radial pulses are equal bila teral. Sensation was intact to light touch in the radial, median, and ulnar areas. Strength is 5/5 in the radial, median, and ulnar areas. Neuro oriented x3, CN's II-XII intact bilaterally, moves all extremities, no focal motor deficits and no sensory deficits noted Sensorium / Orientation: alert Motor Exam: strength 5/5 throughout Psych mental status grossly normal MDM MDM MDM Narrative Medical decision making narrative: Differential diagnosis includes sprain, arthritis, and fracture. X-rays of the left wrist will be obtained to assess for fracture. Radiography Diagnostic Testing: Clinical Impression(s) from Imaging Studies Wrist X-Ray 10/22/22 12:25 IMPRESSION: Normal x-ray examination of the wrist. Electronically Signed: Elie Kumar MD at 12:46 EDT , X-rays of the left wrist were obtained. There are 3 views. On my independent interpretation, there is no acute fracture or dislocation. There is no soft tissue swelling. Radiologist also interpreted the x-ray and agrees. Treatment and Re-Evaluation Narrative: Patient was given a Velcro wrist splint. Patient was instructed to ice and elevate the left wrist. Patient was instructed to take Tylenol or ibuprofen as needed for pain. Patient was instructed to follow-up with his primary care physician in 5 to 7 days. Patient understood and was agreeable with the plan. All questions were answered. Discharge Plan Triage Chief Complaint: Upper Extremity Injury ED Provider: Lloyd Maravilla Dx/Rx/DC Orders Clinical Impression: Left wrist sprain, Morbid obesity, Essential (primary) hypertension Instructions: ED Wrist Sprain Prescriptions: No Action azithromycin 250 mg tablet See Rx Instructions PO .COMPLEX Qty: 6 0RF Rx Instructions: For 250 mg dose pack: take 500 mg today (day 1), then 250 mg for 4 days (days 2-5) PO aspirin 81 MG tablet 81 mg PO DAILY@0800 0RF clindamycin HCl 300 mg capsule 300 mg PO TID Qty: 30 0RF tramadol 50 mg tablet 50 mg PO Q6H PRN (Reason: pain) 3 Days Qty: 12 0RF tramadol 50 mg tablet 50 mg PO TID PRN (Reason: pain) Qty: 10 0RF testosterone cypionate [Depo-Testosterone] 100 mg/mL oil 200 mg IM Q2W Qty: 10 1RF atorvastatin 40 mg tablet 40 mg PO QHS Qty: 90 4RF clopidogrel [Plavix] 75 mg tablet 75 mg PO QDAY Qty: 90 4RF lisinopril 20 mg tablet 20 mg PO DAILY Qty: 90 4RF metoprolol succinate 50 mg tablet extended release 24 hr 50 mg PO DAILY Qty: 90 4RF Primary Care Provider: Andreia Boyer Referrals: Andreia Boyer MD [Primary Care Provider] - 5-7 Days Disposition Disposition: Home, Self Care
== END 2022-10-22 13:37 | disposition home or self-care (01) ==
PROVIDERS: Emergency Provider Emergency Medicine; PCP Internal Medicine; Visit Provider Emergency Medicine
DX: S63.502A Unspecified sprain of left wrist, initial encounter (principal); I25.10 Atherosclerotic heart disease of native coronary artery without angina pectoris; I10 Essential (primary) hypertension; E78.5 Hyperlipidemia, unspecified; X58.XXXA Exposure to other specified factors, initial encounter; Z79.82 Long term (current) use of aspirin; Z79.02 Long term (current) use of antithrombotics/antiplatelets; Z95.5 Presence of coronary angioplasty implant and graft; F17.220 Nicotine dependence, chewing tobacco, uncomplicated
CPT/HCPCS: 73110; 99283

== ENCOUNTER 2022-12-15 08:27 | Emergency (ER) | payer BC, SELFPAY ==
[2017-06-09 13:21] VITALS: BMI 40.8
[2022-12-15 08:28] VITALS: BP 161/103; PULSE 102; RESP 16; TEMP 36.5; O2SAT 96; BMI 39.6
--- NOTE | 2022-12-15 09:08 | ED.RN ---
Urine obtained and sent to lab
[2022-12-15 09:11] LABS: Bacteria 0 SEEN /hpf (None Seen); Mucous, Urine 0 SEEN /hpf (<or=2+); Squamous Epithelial Cells - UA 0 SEEN /hpf (0-5); White Blood Cells 0 SEEN /hpf (0-5)
[2022-12-15 09:13] LABS: Color, Urine Yellow (Yellow); Glucose, Dipstick Normal (Normal); Ketone-Dipstick Negative (Negative); Leukocyte Esterase-Dipstick Negative /ul (Negative); Nitrite-Dipstick Negative (Negative); Occult Blood-Urine 10 /ul (Negative); Protein-Dipstick 15 mg/dl (Negative); Specific Gravity, Urine 1.015 (1.002-1.030); Urine Bilirubin Dipstick Negative (Negative); Urine Clarity Clear (Clear); Urine Urobilinogen Normal (Normal)
--- NOTE | 2022-12-15 09:15 | CT_ITS ---
STUDY: CT ABDOMEN AND PELVIS WITHOUT CONTRAST REASON FOR EXAM: Male, 42 years old. Left flank pain since Tuesday. Nausea this morning. RADIATION DOSAGE (If Supplied By Facility): CTDIvol = ( 23.21 ) mGy, DLP = ( 1450.14 ) mGycm TECHNIQUE: Transaxial images were obtained from the dome of the diaphragm to the symphysis pubis without oral contrast, and without intravenous contrast. Sagittal and coronal images were reconstructed. Individualized dose optimization techniques were used for this CT. COMPARISON: Comparison is made with prior study dated May 22, 2020. FINDINGS: The visualized lung bases are unremarkable. Coronary artery calcification. There is decreased attenuation of the liver consistent with steatosis. Normal gallbladder and extrahepatic biliary system. Normal spleen. Normal pancreas. There is a small, circumscribed, smooth, low attenuation left adrenal mass, consistent with an adrenal adenoma. It measures 1 cm. Normal right adrenal gland. Normal right kidney. Normal left kidney. Normal visualized stomach. Normal small intestine. There are multiple colonic diverticula consistent with diverticulosis. The appendix is visualized and appears normal. Normal abdominal aorta. Normal inferior vena cava. Normal retroperitoneum. Normal urinary bladder. There is a right-sided inguinal hernia containing adipose tissue. There are mild degenerative changes of the visualized lumbar spine. CT/Abdomen/Pelvis without Cont IMPRESSION: Fatty infiltration of the liver. 1 cm adenoma in the crux of the left adrenal gland. Scattered sigmoid diverticula. Electronically Signed: Elie Kumar MD at 10:54 EDT ,
--- NOTE | 2022-12-15 09:17 | ED.VIS.GI ---
HPI HPI - GI History of Present Illness Chief Complaint: Flank Pain Informant: patient Abdominal Pain/Flank Pain Onset: Days (4) Context: Gradual Onset Timing: Continuous Quality: Burning, Sharp (At times) and - (Pressure) Location: Left Flank Worsened by: Movement Relieved by: - (Pressure to the low back) Nausea/Vomiting/Emesis GI Symptom: Positive for Nausea; Negative for Vomiting Diarrhea/Melena/Hematochezia GI Symptom: Negative for Diarrhea, Melena or Hematochezia Associated Symptoms Associated Symptoms: Positive for Frequency; Negative for Dysuria or Hematuria Narrative Narrative: Patient presents with left flank pain that has been getting worse over the last 4 days. Patient states it is mainly over the lower flank area in the back. Patient describes it as pressure and burning. Patient states he also occasionally gets some sharp pain in the area. Patient states it is worse with certain movements. Patient states that if he puts a tennis ball behind his back and lays on it it helps for a little bit. Patient admits to some nausea but denies any vomiting. Patient denies any diarrhea, melena, or hematochezia. Patient admits to some urinary frequency but denies any dysuria or hematuria. Patient denies any fevers or chills. [facility] Medical History Arthritis Atherosclerosis of coronary artery of [place] heart without angina pectoris Back pain COVID-19 (~05/22/20) COVID-19 virus detected (05/22/20) Essential (primary) hypertension GERD (gastroesophageal reflux disease) History of kidney stones Hyperlipidemia Morbid obesity Non-ST elevation (NSTEMI) myocardial infarction (06/09/17) Seasonal allergies Home Medications aspirin 81 mg tablet,delayed release 81 mg PO DAILY@0800 06/10/17 [Rx Last Taken 04/09/18] tramadol 50 mg tablet 50 mg PO TID PRN pain #10 tabs 06/11/22 [Rx Last Taken Unknown] azithromycin 250 mg tablet See Rx Instructions PO .COMPLEX #6 tabs 06/23/22 [Rx Last Taken Unknown] testosterone cypionate 100 mg/mL intramuscular oil (Depo-Testosterone) 200 mg (2 mL) IM Q2W #10 mL 07/13/22 [Rx Last Taken Unknown] clindamycin HCl 300 mg capsule 300 mg PO TID #30 caps 08/02/22 [Rx Last Taken Unknown] tramadol 50 mg tablet 50 mg PO Q6H PRN pain 3 days #12 tabs 08/02/22 [Rx Last Taken Unknown] atorvastatin 40 mg tablet 40 mg PO QHS #90 tabs 09/23/22 [Rx Last Taken Unknown] clopidogrel 75 mg tablet (Plavix) 75 mg PO QDAY #90 tabs 09/23/22 [Rx Last Taken Unknown] lisinopril 20 mg tablet 20 mg PO DAILY #90 tabs 09/23/22 [Rx Last Taken Unknown] metoprolol succinate 50 mg tablet,extended release 24 hr 50 mg PO DAILY #90 tabs 09/23/22 [Rx Last Taken Unknown] hydrocodone-acetaminophen 5-325mg 5mg-325mg 1 tab PO Q6H PRN PRN Pain 3 days #10 TABLETS 12/15/22 [Rx Last Taken Unknown] Allergy/AdvReac Type Severity Reaction Status Date / Time Penicillins Allergy Angioedema Verified 12/15/22 08:30 Family History Mother Heart disease Hypertension Other DVT (deep venous thrombosis) Diabetes Myocardial infarction Surgical History H/O cervical spine surgery H/O right knee surgery History of coronary artery stent placement (04/10/18) History of tonsillectomy and adenoidectomy Social History Smoking Status: Never smoker Smokeless tobacco user: chewing tobacco alcohol intake: current alcohol intake frequency: a few times a month Alcohol type: beer substance use type: does not use caffeine: Yes (Occasional pop but not daily) Type: carbonated beverages ROS ROS ED Constitutional Constitutional ED: Denies chills or fever(s) Eyes Eyes: Denies blurry vision or change in vision ENT ENT ED: Denies rhinorrhea or sore throat Cardiovascular Cardiovascular: Denies chest pain or palpitations Respiratory/Chest Respiratory/Chest: Denies cough or dyspnea Gastrointestinal Gastrointestinal: Reports abdominal pain and nausea; Denies vomiting Genitourinary Genitourinary ED: Reports urinary frequency; Denies dysuria or hematuria Musculoskeletal Musculoskeletal: Reports back pain; Denies neck pain Integumentary Denies abscess or rash Neurologic Neurologic: Denies headache(s) or weakness Allergic/Immunologic Allergic/Immunologic ED: Denies mouth swelling or urticaria EXAM Physical Exam Const Vital Signs: 12/15/22 08:28 12/15/22 08:42 12/15/22 10:31 Temperature 97.7 F L Temperature Source Temporal Pulse Rate 102 H 72 Respiratory Rate 16 18 Respiratory Effort Normal Respiratory Pattern Normal Blood Pressure 161/103 H 117/67 Blood Pressure Mean 122 83 Pulse Ox 96 100 Oxygen Delivery Method Room Air Room Air Positive well nourished and well developed General Appearance ED: well developed and NAD HEENT Reports moist mucous membranes Neck supple and no JVD Resp normal respiratory effort and clear to auscultation bilaterally Cardio regular rate, regular rhythm and no murmurs GI normal to inspection, nondistended, normoactive bowel sounds and non-tender Palpation: soft Back/Spine General Back: CVA tenderness left (Lower) Extremity normal to inspection General Extremety ED: Negative for edema or tenderness General Extremity: Negative for edema Neuro oriented x3, CN's II-XII intact bilaterally and no sensory deficits noted Sensorium / Orientation: alert Motor Exam: strength 5/5 throughout Psych mental status grossly normal Skin no rashes or lesions noted MDM MDM MDM Narrative Medical decision making narrative: Differential diagnosis includes ureteral calculus, pyelonephritis, colitis, diverticulitis, musculoskeletal back pain, and lumbar radiculopathy. CBC will be obtained to assess for leukocytosis and anemia. Basic metabolic profile will be obtained to assess for electrolyte abnormality and renal function. Urinalysis will be obtained to assess for urinary tract infection and hematuria. CT scan of the abdomen pelvis will be obtained to assess for ureteral calculus and diverticulitis. Lab Data Lab results narrative: CBC was reviewed. Hemoglobin was concentrated at 18.5. The remainder is within normal limits. Basic metabolic profile was reviewed and was essentially within normal limits. Urinalysis was reviewed. There is no evidence of urinary tract infection or hematuria. Labs: Laboratory Results - last 24 hr 12/15/22 12/15/22 08:41 09:06 WBC 9.3 RBC 5.90 Hgb 18.5 H* Hct 54.7 H MCV 92.7 MCH 31.4 MCHC 33.8 RDW Std Deviation 47.5 H RDW Coeff of Dora 15.0 H Plt Count 197 MPV 10.5 Immature Gran % (Auto) 0.900 Neut % (Auto) 62.5 Lymph % (Auto) 21.9 [place] % (Auto) 10.8 H Eos % (Auto) 3.3 Baso % (Auto) 0.6 Absolute Neuts (auto) 5.8 Absolute Lymphs (auto) 2.03 Nucleated RBC % 0 Differential Comment SCANNED Diff Path Review September Sodium 134 L Potassium 4.2 Chloride 100 Carbon Dioxide 31.0 Anion Gap 3 L BUN 13 Creatinine 0.84 Estim Creat Clear Calc 122.01 Est GFR (MDRD) Af Amer 128 Est GFR (MDRD) Non-Af 106 BUN/Creatinine Ratio 15.4 Glucose 107 H Calcium 9.0 Urine Color Yellow Urine Clarity Clear Urine pH 6.0 Ur Specific [place] 1.015 Urine Protein 15 H Urine Glucose (UA) Normal Urine Ketones Negative Urine Occult Blood 10 H Urine Nitrite Negative Urine Bilirubin Negative Urine Urobilinogen Normal Ur Leukocyte Esterase Negative Urine RBC 0-5 SEEN Urine WBC 0 SEEN Ur Squamous Epith Cells 0 SEEN Urine Bacteria 0 SEEN Urine Mucus 0 SEEN Radiography Diagnostic Testing: Clinical Impression(s) from Imaging Studies Abdomen/Pelvis CT 12/15/22 09:15 IMPRESSION: Fatty infiltration of the liver. 1 cm adenoma in the crux of the left adrenal gland. Scattered sigmoid diverticula. Electronically Signed: Elie Kumar MD at 10:54 EDT , CT scan of the abdomen pelvis was obtained. There are scattered sigmoid diverticula. There is fatty infiltration of the liver. There is a 1 cm adenoma in the left adrenal gland. There is no evidence of ureteral calculus or hydronephrosis. There is no other acute abnormality noted. This was interpreted by the radiologist and was also independently reviewed by myself. Treatment and Re-Evaluation :: Patient was given IV fluids, morphine, and Zofran. Patient was feeling better on reevaluation. Patient was advised of his findings. Patient was given a prescription for a short course of [place]. Patient was instructed to use ice to the area. Patient was instructed to follow-up with his primary care physician in 5 to 7 days. Patient understood and was agreeable with the plan. All questions were answered. Discharge Plan Triage Chief Complaint: Flank Pain ED Provider: Lloyd Maravilla Dx/Rx/DC Orders Clinical Impression: Lumbar spine strain Instructions: ED Back Sprain/Strain Prescriptions: New hydrocodone-acetaminophen [hydrocodone-acetaminophen] 5-325 mg tablet 1 tab PO Q6H PRN PRN (Reason: Pain) 3 Days Qty: 10 0RF No Action azithromycin 250 mg tablet See Rx Instructions PO .COMPLEX Qty: 6 0RF Rx Instructions: For 250 mg dose pack: take 500 mg today (day 1), then 250 mg for 4 days (days 2-5) PO aspirin 81 MG tablet 81 mg PO DAILY@0800 0RF clindamycin HCl 300 mg capsule 300 mg PO TID Qty: 30 0RF tramadol 50 mg tablet 50 mg PO Q6H PRN (Reason: pain) 3 Days Qty: 12 0RF tramadol 50 mg tablet 50 mg PO TID PRN (Reason: pain) Qty: 10 0RF testosterone cypionate [Depo-Testosterone] 100 mg/mL oil 200 mg IM Q2W Qty: 10 1RF atorvastatin 40 mg tablet 40 mg PO QHS Qty: 90 4RF clopidogrel [Plavix] 75 mg tablet 75 mg PO QDAY Qty: 90 4RF lisinopril 20 mg tablet 20 mg PO DAILY Qty: 90 4RF metoprolol succinate 50 mg tablet extended release 24 hr 50 mg PO DAILY Qty: 90 4RF Primary Care Provider: Andreia Boyer Referrals: Andreia Boyer MD [Primary Care Provider] - 5-7 Days Disposition Disposition: Home, Self Care
[2022-12-15 09:22] LABS: Red Blood Cells-Urine 0-5 SEEN /hpf (0-5)
[2022-12-15 09:25] LABS: Absolute Lymphocyte Count 2.03 X10^3/uL (0.83-4.51); Absolute Neutrophil Count 5.8 X10^3/uL (2.0-7.7); Basophil# 0.06 X10^3/uL; Basophil% 0.6 % (0-1); Eosinophil# 0.31 X10^3/uL; Eosinophils% 3.3 % (0-5); Hematocrit 54.7 % (40-54); Lymphocyte # 2.03 X10^3/ul (0.83-4.51); Lymphocyte % 21.9 % (19-41); Mean Corp Hgb Conc 33.8 g/dL (32-36); Mean Corpuscular Hgb 31.4 pg (27.0-32.0); Mean Corpuscular Volume 92.7 fL (80-94); Mean Platelet Vol. 10.5 fl (6.2-12.0); Monocyte% 10.8 % (0-10); NRBC Flagged by Analyzer 0 % (0-5); Neutrophil % 62.5 % (47-70); Platelet Count 197 K/mm3 (150-450); RBC Distribution Width SD 47.5 fl (35.1-43.9); White Blood Count 9.3 K/mm3 (4.4-11.0)
[2022-12-15 09:36] LABS: Anion Gap 3 (5-15); BUN 13 mg/dL (7-18); BUN/Creat Ratio 15.4 RATIO (10-20); Chloride 100 mmol/L (98-107); Creatinine, Serum 0.84 mg/dL (0.70-1.30); EST Glomerular Filtration Rate 106 mL/min (>60); Est Glom Filt Rate - Afr Amer 128 mL/min (>60); Estimated Creatinine Clearance 122.01 ml/min; Glucose 107 mg/dL (74-106); Potassium 4.2 mmol/L (3.5-5.1); Sodium Level 134 mmol/L (136-145)
[2022-12-15] MEDS: 0.9% Normal Saline 1,000 ML 1000 ML IV (09:37)
[2022-12-15 09:38] LABS: Differential Indicated SCAN CRITERIA MET; Hemoglobin 18.5 g/dL (13.0-16.5)
[2022-12-15] MEDS: Ondansetron 4 MG/2 ML Vial IV (09:38)
[2022-12-15] MEDS: Morphine 4 MG/ML Syringe IV (09:38)
[2022-12-15 10:08] LABS: Differential Comment SCANNED
[2022-12-15 10:31] VITALS: BP 117/67; PULSE 72; RESP 18; O2SAT 100
[2022-12-17 09:54] LABS: Pathologist Review Reviewed
== END 2022-12-15 12:32 | disposition home or self-care (01) ==
PROVIDERS: Emergency Provider Emergency Medicine; PCP Internal Medicine; Visit Provider Emergency Medicine
DX: S39.012A Strain of muscle, fascia and tendon of lower back, initial encounter (principal); E78.5 Hyperlipidemia, unspecified; I10 Essential (primary) hypertension; I25.10 Atherosclerotic heart disease of native coronary artery without angina pectoris; R11.2 Nausea with vomiting, unspecified; I25.2 Old myocardial infarction; I5A Non-ischemic myocardial injury (non-traumatic); Z79.82 Long term (current) use of aspirin; Z79.02 Long term (current) use of antithrombotics/antiplatelets; Z79.899 Other long term (current) drug therapy; Z95.5 Presence of coronary angioplasty implant and graft; F17.220 Nicotine dependence, chewing tobacco, uncomplicated
CPT/HCPCS: 74176; 80048; 81001; 85025; 96361; 96374; 96375; 99284; J2405

== ENCOUNTER 2023-01-06 08:15 | Emergency (ER) | payer BC, SELFPAY ==
[2017-06-09 13:21] VITALS: BMI 40.8
[2023-01-06 08:16] VITALS: BP 141/97; PULSE 105; RESP 18; TEMP 36.4; O2SAT 99; BMI 41.0
--- NOTE | 2023-01-06 08:41 | EDS_ITS ---
HPI History of Present Illness Chief Complaint: Lower Extremity Injury Informant: patient Narrative Narrative: Patient is a 42-year-old male with history of hypertension, hyperlipidemia, coronary artery disease status post stents and prior ACL reconstruction x2 in his right knee. He is presenting after fall/injury to his right knee. Patient states he went to stand up this morning when either his foot slipped on the carpet or his knee buckled which caused his knee to twist outward and also flex at the same time. He fell backwards. He did hit his head slightly on the nightstand but did not have any loss of conscious. States initially had nausea associate with his knee pain but that is since passed. He has had significant pain and burning in his knee since. He denies any numbness or tingling in his legs. He states he did maybe twisted his right ankle and also hit his right elbow but these not bothering him significantly at this time. He is followed with Dr. Sandy as well as Dr. Juan Diego Cisneros for various orthopedic injuries in the past. Did not take any for pain prior to arrival. His dropped him off. Patient states he does take Plavix daily PFSH [facility] Medical History Arthritis Atherosclerosis of coronary artery of [place] heart without angina pectoris Back pain COVID-19 (~05/22/20) COVID-19 virus detected (05/22/20) Essential (primary) hypertension GERD (gastroesophageal reflux disease) History of kidney stones Hyperlipidemia Morbid obesity Non-ST elevation (NSTEMI) myocardial infarction (06/09/17) Seasonal allergies Home Medications aspirin 81 mg tablet,delayed release 81 mg PO DAILY@0800 06/10/17 [Rx Last Taken 04/09/18] tramadol 50 mg tablet 50 mg PO TID PRN pain #10 tabs 06/11/22 [Rx Last Taken Unknown] azithromycin 250 mg tablet See Rx Instructions PO .COMPLEX #6 tabs 06/23/22 [Rx Last Taken Unknown] clindamycin HCl 300 mg capsule 300 mg PO TID #30 caps 08/02/22 [Rx Last Taken Unknown] tramadol 50 mg tablet 50 mg PO Q6H PRN pain 3 days #12 tabs 08/02/22 [Rx Last Taken Unknown] atorvastatin 40 mg tablet 40 mg PO QHS #90 tabs 09/23/22 [Rx Last Taken Unknown] clopidogrel 75 mg tablet (Plavix) 75 mg PO QDAY #90 tabs 09/23/22 [Rx Last Taken Unknown] lisinopril 20 mg tablet 20 mg PO DAILY #90 tabs 09/23/22 [Rx Last Taken Unknown] metoprolol succinate 50 mg tablet,extended release 24 hr 50 mg PO DAILY #90 tabs 09/23/22 [Rx Last Taken Unknown] hydrocodone-acetaminophen 5-325mg 5mg-325mg 1 tab PO Q6H PRN PRN Pain 3 days #10 TABLETS 12/15/22 [Rx Last Taken Unknown] testosterone cypionate 100 mg/mL intramuscular oil (Depo-Testosterone) 200 mg (2 mL) IM Q2W #10 mL 12/30/22 [Rx Last Taken Unknown] ibuprofen 600 mg tablet 600 mg PO Q8H PRN pain #20 tabs 01/06/23 [Rx Last Taken Unknown] ondansetron HCl 4 mg tablet 4 mg PO Q6H #12 tabs 01/06/23 [Rx Last Taken Unknown] oxycodone 5 mg tablet 5 mg PO Q6H PRN pain 3 days #12 tabs 01/06/23 [Rx Last Taken Unknown] Allergy/AdvReac Type Severity Reaction Status Date / Time Penicillins Allergy Angioedema Verified 01/06/23 08:18 Family History Mother Heart disease Hypertension Other DVT (deep venous thrombosis) Diabetes Myocardial infarction Surgical History H/O cervical spine surgery H/O right knee surgery History of coronary artery stent placement (04/10/18) History of tonsillectomy and adenoidectomy Social History Smoking Status: Never smoker Smokeless tobacco user: chewing tobacco alcohol intake: current alcohol intake frequency: a few times a month Alcohol type: beer substance use type: does not use caffeine: Yes (Occasional pop but not daily) Type: carbonated beverages ROS ROS ED Constitutional Constitutional ED: Denies chills or fever(s) Eyes Eyes: Denies blurry vision Gastrointestinal Gastrointestinal: Reports nausea; Denies abdominal pain or vomiting Musculoskeletal Musculoskeletal: Reports other Details: right knee pain Integumentary Denies Abrasions or rash Neurologic Neurologic: Denies paresthesias or weakness Hematologic/Lymphatic Hematologic/Lymphatic: Reports easy bleeding EXAM Physical Exam Const Vital Signs: 01/06/23 08:16 Temperature 97.6 F L Temperature Source Temporal Pulse Rate 105 H Respiratory Rate 18 Blood Pressure 141/97 H Blood Pressure Mean 111 Pulse Ox 99 Oxygen Delivery Method Room Air Positive well nourished and well developed General Appearance ED: well developed and NAD HEENT HEENT Narrative: No hemotympanum, no cephalhematoma. No signs of head trauma or superficial abrasions appreciated. Chronic tympanostomy tube in the right ear presents. Chest Wall inspection of chest normal Resp normal respiratory effort and clear to auscultation bilaterally Cardio regular rate and regular rhythm Cardio Narrative: 2+ right DP pulse Back/Spine Cervical Spine: Negative for cervical spine tenderness Extremity Extremity Narrative: Antalgic gait. Right knee?no significant joint effusion, pain with range of motion throughout. No specific laxity on varus or valgus stress/anterior posterior drawer test. Mild tenderness palpation of the proximal calf but no palpable cords. Normal Milligan test. Right ankle?no bony tenderness of the ankle. No significant edema of the ankle appreciated. Right elbow?normal range of motion, no bony tenderness to palpation Neuro oriented x3, moves all extremities and no sensory deficits noted Sensorium / Orientation: alert Psych mental status grossly normal MDM MDM MDM Narrative Medical decision making narrative: Patient is evaluated for right knee pain after mechanical fall this morning. While he did hit his head it seems to be of low amplitude and I do not think he requires further head imaging for rule out skull fracture or TBI. Patient is low risk for significant intracranial hemorrhage per Nexus criteria. With the patient's mechanism of injury and physical exam I do not think he requires imaging of his knee. I suspect this is more of a sprain versus meniscal injury. He does not have bony tenderness over the fibular head, tibial plateau and no deformity of the patella. He has normal extensor mechanism. I do not suspect a quadricep tendon injury. Will be treated symptomatically with RICE therapy as well as a short course of Percocet for further pain control. Up states that he has crutches he can get back and does not need new crutches at this time. Is placed in David wrap. Is given first dose of Motrin as well as oxycodone in the emergency room. States he like to follow-up with Dr. Camara. Patient is given a work note per his request. 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 He also request [facility] for with his prescriptions. This is sent Discharge Plan Triage Chief Complaint: Lower Extremity Injury ED Provider: Griselda Boswell Dx/Rx/DC Orders Clinical Impression: Right knee sprain, Fall Instructions: ED Knee Sprain Prescriptions: New ibuprofen 600 mg tablet 600 mg PO Q8H PRN (Reason: pain) Qty: 20 0RF oxycodone 5 mg tablet 5 mg PO Q6H PRN (Reason: pain) 3 Days Qty: 12 0RF ondansetron HCl 4 mg tablet 4 mg PO Q6H Qty: 12 0RF No Action azithromycin 250 mg tablet See Rx Instructions PO .COMPLEX Qty: 6 0RF Rx Instructions: For 250 mg dose pack: take 500 mg today (day 1), then 250 mg for 4 days (days 2-5) PO aspirin 81 MG tablet 81 mg PO DAILY@0800 0RF clindamycin HCl 300 mg capsule 300 mg PO TID Qty: 30 0RF tramadol 50 mg tablet 50 mg PO Q6H PRN (Reason: pain) 3 Days Qty: 12 0RF hydrocodone-acetaminophen [hydrocodone-acetaminophen] 5-325 mg tablet 1 tab PO Q6H PRN PRN (Reason: Pain) 3 Days Qty: 10 0RF tramadol 50 mg tablet 50 mg PO TID PRN (Reason: pain) Qty: 10 0RF atorvastatin 40 mg tablet 40 mg PO QHS Qty: 90 4RF clopidogrel [Plavix] 75 mg tablet 75 mg PO QDAY Qty: 90 4RF lisinopril 20 mg tablet 20 mg PO DAILY Qty: 90 4RF metoprolol succinate 50 mg tablet extended release 24 hr 50 mg PO DAILY Qty: 90 4RF testosterone cypionate [Depo-Testosterone] 100 mg/mL oil 200 mg IM Q2W Qty: 10 3RF Stand Alone Forms: ED Work / School Excuse Primary Care Provider: Andreia Boyer Referrals: Marcelo Sandy DO [Med Staff - Active Staff] - As soon as possible Andreia Boyer MD [Primary Care Provider] - Activity Restrictions/Additional Instructions: Rest, elevate and ice your knee. Wear David wrap. Only take oxycodone as needed for severe pain. Otherwise try to stick to alternate Tylenol and ibuprofen. Disposition Disposition: Home, Self Care
[2023-01-06] MEDS: Ibuprofen 600 MG Tablet PO (08:50)
[2023-01-06] MEDS: oxyCODONE 5 MG Tablet PO (08:51)
[2023-01-06] MEDS: Ondansetron ODT 4 MG Tablet PO (08:57)
== END 2023-01-06 09:03 | disposition home or self-care (01) ==
LOC: ED 08:55
PROVIDERS: Emergency Provider Emergency Medicine; PCP Internal Medicine; Visit Provider Emergency Medicine
DX: S83.91XA Sprain of unspecified site of right knee, initial encounter (principal); I25.10 Atherosclerotic heart disease of native coronary artery without angina pectoris; I10 Essential (primary) hypertension; E78.5 Hyperlipidemia, unspecified; Z79.899 Other long term (current) drug therapy; Z79.82 Long term (current) use of aspirin; I25.2 Old myocardial infarction; Z95.5 Presence of coronary angioplasty implant and graft; F17.220 Nicotine dependence, chewing tobacco, uncomplicated; W01.198A Fall on same level from slipping, tripping and stumbling with subsequent striking against other object, initial encounter
CPT/HCPCS: 99283

== ENCOUNTER 2023-05-23 07:42 | Emergency (ER) | payer BC, SELFPAY ==
[2017-06-09 13:21] VITALS: BMI 40.8
[2023-05-23 07:43] VITALS: BP 163/95; PULSE 98; RESP 16; TEMP 36.2; O2SAT 97; BMI 44.2
--- NOTE | 2023-05-23 07:56 | ED.VIS.GI ---
HPI HPI - GI History of Present Illness Chief Complaint: Abd Pain Informant: patient Abdominal Pain/Flank Pain Onset: Today Context: Sudden Onset Timing: Continuous Quality: Sharp and Stabbing Location: LLQ Worsened by: - (Coughing) Relieved by: Nothing Nausea/Vomiting/Emesis GI Symptom: Negative for Nausea or Vomiting Diarrhea/Melena/Hematochezia GI Symptom: Negative for Diarrhea, Melena or Hematochezia Associated Symptoms Associated Symptoms: Negative for Dysuria, Frequency or Hematuria Narrative Narrative: Patient presents with abdominal pain that began today. Patient states it began rather suddenly while coughing. Patient states the pain is constant. Patient states it is worse with coughing. Patient states it is over the left lower abdomen. Patient states it is sharp and stabbing. Patient denies any nausea or vomiting. Patient denies any diarrhea, melena, or hematochezia. Patient denies any dysuria, frequency, or hematuria. Patient states he recently tested positive for COVID-19 on 05/16/2023. Patient denies any fevers or chills. PFSH PFS Medical History Acute otitis media, bilateral Arthritis Atherosclerosis of coronary artery of [place] heart without angina pectoris Back pain COVID-19 (~05/22/20) COVID-19 virus detected (05/22/20) Essential (primary) hypertension GERD (gastroesophageal reflux disease) History of kidney stones Hyperlipidemia Morbid obesity Non-ST elevation (NSTEMI) myocardial infarction (06/09/17) Seasonal allergies Home Medications aspirin 81 mg tablet,delayed release 81 mg PO DAILY@0800 06/10/17 [Rx Last Taken 04/09/18] atorvastatin 40 mg tablet 40 mg PO QHS #90 tabs 09/23/22 [Rx Last Taken Unknown] clopidogrel 75 mg tablet (Plavix) 75 mg PO QDAY #90 tabs 09/23/22 [Rx Last Taken Unknown] lisinopril 20 mg tablet 20 mg PO DAILY #90 tabs 09/23/22 [Rx Last Taken Unknown] metoprolol succinate 50 mg tablet,extended release 24 hr 50 mg PO DAILY #90 tabs 09/23/22 [Rx Last Taken Unknown] testosterone cypionate 100 mg/mL intramuscular oil (Depo-Testosterone) 200 mg (2 mL) IM Q2W #10 mL 12/30/22 [Rx Last Taken Unknown] oxycodone 5 mg tablet 5 mg PO Q6H PRN pain 3 days #12 tabs 01/06/23 [Rx Last Taken Unknown] azithromycin 250 mg tablet 250 mg PO QDAY #12 tabs 04/19/23 [Rx Last Taken Unknown] benzonatate 200 mg capsule 200 mg PO TID PRN cough #20 caps 05/17/23 [Rx Last Taken Unknown] dexamethasone 6 mg tablet 6 mg PO DAILY #5 tabs 05/17/23 [Rx Last Taken Unknown] albuterol sulfate 90 mcg/actuation aerosol inhaler 2 puff inhalation Q6H PRN shortness of breath or wheezing #6.7 grams 05/18/23 [Rx Last Taken Unknown] hydrocodone-acetaminophen 5-325mg 5mg-325mg 1 tab PO Q6H PRN PRN Pain 3 days #10 TABLETS 05/23/23 [Rx Last Taken Unknown] Allergy/AdvReac Type Severity Reaction Status Date / Time Penicillins Allergy Angioedema Verified 05/23/23 07:44 Family History Mother Heart disease Hypertension Other DVT (deep venous thrombosis) Diabetes Myocardial infarction Surgical History H/O cervical spine surgery H/O right knee surgery History of coronary artery stent placement (04/10/18) History of tonsillectomy and adenoidectomy Social History Smoking Status: Never smoker Smokeless tobacco user: chewing tobacco alcohol intake: current alcohol intake frequency: a few times a month Alcohol type: beer substance use type: does not use caffeine: Yes (Occasional pop but not daily) Type: carbonated beverages ROS ROS ED Constitutional Constitutional ED: Denies chills or fever(s) Eyes Eyes: Denies blurry vision or change in vision ENT ENT ED: Denies rhinorrhea or sore throat Cardiovascular Cardiovascular: Denies chest pain or palpitations Respiratory/Chest Respiratory/Chest: Reports cough and dyspnea Gastrointestinal Gastrointestinal: Reports abdominal pain; Denies diarrhea, melena, nausea or vomiting Genitourinary Genitourinary ED: Denies dysuria or hematuria Musculoskeletal Musculoskeletal: Denies back pain or neck pain Integumentary Denies abscess or rash Neurologic Neurologic: Denies headache(s) or weakness Allergic/Immunologic Allergic/Immunologic ED: Denies mouth swelling or urticaria EXAM Physical Exam Const Vital Signs: 05/23/23 07:43 Temperature 97.2 F L Temperature Source Temporal Pulse Rate 98 Respiratory Rate 16 Blood Pressure 163/95 H Blood Pressure Mean 117 Pulse Ox 97 Oxygen Delivery Method Room Air Positive well nourished, well developed and obese General Appearance ED: well developed and NAD Nutritional Appearance: obese HEENT Reports moist mucous membranes Neck supple and no JVD Resp normal respiratory effort Auscultation: rhonchi throughout Cardio regular rate and regular rhythm GI non-distended Palpation: soft and tender LLQ; Negative for guarding or rebound tenderness present Back/Spine no CVA tenderness Neuro CN's II-XII intact bilaterally, moves all extremities and no sensory deficits noted Sensorium / Orientation: alert Motor Exam: strength 5/5 throughout Psych mental status grossly normal MDM MDM MDM Narrative Medical decision making narrative: Differential diagnosis includes abdominal strain, diverticulitis, bowel obstruction, perforation, COVID-19 infection, pneumonia, ureteral calculus, urinary tract infection. CT scan of the abdomen pelvis will be obtained to assess for ureteral calculus, bowel obstruction, perforation, diverticulitis. Chest x-ray will be obtained to assess for pneumonia and pneumothorax. CBC will be obtained to assess for leukocytosis and anemia. Basic metabolic profile will be obtained to assess for electrolyte abnormality and renal function. Urinalysis will be obtained to assess for urinary tract infection and hematuria. Lab Data Attestation: I reviewed the patient's lab results. Lab results narrative: CBC was reviewed and was within normal limits. Basic metabolic profile was reviewed and was within normal limits. Urinalysis was reviewed. There is no evidence of urinary tract infection or hematuria. Labs: Laboratory Results - last 24 hr 05/23/23 05/23/23 08:30 08:46 WBC 9.7 RBC 5.00 Hgb 15.7 Hct 45.9 MCV 91.8 MCH 31.4 MCHC 34.2 RDW Std Deviation 45.9 H RDW Coeff of Dora 13.6 Plt Count 204 MPV 9.9 Immature Gran % (Auto) 1.800 H Neut % (Auto) 64.1 Lymph % (Auto) 22.0 [place] % (Auto) 9.2 Eos % (Auto) 2.6 Baso % (Auto) 0.3 Absolute Neuts (auto) 6.2 Absolute Lymphs (auto) 2.12 Nucleated RBC % 0 Sodium 139 Potassium 3.8 Chloride 104 Carbon Dioxide 31.0 Anion Gap 4 L BUN 22 H Creatinine 0.92 Estim Creat Clear Calc 111.40 Est GFR (MDRD) Af Amer 116 Est GFR (MDRD) Non-Af 96 BUN/Creatinine Ratio 24.0 H Glucose 167 H Calcium 8.4 L Urine Color Yellow Urine Clarity Clear Urine pH 6.0 Ur Specific [place] 1.020 Urine Protein Negative Urine Glucose (UA) Normal Urine Ketones Negative Urine Occult Blood Negative Urine Nitrite Negative Urine Bilirubin Negative Urine Urobilinogen Normal Ur Leukocyte Esterase Negative Urine RBC 0 SEEN Urine WBC 0 SEEN Ur Squamous Epith Cells 0-5 SEEN Urine Bacteria 0 SEEN Urine Mucus 0 SEEN Radiography Chest X-Ray - ED: 2 View, Read by ED Physician, Read by Radiologist and No Acute Disease Diagnostic Testing: Clinical Impression(s) from Imaging Studies Abdomen/Pelvis CT 05/23/23 08:13 IMPRESSION: 1. Hepatomegaly and hepatic steatosis. 2. No focal acute inflammatory process. 3. Stable small left adrenal nodule likely due to adenoma. Electronically Signed: Chavez Blum MD at 9:32 EST , Chest X-Ray 05/23/23 09:36 IMPRESSION: No radiographic evidence of acute cardiopulmonary disease. Electronically Signed: Chavez Blum MD at 10:16 EST , PA and lateral chest x-ray was obtained. There are 2 views. On my independent interpretation, lung cisneros are clear. There is normal cardiac silhouette. Bony thorax is normal. There is no acute process noted. Radiologist also interpreted the x-ray and agrees. CT scan of the abdomen pelvis was obtained. There is no ureteral calculus. There is no free air or free fluid. There is no evidence of bowel obstruction or perforation. There is no acute abnormality noted. There is some hepatomegaly and hepatic steatosis. This was interpreted by the radiologist and was also independently reviewed by myself. Treatment and Re-Evaluation :: Patient was given IV fluids and morphine. Patient had minimal relief of his pain with morphine. Patient was given a dose of Toradol. Patient was feeling better after this. Patient was advised of his findings. Patient was given a prescription for a short course of [place]. Patient was advised that this will also help with his cough. Patient was instructed to use ice to his abdomen. Patient was instructed to follow-up with his primary care physician in 5 to 7 days. Patient understood and was agreeable with the plan. All questions were answered. Discharge Plan Triage Chief Complaint: Abd Pain ED Provider: Lloyd Maravilla Dx/Rx/DC Orders Clinical Impression: COVID-19, Abdominal muscle strain Instructions: ED Muscle Strain, Abdomen Prescriptions: New hydrocodone-acetaminophen [hydrocodone-acetaminophen] 5-325 mg tablet 1 tab PO Q6H PRN PRN (Reason: Pain) 3 Days Qty: 10 0RF No Action azithromycin 250 mg tablet 250 mg PO QDAY Qty: 12 0RF Rx Instructions: 2 tablets today, then 1 tablet daily on days 2 through 11 dexamethasone 6 mg tablet 6 mg PO DAILY Qty: 5 0RF benzonatate 200 mg capsule 200 mg PO TID PRN (Reason: cough) Qty: 20 0RF albuterol sulfate 90 mcg/actuation HFA aerosol inhaler 2 puff inhalation Q6H PRN (Reason: shortness of breath or wheezing) Qty: 6.7 0RF aspirin 81 MG tablet 81 mg PO DAILY@0800 0RF oxycodone 5 mg tablet 5 mg PO Q6H PRN (Reason: pain) 3 Days Qty: 12 0RF atorvastatin 40 mg tablet 40 mg PO QHS Qty: 90 4RF clopidogrel [Plavix] 75 mg tablet 75 mg PO QDAY Qty: 90 4RF lisinopril 20 mg tablet 20 mg PO DAILY Qty: 90 4RF metoprolol succinate 50 mg tablet extended release 24 hr 50 mg PO DAILY Qty: 90 4RF testosterone cypionate [Depo-Testosterone] 100 mg/mL oil 200 mg IM Q2W Qty: 10 3RF Primary Care Provider: Andreia Boyer Referrals: Andreia Boyer MD [Primary Care Provider] - 5-7 Days Disposition Disposition: Home, Self Care
--- NOTE | 2023-05-23 08:13 | CT_ITS ---
INDICATION: Pain EXAMINATION: CT ABDOMEN AND PELVIS WITHOUT CONTRAST - CT Abdomen And Pelvis W/O Contrast Injection TECHNIQUE: Helically acquired images were obtained of the abdomen and pelvis without oral or IV contrast. A radiation dose optimization technique was used for this scan. IV Contrast dosage and agent: None. Oral contrast: None. RADIATION DOSAGE (If Supplied By Facility): CTDIvol = ( 23.08 ) mGy, DLP = ( 1291.80 ) mGycm COMPARISON: Prior study dated: 12/15/2022 FINDINGS: LOWER CHEST: Mild atelectasis or scarring in the right midlung seen on the first image. No cardiomegaly or pericardial effusion. LIVER: Diffuse hepatic steatosis. Hepatomegaly. No focal mass. GALLBLADDER AND BILIARY TREE: No calcified gallstones. No gallbladder distension or wall edema. No intra- or extrahepatic biliary ductal dilation. PANCREAS: No focal cystic or solid mass. SPLEEN: Normal size without focal cystic or solid mass. ADRENAL GLANDS: Stable 1.3 cm low-density left adrenal nodule likely representing an adenoma unchanged. Unremarkable right adrenal gland. KIDNEYS AND URETERS: Normal renal size and position. No hydronephrosis. PERITONEUM: No ascites or free air. No other fluid collection. BOWEL: No evidence of acute appendicitis. No stomach or bowel distension. Fecal retention. No evidence of acute diverticulitis. LYMPH NODES: No enlarged mesenteric or retroperitoneal lymph nodes. VESSELS: Aorta is non-dilated. URINARY BLADDER: Unremarkable. REPRODUCTIVE ORGANS: No pelvic masses. ABDOMINAL WALL: Small right inguinal hernia containing fat. Diastases of the anterior rectus muscles. BONES: No lytic or blastic abnormality. CT/Abdomen/Pelvis without Cont IMPRESSION: 1. Hepatomegaly and hepatic steatosis. 2. No focal acute inflammatory process. 3. Stable small left adrenal nodule likely due to adenoma. Electronically Signed: Chavez Blum MD at 9:32 EST ,
[2023-05-23] MEDS: 0.9% Normal Saline (1000mL) 1,000 ML 1000 ML IV (08:31)
[2023-05-23] MEDS: Morphine 4 MG/ML Syringe IV (08:31)
[2023-05-23 08:49] LABS: Absolute Lymphocyte Count 2.12 X10^3/uL (0.83-4.51); Absolute Neutrophil Count 6.2 X10^3/uL (2.0-7.7); Basophil# 0.03 X10^3/uL; Basophil% 0.3 % (0-1); Eosinophil# 0.25 X10^3/uL; Eosinophils% 2.6 % (0-5); Hematocrit 45.9 % (40-54); Hemoglobin 15.7 g/dL (13.0-16.5); Lymphocyte # 2.12 X10^3/ul (0.83-4.51); Mean Corp Hgb Conc 34.2 g/dL (32-36); Mean Corpuscular Hgb 31.4 pg (27.0-32.0); Mean Corpuscular Volume 91.8 fL (80-94); Mean Platelet Vol. 9.9 fl (6.2-12.0); Monocyte# 0.89 X10^3/uL; Monocyte% 9.2 % (0-10); NRBC Flagged by Analyzer 0 % (0-5); Neutrophil # 6.19 X10^3/uL (2.7-7.7); Neutrophil % 64.1 % (47-70); Platelet Count 204 K/mm3 (150-450); RBC Distribution Width CV 13.6 % (11.6-14.6); RBC Distribution Width SD 45.9 fl (35.1-43.9); White Blood Count 9.7 K/mm3 (4.4-11.0)
[2023-05-23 08:49] LABS: Bacteria 0 SEEN /hpf (None Seen); Mucous, Urine 0 SEEN /hpf (<or=2+); Red Blood Cells-Urine 0 SEEN /hpf (0-5); White Blood Cells 0 SEEN /hpf (0-5)
[2023-05-23 08:57] LABS: Color, Urine Yellow (Yellow); Glucose, Dipstick Normal (Normal); Ketone-Dipstick Negative (Negative); Leukocyte Esterase-Dipstick Negative /ul (Negative); Nitrite-Dipstick Negative (Negative); Occult Blood-Urine Negative /ul (Negative); Protein-Dipstick Negative (Negative); Urine Bilirubin Dipstick Negative (Negative); Urine Clarity Clear (Clear); Urine Urobilinogen Normal (Normal)
[2023-05-23 09:05] LABS: Squamous Epithelial Cells - UA 0-5 SEEN /hpf (0-5)
[2023-05-23 09:07] LABS: Anion Gap 4 (5-15); BUN 22 mg/dL (7-18); Calcium,Total 8.4 mg/dL (8.5-10.1); Chloride 104 mmol/L (98-107); Creatinine, Serum 0.92 mg/dL (0.70-1.30); EST Glomerular Filtration Rate 96 mL/min (>60); Est Glom Filt Rate - Afr Amer 116 mL/min (>60); Glucose 167 mg/dL (74-106); Potassium 3.8 mmol/L (3.5-5.1); Sodium Level 139 mmol/L (136-145)
--- NOTE | 2023-05-23 09:36 | RAD_ITS ---
INDICATION: Cough EXAMINATION/TECHNIQUE: X-RAY - XR Chest 2 Views COMPARISON: Prior study dated: 05/23/2022. FINDINGS: LINES/DEVICES: None. LUNGS: No consolidation, edema or effusion. No pneumothorax. MEDIASTINUM AND CARDIOVASCULAR STRUCTURES: Cardiac silhouette not enlarged. Central airways and mediastinal contour are unremarkable. BONES AND SOFT TISSUES: Mild anterior wedging of lower thoracic vertebrae appears to be chronic. Anterior fusion of the lower cervical spine. RAD/Chest PA and Lateral IMPRESSION: No radiographic evidence of acute cardiopulmonary disease. Electronically Signed: Chavez Blum MD at 10:16 EST ,
[2023-05-23] MEDS: Ketorolac 30 MG/ML Syringe IV (10:23)
[2023-05-23 10:54] VITALS: BP 149/91; PULSE 88; RESP 18; O2SAT 98
== END 2023-05-23 10:58 | disposition home or self-care (01) ==
PROVIDERS: Emergency Provider Emergency Medicine; PCP Internal Medicine; Visit Provider Emergency Medicine
DX: U07.1 COVID-19 (principal); S39.011A Strain of muscle, fascia and tendon of abdomen, initial encounter; I25.10 Atherosclerotic heart disease of native coronary artery without angina pectoris; I10 Essential (primary) hypertension; E78.5 Hyperlipidemia, unspecified; I25.2 Old myocardial infarction; I5A Non-ischemic myocardial injury (non-traumatic); Z79.899 Other long term (current) drug therapy; Z79.82 Long term (current) use of aspirin; Z79.02 Long term (current) use of antithrombotics/antiplatelets; Z95.5 Presence of coronary angioplasty implant and graft; F17.220 Nicotine dependence, chewing tobacco, uncomplicated
CPT/HCPCS: 71046; 74176; 80048; 81001; 85025; 96361; 96374; 96375; 99283; J7030; A4216

== ENCOUNTER 2023-12-07 11:31 | Emergency (ER) | payer BC, SELFPAY ==
[2017-06-09 13:21] VITALS: BMI 40.8
[2023-12-07 11:31] VITALS: BP 142/87; PULSE 79; RESP 14; TEMP 36.6; O2SAT 98; BMI 38.6
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
== END 2023-12-07 12:30 | disposition home or self-care (01) ==
PROVIDERS: Emergency Provider Emergency Medicine; PCP Internal Medicine; Visit Provider Emergency Medicine
DX: S66.912A Strain of unspecified muscle, fascia and tendon at wrist and hand level, left hand, initial encounter (principal); I25.10 Atherosclerotic heart disease of native coronary artery without angina pectoris; I10 Essential (primary) hypertension; E78.5 Hyperlipidemia, unspecified; I25.2 Old myocardial infarction; Z79.82 Long term (current) use of aspirin; Z79.899 Other long term (current) drug therapy; Z79.02 Long term (current) use of antithrombotics/antiplatelets; Z95.5 Presence of coronary angioplasty implant and graft; S63.92XA Sprain of unspecified part of left wrist and hand, initial encounter; X58.XXXA Exposure to other specified factors, initial encounter
CPT/HCPCS: 73130; 99282

== ENCOUNTER 2024-01-08 16:29 | Emergency (ER) | payer BC, SELFPAY ==
[2017-06-09 13:21] VITALS: BMI 40.8
[2024-01-08 16:31] VITALS: BP 117/68; PULSE 100; RESP 20; TEMP 36.2; O2SAT 96
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
--- NOTE | 2024-01-08 17:14 | CT_ITS ---
EXAM: CT HEAD WITHOUT INTRAVENOUS CONTRAST CLINICAL INDICATION: HEAD INJURY TECHNIQUE: Multiple axial images were obtained of the head without intravenous contrast. This CT exam was performed using one or more of the following dose reduction techniques: automated exposure control, adjustment of the mA and/or kV according to patient size, and/or use of iterative reconstruction technique. RADIATION DOSE: CTDIvol = 44.99 mGy, DLP = 863.60 mGy-cm COMPARISON: No relevant prior studies available. FINDINGS: BRAIN AND EXTRA-AXIAL SPACES: Unremarkable. No intra- or extra-axial hemorrhage. No evidence of acute infarct. No intracranial mass or mass effect. There is preservation of the verdugo/white matter interface. Posterior fossa structures are unremarkable. Ventricles are appropriate for age. No hydrocephalus. Basal cisterns are patent. BONES/JOINTS: Unremarkable. No discrete lytic or blastic abnormalities. SINUSES: Unremarkable as visualized. Clear. MASTOID AIR CELLS: Unremarkable. Clear. ORBITS: Visualized globes, extraocular muscles, optic nerves and retrobulbar fat appear unremarkable. CT/Brain/Head without Contrast IMPRESSION: Negative head/brain CT without intravenous contrast. Electronically Signed: Luke Baig MD at 18:35 EDT ,
[2024-01-08] MEDS: Ondansetron 4 MG/2 ML Vial IV (17:21)
[2024-01-08] MEDS: Morphine 4 MG/ML Syringe IV (17:21)
[2024-01-08 17:29] LABS: Absolute Neutrophil Count 10.6 X10^3/uL (2.0-7.7); Basophil# 0.09 X10^3/uL; Basophil% 0.6 % (0-1); Eosinophils% 1.4 % (0-5); Hematocrit 49.8 % (40-54); Hemoglobin 16.5 g/dL (13.0-16.5); Lymphocyte % 13.5 % (19-41); Mean Corp Hgb Conc 33.1 g/dL (32-36); Mean Corpuscular Hgb 31.3 pg (27.0-32.0); Mean Corpuscular Volume 94.3 fL (80-94); Mean Platelet Vol. 10.8 fl (6.2-12.0); Monocyte# 1.22 X10^3/uL; Monocyte% 8.7 % (0-10); NRBC Flagged by Analyzer 0 % (0-5); Neutrophil # 10.64 X10^3/uL (2.7-7.7); Neutrophil % 75.4 % (47-70); Platelet Count 259 K/mm3 (150-450); RBC Distribution Width CV 12.9 % (11.6-14.6); RBC Distribution Width SD 44.2 fl (35.1-43.9); Red Blood Count 5.28 M/mm3 (4.6-6.2); White Blood Count 14.1 K/mm3 (4.4-11.0)
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
[2024-01-08 17:42] LABS: Anion Gap 9 (5-15); BUN 14 mg/dL (7-18); BUN/Creat Ratio 16.9 RATIO (10-20); Calcium,Total 8.7 mg/dL (8.5-10.1); Chloride 104 mmol/L (98-107); Creatinine, Serum 0.83 mg/dL (0.70-1.30); EST Glomerular Filtration Rate 107 mL/min (>60); Est Glom Filt Rate - Afr Amer 130 mL/min (>60); Glucose 115 mg/dL (74-106); Sodium Level 138 mmol/L (136-145)
--- NOTE | 2024-01-08 18:10 | RAD_ITS ---
EXAM: XR LEFT HAND COMPLETE, 3 OR MORE VIEWS CLINICAL INDICATION: injury TECHNIQUE: Frontal, lateral and oblique views of the left hand. COMPARISON: No relevant prior studies available. FINDINGS: BONES/JOINTS: Unremarkable. No acute fracture. No subluxation. Normal alignment. Preservation of the joint space. No sclerotic or destructive changes observed. SOFT TISSUES: Unremarkable. No soft tissue swelling or gas. No radiopaque foreign body. RAD/Hand Min 3 Views IMPRESSION: Negative left hand x-rays. Electronically Signed: Luke Baig MD at 18:29 EDT ,
--- NOTE | 2024-01-08 18:22 | ED.RN ---
THIS RN INTO MEDICATE PT . PT AGREEABLE BUT THEN STATES MORPHINE DOES NOT WORK. MEDICATION WASTED. DR LAWRENCE
[2024-01-08] MEDS: HYDROmorphone 1 MG/ML Syringe IV (18:34)
[2024-01-08 19:50] VITALS: BP 145/78; PULSE 87; RESP 16; TEMP 36.6; O2SAT 99
== END 2024-01-08 19:51 | disposition home or self-care (01) ==
PROVIDERS: Physician Assistant; Emergency Provider Emergency Medicine; PCP Internal Medicine; Visit Provider Emergency Medicine
DX: S00.01XA Abrasion of scalp, initial encounter (principal); I25.10 Atherosclerotic heart disease of native coronary artery without angina pectoris; E78.5 Hyperlipidemia, unspecified; S30.1XXA Contusion of abdominal wall, initial encounter; I10 Essential (primary) hypertension; I25.2 Old myocardial infarction; Z79.01 Long term (current) use of anticoagulants; Z79.899 Other long term (current) drug therapy; Z79.82 Long term (current) use of aspirin; Z95.5 Presence of coronary angioplasty implant and graft; F17.220 Nicotine dependence, chewing tobacco, uncomplicated; V89.0XXA Person injured in unspecified motor-vehicle accident, nontraffic, initial encounter
CPT/HCPCS: 70450; 71260; 72125; 73130; 74177; 80048; 85025; 96374; 96375; 99282; Q9967; A4216; J2405

== ENCOUNTER 2024-01-10 07:40 | Emergency (ER) | payer BC, SELFPAY ==
[2017-06-09 13:21] VITALS: BMI 40.8
[2024-01-10 07:41] VITALS: BP 133/84; BP 134/79; PULSE 105; RESP 11; RESP 16; TEMP 36.6; O2SAT 95; O2SAT 96; BMI 38.0
--- NOTE | 2024-01-10 08:01 | CT_ITS ---
STUDY: CT ABDOMEN AND PELVIS WITH CONTRAST REASON FOR EXAM: Male, 43 years old. Hematoma R flank reeval - ? persistent bleeding RADIATION DOSAGE (If Supplied By Facility): CTDIvol = ( 15.22 ) mGy, DLP = ( 1363.07 ) mGycm TECHNIQUE: Transaxial images were obtained from the dome of the diaphragm to the symphysis pubis without oral contrast. IV 100mL Isovue-[id number] was administered. Sagittal and coronal images were reconstructed. Individualized dose optimization techniques were used for this CT. COMPARISON: Comparison is made with prior study dated January 08, 2024. FINDINGS: The visualized lung bases are unremarkable. Coronary artery calcification. There is decreased attenuation of the liver consistent with steatosis. Normal gallbladder and extrahepatic biliary system. Normal spleen. Normal pancreas. Normal bilateral adrenal glands. Normal right kidney. Normal left kidney. Normal visualized stomach. Normal small intestine. There are multiple colonic diverticula consistent with diverticulosis. The appendix is visualized and appears normal. Normal abdominal aorta. Normal inferior vena cava. Normal retroperitoneum. Normal urinary bladder. Once again, there is a large hematoma overlying the right lateral inferior abdominal wall hematoma of varying degrees of resorption. There is evidence of increased markings in the subcutaneous fat. There has been slight progression in the overall size as compared to prior study. The subcutaneous edema extends into the medial aspect of the proximal right thigh. Normal osseous structures. CT/Abdomen/Pelvis W IV Cont ONLY IMPRESSION: Mild progression in the size of the hematoma overlying the lateral mid inferior portion of the right abdominal wall with extension into the proximal right thigh. The remainder of the examination is unchanged. Electronically Signed: Elie Kumar MD at 10:42 EDT ,
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
[2024-01-10 08:22] LABS: Absolute Lymphocyte Count 1.24 X10^3/uL (0.83-4.51); Absolute Neutrophil Count 6.8 X10^3/uL (2.0-7.7); Basophil# 0.06 X10^3/uL; Basophil% 0.6 % (0-1); Eosinophil# 0.16 X10^3/uL; Eosinophils% 1.7 % (0-5); Hematocrit 46.4 % (40-54); Hemoglobin 15.2 g/dL (13.0-16.5); Lymphocyte # 1.24 X10^3/ul (0.83-4.51); Lymphocyte % 13.3 % (19-41); Mean Corp Hgb Conc 32.8 g/dL (32-36); Mean Corpuscular Hgb 30.9 pg (27.0-32.0); Mean Corpuscular Volume 94.3 fL (80-94); Mean Platelet Vol. 10.7 fl (6.2-12.0); Monocyte# 0.98 X10^3/uL; Monocyte% 10.5 % (0-10); NRBC Flagged by Analyzer 0 % (0-5); Neutrophil # 6.83 X10^3/uL (2.7-7.7); Neutrophil % 73.4 % (47-70); Platelet Count 221 K/mm3 (150-450); RBC Distribution Width CV 12.5 % (11.6-14.6); RBC Distribution Width SD 43.6 fl (35.1-43.9); Red Blood Count 4.92 M/mm3 (4.6-6.2); White Blood Count 9.3 K/mm3 (4.4-11.0)
[2024-01-10 09:45] VITALS: BP 139/84; PULSE 81; RESP 16; TEMP 36.4; O2SAT 97
[2024-01-10 09:47] LABS: Anion Gap 4 (5-15); BUN 6 mg/dL (7-18); BUN/Creat Ratio 8.9 RATIO (10-20); Calcium,Total 8.5 mg/dL (8.5-10.1); Chloride 101 mmol/L (98-107); Creatinine, Serum 0.67 mg/dL (0.70-1.30); EST Glomerular Filtration Rate 137 mL/min (>60); Est Glom Filt Rate - Afr Amer 165 mL/min (>60); Estimated Creatinine Clearance 190.34 ml/min; Glucose 105 mg/dL (74-106); Potassium 4.2 mmol/L (3.5-5.1); Sodium Level 135 mmol/L (136-145)
[2024-01-10 11:00] VITALS: BP 108/62; PULSE 88; O2SAT 95
[2024-01-10 11:23] VITALS: BP 108/62; PULSE 88; RESP 17; TEMP 36.6; O2SAT 95
== END 2024-01-10 11:29 | disposition home or self-care (01) ==
PROVIDERS: Emergency Provider Emergency Medicine; PCP Internal Medicine; Visit Provider Emergency Medicine
DX: S30.1XXA Contusion of abdominal wall, initial encounter (principal); Z79.02 Long term (current) use of antithrombotics/antiplatelets; E78.5 Hyperlipidemia, unspecified; Z95.5 Presence of coronary angioplasty implant and graft; I10 Essential (primary) hypertension; I25.10 Atherosclerotic heart disease of native coronary artery without angina pectoris; V89.2XXA Person injured in unspecified motor-vehicle accident, traffic, initial encounter; I25.2 Old myocardial infarction; Z79.82 Long term (current) use of aspirin; Z79.899 Other long term (current) drug therapy; F17.220 Nicotine dependence, chewing tobacco, uncomplicated
CPT/HCPCS: 74177; 80048; 85025; 99282; Q9967; A4216

== ENCOUNTER 2024-10-28 21:03 | Emergency (ER) | payer OTHER, SELFPAY ==
[2017-06-09 13:21] VITALS: BMI 40.8
[2024-10-28 21:03] VITALS: BP 133/85; PULSE 97; RESP 16; TEMP 36.8; O2SAT 98; BMI 40.1
--- NOTE | 2024-10-28 21:08 | EKG12_ITS ---
Test Reason : CP Blood Pressure : */* mmHG Vent. Rate : 89 BPM Atrial Rate : 89 BPM P-R Int : 160 ms QRS Dur : 100 ms QT Int : 380 ms P-R-T Axes : 22 48 41 degrees QTcB Int : 462 ms Normal sinus rhythm Normal ECG Confirmed by LAURI CENTENO, ALEX ([id number]), editorial specialist KONSTANTIN BOSWELL ([id number]) on 10/30/2024 7:37:41 AM Referred By: Confirmed By: ALEX CARREON MD
[2024-10-28 21:15] VITALS: O2SAT 96
[2024-10-28 21:20] LABS: Absolute Lymphocyte Count 1.56 X10^3/uL (0.83-4.51); Absolute Neutrophil Count 2.5 X10^3/uL (2.0-7.7); Basophil# 0.03 X10^3/uL; Basophil% 0.6 % (0-1); Eosinophil# 0.26 X10^3/uL; Hematocrit 44.8 % (40-54); Lymphocyte # 1.56 X10^3/ul (0.83-4.51); Lymphocyte % 30.3 % (19-41); Mean Corp Hgb Conc 35.7 g/dL (32-36); Mean Corpuscular Hgb 32.1 pg (27.0-32.0); Mean Platelet Vol. 10.2 fl (6.2-12.0); Monocyte# 0.76 X10^3/uL; Monocyte% 14.8 % (0-10); NRBC Flagged by Analyzer 0 % (0-5); Neutrophil # 2.53 X10^3/uL (2.7-7.7); Neutrophil % 49.1 % (47-70); Platelet Count 190 K/mm3 (150-450); RBC Distribution Width CV 12.5 % (11.6-14.6); RBC Distribution Width SD 40.9 fl (35.1-43.9); Red Blood Count 4.98 M/mm3 (4.6-6.2); White Blood Count 5.2 K/mm3 (4.4-11.0)
--- NOTE | 2024-10-28 21:30 | RAD_ITS ---
PROCEDURE: CHEST 1 VIEW (PORTABLE) 10/28/2024 REASON FOR EXAM: CHEST PAIN TECHNIQUE: Frontal view of the chest. COMPARISON: 05/23/2023 FINDINGS: No focal consolidations. No pleural effusion or pneumothorax. Cardiac silhouette is unchanged in size. No acute fractures. Cervical ACDF. RAD/Chest 1 View (Portable) IMPRESSION: No focal consolidations. Reading Location: [id number]
[2024-10-28 21:47] LABS: Anion Gap 12 (5-15); BUN 15 mg/dL (4-19); BUN/Creat Ratio 16.8 RATIO (10-20); Calcium,Total 8.8 mg/dL (7.6-11.0); Carbon Dioxide 23.6 mmol/L (21.0-32.0); Chloride 101 mmol/L (98-108); Creatinine, Serum 0.89 mg/dL (0.70-1.20); EST Glomerular Filtration Rate 108 (>60); Estimated Creatinine Clearance 145.95 ml/min (50-250); Glucose 102 mg/dL (70-99); Potassium 3.8 mmol/L (3.3-5.1); Sodium Level 136 mmol/L (133-145); Troponin T High Sensitivity < 6 ng/L (<=22)
[2024-10-28 22:03] VITALS: BP 108/69; PULSE 80; RESP 12; O2SAT 94
--- NOTE | 2024-10-28 22:40 | EX.ED.DYSGE1 ---
HPI History of Present Illness Chief Complaint: Chest Pain Detail of Chief Complaint: Abdominal pain. Nausea and vomiting. Informant: patient Onset/Context/Timing Onset: Days Context: Gradual Onset Timing: Intermittent Current Severity: Mild Maximum Severity: Mild Narrative Narrative: 44-year-old male history of CAD with 3 stents. Kidney stones prior HI on aspirin and Plavix. Patient been seen in the emergency department recently with negative workup. Said over the last week has had nausea vomiting intermittent abdominal pain. Today has had some chest discomfort for 6 hours. Says not like his typical cardiac chest pain. He denies any fever. Denies dysuria. He is concerned this may be his gallbladder. He said the pain tonight was more of a burning in his upper abdomen and chest but he got better when he sat up. It was not associated with exertion. He denies any melena. Denies any prior abdominal surgeries. Prior similar symptoms: Yes Recent Illness/Hospitalization: No [facility] Medical History Acute otitis media, bilateral History of kidney stones Arthritis Seasonal allergies Back pain COVID-19 virus detected (05/22/20) COVID-19 (~05/22/20) GERD (gastroesophageal reflux disease) Essential (primary) hypertension Hyperlipidemia Atherosclerosis of coronary artery of [place] heart without angina pectoris Non-ST elevation (NSTEMI) myocardial infarction (06/09/17) Morbid obesity Home Medications ?Medication ?Instructions ?Recorded ?Last Taken ?Type aspirin 81 mg tablet,delayed 81 mg PO DAILY@0800 06/10/17 04/09/18 Rx release albuterol sulfate 90 mcg/actuation 2 puff inhalation Q6H PRN 05/18/23 Unknown Rx aerosol inhaler shortness of breath or wheezing #6.7 grams clopidogrel 75 mg tablet 75 mg PO DAILY #90 TABLETS 09/24/24 Unknown Rx lisinopril 20 mg tablet 20 mg PO DAILY #90 TABLETS 09/24/24 Unknown Rx metoprolol succinate 50 mg 50 mg PO DAILY #90 TABLETS 09/24/24 Unknown Rx tablet,extended release 24 hr atorvastatin 40 mg tablet 40 mg PO QHS #90 TABLETS 10/25/24 Unknown Rx Allergy/AdvReac Type Severity Reaction Status Date / Time Penicillins Allergy Angioedema Verified 10/28/24 21:04 Family History Mother Heart disease Hypertension Other DVT (deep venous thrombosis) Diabetes Myocardial infarction Surgical History History of tonsillectomy and adenoidectomy H/O right knee surgery H/O cervical spine surgery History of coronary artery stent placement (04/10/18) Social History Smoking Status: Never smoker Smokeless tobacco user: chewing tobacco alcohol intake: current alcohol intake frequency: a few times a month Alcohol type: beer substance use type: does not use caffeine: Yes (Occasional pop but not daily) Type: carbonated beverages ROS ROS ED ROS Narrative Atypical noncardiac sounding chest pain. Abdominal discomfort burning epigastric. Nausea and vomiting. Constitutional Constitutional ED: Denies chills or fever(s) Eyes Eyes: Denies blurry vision ENT ENT ED: Denies ear pain Cardiovascular Cardiovascular: Reports chest pain Respiratory/Chest Respiratory/Chest: Denies cough or dyspnea Gastrointestinal Gastrointestinal: Reports abdominal pain, nausea and vomiting; Denies melena Genitourinary Genitourinary ED: Denies dysuria or hematuria Musculoskeletal Musculoskeletal: Denies arthralgias Integumentary Denies abscess Neurologic Neurologic: Denies headache(s) Psychiatric Psychiatric: Denies anxiety Endocrine Endocrinology: Denies cold intolerance, heat intolerance or polydipsia Hematologic/Lymphatic Hematologic/Lymphatic: Reports none Allergic/Immunologic Allergic/Immunologic ED: Denies mouth swelling, tongue swelling or urticaria EXAM Physical Exam Narrative Exam Narrative: Well-appearing middle-age male. Vital signs stable afebrile. Pulse ox 90% on room air no hypoxia. H EENT exam pupils round react light. Mytrex membranes. Neck nontender no JVD. No lymphadenopathy. Back nontender. Lungs clear to auscultation bilaterally. Heart regular rhythm rate about 90 no murmur. Chest wall and ribs nontender. Abdomen soft nondistended normal bowel sounds without peritoneal signs. Right upper right lower quadrant unremarkable. No hernia or mass. No pulsatile mass. No obstruction. Minimal epigastric tenderness. No rebound guarding rigidity. Moving all 4 extremities. Nontender no edema. No calf tenderness. He is awake and alert. Answering questions following commands. Const Vital Signs: 10/28/24 21:03 10/28/24 21:03 10/28/24 21:15 Temperature 98.3 F Temperature Source Oral Pulse Rate 97 Respiratory Rate 16 Respiratory Effort Normal Non-Labored Blood Pressure 133/85 H Blood Pressure Mean 101 Pulse Ox 98 96 Oxygen Delivery Method Room Air Room Air 10/28/24 22:03 10/28/24 22:56 10/29/24 00:00 Temperature Temperature Source Pulse Rate 80 74 70 Respiratory Rate 12 Respiratory Effort Blood Pressure 108/69 120/71 108/70 Blood Pressure Mean 82 87 82 Pulse Ox 94 96 97 Oxygen Delivery Method Room Air Room Air Room Air 10/29/24 01:17 Temperature Temperature Source Pulse Rate 67 Respiratory Rate 10 L Respiratory Effort Blood Pressure 102/62 Blood Pressure Mean 75 Pulse Ox 94 Oxygen Delivery Method Positive well nourished and well developed; Negative for cachectic, contractures or unkempt General Appearance ED: well developed and NAD; Negative for unkempt, cachectic, contractures, cyanotic, diaphoretic or pallor Nutritional Appearance: Negative for cachectic HEENT Reports moist mucous membranes Eyes PERRL and EOMs intact bilaterally Neck no lymphadenopathy, supple and no JVD Chest Wall inspection of chest normal and palpation of chest normal Resp normal respiratory effort and clear to auscultation bilaterally Cardio regular rate, regular rhythm, S1 normal heart sound, S2 normal heart sound and no murmurs GI normal to inspection, nondistended, normoactive bowel sounds, non-distended, hepatosplenomegaly and no masses; Negative for non-tender GI Narrative: Mild epigastric tenderness. Auscultation: normoactive bowel sounds Palpation: soft and tender; Negative for guarding, mass or rebound tenderness present Back/Spine no CVA tenderness General Back: Negative for CVA tenderness Cervical Spine: Negative for cervical spine tenderness Thoracic Spine / Upper Back: Negative for thoracic spinal tenderness or paraspinal muscle tenderness Lumbar Spine / Lower Back: Negative for lumbar spinal tenderness Extremity normal to inspection General Extremety ED: Negative for edema or tenderness General Extremity: Negative for edema Neuro oriented x3 and CN's II-XII intact bilaterally Sensorium / Orientation: alert; Negative for orientation impaired, lethargic or stuporous Motor Exam: strength 5/5 throughout; Negative for general weakness or strength abnormal Psych mental status grossly normal Appearance: Negative for unkempt Skin no rashes or lesions noted, no wounds and skin turgor normal General Skin Exam: elasticity normal; Negative for jaundice or pallor Lesions: No lesion noted Rashes: No rashes noted Trauma: Negative for abrasion MDM MDM MDM Narrative Medical decision making narrative: 44-year-old male with atypical noncardiac sounding chest pain with abdominal. Cardiac workup with a CT of his abdomen abdominal labs. Morphine for pain and Zofran for nausea. Repeat exam patient is doing well at 1:23 AM. Labs are negative. This does not appear to be cardiac at all. His abdominal workup showed lymphadenopathy possibly mesenteric adenitis. Discussed that with the patient. Will be discharged home with outpatient follow-up. History & Record Review Discussion w/independent historian: Patient Additional record(s) reviewed:: Prior inpatient record, Prior outpatient record and Prior ED visit Lab Data Attestation: I reviewed the patient's lab results. Lab results narrative: CBC shows a white count of 5. H&H 16 and 44. Platelets 190. Electrolytes show a gap of 12. Normal BUN and creatinine. Glucose 102. Initial troponin less than 6. 2-hour troponin less than 6 also. Liver enzymes unremarkable other than ALT of 108. Lipase normal at 39. Urinalysis negative. No white or red cells. No nitrates. Labs: Laboratory Results - last 24 hr 10/28/24 10/28/24 10/28/24 21:13 22:55 23:15 WBC 5.2 RBC 4.98 Hgb 16.0 Hct 44.8 MCV 90.0 MCH 32.1 H MCHC 35.7 RDW Std Deviation 40.9 RDW Coeff of [place]ora 12.5 Plt Count 190 MPV 10.2 Immature Gran % (Auto) 0.200 Neut % (Auto) 49.1 Lymph % (Auto) 30.3 [place] % (Auto) 14.8 H Eos % (Auto) 5.0 Baso % (Auto) 0.6 Absolute Neuts (auto) 2.5 Absolute Lymphs (auto) 1.56 Nucleated RBC % 0 Sodium 136 Potassium 3.8 Chloride 101 Carbon Dioxide 23.6 Anion Gap 12 BUN 15 Creatinine 0.89 Estim Creat Clear Calc 145.95 Est GFR (MDRD) Non-Af 108 BUN/Creatinine Ratio 16.8 Glucose 102 H Calcium 8.8 Total Bilirubin 0.69 Direct Bilirubin 0.26 AST 62 H ALT 108 H Alkaline Phosphatase 55 Troponin T High Sens < 6 Troponin T Hi Sens 2 Hr < 6 Total Protein 6.9 Albumin 4.1 Globulin 2.8 Lipase 39 Urine Color Yellow Urine Clarity Clear Urine pH 6.0 Ur Specific [place] 1.020 Urine Protein 30 H Urine Glucose (UA) Normal Urine Ketones Negative Urine Occult Blood Negative Urine Nitrite Negative Urine Bilirubin 1 H Urine Urobilinogen 4 H Ur Leukocyte Esterase Negative Urine RBC 0 SEEN Urine WBC 0-5 SEEN Ur Squamous Epith Cells 0 SEEN Urine Bacteria 3+ Hyaline Casts 5-10 SEEN Urine Mucus 3+ Radiography Chest X-Ray - ED: 1 View, Read by ED Physician, Read by Radiologist, Normal, Heart, Lungs, Mediastinum, Bony Structures, No Acute Disease and Chronic Changes Diagnostic Testing: Clinical Impression(s) from Imaging Studies Chest X-Ray 10/28/24 21:30 IMPRESSION: No focal consolidations. Reading Location: [facility] Abdomen/Pelvis CT 10/28/24 23:00 IMPRESSION: Mesenteric lymphadenopathy with diffuse stranding may reflect panniculitis. Hepatic steatosis. Scattered small bowel thickening where enteritis not excluded. no bowel obstruction. Reading Location: [facility] Chest x-ray, portable, single view interpreted both by myself and radiologist shows no acute abnormality. Normal cardiac silhouette. Normal lung cisneros. Prior cervical hardware from neck surgery. Rhythm Strip Rhythm Strip: Sinus Rhythm Rate: 89 Ectopy: None EKG Initial EKG: Attestation: I personally reviewed and interpreted this EKG as follows: Interpretation: Sinus Rhythm and No Acute Injury Pattern Comments: Normal sinus rhythm rate 89 no acute signs of HI or ischemia. Discharge Plan Triage Chief Complaint: Chest Pain ED Provider: Loc Hewitt Dx/Rx/DC Orders Clinical Impression: Chest pain, Abdominal pain, History of CAD (coronary artery disease) Instructions: Abdominal Pain, ED Chest Pain, Noncardiac Prescriptions: No Action albuterol sulfate 90 mcg/actuation HFA aerosol inhaler 2 puff inhalation Q6H PRN (Reason: shortness of breath or wheezing) Qty: 6.7 0RF aspirin 81 MG tablet 81 mg PO DAILY@0800 0RF clopidogrel 75 mg tablet 75 mg PO DAILY Qty: 90 3RF lisinopril 20 mg tablet 20 mg PO DAILY Qty: 90 3RF metoprolol succinate 50 mg tablet extended release 24 hr 50 mg PO DAILY Qty: 90 3RF atorvastatin 40 mg tablet 40 mg PO QHS Qty: 90 3RF Primary Care Provider: Andreia Boyer Referrals: Andreia Boyer MD [Primary Care Provider] - 1 Week Activity Restrictions/Additional Instructions: Call and follow-up with your doctor if not improving. Your labs are unremarkable. Your CAT scan showed some swollen lymph nodes in your abdomen. Print Language: Bengali Disposition Disposition: Home, Self Care
--- OUTSIDE RECORDS SUMMARY | 2024-10-28 22:45 | XMS RPT_ITS | CCD ---
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 testosterone cypionate 100 mg/mL intramuscular oil (Depo-Testosterone) 200 mg (2 mL) IM Q2W #10 mL 12/30/22 [Rx Last Taken Unknown] oxycodone 5 mg tablet 5 mg PO Q6H PRN pain 3 days #12 tabs 01/06/23 [Rx Last Taken Unknown] azithromycin 250 mg tablet 250 mg PO QDAY #12 tabs 04/19/23 [Rx Last Taken Unknown] benzonatate 200 mg capsule 200 mg PO TID PRN cough #20 caps 05/17/23 [Rx Last Taken Unknown] dexamethasone 6 mg tablet 6 mg PO DAILY #5 tabs 05/17/23 [Rx Last Taken Unknown] albuterol sulfate 90 mcg/actuation aerosol inhaler 2 puff inhalation Q6H PRN shortness of breath or wheezing #6.7 grams 05/18/23 [Rx Last Taken Unknown] hydrocodone-acetaminoph en 5-325mg 5mg-325mg 1 tab PO Q6H PRN PRN Pain 3 days #10 TABLETS 05/23/23 [Rx Last Taken Unknown] Allergy/AdvReac Type Severity Reaction Status Date / Time Penicillins Allergy Angioedema Verified 05/23/23 07:44 Family History Mother Heart disease Hypertension Other DVT (deep venous thrombosis) Diabetes Myocardial infarction Surgical History H/O cervical spine surgery H/O right knee surgery History of coronary artery stent placement (04/10/18) History of tonsillectomy and adenoidectomy Social History Smoking Status: Never smoker Smokeless tobacco user: chewing tobacco alcohol intake: current alcohol intake frequency: a few times a month Alcohol type: beer substance use type: does not use caffeine: Yes (Occasional pop but not daily) Type: carbonated beverages ROS ROS ED Constitutional Constitutional ED: Denies chills or fever(s) Eyes Eyes: Denies blurry vision or change in vision ENT ENT ED: Denies rhinorrhea or sore throat Cardiovascular Cardiovascular: Denies chest pain or palpitations Respiratory/Chest Respiratory/Chest: Reports cough and dyspnea Gastrointestinal Gastrointestinal: Reports abdominal pain; Denies diarrhea, melena, nausea or vomiting Genitourinary Genitourinary ED: Denies dysuria or hematuria Musculoskeletal Musculoskeletal: Denies back pain or neck pain Integumentary Denies abscess or rash Neurologic Neurologic: Denies headache(s) or weakness Allergic/Immunologic Allergic/Immunologic ED: Denies mouth swelling or urticaria EXAM Physical Exam Const Vital Signs: 05/23/23 07:43 Temperature 97.2 F L Temperature Source Temporal Pulse (more content not included)... Normal [facility] Urinalysis, Completeon 05-23 EPI,SQUAMOUS 0-5 SEEN Normal 0-5 [facility] Comment on above: Order Comment: CLEAN CATCH Performed By: #### L 400.0001 #### [facility] [address] [place], [place], [address] BACTERIA 0 SEEN Normal None Seen [facility] Comment on above: Order Comment: CLEAN CATCH Performed By: #### L 400.0001 #### [facility] [address] [place], [address] Mucus Ql (Urine sed) 0 SEEN Normal [facility] Comment on above: Order Comment: CLEAN CATCH Performed By: #### L 400.0001 #### [facility] [address] [place], [address] RBC 0 SEEN Normal 0-5 [facility] Comment on above: Order Comment: CLEAN CATCH Performed By: #### L 400.0001 #### [facility] [address] [place], [address] WBC 0 SEEN Normal 0-5 [facility] Comment on above: Order Comment: CLEAN CATCH Performed By: #### L 400.0001 #### [facility] [address] [place], [address] Urgent Care Visit Reporton 0 05-20-2023 Urgent Care Visit Report [facility] [address] [place] [address] OFFICE VISIT Date of Service: 05/20/23 MR#: [id number] Acct: [id number] Name: NIDIA DEMPSEY Rep #: [id number] : 1980 Provider: AVINASH Jarrell Age/Sex: 42/M Location: [facility] Status: Signed Intake Vital Signs 04/19/23 09:07 05/20/23 10:10 Height 5 ft 11 in Weight: 306 lb BMI 42.7 BP 128/84 H 144/90 H Blood Pressure Location Lt brachial Lt brachial Position Sitting Sitting Respiration 16 17 Pulse 100 88 Pulse Source Monitor NIBP Temp 98.4 F 97.9 F Temp Source Temporal Temporal Pulse Oximetry (%) 90 98 Oxygen Delivery Method room air room air Intake Visit Reasons: Cough Chief Complaint: SINUS INFECTION SX Allergies Penicillins Allergy (Verified 05/17/23 08:29) Angioedema [facility] Medical History (Updated 05/20/23 @ 15:58 by Maurilio DA SILVA, PA) Acute otitis media, bilateral Arthritis Atherosclerosis of coronary artery of [place] heart without angina pectoris Back pain COVID-19 ( 05/22/20) COVID-19 virus detected (05/22/20) Essential (primary) hypertension GERD (gastroesophageal reflux disease) History of kidney stones Hyperlipidemia Morbid obesity Non-ST elevation (NSTEMI) myocardial infarction (06/09/17) Seasonal allergies Surgical History H/O cervical spine surgery H/O right knee surgery History of coronary artery stent placement (04/10/18) History of tonsillectomy and adenoidectomy Family History Mother Heart disease Hypertension Other DVT (deep venous thrombosis) Diabetes Myocardial infarction Social History Smoking Status: Never smoker Smokeless tobacco user: chewing tobacco alcohol intake: current alcohol intake frequency: a few times a month Alcohol type: beer substance use type: does not use caffeine: Yes (Occasional pop but not daily) Type: carbonated beverages HPI HPI Chief Complaint: SINUS INFECTION SX Details: NIDIA DEMPSEY, is a 42 M who presents to the office today for ongoing sinus congestion/pressure and pain and was tested positive for COVID here in this office 3 days ago. Patient is requesting another COVID test to return back to work. Patient continues with symptoms however does state that they are improving slightly. He denies hemoptysis, shortness of breath or difficulty breathing. No fever, chills, sweats. No nausea, vomiting or diarrhea. No loss of taste or smell. No other associated symptoms or alleviating/aggravating factors. ROS Const Constitutional: No other (6 system ROS completed with pertinent findings in the HPI otherwise normal.) Exam Const General: cooperative and well developed HENMT Head: normal to inspection and atraumatic Ears: hearing grossly normal bilaterally Nose: nasal discharge clear Face and sinus: normal facial exam Mouth: oral mucosae normal Throat: abnormal tonsil bilaterally hypertrophy 1+ Resp Effort Inspection: normal respiratory effort and no audible wheezes Auscultation: Bilateral: Clear to Auscultation Cardio Palpation: normal PMI Rate: regular rate Rhythm: regular rhythm Neuro General: patient alert and CN's II-XI intact bilaterally Psych Appearance: grossly normal Mental Status: mental status grossly normal Results POC MAURI Covid FluAB PCR POC Mauri Covid PCR Detected Last Edit by Kavitha Pope on 05/20/23 10:31 POC MAURI FLU NOT DETECTED FLU A B Last Edit by Kavitha Pope on 05/20/23 10:31 Coding Level of Care Code Off vis,est,level 3 Diagnoses COVID-19 U07.1 Assessment and Plan Assessment and Plan (1) COVID-19: Status: Acute Orders: Orders POC Mauri Covid FLUAB PCR Today Plan Patient tested positive for COVID again. Patient advised however that he is outside of his quarantine and no longer needs to keep testing unless he should have exacerbation symptoms or new concerns. Encouraged to get plenty of rest, drink lots of clear liquids, and use Tylenol or Ibuprofen (unless contraindicated) for fever and comfort. Patient also educated on other symptomatic management techniques. To be seen in 7-10 days if no improvement; sooner if worsening of symptoms. 05/20/23 1602 Date Maurilio Hilton Signature: Date (if applicable) CC: Normal [facility] Urgent Care Visit Reporton 0 05-17-2023 Urgent Care Visit Report [facility] [address], [address] [place] [address] OFFICE VISIT Date of Service: 05/17/23 MR#: [id number] Acct: [id number] Name: NIDIA DEMPSEY Rep #: [id number] : 1980 Provider: AVINASH Barr Age/Sex: 42/M Location: [facility] Status: Signed Intake Vital Signs 04/19/23 09:07 05/17/23 08:29 Height 5 ft 11 in Weight: 306 lb BMI 42.7 BP 128/84 H 124/82 H Blood Pressure Location Lt brachial Lt brachial Position Sitting Sitting Respiration 16 14 Pulse 100 90 Pulse Source Monitor Monitor Temp 98.4 F 98.2 F Temp Source Temporal Temporal Pulse Oximetry (%) 90 96 Oxygen Delivery Method room air room air Intake Visit Reasons: COUGH/BILAT EAR COMPLAINTS Chief Complaint: SINUS INFECTION SX Allergies Penicillins Allergy (Verified 05/17/23 08:29) Angioedema PFSH Medical History (Updated 04/19/23 @ 09:36 by Scott DA SILVA, PA) Acute otitis media, bilateral Arthritis Atherosclerosis of coronary artery of [place] heart without angina pectoris Back pain COVID-19 ( 05/22/20) COVID-19 virus detected (05/22/20) Essential (primary) hypertension GERD (gastroesophageal reflux disease) History of kidney stones Hyperlipidemia Morbid obesity Non-ST elevation (NSTEMI) myocardial infarction (06/09/17) Seasonal allergies Surgical History H/O cervical spine surgery H/O right knee surgery History of coronary artery stent placement (04/10/18) History of tonsillectomy and adenoidectomy Family History Mother Heart disease Hypertension Other DVT (deep venous thrombosis) Diabetes Myocardial infarction Social History Smoking Status: Never smoker Smokeless tobacco user: chewing tobacco alcohol intake: current alcohol intake frequency: a few times a month Alcohol type: beer substance use type: does not use caffeine: Yes (Occasional pop but not daily) Type: carbonated beverages HPI HPI Chief Complaint: SINUS INFECTION SX Details: NIDIA DEMPSEY, is a 42 M who presents to the office today for initial evaluation of approximately 48- hour history of chills, cough, headache, myalgias, congestion/runny nose. No complaints of chest pain or shortness of breath or dyspnea on exertion. Nonsmoker. No [id number] products taken to assist. Several close contacts with similar URI complaints. No other associated symptoms and no alleviating/aggravating factors. ROS Const Constitutional: No other (as above) Exam Const General: cooperative, healthy appearing and no acute distress Nutritional Appearance: obese Orientation: alert, awake and oriented x3 HENMT Head: normal to inspection Ears: hearing grossly normal bilaterally, external ears normal, TM's normal bilaterally and EAC's normal Nose: external nose normal, nares normal, septum normal and nasal discharge clear Face and sinus: normal facial exam, sinuses nontender and face symmetric Mouth: oral mucosae normal, lip normal, tongue normal and oropharynx normal Throat: posterior oropharynx normal, tonsils normal, uvula midline and no postnasal drainage Eyes General: appearance normal, both eyes and all related structures Neck Neck: normal visual inspection, full ROM, no lymphadenopathy, no meningeal signs and supple Neck mass: No Thyroid: thyroid normal Lymphatic: no lymphadenopathy noted Chest Chest palpation inspection: normal inspection of the chest Resp Effort Inspection: normal respiratory effort, able to speak in complete sentences and cough Quality of cough: wet (Nonproductive in office today) Auscultation: Bilateral: Clear to Auscultation Cardio Palpation: normal PMI Rate: regualr Rhythm: regular rhythm Heart Sounds: S1 normal, S2 normal, no gallops, no murmurs and no rubs Pulses: radial pulses present GI Inspection: normal to inspection Palpation: soft and no hepatosplenomegaly Skin General: no rashes or lesions noted Neuro General: patient alert, patient awake and patient oriented x3 Cognition: normal cognition Speech: speech normal Psych Appearance: grossly normal Mental Status: mental status grossly normal Mood: congruent mood Affect: normal affect Speech and Movement: speech and movement normal Attitude: cooperative Diagnoses COVID-19 U07.1 Assessment and Plan Assessment and Plan (1) COVID-19: Status: Acute Plan: See POC MAURI results. Dexamethasone and Benzonatate as prescribed today. Supportive measures as instructed today. Patient aware of isolation recommendations and [facility] department notification. Follow-up with PCP in 5 to 7 days should symptoms not improve as well as for monitoring/management of unco (more content not included)... Normal [facility] Urgent Care Visit Reporton 1 06-20-2022 Urgent Care Visit Report [facility] [address] [place] [address] OFFICE VISIT Date of Service: 04/19/23 MR#: [id number] Acct: [id number] Name: NIDIA EDMPSEY Rep #: [id number] : 1980 Provider: AVINASH Barr Age/Sex: 42/M Location: [facility] Status: Signed Intake Vital Signs 01/06/23 08:16 04/19/23 09:07 Height 5 ft 11 in 5 ft 11 in Weight: 306 lb BMI 42.7 BP 128/84 H Blood Pressure Location Lt brachial Position Sitting Respiration 16 Pulse 100 Pulse Source Monitor Temp 98.4 F Temp Source Temporal Pulse Oximetry (%) 90 Oxygen Delivery Method room air Intake Visit Reasons: SINUS DISCOMFORT Chief Complaint: SINUS INFECTION SX 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 Required: No Accompanied by: Self Is patient in pain?: No Allergies Penicillins Allergy (Verified 04/19/23 09:08) Angioedema Medications aspirin 81 mg tablet,delayed release 81 mg PO DAILY@0800 06/10/17 [Rx Confirmed 04/19/23] atorvastatin 40 mg tablet 40 mg PO QHS #90 tabs 09/23/22 [Rx Confirmed 04/19/23] clopidogrel 75 mg tablet (Plavix) 75 mg PO QDAY #90 tabs 09/23/22 [Rx Confirmed 04/19/23] lisinopril 20 mg tablet 20 mg PO DAILY #90 tabs 09/23/22 [Rx Confirmed 04/19/23] metoprolol succinate 50 mg tablet,extended release 24 hr 50 mg PO DAILY #90 tabs 09/23/22 [Rx Confirmed 04/19/23] testosterone cypionate 100 mg/mL intramuscular oil (Depo-Testosterone) 200 mg (2 mL) IM Q2W #10 mL 12/30/22 [Rx Confirmed 04/19/23] oxycodone 5 mg tablet 5 mg PO Q6H PRN pain 3 days #12 tabs 01/06/23 [Rx Confirmed 04/19/23] azithromycin 250 mg tablet 250 mg PO QDAY #12 tabs 04/19/23 [Rx Confirmed 04/19/23] PFSH Medical History (Updated 04/19/23 @ 09:36 by Scott DA SILVA, PA) Acute otitis media, bilateral Arthritis Atherosclerosis of coronary artery of [place] heart without angina pectoris Back pain COVID-19 ( 05/22/20) COVID-19 virus detected (05/22/20) Essential (primary) hypertension GERD (gastroesophageal reflux disease) History of kidney stones Hyperlipidemia Morbid obesity Non-ST elevation (NSTEMI) myocardial infarction (06/09/17) Seasonal allergies Surgical History H/O cervical spine surgery H/O right knee surgery History of coronary artery stent placement (04/10/18) History of tonsillectomy and adenoidectomy Family History Mother Heart disease Hypertension Other DVT (deep venous thrombosis) Diabetes Myocardial infarction Social History Smoking Status: Never smoker Smokeless tobacco user: chewing tobacco alcohol intake: current alcohol intake frequency: a few times a month Alcohol type: beer substance use type: does not use caffeine: Yes (Occasional pop but not daily) Type: carbonated beverages HPI HPI Chief Complaint: SINUS INFECTION SX Details: NIDIA DEMPSEY, is a 42 M who presents to the office today for initial evaluation of approximately 5-day history of progressively worsening forehead pressure/congestion with purulent postnasal drip and sore throat and AU pain. No complaints of fever, chills, myalgias, fatigue, runny nose, or nausea/vomiting/diarrhe a. No complaints of chest pain/shortness of breath/dyspnea on exertion. Nonsmoker. No close contacts with similar complaints. No other associated symptoms and no other alleviating/aggravating factors. ROS Const Constitutional: No other (as above) Exam Const General: cooperative, healthy appearing and no acute distress Nutritional Appearance: average body habitus Orientation: alert, awake and oriented x3 HENMT Head: normal to inspection Ears: hearing grossly normal bilaterally, external ears normal, TM's erythema (R>L), and EAC's normal Nose: external nose normal, nares normal, septum normal and no nasal discharge Face and sinus: normal facial exam, sinuses tender (bilateral frontal) and face symmetric Mouth: oral mucosae normal, lip normal, tongue normal and oropharynx normal Throat: posterior oropharynx normal, tonsils normal, uvula midline and postnasal drainage (Purulent) Eyes General: appearance normal, both eyes and all related structures Neck Neck: normal visual inspection, full ROM, no meningeal signs, supple and lymphadenopathy (Bilateral anterior cervical lymph node swelling/tender to palpation) Neck mass: No Thyroid: thyroid normal Chest Chest palpation inspection: normal inspection of the chest Resp Effort Inspection: normal respiratory effort and able to speak in complete sentences Auscultation: Bilateral: Clear to Auscultation Cardio Palpation: normal PMI Rate: regular rate Rhythm: regular rhythm Heart Sounds: S1 normal, S2 normal, no gallops, no murmurs and no rubs Pulses: radial pul (more content not included)... Normal [facility] Absolute lymphocyte countOrd ered By: Lloyd Maravilla on 12-15-2022 Lymphocytes Auto (Unsp spec) [#/Vol] 2.03 10*3/uL 0.83-4.51 [facility] Basophil percentageOrdered B y: Lloyd Maravilla on 12-15-2022 Basophil percentage 0 SEEN /hpf 0-5 [facility] [place] Basophils/100 WBC (Bld) 0.6 % 0-1 [facility] Chloride [Moles/Vol] 100 mmol/L 98-107 [facility] [place] Eosinophils/100 WBC (Bld) 3.3 % 0-5 [facility] Glucose [Mass/Vol] 107 mg/dL 74-106 [facility] Comment on above: Fasting Glucose resu lt from 100 to 125 mg/dL suggests IMPAIRED HOMEOSTASIS per A.D.A. criteria. Neutrophils (Bld) [#/Vol] 5.8 10*3/uL 2.0-7.7 [facility] Neutrophils/100 WBC (Bld) 62.5 % 47-70 [facility] Potassium [Moles/Vol] 4.2 mmol/L 3.5-5.1 [facility] Comment on above: Slight Hemolysis, Re sult may be falsely increased. Sodium [Moles/Vol] 134 mmol/L 136-145 [facility] WBC (Bld) [#/Vol] 9.3 10*3/uL 4.4-11.0 [facility] Bilirubin Test strip Ql (U)O rdered By: Lloyd Maravilla on 12-15-2022 Bilirubin Ql (U) Negative Negative [facility] Blood erythrocytes count (nu mber/volume)Ordered By: Lloyd Maravilla on 12-15-2022 RBC (Bld) [#/Vol] 5.90 10*6/uL 4.6-6.2 [facility] Blood hemoglobin measurement (mass/volume)Ordered By: Lloyd Maravilla on 12-15-2022 Hemoglobin (Bld) [Mass/Vol] 18.5 g/dL 13.0-16.5 [facility] Comment on above: CRITICAL VALUE VERIF IED. CALLED TO JORDAN ERICKSON12/15/22 0938 Niko Ordonez.RESULTS READ BACK BY SAME . Blood lymphocytes/100 leukoc ytesOrdered By: Lloyd Maravilla on 12-15-2022 Lymphocytes/100 WBC (Bld) 21.9 % 19-41 [facility] Blood manual differential co mment interpretation (narrative result)Ordered By: Lloyd Maravilla on 12-15-2022 Manual differential comment Jean-Pierre (Bld) [Interp] SCANNED [facility] Blood monocytes/100 leukocyt esOrdered By: Lloyd Maravilla on 12-15-2022 Monocytes/100 WBC (Bld) 10.8 % 0-10 [facility] Blood platelet mean volumeOr dered By: Lloyd Maravilla on 12-15-2022 Platelet mean volume (Bld) [Entitic vol] 10.5 fL 6.2-12.0 [facility] Determination of erythrocyte mean corpuscular volume (MCV)Ordered By: Lloyd Maravilla on 12-15-2022 MCV (RBC) [Entitic vol] 92.7 fL 80-94 [facility] Hematocrit Auto (Bld) [Volum e fraction]Ordered By: Lloyd Maravilla on 12-15-2022 Hematocrit (Bld) [Volume fraction] 54.7 % 40-54 [facility] Ketones Test strip Ql (U)Ord ered By: Lloyd Maravilla on 12-15-2022 Ketones Ql (U) Negative Negative [facility] Laboratory - Chemistry and C hemistry - challengeOrdered By: Lloyd Maravilla on 12-15-2022 CO2 [Moles/Vol] 31.0 mmol/L 21.0-32.0 [facility] Urea nitrogen/Creatinine [Mass ratio] 15.4 mg/mg 10-20 [facility] Laboratory - Hematology and Cell countsOrdered By: Lloyd Maravilla on 12-15-2022 Erythrocyte distribution width (RBC) [Entitic vol] 47.5 fL 35.1-43.9 [facility] Erythrocyte distribution width (RBC) [Ratio] 15.0 % 11.6-14.6 [facility] Immature granulocytes/100 WBC (Bld) 0.900 % 0.0-0.9 [facility] Comment on above: IG% - Immature Granu locytes (promyelocytes, myelocytes and metamyelocytes) > 1% indicates that a LEFT SHIFT is Present. MCH (RBC) [Entitic mass] 31.4 pg 27.0-32.0 [facility] Nucleated RBC/100 WBC (Bld) [Ratio] 0 % 0-5 [facility] MCHC Auto (RBC) [Mass/Vol]Or dered By: Lloyd Maravilla on 12-15-2022 MCHC (RBC) [Mass/Vol] 33.8 g/dL 32-36 [facility] Mucus LM Ql (Urine sed)Order ed By: Lloyd Maravilla on 12-15-2022 Mucus Ql (Urine sed) 0 SEEN /hpf [facility] Nitrite Test strip Ql (U)Ord ered By: Lloyd Maravilla on 12-15-2022 Nitrite Ql (U) Negative Negative [facility] No Panel InformationOrdered By: Lloyd Maravilla on 12-15-2022 Estimated Creatinine Clearance Calc 122.01 ml/min [facility] Estimated GFR (MDRD) Amer 128 mL/min >60 [facility] Comment on above: GFR Calc Estimated GFR (MDRD) Non-Af Amer 106 mL/min >60 [facility] Comment on above: Non- GFR Calc Platelets bldOrdered By: Pati Maravilla on 12-15-2022 Platelets (Bld) [#/Vol] 197 10*3/uL 150-450 [facility] Protein Test strip Ql (U)Ord ered By: Lloyd Maravilla on 12-15-2022 Protein Ql (U) 15 mg/dl Negative [facility] Review by pathologistOrdered By: Lloyd Maravilla on 12-15-2022 Pathologist review Jean-Pierre (Unsp spec) [Interp] Nallely jensen [facility] Pathologist review Jean-Pierre (Unsp spec) [Interp] Reviewed [facility] Comment on above: Previous reported re sult: Nallely jensen Edited by: RGOOD on 12/17/22:0954PolycythemiaClinical correlation necessary.Zane Pretty M.D. 12/17/22 AMENDED REPORT 12/17/22 0954 PATH REV previously reported as: Nallely jensen Serum or plasma calcium reymundo urement (mass/volume)Ordered By: Lloyd Maravilla on 12-15-2022 Calcium [Mass/Vol] 9.0 mg/dL 8.5-10.1 [facility] Serum or plasma creatinine m easurement (mass/volume)Ordered By: Lloyd Maravilla on 12-15-2022 Creatinine [Mass/Vol] 0.84 mg/dL 0.70-1.30 [facility] Comment on above: The validity of the calculated GFR & GFRAA in patients over 70 years has not been determined. Clinical correlation is essential. Serum or plasma urea nitroge n measurement (mass/volume)Ordered By: Lloyd Maravilla on 12-15-2022 Urea nitrogen [Mass/Vol] 13 mg/dL 7-18 [facility] Squamous epithelial cells de tection in urine sediment by light microscopyOrdered By: Lloyd Maravilla on 12-15-2022 Epithelial cells.squamous LM Ql (Urine sed) 0 SEEN /hpf 0-5 [facility] Thin prep Papanicolaou smear with manual screeningOrdered By: Lloyd Maravilla on 12-15-2022 Thin prep Papanicolaou smear with manual screening 3 5-15 [facility] Urine blood detectionOrdered By: Lloyd Maravilla on 12-15-2022 RBC Ql (U) 10 /ul Negative [facility] RBC Ql (U) 0-5 SEEN /hpf 0-5 [facility] Urine clarityOrdered By: Pati Maravilla on 12-15-2022 Clarity (U) Clear Clear [facility] Urine color determinationOrd ered By: Lloyd Maravilla on 12-15-2022 Color (U) Yellow Yellow [facility] Urine glucose detectionOrder ed By: Lloyd Maravilla on 12-15-2022 Glucose Ql (U) Normal mg/dl Normal [facility] Urine leukocyte esterase det ection by dipstickOrdered By: Lloyd Maravilla on 12-15-2022 Leukocyte esterase Test strip Ql (U) Negative Negative [facility] Urine pHOrdered By: Lloyd ortega on 12-15-2022 pH (U) 6.0 [pH] 5.0 - 8.0 [facility] Urine sediment bacteria coun t by microscopy (number/high power field)Ordered By: Lloyd Maravilla on 12-15-2022 Bacteria LM.HPF (Urine sed) [#/Area] 0 /[HPF] None Seen [facility] Urine specific gravity measu rementOrdered By: Lloyd Maravilla on 12-15-2022 Specific gravity (U) [Rel density] 1.015 1.002-1.03 0 [facility] Urobilinogen Auto test strip Ql (U)Ordered By: Lloyd Maravilla on 12-15-2022 Urobilinogen Ql (U) Normal mg/dl Normal [facility] Basophil percentageOrdered B y: Dr. Boyer on 07-03-2022 Basophil percentage See comment [facility] [place] Comment on above: TEST RESULTS LIMITST estosterone, Free/Tot EquilibTestosterone 122 Low ng/dL [id number] male reference interval is based on a population ofhealthy nonobese males (BMI <30) between 19 and 39 years old.Mabel, et.al. JCEM 2017,102;4489-0000. PMID: [id number].Testosterone,Free 5.00-21.00Unable to calculate result since non-numeric result obtained for component test.% Free Testosterone 1.50-4.20Test not performed. Insufficient specimen to perform or complete analysis. TESTING PERFORMED AT [facility]. ORIGINAL REPORT ON FILE IN LAB CONTAINS ADDITIONAL TEST SITE INFORMATION. Bilirubin [Mass/Vol] 0.90 mg/dL 0.20-1.00 [facility] [place] Comment on above: For patients on eltr ombopag therapy, use of Dimension [place] TBIL is not recommended. Chloride [Moles/Vol] 97 mmol/L 98-107 [facility] Cholesterol [Mass/Vol] 165 mg/dL <200 [facility] Comment on above: <200 mg/dL Desirable 200-240 mg/dL Borderline >240 mg/dL High Risk Glucose [Mass/Vol] 96 mg/dL 74-106 [facility] Potassium [Moles/Vol] 4.6 mmol/L 3.5-5.1 [facility] Protein [Mass/Vol] 7.4 g/dL 6.4-8.2 [facility] Sodium [Moles/Vol] 135 mmol/L 136-145 [facility] Triglyceride [Mass/Vol] 173 mg/dL <199 [facility] Comment on above: The drugs N-Acetylcy steine and Metamizole may falsely depress this assay.Serum Triglycerides Reference Interval Normal <150 mg/dL Borderline high 150 - 199 mg/dL High 200 - 499 mg/dL Very High > or = 500 mg/dL Free testosterone percentage Ordered By: Dr. Boyer on 07-03-2022 Testosterone Free/Testosterone.tota l [Mass fraction] Not Reportable [facility] Laboratory - Chemistry and C hemistry - challengeOrdered By: Dr. Boyer on 07-03-2022 ALP [Catalytic activity/Vol] 52 U/L 45-117 [facility] ALT [Catalytic activity/Vol] 45 U/L 16-61 [facility] CO2 [Moles/Vol] 28.0 mmol/L 21.0-32.0 [facility] Globulin (S) [Mass/Vol] 3.7 g/dL 2.2-4.2 [facility] Urea nitrogen/Creatinine [Mass ratio] 15.4 mg/mg 10-20 [facility] No Panel InformationOrdered By: Dr. Boyer on 07-03-2022 Estimated GFR (MDRD) Amer 128 mL/min >60 [facility] Comment on above: GFR Calc Estimated GFR (MDRD) Non-Af Amer 106 mL/min >60 [facility] Comment on above: Non- GFR Calc Prostate Specific Antigen Screen 0.43 ng/mL 0.00-4.00 [facility] Comment on above: This test was perfor med using the TPSA assay method for the[employer] chemistry system. Values obtained with differentassay methods cannot be used interchangably.When changing PSA assays in the course of monitoring apatient, additional sequential testing should be carriedout to confirm baseline values. Serum or plasma albumin reymundo urement (mass/volume)Ordered By: Dr. Boyer on 07-03-2022 Albumin [Mass/Vol] 3.7 g/dL 3.2-5.0 [facility] Serum or plasma albumin/glob ulin mass ratioOrdered By: Dr. Boyer on 07-03-2022 Albumin/Globulin [Mass ratio] 1.0 {ratio} 0.9-2.4 [facility] Serum or plasma calcium reymundo urement (mass/volume)Ordered By: Dr. Boyer on 07-03-2022 Calcium [Mass/Vol] 9.0 mg/dL 8.5-10.1 [facility] Serum or plasma cholesterol in HDL measurement (mass/volume)Ordered By: Dr. Boyer on 07-03-2022 Cholesterol in HDL [Mass/Vol] 45 mg/dL >40 [facility] Comment on above: The drugs N-Acetylcy steine and Metamizole may falsely depress this assay. Reference Range HDL <40 mg/dL Low HDL Cholesterol HDL >or= 60 mg/dL High HDL Cholesterol Serum or plasma cholesterol in VLDL measurement (mass/volume)Ordered By: Dr. Boyer on 07-03-2022 Cholesterol in VLDL [Mass/Vol] 35 mg/dL 5-40 [facility] Serum or plasma creatinine m easurement (mass/volume)Ordered By: Dr. Boyer on 07-03-2022 Creatinine [Mass/Vol] 0.84 mg/dL 0.70-1.30 [facility] Comment on above: The validity of the calculated GFR & GFRAA in patients over 70 years has not been determined. Clinical correlation is essential. Serum or plasma low density lipoprotein (LDL) cholesterol measurement (mass/volume)Ordered By: Dr. Boyer on 07-03-2022 Cholesterol in LDL [Mass/Vol] 85 mg/dL 0-130 [facility] Serum or plasma testosterone free measurement (mass/volume)Ordered By: Dr. Boyer on 07-03-2022 Testosterone Free [Mass/Vol] Not Reportable [facility] Serum or plasma urea nitroge n measurement (mass/volume)Ordered By: Dr. Boyer on 07-03-2022 Urea nitrogen [Mass/Vol] 13 mg/dL 7-18 [facility] Thin prep Papanicolaou smear with manual screeningOrdered By: Dr. Boyer on 07-03-2022 Thin prep Papanicolaou smear with manual screening 18 U/L 15-37 [facility] Thin prep Papanicolaou smear with manual screening 10 5-15 [facility] Whole blood hemoglobin A1c/t otal hemoglobin ratio (mass fraction)Ordered By: Dr. Boyer on 07-03-2022 HbA1c (Bld) [Mass fraction] 5.5 % 3.8-5.6 [facility] Comment on above: Normal < 5.7 % Predi abetic 5.7 - 6.4 % Diabetic >or= 6.5 % Please note range changes. Laboratory - Microbiology an d Antimicrobial susceptibilityon 06-23-2022 S. pyogenes Ag IA Ql (Unsp spec) Positive [facility] Absolute lymphocyte countOrd ered By: Dr. Hewitt on 05-23-2022 Lymphocytes Auto (Unsp spec) [#/Vol] 1.55 10*3/uL 0.83-4.51 [facility] Basophil percentageOrdered B y: Dr. Hewitt on 05-23-2022 Basophil percentage Not Reportable [facility] Basophils/100 WBC (Bld) 0.7 % 0-1 [facility] Bilirubin [Mass/Vol] 0.50 mg/dL 0.20-1.00 [facility] [place] Comment on above: For patients on eltr ombopag therapy, use of Dimension [place] TBIL is not recommended. Chloride [Moles/Vol] 100 mmol/L 98-107 [facility] [place] Eosinophils/100 WBC (Bld) 3.6 % 0-5 [facility] Glucose [Mass/Vol] 135 mg/dL 74-106 [facility] Comment on above: Fasting Glucose resu lt greater than or equal to 126 mg/dL suggests DIABETES MELLITUS per A.D.A. criteria. Neutrophils (Bld) [#/Vol] 3.4 10*3/uL 2.0-7.7 [facility] Neutrophils/100 WBC (Bld) 57.7 % 47-70 [facility] Potassium [Moles/Vol] 3.7 mmol/L 3.5-5.1 [facility] Protein [Mass/Vol] 7.0 g/dL 6.4-8.2 [facility] Sodium [Moles/Vol] 138 mmol/L 136-145 [facility] WBC (Bld) [#/Vol] 5.9 10*3/uL 4.4-11.0 [facility] Bilirubin Test strip Ql (U)O rdered By: Dr. Hewitt on 05-23-2022 Bilirubin Ql (U) Negative Negative [facility] Blood erythrocytes count (nu mber/volume)Ordered By: Dr. Hewitt on 05-23-2022 RBC (Bld) [#/Vol] 5.37 10*6/uL 4.6-6.2 [facility] Blood hemoglobin measurement (mass/volume)Ordered By: Dr. Hewitt on 05-23-2022 Hemoglobin (Bld) [Mass/Vol] 17.3 g/dL 13.0-16.5 [facility] Blood lymphocytes/100 leukoc ytesOrdered By: Dr. Hewitt on 05-23-2022 Lymphocytes/100 WBC (Bld) 26.3 % 19-41 [facility] Blood monocytes/100 leukocyt esOrdered By: Dr. Hewitt on 05-23-2022 Monocytes/100 WBC (Bld) 11.4 % 0-10 [facility] Blood platelet mean volumeOr dered By: Dr. Hewitt on 05-23-2022 Platelet mean volume (Bld) [Entitic vol] 10.4 fL 6.2-12.0 [facility] Determination of erythrocyte mean corpuscular volume (MCV)Ordered By: Dr. Hewitt on 05-23-2022 MCV (RBC) [Entitic vol] 94.8 fL 80-94 [facility] Hematocrit Auto (Bld) [Volum e fraction]Ordered By: Dr. Hewitt on 05-23-2022 Hematocrit (Bld) [Volume fraction] 50.9 % 40-54 [facility] Ketones Test strip Ql (U)Ord ered By: Dr. Hewitt on 05-23-2022 Ketones Ql (U) Negative Negative [facility] Laboratory - Chemistry and C hemistry - challengeOrdered By: Dr. Hewitt on 05-23-2022 ALP [Catalytic activity/Vol] 62 U/L 45-117 [facility] ALT [Catalytic activity/Vol] 72 U/L 16-61 [facility] CO2 [Moles/Vol] 29.0 mmol/L 21.0-32.0 [facility] Globulin (S) [Mass/Vol] 3.5 g/dL 2.2-4.2 [facility] Natriuretic peptide B (Bld) [Mass/Vol] 18.4 pg/mL 0-100 [facility] Urea nitrogen/Creatinine [Mass ratio] 12.0 mg/mg 10-20 [facility] Laboratory - Hematology and Cell countsOrdered By: Dr. Hewitt on 05-23-2022 Erythrocyte distribution width (RBC) [Entitic vol] 44.6 fL 35.1-43.9 [facility] Erythrocyte distribution width (RBC) [Ratio] 12.9 % 11.6-14.6 [facility] Immature granulocytes/100 WBC (Bld) 0.300 % 0.0-0.9 [facility] Comment on above: IG% - Immature Granu locytes (promyelocytes, myelocytes and metamyelocytes) > 1% indicates that a LEFT SHIFT is Present. MCH (RBC) [Entitic mass] 32.2 pg 27.0-32.0 [facility] Nucleated RBC/100 WBC (Bld) [Ratio] 0 % 0-5 [facility] MCHC Auto (RBC) [Mass/Vol]Or dered By: Dr. Hewitt on 05-23-2022 MCHC (RBC) [Mass/Vol] 34.0 g/dL 32-36 [facility] Mucus LM Ql (Urine sed)Order ed By: Dr. Hewitt on 05-23-2022 Mucus Ql (Urine sed) Not Reportable [facility] Nitrite Test strip Ql (U)Ord ered By: Dr. Hewitt on 05-23-2022 Nitrite Ql (U) Negative Negative [facility] No Panel InformationOrdered By: Dr. Hewitt on 05-23-2022 Estimated Creatinine Clearance Calc 113.78 ml/min [facility] Estimated GFR (MDRD) Amer 117 mL/min >60 [facility] Comment on above: GFR Calc Estimated GFR (MDRD) Non-Af Amer 97 mL/min >60 [facility] Comment on above: Non- GFR Calc Troponin I High Sensitivity 6 pg/mL 3.0-78.0 [facility] Comment on above: Please Note: New Beth t Units and Gender Specific Reference Ranges. For more information see Policy Stat Procedure [place] High Sensitivity Troponin (TNIH) and attachments. Platelets bldOrdered By: Dr. Hewitt on 05-23-2022 Platelets (Bld) [#/Vol] 191 10*3/uL 150-450 [facility] Protein Test strip Ql (U)Ord ered By: Dr. Hewitt on 05-23-2022 Protein Ql (U) Negative Negative [facility] Serum or plasma albumin reymundo urement (mass/volume)Ordered By: Dr. Hewitt on 05-23-2022 Albumin [Mass/Vol] 3.5 g/dL 3.2-5.0 [facility] Serum or plasma albumin/glob ulin mass ratioOrdered By: Dr. Hewitt on 05-23-2022 Albumin/Globulin [Mass ratio] 1.0 {ratio} 0.9-2.4 [facility] Serum or plasma calcium reymundo urement (mass/volume)Ordered By: Dr. Hewitt on 05-23-2022 Calcium [Mass/Vol] 8.7 mg/dL 8.5-10.1 [facility] Serum or plasma creatinine m easurement (mass/volume)Ordered By: Dr. Hewitt on 05-23-2022 Creatinine [Mass/Vol] 0.91 mg/dL 0.70-1.30 [facility] Comment on above: The validity of the calculated GFR & GFRAA in patients over 70 years has not been determined. Clinical correlation is essential. Serum or plasma urea nitroge n measurement (mass/volume)Ordered By: Dr. Hewitt on 05-23-2022 Urea nitrogen [Mass/Vol] 11 mg/dL 7-18 [facility] Squamous epithelial cells de tection in urine sediment by light microscopyOrdered By: Dr. Hewitt on 05-23-2022 Epithelial cells.squamous LM Ql (Urine sed) Not Reportable [facility] Thin prep Papanicolaou smear with manual screeningOrdered By: Dr. Hewitt on 05-23-2022 Thin prep Papanicolaou smear with manual screening 36 U/L 15-37 [facility] Thin prep Papanicolaou smear with manual screening 9 5-15 [facility] Urine blood detectionOrdered By: Dr. Hewitt on 05-23-2022 RBC Ql (U) Negative Negative [facility] RBC Ql (U) Not Reportable [facility] Urine clarityOrdered By: Dr. Hewitt on 05-23-2022 Clarity (U) Clear Clear [facility] Urine color determinationOrd ered By: Dr. Hewitt on 05-23-2022 Color (U) Yellow Yellow [facility] Urine glucose detectionOrder ed By: Dr. Hewitt on 05-23-2022 Glucose Ql (U) 50 mg/dl Normal [facility] Urine leukocyte esterase det ection by dipstickOrdered By: Dr. Hewitt on 05-23-2022 Leukocyte esterase Test strip Ql (U) Negative Negative [facility] Urine pHOrdered By: Dr. Bradley ht on 05-23-2022 pH (U) 7.0 [pH] 5.0 - 8.0 [facility] Urine sediment bacteria coun t by microscopy (number/high power field)Ordered By: Dr. Hewitt on 05-23-2022 Bacteria LM.HPF (Urine sed) [#/Area] Not Reportable [facility] Urine specific gravity measu rementOrdered By: Dr. Hewitt on 05-23-2022 Specific gravity (U) [Rel density] 1.015 1.002-1.03 0 [facility] Urobilinogen Auto test strip Ql (U)Ordered By: Dr. Hewitt on 05-23-2022 Urobilinogen Ql (U) Normal mg/dl Normal [facility] Absolute lymphocyte counton 10-02-2021 Lymphocytes Auto (Unsp spec) [#/Vol] 1.76 10*3/uL 0.83-4.51 [facility] Work Phone: Basophil percentageon 2021 Basophils/100 WBC (Bld) 0.6 % 0-1 [facility] Work Phone: Bilirubin [Mass/Vol] 0.50 mg/dL 0.20-1.00 [facility] [place] Work Phone: Comment on above: For patients on eltr ombopag therapy, use of Dimension [place] TBIL is not recommended. Chloride [Moles/Vol] 100 mmol/L 98-107 [facility] [place] Work Phone: Eosinophils/100 WBC (Bld) 2.6 % 0-5 [facility] Work Phone: Glucose [Mass/Vol] 104 mg/dL 74-106 [facility] Work Phone: Comment on above: Fasting Glucose resu lt from 100 to 125 mg/dL suggests IMPAIRED HOMEOSTASIS per A.D.A. criteria. Neutrophils (Bld) [#/Vol] 4.5 10*3/uL 2.0-7.7 [facility] Work Phone: Neutrophils/100 WBC (Bld) 62.1 % 47-70 [facility] Work Phone: Potassium [Moles/Vol] 4.2 mmol/L 3.5-5.1 [facility] Work Phone: Protein [Mass/Vol] 7.7 g/dL 6.4-8.2 [facility] Work Phone: Sodium [Moles/Vol] 134 mmol/L 136-145 [facility] Work Phone: WBC (Bld) [#/Vol] 7.2 10*3/uL 4.4-11.0 [facility] Work Phone: Blood erythrocytes count (nu mber/volume)on 10-02-2021 RBC (Bld) [#/Vol] 4.55 10*6/uL 4.6-6.2 [facility] Work Phone: Blood hemoglobin measurement (mass/volume)on 10-02-2021 Hemoglobin (Bld) [Mass/Vol] 14.9 g/dL 13.0-16.5 [facility] Work Phone: Blood lymphocytes/100 leukoc yteson 10-02-2021 Lymphocytes/100 WBC (Bld) 24.4 % 19-41 [facility] Work Phone: Blood monocytes/100 leukocyt eson 10-02-2021 Monocytes/100 WBC (Bld) 10.0 % 0-10 [facility] Work Phone: Blood platelet mean volumeon 10-02-2021 Platelet mean volume (Bld) [Entitic vol] 10.4 fL 6.2-12.0 [facility] Work Phone: Determination of erythrocyte mean corpuscular volume (MCV)on 10-02-2021 MCV (RBC) [Entitic vol] 94.5 fL 80-94 [facility] Work Phone: Erythrocyte sedimentation ra claudia 10-02-2021 ESR (Bld) [Velocity] 12 mm/h 0-20 [facility] Work Phone: Hematocrit Auto (Bld) [Volum e fraction]on 10-02-2021 Hematocrit (Bld) [Volume fraction] 43.0 % 40-54 [facility] Work Phone: Laboratory - Chemistry and C hemistry - challengeon 10-02-2021 ALP [Catalytic activity/Vol] 57 U/L 45-117 [facility] Work Phone: ALT [Catalytic activity/Vol] 62 U/L 16-61 [facility] Work Phone: CO2 [Moles/Vol] 26.0 mmol/L 21.0-32.0 [facility] Work Phone: Globulin (S) [Mass/Vol] 3.7 g/dL 2.2-4.2 [facility] Work Phone: Urea nitrogen/Creatinine [Mass ratio] 21.6 mg/mg 10-20 [facility] Work Phone: Laboratory - Hematology and Cell countson 10-02-2021 Erythrocyte distribution width (RBC) [Entitic vol] 40.7 fL 35.1-43.9 [facility] Work Phone: Erythrocyte distribution width (RBC) [Ratio] 11.7 % 11.6-14.6 [facility] Work Phone: Immature granulocytes/100 WBC (Bld) 0.300 % 0.0-0.9 [facility] Work Phone: Comment on above: IG% - Immature Granu locytes (promyelocytes, myelocytes and metamyelocytes) > 1% indicates that a LEFT SHIFT is Present. MCH (RBC) [Entitic mass] 32.7 pg 27.0-32.0 [facility] Work Phone: Nucleated RBC/100 WBC (Bld) [Ratio] 0 % 0-5 [facility] Work Phone: MCHC Auto (RBC) [Mass/Vol]on 10-02-2021 MCHC (RBC) [Mass/Vol] 34.7 g/dL 32-36 [facility] Work Phone: No Panel Informationon 10-02 Estimated Creatinine Clearance Calc 117.66 ml/min [facility] Work Phone: Estimated GFR (MDRD) Amer 123 mL/min >60 [facility] Work Phone: Comment on above: GFR Calc Estimated GFR (MDRD) Non-Af Amer 102 mL/min >60 [facility] Work Phone: Comment on above: Non- GFR Calc Platelets bldon 10-02-2021 Platelets (Bld) [#/Vol] 191 10*3/uL 150-450 [facility] Work Phone: Serum or plasma C reactive p rotein measurement (mass/volume)on 10-02-2021 CRP [Mass/Vol] 4.26 mg/L 0.0-3.0 [facility] Work Phone: Comment on above: C-Reactive Protein ( CRP) provides useful information for thediagnosis, therapy and monitoring of inflammatory processesand associated diseases. For the evaluation of Relative Riskfor Cardiovascular Disease, a High Sensitivity CRP (HSCRP)should be ordered. Serum or plasma albumin reymundo urement (mass/volume)on 10-02-2021 Albumin [Mass/Vol] 4.0 g/dL 3.2-5.0 [facility] Work Phone: Serum or plasma albumin/glob ulin mass ratioon 10-02-2021 Albumin/Globulin [Mass ratio] 1.1 {ratio} 0.9-2.4 [facility] Work Phone: Serum or plasma calcium reymundo urement (mass/volume)on 10-02-2021 Calcium [Mass/Vol] 8.9 mg/dL 8.5-10.1 [facility] Work Phone: Serum or plasma creatinine m easurement (mass/volume)on 10-02-2021 Creatinine [Mass/Vol] 0.88 mg/dL 0.70-1.30 [facility] Work Phone: Comment on above: The validity of the calculated GFR & GFRAA in patients over 70 years has not been determined. Clinical correlation is essential. Serum or plasma urea nitroge n measurement (mass/volume)on 10-02-2021 Urea nitrogen [Mass/Vol] 19 mg/dL 7-18 [facility] Work Phone: Thin prep Papanicolaou smear with manual screeningon 10-02-2021 Thin prep Papanicolaou smear with manual screening 27 U/L 15-37 [facility] Work Phone: Thin prep Papanicolaou smear with manual screening 8 5-15 [facility] Work Phone: Absolute lymphocyte counton 09-23-2021 Lymphocytes Auto (Unsp spec) [#/Vol] 1.67 10*3/uL 0.83-4.51 [facility] Work Phone: Basophil percentageon 2021 Basophils/100 WBC (Bld) 0.8 % 0-1 [facility] Work Phone: Bilirubin [Mass/Vol] 1.10 mg/dL 0.20-1.00 [facility] Work Phone: Comment on above: For patients on eltr ombopag therapy, use of Dimension [place] TBIL is not recommended. Chloride [Moles/Vol] 100 mmol/L 98-107 [facility] Work Phone: Eosinophils/100 WBC (Bld) 3.8 % 0-5 [facility] Work Phone: Glucose [Mass/Vol] 97 mg/dL 74-106 [facility] Work Phone: Neutrophils (Bld) [#/Vol] 2.7 10*3/uL 2.0-7.7 [facility] Work Phone: Neutrophils/100 WBC (Bld) 52.0 % 47-70 [facility] Work Phone: Potassium [Moles/Vol] 4.3 mmol/L 3.5-5.1 [facility] Work Phone: Protein [Mass/Vol] 7.9 g/dL 6.4-8.2 [facility] Work Phone: Sodium [Moles/Vol] 134 mmol/L 136-145 [facility] Work Phone: Testosterone [Mass/Vol] 161 ng/dL [facility] Work Phone: Comment on above: Adult male reference interval is based on a population ofhealthy nonobese males (BMI <30) between 19 and 39 yearsold. Mabel et.al. JCEM 2017,102;[id number]. PMID:[id number]. WBC (Bld) [#/Vol] 5.2 10*3/uL 4.4-11.0 [facility] Work Phone: Blood erythrocytes count (nu mber/volume)on 09-23-2021 RBC (Bld) [#/Vol] 4.71 10*6/uL 4.6-6.2 [facility] Work Phone: Blood hemoglobin measurement (mass/volume)on 09-23-2021 Hemoglobin (Bld) [Mass/Vol] 15.4 g/dL 13.0-16.5 [facility] Work Phone: Blood lymphocytes/100 leukoc yteson 09-23-2021 Lymphocytes/100 WBC (Bld) 31.9 % 19-41 [facility] Work Phone: Blood monocytes/100 leukocyt eson 09-23-2021 Monocytes/100 WBC (Bld) 11.1 % 0-10 [facility] Work Phone: Blood platelet mean volumeon 09-23-2021 Platelet mean volume (Bld) [Entitic vol] 10.3 fL 6.2-12.0 [facility] Work Phone: Determination of erythrocyte mean corpuscular volume (MCV)on 09-23-2021 MCV (RBC) [Entitic vol] 93.4 fL 80-94 [facility] Work Phone: Free testosterone percentage on 09-23-2021 Testosterone Free/Testosterone.tota l [Mass fraction] 2.07 % [facility] Work Phone: Comment on above: Performed at: [address] [id number] Director: Parveen Paula PhD, Phone: [phone] at: [employer] [facility] [employer] Lab[address] [id number] Director: Mart Davis MD, Phone: [phone] Hematocrit Auto (Bld) [Volum e fraction]on 09-23-2021 Hematocrit (Bld) [Volume fraction] 44.0 % 40-54 [facility] Work Phone: Laboratory - Chemistry and C hemistry - challengeon 09-23-2021 ALP [Catalytic activity/Vol] 50 U/L 45-117 [facility] Work Phone: ALT [Catalytic activity/Vol] 75 U/L 16-61 [facility] Work Phone: CO2 [Moles/Vol] 25.0 mmol/L 21.0-32.0 [facility] Work Phone: Free T4 [Mass/Vol] 0.95 ng/dL 0.76-1.46 [facility] Work Phone: Globulin (S) [Mass/Vol] 3.7 g/dL 2.2-4.2 [facility] Work Phone: Urea nitrogen/Creatinine [Mass ratio] 23.2 mg/mg 10-20 [facility] Work Phone: Laboratory - Hematology and Cell countson 09-23-2021 Erythrocyte distribution width (RBC) [Entitic vol] 41.8 fL 35.1-43.9 [facility] Work Phone: Erythrocyte distribution width (RBC) [Ratio] 12.1 % 11.6-14.6 [facility] Work Phone: Immature granulocytes/100 WBC (Bld) 0.400 % 0.0-0.9 [facility] Work Phone: Comment on above: IG% - Immature Granu locytes (promyelocytes, myelocytes and metamyelocytes) > 1% indicates that a LEFT SHIFT is Present. MCH (RBC) [Entitic mass] 32.7 pg 27.0-32.0 [facility] Work Phone: Nucleated RBC/100 WBC (Bld) [Ratio] 0 % 0-5 [facility] Work Phone: MCHC Auto (RBC) [Mass/Vol]on 09-23-2021 MCHC (RBC) [Mass/Vol] 35.0 g/dL 32-36 [facility] Work Phone: No Panel Informationon 09-23 Estimated GFR (MDRD) Amer 142 mL/min >60 [facility] Work Phone: Comment on above: GFR Calc Estimated GFR (MDRD) Non-Af Amer 117 mL/min >60 [facility] Work Phone: Comment on above: Non- GFR Calc Free Triiodothyronine (T3) pg/dL 3.4 pg/mL 2.18-3.98 [facility] Work Phone: Thyroid Stimulating Hormone (TSH) 0.97 uIU/mL 0.358-3.74 [facility] Work Phone: Vitamin D 25-Hydroxy 33.4 ng/mL [facility] Work Phone: Comment on above: Vitamin D 25(OH) Sta tus Range Deficiency <20 ng/mL (50nmol/L) Insufficiency 20 - 30 ng/mL (50 - 75 nmol/L) Sufficiency 30 - 100 ng/mL (75 - 250 nmol/L) Toxicity >100 ng/mL (>250 nmol/L) Platelets bldon 09-23-2021 Platelets (Bld) [#/Vol] 235 10*3/uL 150-450 [facility] Work Phone: Serum or plasma albumin reymundo urement (mass/volume)on 09-23-2021 Albumin [Mass/Vol] 4.2 g/dL 3.2-5.0 [facility] Work Phone: Serum or plasma albumin/glob ulin mass ratioon 09-23-2021 Albumin/Globulin [Mass ratio] 1.1 {ratio} 0.9-2.4 [facility] Work Phone: Serum or plasma calcium reymundo urement (mass/volume)on 09-23-2021 Calcium [Mass/Vol] 8.8 mg/dL 8.5-10.1 [facility] Work Phone: Serum or plasma creatinine m easurement (mass/volume)on 09-23-2021 Creatinine [Mass/Vol] 0.78 mg/dL 0.70-1.30 [facility] Work Phone: Comment on above: The validity of the calculated GFR & GFRAA in patients over 70 years has not been determined. Clinical correlation is essential. Serum or plasma testosterone free measurement (mass/volume)on 09-23-2021 Testosterone Free [Mass/Vol] 3.33 ng/dL [facility] Work Phone: Serum or plasma urea nitroge n measurement (mass/volume)on 09-23-2021 Urea nitrogen [Mass/Vol] 18 mg/dL 7-18 [facility] Work Phone: Thin prep Papanicolaou smear with manual screeningon 09-23-2021 Thin prep Papanicolaou smear with manual screening 33 U/L 15-37 [facility] Work Phone: Thin prep Papanicolaou smear with manual screening 9 5-15 [facility] Work Phone: Basophil percentageon 2021 Bilirubin [Mass/Vol] 1.10 mg/dL 0.20-1.00 [facility] Work Phone: Comment on above: For patients on eltr ombopag therapy, use of Dimension [place] TBIL is not recommended. Cholesterol [Mass/Vol] 161 mg/dL <200 [facility] Work Phone: Comment on above: <200 mg/dL Desirable 200-240 mg/dL Borderline >240 mg/dL High Risk Protein [Mass/Vol] 8.0 g/dL 6.4-8.2 [facility] Work Phone: Triglyceride [Mass/Vol] 281 mg/dL [facility] Work Phone: Comment on above: The drugs N-Acetylcy steine and Metamizole may falsely depress this assay.Serum Triglycerides Reference Interval Normal <150 mg/dL Borderline high 150 - 199 mg/dL High 200 - 499 mg/dL Very High > or = 500 mg/dL Direct bilirubinon Bilirubin.direct [Mass/Vol] 0.22 mg/dL 0.00-0.30 [facility] Work Phone: Laboratory - Chemistry and C hemistry - challengeon 09-02-2021 ALP [Catalytic activity/Vol] 49 U/L 45-117 [facility] Work Phone: ALT [Catalytic activity/Vol] 67 U/L 16-61 [facility] Work Phone: Globulin (S) [Mass/Vol] 3.9 g/dL 2.2-4.2 [facility] Work Phone: Serum or plasma albumin reymundo urement (mass/volume)on 09-02-2021 Albumin [Mass/Vol] 4.1 g/dL 3.2-5.0 [facility] Work Phone: Serum or plasma cholesterol in HDL measurement (mass/volume)on 09-02-2021 Cholesterol in HDL [Mass/Vol] 41 mg/dL [facility] Work Phone: Comment on above: The drugs N-Acetylcy steine and Metamizole may falsely depress this assay. Reference Range HDL <40 mg/dL Low HDL Cholesterol HDL >or= 60 mg/dL High HDL Cholesterol Serum or plasma cholesterol in VLDL measurement (mass/volume)on 09-02-2021 Cholesterol in VLDL [Mass/Vol] 56 mg/dL 5-40 [facility] Work Phone: Serum or plasma low density lipoprotein (LDL) cholesterol measurement (mass/volume)on 09-02-2021 Cholesterol in LDL [Mass/Vol] 64 mg/dL 0-130 [facility] Work Phone: Thin prep Papanicolaou smear with manual screeningon 09-02-2021 Thin prep Papanicolaou smear with manual screening 31 U/L 15-37 [facility] Work Phone: Provider Note - ED v2on 03-16 Provider Note - ED v2 Provider Note - ED v2: Chart Review: HISTORY OF PRESENTING ILLNESS NIDIA is a 39 year old Male and was seen by me at 02-Apr-2020 08:30. Triage Information: Most recent Vital Sign Value Date PAST MEDICAL HISTORY ATTESTATION: I have reviewed and confirmed nurse's/medic's notes for patient's medications, allergies, medical history, and surgical history ALLERGIES/INTOLERANCES: Allergy Allergen: penicillin Type: Drug Reaction: Anaphylaxis HEALTH HISTORY: No documented data. OUTPATIENT MEDICATIONS: Home Medications Review Status for Reconciliation: Complete Med Status: Patient Currently Takes Medications Drug Name: lisinopril 10 mg oral tablet Instructions: 1 tab(s) orally once a day Drug Name: Plavix 75 mg oral tablet Instructions: 1 tab(s) orally once a day Drug Name: Zithromax Z-Dakotah 250 mg oral tablet Instructions: as directed on package SIGNIFICANT EVENTS: No documented data. RESULTS/VITAL SIGNS VITAL SIGNS: T PRBP SpO2O2(LPM) %FiO2 Method 02-Apr-2020 08:20:[id number] 98 MEDICAL DECISION MAKING/ED COURSE MDM/ED COURSE: This note was generated with voice recognition software and may contain errors including spelling, grammar, syntax, and misrecognization of what was dictated Chief Complaint Sinus pressure History of Present Illness Patient presents with complaints of acute onset facial pressure/pain accompanied by cloudy and discolored nasal mucus, sore throat, and cough for 3 days. Patient points to their frontal sinuses as the source of their constant 6 out of 10 pressure. Only time has made their symptoms worse while nothing makes them better. Patient denies the use of any [id number]-odwdknx medications or home remedies prior to arrival for symptom management. Review of Systems 10 systems reviewed negative with exception of history of present illness listed above Physical Examination General: Alert and oriented, No acute distress. Eye: Pupils are equal, round and reactive. HENT: Normocephalic with frontal sinus tenderness on palpation Neck: Supple, Non-tender, No lymphadenopathy. Respiratory: Respirations are non-labored, Symmetrical chest wall expansion, Lungs are clear to auscultation, Breath sounds are equal Cardiovascular: Normal rate, Regular rhythm. Gastrointestinal: Soft, non-tender, non-distended Musculoskeletal: Normal range of motion, normal strength, no tenderness, no swelling. Integumentary: [place], warm, dry, and Intact. Neurologic: Alert, Oriented, Normal sensory, Normal motor function. Cognition and Speech: Oriented, Speech clear and coherent. Psychiatric: Cooperative, Appropriate mood & affect. Impression and Plan Course: Worsening Plan: Patient will be discharged home with oral antibiotics, instructed to use appropriate over the counter medications for symptom management, and is instructed to follow-up with their primary care provider in 3-5 days for any increase in severity of symptoms or any additional concerns. Patient agrees with plan of care, questions were encouraged and answered. Patient Instructions: Sinusitis CLINICAL IMPRESSION Diagnosis/Annotation: ED Dx Name:Acute frontal sinusitis Code:J01.10 Disposition: discharged Type: home ATTESTATION CRITICAL CARE TIME Is this a critically ill patient: no Electronic Signatures: Cirilo Lubin (TAPE RECORDER MECHANIC-PROCUREMENT OFFICER) (Signed 02-Apr-2020 10:02) Authored: HPI, PMH, PE, Results/Vital Signs, MDM/ED Course, Clinical Impression, Attestation, Chart Review, Scores Last Updated: 02-Apr-2020 10:02 by Cirilo Lubin (TAPE RECORDER MECHANIC-PROCUREMENT OFFICER) Normal [facility] Auto Diffon 11-17-2016 Basophils Auto #/vol (Bld) 0.1 E3/mcL Normal 0.0-0.2 [facility] Comment on above: Order Comment: Order Added by Discern Expert. Performed By: #### 2 [id number] ####JOSE [address] [place] [address] Basophils/100 WBC Auto (Bld) 0.9 % Normal 0.0-2.0 [facility] Comment on above: Order Comment: Order Added by Discern Expert. Performed By: #### 2 [id number] ####JOSE [address] [place] [address] Eos Absolute 0.2 E3/mcL Normal 0.0-0.7 [facility] Comment on above: Order Comment: Order Added by Discern Expert. Performed By: #### 2 [id number] ####JOSE [address] [place] [address] Eosinophils/100 leukocytes 3.5 % Normal 0.0-11.0 [facility] Comment on above: Order Comment: Order Added by Discern Expert. Performed By: #### 2 [id number] ####JOSE [address] [place] [address] Lymphocytes 2.2 E3/mcL Normal 1.2-3.4 [facility] Comment on above: Order Comment: Order Added by Discern Expert. Performed By: #### 2 [id number] ####JOSE [address] [place] [address] Lymphocytes/100 leukocytes 33.2 % Normal 20.0-55.0 [facility] Comment on above: Order Comment: Order Added by Discern Expert. Performed By: #### 2 [id number] ####JOSE [address] [place] [address] [place] Absolute 0.8 E3/mcL High 0.0-0.7 [facility] Comment on above: Order Comment: Order Added by Discern Expert. Performed By: #### 2 [id number] ####JOSE [address] [place] [address] Monocytes/100 leukocytes 11.2 % High 0.0-10.0 [facility] Comment on above: Order Comment: Order Added by Discern Expert. Performed By: #### 2 [id number] ####JOSE [address] [place] [address] Neutro Absolute 3.4 E3/mcL Normal 1.4-6.5 [facility] Comment on above: Order Comment: Order Added by Discern Expert. Performed By: #### 2 [id number] ####JOSE [address] [place] [address] Neutro Auto 51.2 % Normal 37.0-75.0 [facility] Comment on above: Order Comment: Order Added by Discern Expert. Performed By: #### 2 [id number] ####JOSE [address]efz[address] [place] [address] BMPon 11-17-2016 BUN/Creatinine Ratio 20.0 ratio Normal 5.4-30.0 [facility] Comment on above: Performed By: #### 2 [id number] ####JOSE [address]Bphp[address] [place] [address] Creatinine 0.8 mg/dL Normal 0.6-1.3 [facility] Comment on above: Performed By: #### 2 [id number] ####JOSE [address]un[address] [place] [address] Urea nitrogen 16 mg/dL Normal 7-18 [facility] Comment on above: Performed By: #### 2 [id number] ####JOSE [address]vdr[address] [place] [address] Calcium 9.1 mg/dL Normal 8.4-10.2 [facility] Comment on above: Performed By: #### 2 965159 ####JOSE [address]Hebh[address] [place] [address] Chloride 103 mmol/L Normal 98-107 [facility] Comment on above: Performed By: #### 2 344506 ####JOSE [address]fce[address] [place] [address] CO2 24.0 mmol/L Normal 24.0-30.0 [facility] Comment on above: Performed By: #### 2 [id number] ####JOSE T[address]Vpkz[address] [place] [address] Glucose mass conc 94 mg/dL Normal 70-99 [facility] Comment on above: Performed By: #### 2 [id number] ####JOSE [address]wWsjt[address] [place] [address] Potassium molar conc 4.1 mmol/L Normal 3.5-5.1 [facility] Comment on above: Performed By: #### 2 [id number] ####JOSE [address]Yizz[address] [place] [address] Sodium 135 mmol/L Low 136-145 [facility] Comment on above: Performed By: #### 2 [id number] ####JOSE [address] [place] [id number] CBC w/ Auto Diffon 7 Erythrocyte distribution width Auto Ratio (RBC) 13.2 % Normal 11.5-14.5 [facility] Comment on above: Performed By: #### 2 [id number] ####JOSE [address] [place] [address] Erythrocytes (RBC) 4.77 E6/mcL Normal 3.90-6.10 [facility] Comment on above: Performed By: #### 2 [id number] ####JOSE [address]ry[address] [place] [id number] Hematocrit (HCT) 43.4 % Normal 42.0-52.0 [facility] Comment on above: Performed By: #### 2 480809 ####JOSE [address]hs[address] [place] [address] Hemoglobin mass conc (Bld) 14.9 g/dL Normal 13.5-18.0 [facility] Comment on above: Performed By: #### 2 [id number] ####JOSE [address]fXous[address] [place] [address] MCH 31.4 pg High 27.0-31.0 [facility] Comment on above: Performed By: #### 2 907279 ####JOSE R[address]wEvvf[address] [place] [id number] MCHC mass conc (RBC) 34.4 g/dL Normal 33.0-37.0 [facility] Comment on above: Performed By: #### 2 954362 ####JOSE [address]Eunb[address] [place] [id number] MCV 91.1 fL Normal 78.0-100.0 [facility] Comment on above: Performed By: #### 2 [id number] ####JOSEJonh [address]ss[address] [place] [id number] Platelet mean volume (PMV) 8.7 fL Normal 7.4-11.0 [facility] Comment on above: Performed By: #### 2 [id number] ####JOSE [address] [place] [address] Platelets 198 E3/mcL Normal 130-400 [facility] Comment on above: Performed By: #### 2 [id number] ####JOSE SjtMjqd3149 [place] [address] WBC (Leukocytes) 6.7 E3/mcL Normal 3.6-11.0 [facility] Comment on above: Performed By: #### 2 493289 ####JOSE TdoFhlx[address] [place] [address] CKon 11-17-2016 Total CK 241 Int._Unit/L High 26-140 [facility] Comment on above: Performed By: #### 2 [id number] ####JOSE Z[address]Oohm[address] [place] [address] CKMBon 11-17-2016 CKMB 5.2 ng/mL Critically abnormal 0.0-5.0 [facility] Comment on above: Result Comment: Crit ical Result CKMB: Called to: ALAN NIX at: 08:25:51 by:GENI Read back by:ALAN NIX Performed By: #### 1 [id number] ####JOSE [address]ie[address] [place] [address] PTon 11-17-2016 INR Coag RelTime (PPP) 1.0 {INR} Normal 1.0-1.2 [facility] Comment on above: Result Comment: INR Recommended Therapeuptic Ranges: Prophylaxis/treatment of DVT and PE?2.0-3.0 Prevention of systemic embolism?.2.0-3.0 Mechanical prosthetic values?2.5-3.5 CRITICAL VALUES?.>4.0 Performed By: #### 2 [id number] ####JOSE Hematology Automated [address] [place] [address] Prothrombin time (PT) Coag time (PPP) 12.5 second(s) Normal 11.6-14.6 [facility] Comment on above: Performed By: #### 2 [id number] ####JOSE Hematology [employer]ated [address] [place] [address] PTTon 11-17-2016 aPTT 31.2 second(s) Normal 23.2-36.4 [facility] Comment on above: Performed By: #### 2 [id number] ####JOSE Hematology Automated [address]vmxqouwf4268 [place] [address] PTT Control Ratioon 11-18-19 17 PTT Ratio 1.0 ratio Normal 0.8-1.2 [facility] Comment on above: Order Comment: Order Added by Discern Expert. Performed By: #### 2 [id number] ####JOSE Marshall[address]uiS[address] [place] [address] Troponin-Ion 11-17-2016 Troponin I.cardiac mass conc ng/mL Normal .00-.03 [facility] Comment on above: Performed By: #### 2 [id number] ####JOSE MarshallAgkWfdq[address]778 [place] [address] Troponin I.cardiac mass conc ng/mL Normal .00-.03 [facility] Comment on above: Performed By: #### 2 [id number] ####JOSE RbmGvsf[address] [place] [address] XR Chest 1 View Frontalon INR Coag RelTime (Bld) Exam Date/Time:11/17/2016 07:53 EDTReason for Exam:Chest painReportChest, single viewHISTORY: Shortness of breath and chest pain since 04 100.COMPARISON: Chest radiographs 10/16/2015.FINDINGS: Portable chest radiograph obtained on 2 films. No consolidativeairspace disease, effusion or pneumothorax. Heart size and pulmonaryvascularity are normal. No acute osseous abnormality.IMPRESSION: No acute disease. FINAL REPORT Dictated: 11/17/2016 7:56 am Michelle Toscano MD ASigned (Electronic Signature): 11/17/2016 7:56 amSigned by: Michelle Toscano MD Technologist: SRH Normal [facility] eGFRon 11-17-2016 eGFR (non-black) mL/min/{1.73_m2} Normal [facility] Comment on above: Order Comment: Order added by Discern Expert. Performed By: #### 1 [id number] ####JOSE [address] [place] [id number] CBC (Auto) ([id number])Ordered By : Grocery Team Member on 05-23-2014 Erythrocyte distribution width (RBC) [Ratio] 13.9 % Normal 12.3-15.4 [facility] Work Phone: Comment on above: PATIENT NOT FASTINGP ERFORMED BY: CB [facility] Evcwjl0136 Foote RoadDublin [place] [id number] BY: [facility]Co[address] [id number] Information: [id number], [id number] Hematocrit (Bld) [Volume fraction] 48.5 % Normal 37.5-51.0 [facility] Work Phone: Comment on above: PATIENT NOT FASTINGP ERFORMED BY: CB [facility] Nnpnfu8128 Foote RoadCritical access hospital [id number] BY: PERORA[address] [id number] Information: [id number], [id number] Hemoglobin (Bld) [Mass/Vol] 16.9 g/dL Normal 12.6-17.7 [facility] Work Phone: Comment on above: PATIENT NOT FASTINGP ERFORMED BY: CB [facility] Qcfhst[address] [facility] [id number] BY: LabWeVuerp [address] [id number] Information: [id number], [id number] MCH (RBC) [Entitic mass] 31.6 pg Normal 26.6-33.0 [facility] Work Phone: Comment on above: PATIENT NOT FASTINGP ERFORMED BY: CB [facility] Uvkvvh[address] [facility] [id number] BY: LabWeVue[address] [id number] Information: [id number], [id number] MCHC (RBC) [Mass/Vol] 34.8 g/dL Normal 31.5-35.7 [facility] Work Phone: Comment on above: PATIENT NOT FASTINGP ERFORMED BY: FANY [facility] Qqtwqk9677 [facility] [id number] BY: [address] [id number] Information: [id number], [id number] MCV (RBC) [Entitic vol] 91 fL Normal 79-97 [facility] Medicine Work Phone: Comment on above: PATIENT NOT FASTINGP ERFORMED BY: FANY [facility] Qurjuu7215 [facility] [id number] BY: [address] [id number] Information: [id number], [id number] Platelets (Bld) [#/Vol] 238 {x10E3/uL} Normal 150-379 [facility] Work Phone: Comment on above: PATIENT NOT FASTINGP ERFORMED BY: CB [facility] Winnfi0840 [facility] [id number] BY: [address] [id number] Information: [id number], [id number] RBC (Bld) [#/Vol] 5.34 {x10E6/uL} Normal 4.14-5.[address] [facility] Internal Medicine Work Phone: Comment on above: PATIENT NOT FASTINGP ERFORMED BY: CB [facility] Ejtbug8422 [facility] [id number] BY: [address] [id number] Information: [id number], [id number] WBC (Bld) [#/Vol] 9.3 {x10E3/uL} Normal 3.4-10.8 [facility] Work Phone: Comment on above: PATIENT NOT FASTINGP ERFORMED BY: [facility] Lsvcvb9922 [facility] [id number] BY: [facility]CoH[facility] CenterHgmgjwqggi3875 [facility] [id number] Information: [id number], [id number] TESTOSTERONE FREE (48031)Ord ered By: Grocery Team Member on 05-23-2014 Testosterone Free [Mass/Vol] >48.0 Abnormal 8.7-25.1 [facility] Work Phone: Comment on above: PATIENT NOT FASTINGP ERFORMED BY: LabWeVuerp Gcfugq2068 [facility] [id number] BY: [facility]CoHack[facility] Medical CenterOelkgycbfe7360 [facility] [id number] Urinalysis, Office ([id number])on 03-25-2014 Bilirubin Ql (U) Negative Normal Compre[facility] ns[facility] Work Phone: Glucose Test strip (U) [Mass/Vol] Negative Normal [facility] Work Phone: Hemoglobin Ql (U) Non Hemolyzed Trace Normal [facility] Work Phone: Ketones Ql (U) Negative Normal Comprehens sushant [facility] Work Phone: Leukocyte esterase Test strip Ql (U) Negative Normal [facility] Work Phone: Nitrite Ql (U) Negative Normal Comprehens [facility]ant [facility] Work Phone: pH (U) 6.0 [pH] Normal [facility] Work Phone: Comment on above: 5.5 Protein Ql (U) Negative Normal Comprehens sushant [facility] Work Phone: Specific gravity (U) [Rel density] 1.025 1 Normal [facility] Work Phone: Urobilinogen (24H U) [Mass/Time] 2 mg/dL Normal [facility] Work Phone: Vital Signs Date Time Vital Sign Value Performing Clinician Facility 01-06-2023 08:16-0400 Body height 180.[address] Andreia Boyer Work Phone: [facility] 01-06-2023 08:16-0400 Body mass index (BMI) [Ratio] 41 kg/m2 Dr. Andreia Boyer Work Phone: [facility] 01-06-2023 08:16-0400 Body temperature 97.6 [degF] Dr. Andreia Boyer Work Phone: [facility] 01-06-2023 08:16-0400 Body weight 133.[address] Andreia Boyer Work Phone: [facility] 01-06-2023 08:16-0400 Diastolic blood pressure 97 mm[Hg] Dr. Andreia Boyer Work Phone: [facility] 01-06-2023 08:16-0400 Heart rate 105 /min Dr. Andreia Boyer Work Phone: [facility] 01-06-2023 08:16-0400 Respiratory rate 18 /min Dr. Andreia Boyer Work Phone: [facility] 01-06-2023 08:16-0400 SaO2% (BldA) [Mass fraction] 99 % Dr. Andreia Boyer Work Phone: [facility] 01-06-2023 08:16-0400 Systolic blood pressure 141 mm[Hg] Dr. Andreia Boyer Work Phone: [facility] 12-30-2022 10:09-0400 Body temperature 98.5 [degF] Dr. Andreia Boyer Work Phone: [facility] 12-30-2022 10:09-0400 Diastolic blood pressure 90 mm[Hg] Dr. Andreia Boyer Work Phone: [facility] 12-30-2022 10:09-0400 Heart rate 84 /min Dr. Andreia Boyer Work Phone: [facility] 12-30-2022 10:09-0400 Respiratory rate 14 /min Dr. Andreia Boyer Work Phone: [facility] 12-30-2022 10:09-0400 SaO2% (BldA) [Mass fraction] 93 % Dr. Andreia Boyer Work Phone: [facility] 12-30-2022 10:09-0400 Systolic blood pressure 134 mm[Hg] Dr. Andreia Boyer Work Phone: [facility] 12-15-2022 10:31-0400 Diastolic blood pressure 67 mm[Hg] [facility] 12-15-2022 10:31-0400 Heart rate 72 /min [facility] 12-15-2022 10:31-0400 Respiratory rate 18 /min [facility] 12-15-2022 10:31-0400 SaO2% (BldA) [Mass fraction] 100 % [facility] 12-15-2022 10:31-0400 Systolic blood pressure 117 mm[Hg] [facility] 12-15-2022 08:28-0400 Body height 180.34 cm [facility] 12-15-2022 08:28-0400 Body mass index (BMI) [Ratio] 39.6 kg/m2 [facility] 12-15-2022 08:28-0400 Body temperature 97.7 [degF] [facility] 12-15-2022 08:28-0400 Body weight 128.82 kg [facility] 10-22-2022 11:44-0400 Body mass index (BMI) [Ratio] 42.1 kg/m2 [facility] 10-22-2022 11:44-0400 Body temperature 98 [degF] [facility] 10-22-2022 11:44-0400 Body weight 137.06 kg [facility] 10-22-2022 11:44-0400 Diastolic blood pressure 103 mm[Hg] [facility] 10-22-2022 11:44-0400 Heart rate 88 /min [facility] 10-22-2022 11:44-0400 Respiratory rate 16 /min [facility] 10-22-2022 11:44-0400 SaO2% (BldA) [Mass fraction] 95 % [facility] 10-22-2022 11:44-0400 Systolic blood pressure 172 mm[Hg] [facility] 08-02-2022 08:01-0400 Body height 180.[address] Andreia Boyer Work Phone: [facility] 08-02-2022 08:01-0400 Body mass index (BMI) [Ratio] 40.4 kg/m2 Dr. Andreia Boyer Work Phone: [facility] 08-02-2022 08:01-0400 Body temperature 98.9 [degF] Dr. Andreia Boyer Work Phone: [facility] 08-02-2022 08:01-0400 Body weight 131.[address] Andreia Boyer Work Phone: [facility] 08-02-2022 08:01-0400 Diastolic blood pressure 91 mm[Hg] Dr. Andreia Boyer Work Phone: [facility] 08-02-2022 08:01-0400 Heart rate 98 /min Dr. Andreia Boyer Work Phone: [facility] 08-02-2022 08:01-0400 Respiratory rate 16 /min Dr. Andreia Boyer Work Phone: [facility] 08-02-2022 08:01-0400 SaO2% (BldA) [Mass fraction] 99 % Dr. Andreia Boyer Work Phone: [facility] 08-02-2022 08:01-0400 Systolic blood pressure 125 mm[Hg] Dr. Andreia Boyer Work Phone: [facility] 06-23-2022 09:04-0500 Body temperature 97.3 [degF] Dr. Andreia Boyer Work Phone: [facility] 06-23-2022 09:04-0500 Body weight 140.[address] Andreia Boyer Work Phone: [facility] 06-23-2022 09:04-0500 Diastolic blood pressure 90 mm[Hg] Dr. Andreia Boyer Work Phone: [facility] 06-23-2022 09:04-0500 Heart rate 98 /min Dr. Andreia Boyer Work Phone: [facility] 06-23-2022 09:04-0500 Respiratory rate 18 /min Dr. Andreia Boyer Work Phone: [facility] 06-23-2022 09:04-0500 SaO2% (BldA) [Mass fraction] 93 % Dr. Andreia Boyer Work Phone: [facility] 06-23-2022 09:04-0500 Systolic blood pressure 156 mm[Hg] Dr. Andreia Boyer Work Phone: [facility] 05-23-2022 16:42-0500 Body height 180.[address] Andreia Boyer Work Phone: [facility] 05-23-2022 16:42-0500 Body mass index (BMI) [Ratio] 44.4 kg/m2 Dr. Andreia Boyer Work Phone: [facility] 05-23-2022 16:42-0500 Body temperature 97.3 [degF] Dr. Andreia Boyer Work Phone: [facility] 05-23-2022 16:42-0500 Body weight 144.[address] Andreia Boyer Work Phone: [facility] 05-23-2022 16:42-0500 Diastolic blood pressure 94 mm[Hg] Dr. Andreia Boyer Work Phone: [facility] 05-23-2022 16:42-0500 Heart rate 89 /min Dr. Andreia Boyer Work Phone: [facility] 05-23-2022 16:42-0500 Respiratory rate 18 /min Dr. Andreia Boyer Work Phone: [facility] 05-23-2022 16:42-0500 SaO2% (BldA) [Mass fraction] 95 % Dr. Andreia Boyer Work Phone: [facility] 05-23-2022 16:42-0500 Systolic blood pressure 145 mm[Hg] Dr. Andreia Boyer Work Phone: [facility] 03-11-2022 11:39-0400 Body temperature 98.6 [degF] Dr. Andreia Boyer Work Phone: [facility] 03-11-2022 11:39-0400 Body weight 138.[address] Andreia Boyer Work Phone: [facility] 03-11-2022 11:39-0400 Diastolic blood pressure 92 mm[Hg] Dr. Andreia Boyer Work Phone: [facility] 03-11-2022 11:39-0400 Heart rate 91 /min Dr. Andreia Boyer Work Phone: [facility] 03-11-2022 11:39-0400 Respiratory rate 18 /min Dr. Andreia Boyer Work Phone: [facility] 03-11-2022 11:39-0400 SaO2% (BldA) [Mass fraction] 97 % Dr. Andreia Boyer Work Phone: [facility] 03-11-2022 11:39-0400 Systolic blood pressure 146 mm[Hg] Dr. Andreia Boyer Work Phone: [facility] 03-08-2022 11:10-0400 Diastolic blood pressure 90 mm[Hg] [facility] 03-08-2022 11:10-0400 Heart rate 82 /min [facility] 03-08-2022 11:10-0400 Respiratory rate 16 /min [facility] 03-08-2022 11:10-0400 SaO2% (BldA) [Mass fraction] 98 % [facility] 03-08-2022 11:10-0400 Systolic blood pressure 150 mm[Hg] [facility] 03-08-2022 09:31-0400 Body height 180.34 cm [facility] Work Phone: 03-08-2022 09:31-0400 Body mass index (BMI) [Ratio] 39 kg/m2 [facility] 03-08-2022 09:31-0400 Body temperature 98.2 [degF] [facility] 03-08-2022 09:31-0400 Body weight 127 kg [facility] 10-02-2021 11:21-0400 Respiratory rate 16 /min MENTAL MEASUREMENTS TEACHER-C Cheyenne Shaffera MENTAL MEASUREMENTS TEACHER Work Phone: [facility] Work Phone: 10-02-2021 11:00-0400 Diastolic blood pressure 95 mm[Hg] MENTAL MEASUREMENTS TEACHER-C Cheyenne Shaffera MENTAL MEASUREMENTS TEACHER Work Phone: [facility] Work Phone: 10-02-2021 11:00-0400 Heart rate 66 /min MENTAL MEASUREMENTS TEACHER-C Cheyenne Shaffera MENTAL MEASUREMENTS TEACHER Work Phone: [facility] Work Phone: 10-02-2021 11:00-0400 SaO2% (BldA) [Mass fraction] 94 % MENTAL MEASUREMENTS TEACHER-C Cheyenne Shaffera MENTAL MEASUREMENTS TEACHER Work Phone: [facility] Work Phone: 10-02-2021 11:00-0400 Systolic blood pressure 127 mm[Hg] MENTAL MEASUREMENTS TEACHER-C Cheyenne Ciesa MENTAL MEASUREMENTS TEACHER Work Phone: [facility] Work Phone: 10-02-2021 09:28-0400 Body temperature 97.8 [degF] MENTAL MEASUREMENTS TEACHER-C Cheyenne Ciesa MENTAL MEASUREMENTS TEACHER Work Phone: [facility] Work Phone: 10-02-2021 07:23-0400 Body height 180.34 cm MENTAL MEASUREMENTS TEACHER-C Cheyenne Ciesa MENTAL MEASUREMENTS TEACHER Work Phone: [facility] Work Phone: 10-02-2021 07:23-0400 Body mass index (BMI) [Ratio] 38.9 kg/m2 MENTAL MEASUREMENTS TEACHER-C Cheyenne Rai MENTAL MEASUREMENTS TEACHER Work Phone: [facility] Work Phone: 10-02-2021 07:23-0400 Body weight 126.55 kg MENTAL MEASUREMENTS TEACHER-C Cheyenne Shaffera MENTAL MEASUREMENTS TEACHER Work Phone: [facility] Work Phone: 10-01-2021 09:48-0400 Body temperature 97.2 [degF] MENTAL MEASUREMENTS TEACHER-C Cheyenne Rai MENTAL MEASUREMENTS TEACHER Work Phone: [facility] Work Phone: 10-01-2021 09:48-0400 Diastolic blood pressure 88 mm[Hg] MENTAL MEASUREMENTS TEACHER-C Cheyenne Rai MENTAL MEASUREMENTS TEACHER Work Phone: [facility] Work Phone: 10-01-2021 09:48-0400 Heart rate 99 /min MENTAL MEASUREMENTS TEACHER-C Cheyenne Rai MENTAL MEASUREMENTS TEACHER Work Phone: [facility] Work Phone: 10-01-2021 09:48-0400 Respiratory rate 15 /min MENTAL MEASUREMENTS TEACHER-C Cheyenne Rai MENTAL MEASUREMENTS TEACHER Work Phone: [facility] Work Phone: 10-01-2021 09:48-0400 SaO2% (BldA) [Mass fraction] 97 % MENTAL MEASUREMENTS TEACHER-C Cheyenne Shaffera MENTAL MEASUREMENTS TEACHER Work Phone: [facility] Work Phone: 10-01-2021 09:48-0400 Systolic blood pressure 133 mm[Hg] MENTAL MEASUREMENTS TEACHER-C Cheyenne Shaffera MENTAL MEASUREMENTS TEACHER Work Phone: [facility] Work Phone: 10-01-2021 09:47-0400 Body height 180.34 cm MENTAL MEASUREMENTS TEACHER-C Cheyenne Shaffera MENTAL MEASUREMENTS TEACHER Work Phone: [facility] Work Phone: 10-01-2021 09:47-0400 Body mass index (BMI) [Ratio] 38.9 kg/m2 MENTAL MEASUREMENTS TEACHER-C Cheyenne Shaffera MENTAL MEASUREMENTS TEACHER Work Phone: [facility] Work Phone: 10-01-2021 09:47-0400 Body weight 126.55 kg MENTAL MEASUREMENTS TEACHER-C Cheyenne Shaffera MENTAL MEASUREMENTS TEACHER Work Phone: [facility] Work Phone: 09-23-2021 09:04-0400 Body mass index (BMI) [Ratio] 39.9 kg/m2 MENTAL MEASUREMENTS TEACHER-C Cheyenne Shaffera MENTAL MEASUREMENTS TEACHER Work Phone: [facility] Work Phone: 09-23-2021 09:04-0400 Body temperature 97.5 [degF] MENTAL MEASUREMENTS TEACHER-C Cheyenne Shaffera MENTAL MEASUREMENTS TEACHER Work Phone: [facility] Work Phone: 09-23-2021 09:04-0400 Body weight 129.72 kg MENTAL MEASUREMENTS TEACHER-C Cheyenne Shaffera MENTAL MEASUREMENTS TEACHER Work Phone: [facility] Work Phone: 09-23-2021 09:04-0400 Diastolic blood pressure 90 mm[Hg] MENTAL MEASUREMENTS TEACHER-C Cheyenne Shaffera MENTAL MEASUREMENTS TEACHER Work Phone: [facility] Work Phone: 09-23-2021 09:04-0400 Heart rate 92 /min MENTAL MEASUREMENTS TEACHER-C Cheyenne Shaffera MENTAL MEASUREMENTS TEACHER Work Phone: [facility] Work Phone: 09-23-2021 09:04-0400 Respiratory rate 14 /min MENTAL MEASUREMENTS TEACHER-C Cheyenne Shaffera MENTAL MEASUREMENTS TEACHER Work Phone: [facility] Work Phone: 09-23-2021 09:04-0400 SaO2% (BldA) [Mass fraction] 95 % MENTAL MEASUREMENTS TEACHER-C Cheyenne Shaffera MENTAL MEASUREMENTS TEACHER Work Phone: [facility] Work Phone: 09-23-2021 09:04-0400 Systolic blood pressure 138 mm[Hg] MENTAL MEASUREMENTS TEACHER-C Cheyenne Shaffera MENTAL MEASUREMENTS TEACHER Work Phone: [facility] Work Phone: 09-02-2021 08:47-0400 Body height 180.34 cm MENTAL MEASUREMENTS TEACHER-C Cheyenne Shaffera MENTAL MEASUREMENTS TEACHER Work Phone: [facility] Work Phone: 09-02-2021 08:47-0400 Body mass index (BMI) [Ratio] 41.3 kg/m2 MENTAL MEASUREMENTS TEACHER-C Cheyenne Shaffera MENTAL MEASUREMENTS TEACHER Work Phone: [facility] Work Phone: 09-02-2021 08:47-0400 Body weight 134.26 kg MENTAL MEASUREMENTS TEACHER-C Cheyenne Shaffera MENTAL MEASUREMENTS TEACHER Work Phone: [facility] Work Phone: 09-02-2021 08:47-0400 Diastolic blood pressure 95 mm[Hg] MENTAL MEASUREMENTS TEACHER-C Cheyenne Shaffera MENTAL MEASUREMENTS TEACHER Work Phone: [facility] Work Phone: 09-02-2021 08:47-0400 Heart rate 99 /min MENTAL MEASUREMENTS TEACHER-C Cheyenne Shaffera MENTAL MEASUREMENTS TEACHER Work Phone: [facility] Work Phone: 09-02-2021 08:47-0400 Respiratory rate 16 /min MENTAL MEASUREMENTS TEACHER-C Cheyenne Shaffera MENTAL MEASUREMENTS TEACHER Work Phone: [facility] Work Phone: 09-02-2021 08:47-0400 Systolic blood pressure 147 mm[Hg] MENTAL MEASUREMENTS TEACHER-C Cheyenne Shaffera MENTAL MEASUREMENTS TEACHER Work Phone: [facility] Work Phone: 07-04-2015 08:28-0500 Body Temperature 97 [degF] [facility] Work Phone: Comment on above: vision screen both eyes 20/20right eye 2 0/20left eye 20/20 07-04-2015 08:28-0500 Body weight 121.22 kg [facility] Internal Medicine Work Phone: Comment on above: vision screen both eyes 20/20right eye 2 0/20left eye 20/20 07-04-2015 08:28-0500 BP Diastolic 88 mm[Hg] [facility] Work Phone: Comment on above: Patient Position: Sitting; Cuff Location : Left Arm; Cuff Size: Standard vision screen both e yes 20/20right eye 20/20left eye 20/20 07-04-2015 08:28-0500 BP Systolic 148 mm[Hg] [facility] Work Phone: Comment on above: Patient Position: Sitting; Cuff Location : Left Arm; Cuff Size: Standard vision screen both e yes 20/20right eye 20/20left eye 20/20 07-04-2015 08:28-0500 Pulse (Heart Rate) 86 /min [facility] Medicine Work Phone: Comment on above: Pattern: Regular vision screen both e yes 20/20right eye 20/20left eye 20/20 07-04-2015 08:28-0500 Pulse Oximetry 99 % [facility] Medicine Work Phone: Comment on above: Room air vision screen both e yes 20/20right eye 20/20left eye 20/20 07-04-2015 08:28-0500 Respiratory Rate 16 /min [facility] Medicine Work Phone: Comment on above: Pattern: Unlabored vision screen both e yes 20/20right eye 20/20left eye 20/20 06-02-2015 16:13-0500 Body Temperature 97.2 [degF] [facility] Internal Medicine Work Phone: 06-02-2015 16:13-0500 Body weight 128.88 kg [facility] Work Phone: 06-02-2015 16:13-0500 BP Diastolic 78 mm[Hg] [facility] Work Phone: Comment on above: Patient Position: Sitting; Cuff Location : Left Arm; Cuff Size: Standard 06-02-2015 16:13-0500 BP Systolic 128 mm[Hg] Araceli [facility] Work Phone: Comment on above: Patient Position: Sitting; Cuff Location : Left Arm; Cuff Size: Standard 06-02-2015 16:13-0500 Pulse (Heart Rate) 100 /min Araceli [facility] Work Phone: Comment on above: Pattern: Regular 06-02-2015 16:13-0500 Pulse Oximetry 97 % Araceli Bonei [facility] Work Phone: Comment on above: Room air 06-02-2015 16:13-0500 Respiratory Rate 16 /min Araceli [facility] Work Phone: Comment on above: Pattern: Unlabored 05-23-2014 11:21-0500 Body Temperature 98.1 [degF] Araceli Bone[facility] Work Phone: Comment on above: Method: Oral 05-23-2014 11:21-0500 Body weight 128.88 kg Araceli Bonei [facility] Work Phone: 05-23-2014 11:21-0500 BP Diastolic 98 mm[Hg] [facility] Work Phone: Comment on above: Patient Position: Sitting; Cuff Location : Left Arm; Cuff Size: Large 05-23-2014 11:21-0500 BP Systolic 142 mm[Hg] [facility] Work Phone: Comment on above: Patient Position: Sitting; Cuff Location : Left Arm; Cuff Size: Large 05-23-2014 11:21-0500 Pulse (Heart Rate) 103 /min Araceli Bonei [facility] Work Phone: Comment on above: Pattern: Regular 05-23-2014 11:21-0500 Pulse Oximetry 98 % Araceli Bone[facility] Work Phone: Comment on above: Room air 05-23-2014 11:21-0500 Respiratory Rate 18 /min Araceli Bone[facility] Work Phone: Comment on above: Pattern: Unlabored 04-22-2014 16:07-0500 Body Temperature 98 [degF] Araceli Miles [facility] Work Phone: Comment on above: Method: Tympanic 04-22-2014 16:07-0500 Body weight 128.88 kg Araceli Miles [facility] Work Phone: 04-22-2014 16:07-0500 BP Diastolic 82 mm[Hg] Araceli Miles [facility] Work Phone: Comment on above: Patient Position: Sitting; Cuff Location : Left Arm; Cuff Size: Standard 04-22-2014 16:07-0500 BP Systolic 138 mm[Hg] Araceli Wells [facility] Work Phone: Comment on above: Patient Position: Sitting; Cuff Location : Left Arm; Cuff Size: Standard 04-22-2014 16:07-0500 Pulse (Heart Rate) 107 /min Araceli Miles [facility] Work Phone: Comment on above: Pattern: Regular 04-22-2014 16:07-0500 Pulse Oximetry 97 % Araceli Miles [facility] Work Phone: Comment on above: Room air 04-22-2014 16:07-0500 Respiratory Rate 18 /min Araceli Miles [facility] Work Phone: Comment on above: Pattern: Unlabored 04-08-2014 16:32-0500 Body Temperature 98 [degF] Araceli Miles [facility] Work Phone: Comment on above: Method: Temporal 04-08-2014 16:32-0500 Body weight 128.88 kg Araceli Miles [facility] Work Phone: 04-08-2014 16:32-0500 BP Diastolic 78 mm[Hg] Araceli Miles [facility] Work Phone: Comment on above: Patient Position: Sitting; Cuff Location : Left Arm; Cuff Size: Standard 04-08-2014 16:32-0500 BP Systolic 144 mm[Hg] Araceli Wellsi [facility] Work Phone: Comment on above: Patient Position: Sitting; Cuff Location : Left Arm; Cuff Size: Standard 04-08-2014 16:32-0500 Pulse (Heart Rate) 119 /min Araceli Russelli [facility] Work Phone: Comment on above: Pattern: Regular 04-08-2014 16:32-0500 Pulse Oximetry 96 % Araceli Wellsi [facility] Work Phone: Comment on above: Room air 04-08-2014 16:32-0500 Respiratory Rate 16 /min Araceli Wellsi [facility] Work Phone: Comment on above: Pattern: Unlabored 03-25-2014 15:28-0500 Body Temperature 97.5 [degF] Araceli Wellsi [facility] Work Phone: Comment on above: Method: Oral 03-25-2014 15:28-0500 Body weight 128.88 kg Araceli Miles [facility] Work Phone: 03-25-2014 15:28-0500 BP Diastolic 88 mm[Hg] Araceli Russelli [facility] Work Phone: Comment on above: Patient Position: Sitting; Cuff Location : Left Arm; Cuff Size: Standard 03-25-2014 15:28-0500 BP Systolic 138 mm[Hg] Araceli Wellsi [facility] Work Phone: Comment on above: Patient Position: Sitting; Cuff Location : Left Arm; Cuff Size: Standard 03-25-2014 15:28-0500 Pulse (Heart Rate) 110 /min Araceli Miles [facility] Work Phone: Comment on above: Pattern: Regular 03-25-2014 15:28-0500 Pulse Oximetry 97 % Araceli Wellsi [facility] Work Phone: Comment on above: Room air 03-25-2014 15:28-0500 Respiratory Rate 20 /min Araceli Wellsi [facility] Work Phone: Encounters Encounter Date Encounter Type Care Provider Facility Start: 01-10-2024 End: 01-10-2024 Emergency department patient visit Andreia Merlin Facility:[facility] Start: 01-08-2024 End: 01-08-2024 Emergency department patient visit Eduar Sebas Facility:[facility] Start: 12-07-2023 End: 12-07-2023 Emergency department patient visit Andreia Boyer Facility:[facility] Start: 05-23-2023 End: 05-23-2023 Emergency department patient visit Andreia Boyer Facility:[facility] Start: 05-20-2023 End: 05-20-2023 ambulatory Andreia Boyer Facility:[facility] Start: 05-17-2023 End: 05-17-2023 ambulatory Andreia Boyer Facility:[facility] Start: 04-19-2023 End: 04-19-2023 ambulatory Andreia Boyer Facility:[facility] Start: 01-06-2023 End: 01-06-2023 Emergency department patient visit Dr. Andreia Boyer Work Phone: [facility]-Emergency Department Work Phone: Start: 12-30-2022 End: 12-30-[address] Andreia Boyer Work Phone: [facility] Work Phone: Start: 12-15-2022 End: 12-15-2022 Emergency department patient visit [facility]Emergency Department Work Phone: Start: 10-22-2022 End: 10-22-2022 Emergency department patient visit [facility] Work Phone: Start: 08-02-2022 End: 08-02-2022 Emergency department patient visit Dr. Andreia Boyer Work Phone: [facility]-Emergency Department Start: 07-12-2022 End: 07-12-[address] Andreia Boyer Work Phone: [facility] Start: 07-03-2022 End: 07-03-[address] Andreia Boyer Work Phone: [facility] Work Phone: Start: 07-03-2022 End: 07-03-[address] Andreia Boyer Work Phone: [facility]-Laboratory Start: 06-28-2022 End: 06-28-[address] Andreia Boyer Work Phone: [facility] Work Phone: Start: 06-28-2022 End: 06-28-[address] Andreia Boyer Work Phone: [facility] Start: 06-23-2022 End: 06-23-[address] Andreia Boyer Work Phone: [facility] Start: 06-03-2022 End: 06-03-[address] Andreia Boyer Work Phone: [facility] Start: 05-26-2022 End: 05-26-[address] Andreia Boyer Work Phone: [facility] Start: 05-23-2022 End: 05-23-2022 Emergency department patient visit Dr. Andreia Boyer Work Phone: [facility]-Emergency Department Start: 04-29-2022 End: 04-29-[address] Andreia Boyer Work Phone: [facility] Start: 04-05-2022 End: 04-05-[address] Andreia Boyer Work Phone: [facility] Start: 04-02-2022 End: 04-02-[address] Andreia Boyer Work Phone: [facility]MRI - [facility] Start: 03-12-2022 End: 03-12-[address] Andreia Boyer Work Phone: [facility] Start: 03-11-2022 End: 03-11-[address] Andreia Boyer Work Phone: [facility] Start: 03-08-2022 End: 03-08-2022 Emergency department patient visit [facility]Emergency Department Start: 10-02-2021 End: 10-02-2021 Emergency department patient visit MENTAL MEASUREMENTS TEACHER-C Cheyenne Dasilvakushal MENTAL MEASUREMENTS TEACHER Work Phone: [facility]-Emergency Department Start: 10-01-2021 End: 10-01-2021 Emergency department patient visit MENTAL MEASUREMENTS TEACHER-C Cheyenne Rai MENTAL MEASUREMENTS TEACHER Work Phone: [facility]-Emergency Department Start: 09-23-2021 End: 09-23-2021 Patient encounter procedure MENTAL MEASUREMENTS TEACHER-C Cheyenne Shaffera MENTAL MEASUREMENTS TEACHER Work Phone: [facility]-Laboratory, [facility] Start: 09-23-2021 End: 09-23-2021 Patient encounter procedure MENTAL MEASUREMENTS TEACHER-C Cheyenne Shaffera MENTAL MEASUREMENTS TEACHER Work Phone: [facility] Start: 09-02-2021 End: 09-02-2021 Patient encounter procedure MENTAL MEASUREMENTS TEACHER-C Cheyenne Rai MENTAL MEASUREMENTS TEACHER [facility] Start: 04-19-2017 End: 04-19-2017 Emergency department patient visit [facility] Facility:[facility] Start: 11-17-2016 End: 11-17-2016 Emergency department patient visit [facility] Facility:[facility] Start: 07-04-2015 End: 07-04-2015 Office outpatient visit 15 minutes Araceli Miles [facility] Start: 06-02-2015 End: 06-02-2015 Office outpatient visit 15 minutes Araceli Miles [facility] Start: 05-27-2014 End: 05-27-2014 Phone Encounter Araceli Miles [facility] Start: 05-23-2014 End: 05-23-2014 Office outpatient visit 15 minutes Araceli Miles [facility] Start: 05-13-2014 End: 05-13-2014 [facility] evaluation of [facility] Start: 04-22-2014 End: 04-22-2014 Periodic preventive med est patient 18-39 yrs Araceli Miles [facility] Start: 04-22-2014 End: 04-22-2014 Office outpatient visit 25 minutes Araceli Miles [facility] Start: 04-08-2014 End: 04-08-2014 [facility] Start: 03-26-2014 End: 03-26-2014 Annotation/[facility]endum [facility] Start: 03-25-2014 End: 03-25-2014 Office outpatient new [facility] Procedures Date Procedure Procedure Detail Performing Clinician Start: 12-15-2022 CT of abdomen and pelvis without contrast Start: 10-22-2022 Plain x-ray of wrist Start: 06-28-2022 MRI of joint of lowe r extremity Dr. Andreia Boyer Work Phone: Start: 06-28-2022 MRI arthrography of hip Dr. Andreia Boyer Work Phone: Start: 05-23-2022 Plain chest X-ray Dr. Suhas Boyer Work Phone: Start: 04-02-2022 MRI of joint of lowe r extremity Dr. Andreia Boyer Work Phone: Start: 03-08-2022 Plain x-ray of pelvi s and lower extremity Start: 10-01-2021 X-ray of both feet MENTAL MEASUREMENTS TEACHER-C Cheyenne Rai MENTAL MEASUREMENTS TEACHER Work Phone: Start: 04-10-2018 History of placement of stent for coronary artery disease History of coronary artery stent placement MENTAL MEASUREMENTS TEACHER-C Cheyenne Rai MENTAL MEASUREMENTS TEACHER Work Phone: Start: 06-26-2015 End: 06-26-2015 Shoulder min 2 Views Comments: See Note; NOTES: [facility] Imaging Services [address] [place] [address] Verdana 4d Shoulder min 2 Views MR#: [id number] Acct: [id number] Name: NIDIA DEMPSEY Rep #: [id number] : 1980 M 34 From: Vipul Smith MD PCP: Araceli Miles MD Status: REG CLI Study: Shoulder min 2 Views Date of Exam: 06/26/15 Exam# [id number] Ordering Dr: Abida Oseguera DO STUDY: X-RAY - LEFT SHOULDER REASON FOR EXAM: Male, 34 years old. Pain TECHNIQUE: 3 view(s) of the shoulder. COMPARISON: None. FINDINGS: Normal glenohumeral articulation. There is bone resorption of the distal end of the clavicle with subchondral cyst formation and superior and inferior spur formation. Normal acromion. Normal humeral head and visualized proximal humerus. The soft tissue structures are unremarkable. Normal visualized pulmonary apex. 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 Electronically Signed: Vipul Smith MD, FACR at 19:38 EST , Service support [phone], CC: Abida Oseguera DO; Araceli Miles MD Compressor Repairer: Signed Araceli Miles Start: 06-09-2015 End: 06-10-2015 Upper Ext Joint Only(Routine) Comments: See Note; NOTES: [facility] Imaging Services [address] [place] [id number] Verdana 4d Upper Ext Joint Only(Routine) MR#: [id number] Acct: [id number] Name: NIDIA DEMPSEY Rep #: [id number] : 1980 M 34 From: Vipul Smith MD PCP: Araceli Miles MD Status: REG CLI Study: Upper Ext Joint Only(Routine) Date of Exam: 06/09/15 Exam# [id number] Ordering Dr: Cheyenne Rai STUDY: MRI LEFT SHOULDER REASON FOR EXAM: Male, 34 years old. Left shoulder pain limited range of motion. Left hand swelling with numbness and tingling of the fingers for 3 months. TECHNIQUE: Standardized fat and water weighted pulse sequences were obtained in all 3 orthogonal planes. COMPARISON: None. FINDINGS: Normal supraspinatus tendon. Normal infraspinatus tendon. Normal subscapularis tendon. Normal teres minor tendon. Normal supraspinatus muscle. Normal infraspinatus muscle. Normal subscapularis muscle. Normal teres minor muscle. Normal glenohumeral articulation. Normal humeral head and visualized proximal humerus. Normal biceps labral complex. Normal intracapsular long biceps tendon. Normal labrum. There is thickening of the axillary recess of the joint capsule consistent with mild degree of capsulitis (coronal T2 series 5 image 10). Normal rotator interval. There is severe hypertrophic osteoarthritis of the acromioclavicular articulation with impingement upon the musculotendinous junction of the supraspinatus muscle. There are subchondral cysts, prominent osteophytes and reactive bone marrow edema of the acromion and distal clavicle, with pericapsular edema (coronal proton density series 4 image 7). There is a Type I morphology (flat undersurface), with a neutral orientation. There is no subacromial-subdeltoid bursal fluid. Normal visualized coracohumeral and coracoacromial ligaments. Normal quadrilateral space. Normal axillary space. Normal deltoid muscle. Normal trapezius muscle. 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 Thickening of the axillary recess of the joint capsule consistent with mild degree of adhesive capsulitis No rotator cuff or labral pathology is otherwise noted Electronically Signed: Vipul Smith MD, FACR at 6:40 EST , Service support [phone], CC: Cheyenne Rai; Araceli Miles MD Compressor Repairer: Signed Diane Cecelia Work Phone: Start: 05-21-2015 End: 05-21-2015 Emergency Department Summary Comments: See Note; NOTES: [facility] Medical Records Department [address] [place] [address] Emergency Department Summary 05/21/15 1002 MR#: [id number] Acct: [id number] Name: NIDIA DEMPSEY Rep #: [id number] : 1980 34 From: García Monk MD PCP: Araceli Miles MD Status: REG ER History of Present Illness Chief Complaint: Cold Sx Informant: Patient Known exposure: Yes - Child ill with respiratory symptoms Onset: Yesterday Context: Sudden Onset Timing: Continuous Quality: - - Patient reports nonproductive cough, purulent drainage right ear and read left eye. Negative for: Dyspnea on exertion, Orthopnea, PND, Wheezing Current Severity: Mild Maximum Severity: Mild Worsened by: Coughing - Cough is nonproductive. Not Worsened By: Exertion, Lying flat Relieved by: Nothing Associated Symptoms: Cough, Ear pain, Rhinorrhea. Negative for: Bloody Sputum, Chills, Clear sputum, Fever, Sore throat Chest Pain: None Panflu higher risk groups: Obesity - Past Medical History (1) Recurrent otitis media of right ear Status: Acute Past Medical History - Allergies and Home Meds Allergies/Adverse Reactions: Allergies Penicillins Allergy (Verified 05/21/15 09:51) Angioedema Home Medications: Home Medications Medication Instructions Recorded Oxycodone HCl/Acetaminophen 1 - 2 tablet PO Q4H PRN PRN #12 11/01/13 [Percocet 5/325] tablet Hydrocodone Bitart/Apap 5-325 1 - 2 tablet PO Q4H PRN PRN #20 12/01/14 [[place] 5/325] tablet Omeprazole [Prilosec] 40 mg PO DAILY #30 capsule 03/28/15 Oxycodone HCl/Acetaminophen 1 - 2 tablet PO Q4H PRN PRN #20 03/28/15 [Percocet 5/325] tablet Ciprofloxacin HCl [Ciloxan] 1 - 2 drop LEFT EYE Q4H #1 bottle 05/21/15 Doxycycline Hyclate 100 mg PO BID #14 tablet 05/21/15 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 Niko Lee Prior records reviewed: Yes Surgical History: - - Tube right TM Lives: - - undergoing divorce Smoking Status: Never smoker Alcohol: None Drugs: None Review of Systems General: Reports: Chills, Fever, Malaise, Subjective. Denies: Sweats, Weight loss Eyes: Reports: - - Injected left eye. Denies: Visual changes - bilaterally, Blurred Vision - bilaterally, Diplopia ENT: Reports: Right ear pain, Rhinorrhea. Denies: Sore throat Cardiovascular: Denies: Chest pain, Palpitations, Heart racing Respiratory: Reports: Cough. Denies: Dyspnea, Sputum, Dyspnea on exertion, Orthopnea, Paroxysmal nocturnal dyspnea Gastrointestinal: Denies: Abdominal pain, Nausea, Vomiting, Diarrhea Genitourinary: Denies: Dysuria, Hematuria, Frequency Musculoskeletal: Denies: Myalgias, Arthralgias, Neck pain, Back pain, Swelling, Extremity Pain, -, - Skin: Denies: Rash Neurological: Denies: Headache, Weakness, Numbness Endocrine: Denies: Polyuria, Polydipsia, Heat intolerance, Cold intolerance, -, - Hematologic: Denies: Easy bruising, Easy bleeding, Lymphadenopathy, -, - Physical Exam Vital Signs/Narrative: Vital Signs Temp Pulse Resp BP Pulse Ox 05/21/15 09:51 99.2 F 122 17 133/89 97 Inital Vital Signs reviewed: Yes General: Well nourished, Well developed, Obese Head: Normocephalic, Atraumatic Eyes: Perrl, EOMI, - - Conjunctiva injected on left and sclera injected on left. Negative for: Pale conjunctiva, Scleral icterus ENT: Moist mucous membranes, Purulent Discharge - Right. Negative for: No rhinorrhea, TM's clear Neck: Supple, Nontender, No lymphadenopathy, No JVD Cardiovascular: Regular rate, Regular rhythm, No murmurs, Normal S1, Normal S2 Respiratory: No distress, CTA bilaterally, No Stridor Abdomen: Soft, Nontender, Nondistended, Normal bowel sounds, No masses. Negative for: Hepatomegaly, Splenomegaly, Mass, Pulsatile mass Extremities: Nontender, No edema Skin: Normal color, No rash. Negative for: Cyanosis, Diaphoresis, Jaundice Neurological: Alert, Oriented x3, Cranial nerves II-XII grossly intact, Normal Strength, Normal Sensation Diagnostic/Tx/Re-eval Re-Evaluation and Other Treatments: Patient has purulent drainage from the right middle ear. Patient has allergy to penicillin. He was placed on doxycycline. He was given a prescription for ophthalmic drops as well. Disposition: Home ED Disposition - Plan for ED Patient: Disposition: Home or Assisted Living Chief Complaint: Cold Sx Diagnosis: Otitis media, acute suppurative, with spontaneous ear drum rupture, Conjunctivitis of left eye Instructions: ED Otitis Media, Abx Tx (Adult), ED Conjunctivitis, Non-Specific Prescriptions: Ciprofloxacin HCl [Ciloxan] 1 - 2 drop LEFT EYE Q4H #1 bottle Doxycycline Hyclate 100 mg PO BID #14 tablet Referrals: Araceli Miles [[facility]] - 1 Week if not improving What to do if you have Problems For any increased pain, shortness of breath, bleeding, nausea or vomiting, chest pain, or any unexpected problems, contact your doctor. Call [facility] ([phone]) or report to the closest Emergency Room. Call 911 if necessary. 05/21/15 1012 <Electronically signed by García Monk MD> Date García Monk MD Cosigner Signature (If Indicated): Date CC: Araceli Miles MD; Niko Miles Start: 03-29-2015 End: 03-29-2015 Emergency Department Summary Comments: See Note; NOTES: [facility] Medical Records Department [address] [place] [address] Emergency Department Summary MR#: [id number] Acct: [id number] Name: NIDIA DEMPSEY Rep #: [id number] : 1980 34 From: Hudson Hewitt MD PCP: Araceli Miles MD Status: DEP ER DATE OF SERVICE: 03/28/2015 CHIEF COMPLAINT: Tarry stool. HISTORY OF PRESENT ILLNESS: A 34-year-old gentleman complaining of tarry stool for 3 days. States that he has been taking 2 Aleve 4 times a day for chronic shoulder pain secondary to rotator cuff. He states now he is having associated nausea ____ dark stool, feels sometimes lightheaded and dizzy, has not passed out. Also, associated nausea, no vomiting, no hematemesis. He has never had a GI bleed before. He states his dad ____ was diagnosed with colon cancer. He is on no blood thinners otherwise. PHYSICAL EXAMINATION: GENERAL: A 34-year-old gentleman. VITAL SIGNS: Stable. He is afebrile. He does not look septic or toxic, no acute distress. HEENT: Unremarkable. NECK: Nontender. LUNGS: Clear to auscultation bilaterally. HEART: Regular rhythm, rate about 100. No murmur. ABDOMEN: Soft, nondistended, normal bowel sounds. No peritoneal signs. RECTAL: Loose brown stool, I do not see any gross blood. EXTREMITIES: Moves all 4. Calves nontender, no edema, no cords. NEUROLOGICAL: He is awake and alert, no focal deficits. EMERGENCY DEPARTMENT COURSE: Gentleman with rule out GI bleed versus like a gastritis from NSAID use. TEST RESULTS: White count 8, H and H 14 and 43. He had a blood count done about 2 years ago and this is actually the same or even a little better. Electrolytes unremarkable. BUN 19, creatinine 0.8, normal gap. Orthostatic vital signs were negative. He was treated with Prilosec here, morphine and Zofran for his pain. Repeat exam, he is doing well. IMPRESSION: 1. Abdominal pain, suspect secondary to gastritis, secondary to NSAID use. 2. History of chronic shoulder pain from history of rotator cuff injury. PLAN: He will stop his NSAIDs at this time. We will start him on Prilosec 40 mg a day and I wrote him for limited Percocet 20, no refill for pain. He is to follow up with Dr. Miles for further evaluation. He knows that if he feels worse, lightheaded, dizzy, has any hematemesis, he needs to return to the ER for further evaluation and we have not completely ruled out a GI bleed, but my suspicion is clinically at this time it is more of a gastritis. Hudson Hewitt MD C C: Araceli Miles MD T: NTS JOB: [id number] 03/29/15 1530 <Electronically signed by Hudson Hewitt MD> Date Hudson Hewitt MD Cosigner Signature (If Indicated): Date CC: Araceli Miles MD Date Dictated: 03/28/151626 Date Transcribed: 03/28/151626 Compressor Repairer: Signed Araceli Miles Start: 03-28-2015 End: 03-28-2015 Discharge Instruction Comments: See Note; NOTES: [facility] Medical Records Department [address] [place] [address] Discharge Instruction 03/28/151619 MR#: [id number] Acct: [id number] Name: NIDIA DEMPSEY Rep #: [id number] : 1980 34 From: Hudson Hewitt MD PCP: Araceli Miles MD Status: DEP ER ED Disposition - Plan for ED Patient: Disposition: Home or Assisted Living Chief Complaint: GI Bleed Instructions: ED Gastritis (Adult) Prescriptions: Oxycodone HCl/Acetaminophen [Percocet 5/325] 1 - 2 tablet PO Q4H PRN PRN #20 tablet PRN Reason: Pain Omeprazole [Prilosec] 40 mg PO DAILY #30 capsule Referrals: Araceli Miles MD [Primary Care Provider] - 1 Week if not improving Additional Instructions: STOP THE ALEVE PERCOCET FOR PAIN. PRILOSEC 40 MG PER DAY FOR YOUR STOMACH. What to do if you have Problems For any increased pain, shortness of breath, bleeding, nausea or vomiting, chest pain, or any unexpected problems, contact your doctor. Call [facility] ([phone]) or report to the closest Emergency Room. Call 911 if necessary. 03/28/15 5901 <Electronically signed by Hudson Hewitt MD> Date Hudson Hewitt MD Cosigner Signature (If Indicated): Date CC: Araceli Miles Start: 12-01-2014 End: 12-01-2014 Emergency Department Summary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 aspiration along the gingiva with an 18-gauge needle. There was return of blood, but no purulent material. Patient tolerated procedure well. Given the results of the needle aspiration/incision and drainage with needle tip, it was mostly blood. I do think that the swelling was most likely secondary to hematoma from when the patient had popped the area himself. Additionally, he states he is on Plavix. I will write him a prescription for the rest of the clindamycin as he has an allergy to penicillin and he will take it 3 times a day for the next 10 days. He will follow-up with a dentist. As heis unable to take NSAIDs because he is on a blood thinner, he was given a short prescription for 12 tablets of tramadol to take for analgesia. He was also given a note off work today at his request. I feel he can be discharged safely home with follow-up to dentistry. Return instructions to the emergency department were reviewed. Disposition is discharged home in stable condition. History & Record Review Discussion w/independent historian: Patient Additional record(s) reviewed:: Prior ED visit Discharge Plan Triage Chief Complaint: Dental ED Provider: Gerald Rlole Dx/Rx/DC Orders Clinical Impression: Hematoma of gingiva, Gingival abscess Instructions: ED Dental Abscess, ED Hematoma Prescriptions: New clindamycin HCl 300 mg capsule 300 mg PO TID Qty: 30 0RF tramadol 50 mg tablet 50 mg PO Q6H PRN (Reason: pain) 3 Days Qty: 12 0RF No Action atorvastatin 40 mg tablet 40 mg PO QHS Qty: 90 4RF lisinopril 20 mg tablet 20 mg PO DAILY Qty: 90 4RF metoprolol succinate 50 mg tablet extended release 24 hr 50 mg PO DAILY Qty: 90 4RF clopidogrel [Plavix] 75 mg tablet 75 mg PO QDAY Qty: 90 4RF azithromycin 250 mg tablet See Rx Instructions PO .COMPLEX Qty: 6 0RF Rx Instructions: For 250 mg dose pack: take 500 mg today (day 1), then 250 mg for 4 days (days 2-5) PO aspirin 81 MG tablet 81 mg PO DAILY@0800 0RF tramadol 50 mg tablet 50 mg PO TID PRN (Reason: pain) Qty: 10 0RF testosterone cypionate [Depo-Testosterone] 100 mg/mL oil 200 mg IM Q2W Qty: 10 1RF Stand Alone Forms: ED Work / School Excuse Primary Care Provider: Andreia Boyer Referrals: Andreia Boyer MD [Primary Care Provider] - Activity Restrictions/Additional Instructions: Follow-up with a dentist as soon as possible. Disposition Disposition: Home, Self Care What to do if you have Problems For any increased pain, shortness of breath, bleeding, nausea or vomiting, chestpain, or any unexpected problems, contact your Primary Care Provider. Call [facility] ([phone]) or report to the closest Emergency Room. Call 911 if necessary. 08/02/22 0954 <Electronically signed by Gerald Rolle MD> Cosigner Signature (if applicable): CC: Dr. Andreia Boyer MD ~ Signed [facility] Work Phone: Discharge summary Author [facility] January 06, 2023 8:55am Note Date/Time January 06, 2023 8: 43am [facility] Medical Records Department [address] [place] [address] Emergency Department Summary 01/06/23 MR#: [id number] Acct: [id number] Name: ROSELYNNIDIA Mary Rep #:[id number] : 1980 42 From: Griselda Hernandez PCP: Dr. Andreia Boyer MD Status:REG ER Location: ED HPI History of Present Illness Chief Complaint: Lower Extremity Injury Informant: patient Narrative Narrative: Patient is a 42-year-old male with history of hypertension, hyperlipidemia, coronary artery disease status post stents and prior ACL reconstruction x2 in his right knee. He is presenting after fall/injury to his right knee. Patient states he went to stand up this morning when either his foot slipped on the carpet or his knee buckled which caused his knee to twist outward and also flex at the same time. He fell backwards. He did hit his head slightly on the nightstand but did not have any loss of conscious. States initially had nausea associate with his knee pain but that is since passed. He has had significant pain and burning in his knee since. He denies any numbness or tingling in his legs. He states he did maybe twisted his right ankle and also hit his right elbow but these not bothering him significantly at this time. He is followed with Dr. Sandy as well as Dr. Juan Diego Cisneros for various orthopedic injuries inthe past. Did not take any for pain prior to arrival. His dropped him off. Patient states he does take Plavix daily PFSH PFS Medical History Arthritis Atherosclerosis of coronary artery of [place] without angina pectoris Back pain COVID-19 (~05/22/20) COVID-19 virus detected (05/22/20) Essential (primary) hypertension GERD (gastroesophageal reflux disease) History of kidney stones Hyperlipidemia Morbid obesity Non-ST elevation (NSTEMI) myocardial infarction (06/09/17) Seasonal allergies Home Medications aspirin 81 mg tablet,delayed release 81 mg PO DAILY@0800 06/10/17 [Rx Last Taken 04/09/18] tramadol 50 mg tablet 50 mg PO TID PRN pain #10 tabs 06/11/22 [Rx Last Taken Unknown] azithromycin 250 mg tablet See Rx Instructions PO .COMPLEX #6 tabs 06/23/22 [Rx Last Taken Unknown] clindamycin HCl 300 mg capsule 300 mg PO TID #30 caps 08/02/22 [Rx Last Taken Unknown] tramadol 50 mg tablet 50 mg PO Q6H PRN pain 3 days #12 tabs 08/02/22 [Rx Last Taken Unknown] atorvastatin 40 mg tablet 40 mg PO QHS #90 tabs 09/23/22 [Rx Last Taken Unknown] clopidogrel 75 mg tablet (Plavix) 75 mg PO QDAY #90 tabs 09/23/22 [Rx Last Taken Unknown] lisinopril 20 mg tablet 20 mg PO DAILY #90 tabs 09/23/22 [Rx Last Taken Unknown] metoprolol succinate 50 mg tablet,extended release 24 hr 50 mg PO DAILY #90 tabs09/23/22 [Rx Last Taken Unknown] hydrocodone-acetaminophen 5-325mg 5mg-325mg 1 tab PO Q6H PRN PRN Pain 3 days #10TABLETS 12/15/22 [Rx Last Taken Unknown] testosterone cypionate 100 mg/mL intramuscular oil (Depo-Testosterone) 200 mg (2mL) IM Q2W #10 mL 12/30/22 [Rx Last Taken Unknown] ibuprofen 600 mg tablet 600 mg PO Q8H PRN pain #20 tabs 01/06/23 [Rx Last Taken Unknown] ondansetron HCl 4 mg tablet 4 mg PO Q6H #12 tabs 01/06/23 [Rx Last Taken Unknown] oxycodone 5 mg tablet 5 mg PO Q6H PRN pain 3 days #12 tabs 01/06/23 [Rx Last Taken Unknown] Allergy/AdvReac Type Severity Reaction Status Date / Time Penicillins Allergy Angioedema Verified 01/06/23 08:18 Family History Mother Heart disease Hypertension Other DVT (deep venous thrombosis) Diabetes Myocardial infarction Surgical History H/O cervical spine surgery H/O right knee surgery History of coronary artery stent placement (04/10/18) History of tonsillectomy and adenoidectomy Social History Smoking Status: Never smoker Smokeless tobacco user: chewing tobacco alcohol intake: current alcohol intake frequency: a few times a month Alcohol type: beer substance use type: does not use caffeine: Yes (Occasional pop but not daily) Type: carbonated beverages ROS ROS ED Constitutional Constitutional ED: Denies chills or fever(s) Eyes Eyes: Denies blurry vision Gastrointestinal Gastrointestinal: Reports nausea; Denies abdominal pain or vomiting Musculoskeletal Musculoskeletal: Reports other Details: right knee pain Integumentary Denies Abrasions or rash Neurologic Neurologic: Denies paresthesias or weakness Hematologic/Lymphatic Hematologic/Lymphatic: Reports easy bleeding EXAM Physical Exam Const Vital Signs: 01/06/23 08:16 Temperature 97.6 F L Temperature Source Temporal Pulse Rate 105 H Respiratory Rate 18 Blood Pressure 141/97 H Blood Pressure Mean 111 Pulse Ox 99 Oxygen Delivery Method Room Air Positive well nourished and well developed General Appearance ED: well developed and NAD HEENT HEENT Narrative: No hemotympanum, no cephalhematoma. No signs of head trauma or superficial abrasions appreciated. Chronic tympanostomy tube in the right ear presents. Chest Wall inspection of chest normal Resp normal respiratory effort and clear to auscultation bilaterally Cardio regular rate and regular rhythm Cardio Narrative: 2+ right DP pulse Back/Spine Cervical Spine: Negative for cervical spine tenderness Extremity Extremity Narrative: Antalgic gait. Right knee?no significant joint effusion, pain with range of motion throughout. No specific laxity on varus or valgus stress/anterior posterior drawer test. Mild tenderness palpation of the proximal calf but no palpable cords. Normal Milligan test. Right ankle?no bony tenderness of the ankle. No significant edema of the ankle appreciated. Right elbow?normal range of motion, no bony tenderness to palpation Neuro oriented x3, moves all extremities and no sensory deficits noted Sensorium / Orientation: alert Psych mental status grossly normal MDM MDM MDM Narrative Medical decision making narrative: Patient is evaluated for right knee pain after mechanical fall this morning. While he did hit his head it seems to be of low amplitude and I do not think he requires further head imaging for rule out skull fracture or TBI. Patient is low risk for significant intracranial hemorrhage per Nexus criteria. With the patient's mechanism of injury and physical exam I do not think he requires imaging of his knee. I suspect this is more of a sprain versus meniscal injury. He does not have bony tenderness over the fibular head, tibialplateau and no deformity of the patella. He has normal extensor mechanism. I do not suspect a quadricep tendon injury. Will be treated symptomatically with RICE therapy as well as a short course of Percocet for further pain control. Up states that he has crutches he can get back and does not need new crutches at this time. Is placed in David wrap. Is given first dose of Motrin as well as oxycodone in the emergency room. States he like to follow- up with Dr. Camara. Patient is given a work note per his request. 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 He also request Zomarion for with his prescriptions. This is sent Discharge Plan Triage Chief Complaint: Lower Extremity Injury ED Provider: Griselda Boswell Dx/Rx/DC Orders Clinical Impression: Right knee sprain, Fall Instructions: ED Knee Sprain Prescriptions: New ibuprofen 600 mg tablet 600 mg PO Q8H PRN (Reason: pain) Qty: 20 0RF oxycodone 5 mg tablet 5 mg PO Q6H PRN (Reason: pain) 3 Days Qty: 12 0RF ondansetron HCl 4 mg tablet 4 mg PO Q6H Qty: 12 0RF No Action azithromycin 250 mg tablet See Rx Instructions PO .COMPLEX Qty: 6 0RF Rx Instructions: For 250 mg dose pack: take 500 mg today (day 1), then 250 mg for 4 days (days2- 5) PO aspirin 81 MG tablet 81 mg PO DAILY@0800 0RF clindamycin HCl 300 mg capsule 300 mg PO TID Qty: 30 0RF tramadol 50 mg tablet 50 mg PO Q6H PRN (Reason: pain) 3 Days Qty: 12 0RF hydrocodone-acetaminophen [hydrocodone-acetaminophen] 5-325 mg tablet 1 tab PO Q6H PRN PRN (Reason: Pain) 3 Days Qty: 10 0RF tramadol 50 mg tablet 50 mg PO TID PRN (Reason: pain) Qty: 10 0RF atorvastatin 40 mg tablet 40 mg PO QHS Qty: 90 4RF clopidogrel [Plavix] 75 mg tablet 75 mg PO QDAY Qty: 90 4RF lisinopril 20 mg tablet 20 mg PO DAILY Qty: 90 4RF metoprolol succinate 50 mg tablet extended release 24 hr 50 mg PO DAILY Qty: 90 4RF testosterone cypionate [Depo-Testosterone] 100 mg/mL oil 200 mg IM Q2W Qty: 10 3RF Stand Alone Forms: ED Work / School Excuse Primary Care Provider: Andreia Boyer Referrals: Borruso,Marcelo, DO [Med Staff - Active Staff] - As soon as possible Andreia Boyer MD [Primary Care Provider] - Activity Restrictions/Additional Instructions: Rest, elevate and ice your knee. Wear David wrap. Only take oxycodone as needed for severe pain. Otherwise try to stick to alternate Tylenol and ibuprofen. Disposition Disposition: Home, Self Care What to do if you have Problems For any increased pain, shortness of breath, bleeding, nausea or vomiting, chestpain, or any unexpected problems, contact your Primary Care Provider. Call [facility] ([phone]) or report to the closest Emergency Room. Call 911 if necessary. 01/06/23 0855 <Electronically signed by Griselda Boswell DO> Cosigner Signature (if applicable): CC: Dr. Andreia Boyer MD ~ Signed [facility] Work Phone: Evaluation note* Diagnosis Onset Date Resolution Status Fatigue acute Atherosclerosis of coronary artery of [place] without angina pectoris chronic Essential (primary) hypertension chronic Hyperlipidemia chronic History of coronary artery stent placement April 102017 resolved [facility] Work Phone: Evaluation note* Diagnosis Onset Date Resolution Status Fatigue acute Atherosclerosis of coronary artery of [place] without angina pectoris chronic Essential (primary) hypertension chronic Hyperlipidemia chronic History of coronary artery stent placement April 102017 resolved Hypogonadism in male acute Lumbar spine strain acute Atherosclerosis of coronary artery of [place] without angina pectoris chronic Essential (primary) hypertension chronic Hyperlipidemia chronic Morbid obesity chronic [facility] Work Phone: Evaluation note* Diagnosis Onset Date Resolution Status Fatigue acute Atherosclerosis of coronary artery of [place] without angina pectoris chronic Essential (primary) hypertension chronic Hyperlipidemia chronic History of coronary artery stent placement April 102017 resolved Hypogonadism in male acute Lumbar spine strain acute Atherosclerosis of coronary artery of [place] without angina pectoris chronic Essential (primary) hypertension chronic Hyperlipidemia chronic Morbid obesity chronic Cellulitis acute [facility] Work Phone: Evaluation noteNo assessment information available [facility] Work Phone: Evaluation note* Diagnosis Onset Date Resolution Status AVN of femur noneactive Greater trochanteric bursitis of left hip acute Left hip pain acute Greater trochanteric bursitis of left hip acute Left hip pain acute [facility] Work Phone: Evaluation note* Diagnosis Onset Date Resolution Status AVN of femur noneactive Greater trochanteric bursitis of left hip acute Left hip pain acute Greater trochanteric bursitis of left hip acute Left hip pain acute Greater trochanteric bursitis of left hip acute Left hip impingement syndrome acute Left hip pain acute Fatigue acute Hypogonadism in male acute Sore throat acute Atherosclerosis of coronary artery of [place] without angina pectoris chr onic Essential (primary) hypertension chronic Hyperlipidemia chronic Morbid obesity chronic History of coronary artery stent placement April 102017 resolved [facility] Work Phone: Evaluation note* Diagnosis Onset Date Resolution Status Greater trochanteric bursitis of left hip acute Left hip pain acute Greater trochanteric bursitis of left hip acute Left hip pain acute Greater trochanteric bursitis of left hip acute Left hip impingement syndrome acute Left hip pain acute Fatigue acute Hypogonadism in male acute Sore throat acute Atherosclerosis of coronary artery of [place] without angina pectoris chronic Essential (primary) hypertension chronic Hyperlipidemia chronic Morbid obesity chronic History of coronary artery stent placement April 102017 resolved [facility] Work Phone: Evaluation note* Diagnosis Onset Date Resolution Status Greater trochanteric bursitis of left hip acute Left hip pain acute Greater trochanteric bursitis of left hip acute Left hip pain acute Greater trochanteric bursitis of left hip acute Left hip impingement syndrome acute Left hip pain acute Fatigue acute Hypogonadism in male acute Sore throat acute Atherosclerosis of coronary artery of [place] without angina pectoris chr onic Essential (primary) hypertension chronic Hyperlipidemia chronic Morbid obesity chronic History of coronary artery stent placement April 102017 resolved Labral tear of left hip joint noneactive [facility] Work Phone: Evaluation note* Diagnosis Onset Date Resolution Status Lumbar spine strain acute [facility] Work Phone: Hospital Discharge instructionsAmbulatory Orders* Internal Medicine Location: None Selected [facility] Work Phone: Hospital Discharge instructions Additional Instructions Please take antibiotics until finished. Please follow-up with your PCP to ensure proper healing. Please return for worsening symptoms.[facility] Work Phone: Hospital Discharge instructions Additional Instructions Please continue wound care as discussed at length. Call Dr. Lloyd's office today to set up an appointment as soon as possible for outpatient care. If your infection appears to be getting worse please return to the emergency room.[facility] Work Phone: Hospital Discharge instructions Additional Instructions Please return if you develop worsening pain, loss of sensation, loss of strength.[facility] Work Phone: Hospital Discharge instructions Additional Instructions Follow-up with primary care physician to see what can be done about the weight gain. Today your labs look good. Your kidney function is normal. There is no signs of congestive heart failure. This may be secondary to being started on the medication.[facility] Work Phone: Hospital Discharge instructions Additional Instructions Follow-up with a dentist as soon as possible.[facility] Work Phone: Hospital Discharge instructions Additional Instructions Rest, elevate and ice your knee. Wear David wrap. Only take oxycodone as needed for severe pain. Otherwise try to stick to alternate Tylenol and ibuprofen.[facility] Work Phone: Summary Purpose Family History No Family History Records Found Relationship Condition Age at Onset Recorded Date/T radha mother Cardiac disease Unknown Hypertension Unknown Relationship Condition Age at Onset Recorded Date/T radha Not Specified Diabetes mellitus Unknown Deep vein thrombosis (DVT) Unknown Myocardial infarction Unknown mother Cardiac disease Unknown Hypertension Unknown Advance Directives No Advanced Directives Records Found Advance Directive Response Recorded Date/ Time Living Will No April 29 11:54pm Power of Administrative Assistant Receptionist No April 29, 2021 11:54pm Advance Directive Response Recorded Date/ Time Living Will No October 01, 2021 9 :50am Power of Administrative Assistant Receptionist No October 01, 2021 9:50am Advance Directive Response Recorded Date/ Time Living Will No October 02, 2021 7 :42am Power of Administrative Assistant Receptionist No October 02, 2021 7:42am Advance Directive Response Recorded Date/ Time Living Will Yes March 08 9:36am Power of Administrative Assistant Receptionist Yes March 08, 2022 9:36am Name of Medical Power of Administrative Assistant Receptionist CHEYENNE DEMPSEY March 08, 2022 9:36am Advance Directive Response Recorded Date/ Time Name of Medical Power of Administrative Assistant Receptionist CHEYENNE DEMPSEY March 08, 2022 8:36am Living Will No May 23 3 5:38pm Power of Administrative Assistant Receptionist No May 23, 2 023 5:38pm Advance Directive Response Recorded Date/ Time Living Will No May 23 3 5:38pm Power of Administrative Assistant Receptionist No May 23, 2 023 5:38pm Advance Directive Response Recorded Date/ Time Living Will No August 02, 2022 9:11am Power of Administrative Assistant Receptionist No August 02 9:11am Advance Directive Response Recorded Date/ Time Living Will No December 15, 2022 8:42am Power of Administrative Assistant Receptionist No December 15 8:42am Advance Directive Response Recorded Date/ Time Living Will No January 06 9:01am Power of Administrative Assistant Receptionist No January 06, 2 023 9:01am Instructions Name Dates Details How to access health informa tion online Indication:Sinusitis Start:23-May-2014 Instruction Type:Patient Education How to access health informa tion online - Detail Indication:Sinusitis Start:23-May-2014 Instruction Type:Patient Education Patient Instructions Indication:Sinusitis Start:23-May-2014 Instruction Type:Provider Instructions for Treatment How to access health informa tion online Indication:Low back pain Start:08-Apr-2014 Instruction Type:Patient Education How to access health informa tion online - Detail Indication:Low back pain Start:08-Apr-2014 Instruction Type:Patient Education Patient Instructions Indication:Low back pain Start:08-Apr-2014 Instruction Type:Provider Instructions for Treatment Patient Instructions Indication:Low back pain Start:25-Mar-2014 Instruction Type:Provider Instructions for Treatment Chief Complaint and Reason for Visit Chief Complaint 1 Y FU EORDER Reason for Visit Fatigue Atherosclerosis of coronary artery of [place] without angina pectoris Essential (primary) hypertension Hyperlipidemia History of coronary artery stent placement Chief Complaint 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 RIGHT FOOT INJURY cellulitis Reason for Visit Fatigue Atherosclerosis of coronary artery of [place] without angina pectoris Essential (primary) hypertension Hyperlipidemia History of coronary artery stent placement Hypogonadism in male Lumbar spine strain Atherosclerosis of coronary artery of [place] without angina pectoris Essential (primary) hypertension Hyperlipidemia Morbid obesity Cellulitis Chief Complaint LEFT HIP PAIN Chief Complaint LEFT HIP PAIN [facility] ER FU, Clearance for Work LEFT HIP LT HIP PAIN left hip LEFT HIP GENERAL ILLNESS Reason for Visit AVN of femur Greater trochanteric bursitis of left hip Left hip pain Greater trochanteric bursitis of left hip Left hip pain Chief Complaint LEFT HIP PAIN [facility] ER FU, Clearance for Work LEFT HIP LT HIP PAIN left hip LEFT HIP GENERAL ILLNESS left hip LEFT HIP Cold/ Sinus Infection LEFT HIP PAIN EORDER Reason for Visit AVN of femur Greater trochanteric bursitis of left hip Left hip pain Greater trochanteric bursitis of left hip Left hip pain Greater trochanteric bursitis of left hip Left hip impingement syndrome Left hip pain Fatigue Hypogonadism in male Sore throat Atherosclerosis of coronary artery of [place] without angina pectoris Essential (primary) hypertension Hyperlipidemia Morbid obesity History of coronary artery stent placement Chief Complaint LT HIP PAIN left hip LEFT HIP GENERAL ILLNESS left hip LEFT HIP Cold/ Sinus Infection LEFT HIP PAIN EORDER Reason for Visit Greater trochanteric bursitis of left hip Left hip pain Greater trochanteric bursitis of left hip Left hip pain Greater trochanteric bursitis of left hip Left hip impingement syndrome Left hip pain Fatigue Hypogonadism in male Sore throat Atherosclerosis of coronary artery of [place] without angina pectoris Essential (primary) hypertension Hyperlipidemia Morbid obesity History of coronary artery stent placement Chief Complaint left hip LEFT HIP GENERAL ILLNESS left hip LEFT HIP Cold/ Sinus Infection LEFT HIP PAIN EORDER LEFT HIP DENTAL Reason for Visit Greater trochanteric bursitis of left hip Left hip pain Greater trochanteric bursitis of left hip Left hip pain Greater trochanteric bursitis of left hip Left hip impingement syndrome Left hip pain Fatigue Hypogonadism in male Sore throat Atherosclerosis of coronary artery of [place] without angina pectoris Essential (primary) hypertension Hyperlipidemia Morbid obesity History of coronary artery stent placement Labral tear of left hip joint Chief Complaint WRIST PAIN left flank Chief Complaint WRIST PAIN left flank LEFT LOWER BACK PAIN rt knee pain Reason for Visit Lumbar spine strain Additional Source Comments (unrecognized sect ion and content) No Status Records FoundNo Status Records FoundNo Status Records Found INFORMATION SOURCE (unrecogn ized section and content) DATE CREATED AUTHOR 11/08/2017 [facility] DATE CREATED AUTHOR AUTHOR'S ORGANIZ ATION 04/07/2020 [facility] DATE CREATED AUTHOR AUTHOR'S ORGANIZ ATION 01/29/2024 [facility] Goals (unrecognized section and content) Goals may be documented in a n alternate sectionGoals may be documented in an alternate sectionGoals may be documented in an alternate sectionGoals may be documented in an alternate sectionGoals may be documented in an alternate sectionGoals may be documented in an alternate sectionGoals may be documented in an alternate sectionGoals may be documented in an alternate sectionGoals may be documented in an alternate sectionGoals may be documented in an alternate section Care Teams (unrecognized sec tion and content) Team Status: Active Member Role Status Dates Cheyenne Rai MENTAL MEASUREMENTS TEACHER, MENTAL MEASUREMENTS TEACHER-C Family Provider Active Dr. Andreia Boyer MD Primary Care Provider Active Team Status: Inactive Member Role Status Dates Dr. Andreia Boyer MD Primary Care Provider, Attendi ng Provider Active Team Status: Inactive Member Role Status Dates Dr. Andreia Boyer MD Primary Care Provider, Referri ng Provider Active Dr. Marcelo Sandy DO Attending Provider Active Team Status: Inactive Member Role Status Dates Dr. Andreia Boyer MD Primary Care Provider, Referri ng Provider Active Robin DA SILVA PA Attending Provider Active Team Status: Inactive Member Role Status Dates Dr. Andreia Boyer MD Primary Care Provider Active Dr. Joseph Aguirre DO Attending Provider, Emergency P rovider Active Team Status: Inactive Member Role Status Dates Dr. Andreia Boyer MD Primary Care Provider Active Dr. Marcelo Sandy DO Attending Provider, Referring Provider Active Team Status: Inactive Member Role Status Dates Dr. Andreia Boyer MD Primary Care Provider Active Robin DA SILVA PA Attending Provider, Referring Prov ider Active Team Status: Inactive Member Role Status Dates Dr. Andreia Boyer MD Primary Care Provider Active Dr. Loc Hewitt MD Attending Provider, Emergency Pro vider Active Team Status: Active Member Role Status Dates Dr. Andreia Boyer MD Primary Care Pro vider, Attending Provider, Referring Provider Active Team Status: Inactive Member Role Status Dates Dr. Andreia Boyer MD Primary Care Pro vider, Attending Provider, Referring Provider Active Team Status: Inactive Member Role Status Dates Dr. Andreia Boyer MD Primary Care Provider Active Gerald Rolle MD Emergency Provider Active Team Status: Inactive Member Role Status Dates Dr. Andreia Boyer MD Primary Care Provider Active Dr. Lloyd Maravilla DO Attending Provider, Beth crane Active Team Status: Inactive Member Role Status Dates Dr. Andreia Boyer MD Primary Care Provider Active Dr. Lloyd Maravilla DO Emergency Provider Active Team Status: Inactive Member Role Status Dates Dr. Andreia Boyer MD Primary Care Provider, Referri ng Provider Active Maurilio DA SILVA PA Attending Provider Active Team Status: Inactive Member Role Status Dates Dr. Andreia Boyer MD Primary Care Provider Active Dr. Griselda Boswell DO Emergency Provider Active FOR RECORDS PERTAINING TO PATIENTS WHO ARE OR HAVE BEEN ENROLLED IN A CHEMICAL DEPENDENCY/SUBSTANCEABUSE PROGRAM, SOME INFORMATION MAY BE OMITTED. This clinical summary was aggregated from multiple sources. Caution should be exercised in using it in the provision of clinical care. This summary normalizes information from multiple sources, and as a consequence, information in this document may materially change the coding, format and clinical context of patient data. In addition, data may be omitted in some cases. CLINICAL DECISIONS SHOULD BE BASED ON THE PRIMARY CLINICAL RECORDS. [employer] provides no warranty or guarantee of the accuracy or completeness of information in this document.
[2024-10-28] MEDS: Ondansetron 4 MG/2 ML Vial IV (22:52)
[2024-10-28] MEDS: morphine 8 MG/ML Syringe 6 MG IV (22:53)
[2024-10-28 22:56] VITALS: BP 120/71; PULSE 74; O2SAT 96
--- NOTE | 2024-10-28 23:00 | CT_ITS ---
PROCEDURE: ABDOMEN/PELVIS W IV CONT ONLY 10/28/2024 REASON FOR EXAM: ABD PAIN TECHNIQUE: ABDOMEN/PELVIS W IV CONT ONLY. Coronal and Sagittal reconstruction series were provided. ORAL CONTRAST TYPE: None. CONTRAST: 100 mL of Isovue 370 One or more dose reduction techniques were used (e.g., Automated exposure control, adjustment of the mA and/or kV according to patient size, use of iterative reconstruction technique. RADIATION DOSE SUMMARY: DLP: 1370 mGycm COMPARISON: 01/10/24 FINDINGS: Limited sections of the lung bases demonstrate no focal pulmonary mass. The liver, spleen, pancreas, and both kidneys demonstrate no acute findings. 1.1 x 0.9 cm left adrenal nodule. Hepatic steatosis. Hepatomegaly to 23.2 cm. The gallbladder is unremarkable. The stomach is unremarkable. The aorta and IVC demonstrate no acute findings. Minimal atherosclerosis of the abdominal vasculature. There is no free air, free fluid or intestinal obstruction. Scattered small bowel thickening where enteritis not excluded. The appendix is normal. No bowel obstruction. The pelvic structures are intact. There is no solid pelvic mass. Mesenteric lymphadenopathy measuring up to 1.3 cm (series 601.2, image 51) with diffuse stranding may reflect panniculitis. The urinary bladder is nondistended. Visualized osseous structures demonstrate no acute abnormality. CT/Abdomen/Pelvis W IV Cont ONLY IMPRESSION: Mesenteric lymphadenopathy with diffuse stranding may reflect panniculitis. Hepatic steatosis. Scattered small bowel thickening where enteritis not excluded. no bowel obstru ction. Reading Location: [id number]
[2024-10-28 23:03] LABS: Red Blood Cells-Urine 0 SEEN /hpf (0-5); Squamous Epithelial Cells - UA 0 SEEN /hpf (0-5)
[2024-10-28 23:06] LABS: Color, Urine Yellow (Yellow); Glucose, Dipstick Normal (Normal); Ketone-Dipstick Negative (Negative); Leukocyte Esterase-Dipstick Negative /ul (Negative); Nitrite-Dipstick Negative (Negative); Occult Blood-Urine Negative /ul (Negative); Protein-Dipstick 30 mg/dl (Negative); Urine Clarity Clear (Clear); Urine Urobilinogen 4 mg/dl (Normal)
[2024-10-28 23:08] LABS: AST(SGOT) 62 U/L (<=37); Alanine Aminotransfer ALT/SGPT 108 U/L (<=46); Albumin, Serum 4.1 g/dL (3.5-5.0); Alkaline Phosphatase 55 U/L (40-129); Bilirubin, Direct 0.26 mg/dL (0.00-0.30); Globulin 2.8 g/dL (2.2-4.2); Lipase 39 U/L (13-75); Protein, Total 6.9 g/dL (5.9-8.4); Total Bilirubin 0.69 mg/dL (0.00-1.30)
[2024-10-28 23:29] LABS: Urine Bilirubin Dipstick 1 mg/dL (Negative)
[2024-10-28 23:30] LABS: Bacteria 3+ /hpf (None Seen); White Blood Cells 0-5 SEEN /hpf (0-5)
[2024-10-28 23:31] LABS: Hyaline Cast 5-10 SEEN /lpf (0-5); Mucous, Urine 3+ /hpf (<or=2+)
[2024-10-28 23:43] LABS: Troponin T High Sens 2 HR < 6 ng/L (<=22)
[2024-10-29] VITALS: BP 108/70; PULSE 70; O2SAT 97
[2024-10-29 01:17] VITALS: BP 102/62; PULSE 67; RESP 10; O2SAT 94
[2024-10-29 01:33] VITALS: BP 113/76; PULSE 71; RESP 16; TEMP 36.6; O2SAT 100
== END 2024-10-29 01:34 | disposition home or self-care (01) ==
PROVIDERS: Emergency Provider Emergency Medicine; PCP Internal Medicine; Visit Provider Emergency Medicine
DX: R07.9 Chest pain, unspecified (principal); R10.9 Unspecified abdominal pain; E78.5 Hyperlipidemia, unspecified; I25.10 Atherosclerotic heart disease of native coronary artery without angina pectoris; I10 Essential (primary) hypertension; Z79.82 Long term (current) use of aspirin; Z79.02 Long term (current) use of antithrombotics/antiplatelets; Z95.5 Presence of coronary angioplasty implant and graft; K21.9 Gastro-esophageal reflux disease without esophagitis; Z79.899 Other long term (current) drug therapy; F17.220 Nicotine dependence, chewing tobacco, uncomplicated
CPT/HCPCS: 71045; 74177; 80048; 80076; 81001; 83690; 84484; 85025; 93005; 96374; 96375; 99284; Q9967; A4216; J2405

== ENCOUNTER → 2024-11-28 | Outpatient (CLI) | payer OTHER, SELFPAY ==
[2017-06-09 13:21] VITALS: BMI 40.8
[2024-11-28 12:40] LABS: Hematocrit 53.3 % (40-54); Immature Granulocytes Count 0.030 X10^3/uL (0.0-0.0); Mean Corp Hgb Conc 34.1 g/dL (32-36); Mean Corpuscular Volume 94.2 fL (80-94); Mean Platelet Vol. 10.1 fl (6.2-12.0); NRBC Flagged by Analyzer 0 % (0-5); Platelet Count 237 K/mm3 (150-450); RBC Distribution Width CV 14.7 % (11.6-14.6); RBC Distribution Width SD 50.4 fl (35.1-43.9); Red Blood Count 5.66 M/mm3 (4.6-6.2); White Blood Count 8.8 K/mm3 (4.4-11.0)
[2024-11-28 12:41] LABS: Hemoglobin 18.2 g/dL (13.0-16.5)
[2024-11-28 13:22] LABS: Cholesterol 111 mg/dL (<=200); Low Density Lipoprotein Calc. 53 mg/dL; Triglycerides 130 mg/dL; Very Low Density Lipoprotein 26 mg/dL (5-40); cholesterol:hdl ratio screen 3.50
[2024-11-28 13:44] LABS: AST(SGOT) 42 U/L (<=37); Alanine Aminotransfer ALT/SGPT 83 U/L (<=46); Albumin, Serum 4.4 g/dL (3.5-5.0); Alkaline Phosphatase 56 U/L (40-129); Anion Gap 11 (5-15); BUN 9 mg/dL (4-19); BUN/Creat Ratio 11.4 RATIO (10-20); Bilirubin, Direct 0.32 mg/dL (0.00-0.30); Calcium,Total 9.6 mg/dL (7.6-11.0); Carbon Dioxide 26.7 mmol/L (21.0-32.0); Chloride 97 mmol/L (98-108); Globulin 2.9 g/dL (2.2-4.2); Glucose 94 mg/dL (70-99); Potassium 4.8 mmol/L (3.3-5.1)
== END | disposition home or self-care (01) ==
LOC: LAB 12:13
PROVIDERS: Referring Provider Internal Medicine Cardiovascular Disease; Visit Provider Internal Medicine Cardiovascular Disease
DX: E78.5 Hyperlipidemia, unspecified (principal); I10 Essential (primary) hypertension; Z95.5 Presence of coronary angioplasty implant and graft
CPT/HCPCS: 36415; 80048; 80061; 80076; 84443; 85025

== ENCOUNTER 2025-01-30 11:23 | Emergency (ER) | payer OTHER, SELFPAY ==
[2017-06-09 13:21] VITALS: BMI 40.8
[2025-01-30 11:24] VITALS: BP 139/92; PULSE 81; RESP 16; TEMP 36.3; O2SAT 97; BMI 41.1
[2025-01-30] MEDS: 0.9% Normal Saline (1000mL) 1,000 ML 999 ML IV (11:40)
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
[2025-01-30 11:55] LABS: Hematocrit 47.8 % (40-54); Hemoglobin 16.9 g/dL (13.0-16.5); Immature Granulocytes Count 0.010 X10^3/uL (0.0-0.0); Mean Corp Hgb Conc 35.4 g/dL (32-36); Mean Corpuscular Volume 87.7 fL (80-94); Mean Platelet Vol. 10.4 fl (6.2-12.0); NRBC Flagged by Analyzer 0 % (0-5); Platelet Count 211 K/mm3 (150-450); RBC Distribution Width CV 12.1 % (11.6-14.6); RBC Distribution Width SD 38.6 fl (35.1-43.9); Red Blood Count 5.45 M/mm3 (4.6-6.2); White Blood Count 7.5 K/mm3 (4.4-11.0)
--- NOTE | 2025-01-30 12:20 | CT_ITS ---
PROCEDURE: ABDOMEN/PELVIS W IV CONT ONLY 01/30/2025 REASON FOR EXAM: ABD PAIN TECHNIQUE: Procedure Code: [id number] Modality: CT Procedure: ABDOMEN/PELVIS W IV CONT ONLY Coronal and Sagittal reconstruction series were provided. CONTRAST: Isovue 370 VOLUME: 99 mL One or more dose reduction techniques were used (e.g., Automated exposure control, adjustment of the mA and/or kV according to patient size, use of iterative reconstruction technique. RADIATION DOSE SUMMARY: CTDlvol: 34 mGy DLP: 1399 mGycm COMPARISON: October 28, 2024, January 10, 2024 FINDINGS: Lung bases: Clear. Liver: Diffuse fatty liver. Gallbladder: Normal Spleen: Normal Pancreas: Normal Adrenals: Normal adrenal on the right. Small mass involving the adrenal body and posterior limb is 13 mm. Similar to prior exam. Older noncontrast exam revealed this is an adenoma. Kidneys: Normal. Bladder: Normal. Reproductive Organs: Normal Bowel: Normal. Small bowel is normal. Colon is normal. Appendix: Normal Lymph nodes: None appear enlarged. Vasculature: Mild atherosclerotic plaque without aneurysm. Peritoneum / Retroperitoneum: No free air, free fluid or mass. Bones: Mild anterior wedging lower thoracic vertebral bodies. Degenerative changes. Irregular infiltration of the subcutaneous fat with focal areas of hematoma. The index hematoma is 7.4 x 7.[address]/Abdomen/Pelvis W IV Cont ONLY IMPRESSION: 1. Large focus of infiltration of the subcutaneous soft tissues (bruising) rig ht posterolateral back with hematomas present. Largest hematoma is 7.4 x 7.1 x 4.4 cm. 2. Diffuse fatty liver. 3. Small left adrenal adenoma is benign. No follow-up required. Reading Location: [id number]
[2025-01-30 12:34] LABS: AST(SGOT) 27 U/L (<=37); Alanine Aminotransfer ALT/SGPT 54 U/L (<=46); Albumin, Serum 4.3 g/dL (3.5-5.0); Alkaline Phosphatase 54 U/L (40-129); Anion Gap 10 (5-15); BUN 17 mg/dL (4-19); BUN/Creat Ratio 22.9 RATIO (10-20); Calcium,Total 9.5 mg/dL (7.6-11.0); Carbon Dioxide 26.2 mmol/L (21.0-32.0); Chloride 99 mmol/L (98-108); Estimated Creatinine Clearance 177.81 ml/min (50-250); Globulin 2.8 g/dL (2.2-4.2); Glucose 89 mg/dL (70-99); Lipase 36 U/L (13-75); Potassium 4.3 mmol/L (3.3-5.1)
[2025-01-30 13:23] VITALS: BP 119/84; PULSE 63; RESP 16; O2SAT 98
[2025-01-30 13:38] VITALS: BP 119/84; PULSE 63; RESP 16; TEMP 36.3; O2SAT 98
== END 2025-01-30 13:38 | disposition home or self-care (01) ==
PROVIDERS: Emergency Provider Emergency Medicine; Visit Provider Emergency Medicine
DX: R10.9 Unspecified abdominal pain (principal); S30.1XXA Contusion of abdominal wall, initial encounter; E78.5 Hyperlipidemia, unspecified; I10 Essential (primary) hypertension; Q79.59 Other congenital malformations of abdominal wall; I25.2 Old myocardial infarction; Z79.82 Long term (current) use of aspirin; Z79.899 Other long term (current) drug therapy; Z95.5 Presence of coronary angioplasty implant and graft; F17.220 Nicotine dependence, chewing tobacco, uncomplicated; I25.10 Atherosclerotic heart disease of native coronary artery without angina pectoris; V86.95XA Unspecified occupant of 3- or 4- wheeled all-terrain vehicle (ATV) injured in nontraffic accident, initial encounter
CPT/HCPCS: 74177; 80053; 83690; 85025; 96360; 96361; 99283; Q9967; A4216